=== PATIENT | male | born 1955 | race African-American/Black ===

== ENCOUNTER 2018-06-09 10:49 | Emergency (ER) | payer SELFPAY ==
[2018-06-09] MEDS ORDERED: CLONIDINE HCL 0.1 MG TABLET PO ONE (11:46)
--- NOTE | 2018-06-09 11:49 | ER Document Report ---
ED Medical Screen (RME) - General Chief Complaint: Skin Sore(s) Stated Complaint: LEG SORE Time Seen by Provider: 06/09/18 11:42 Primary Care Provider: NADIRA MORALES [Primary Care Provider] - Follow up as needed TRAVEL OUTSIDE OF THE [place] IN LAST 30 DAYS: No - HPI Notes: 06/09/18 11:47 Patient is a 63-year-old male with a history of hypertension who presents emergency department complaining of a wound to his right lower leg that is been present for 2 weeks. Patient states that it did turn into an abscess and drained purulent material recently. Patient states he does have some soreness associated, but has not noticed any further drainage. Denies history of diabetes. Patient states that he has not been taking his blood pressure medicine as he has been out and does not remember the name of it. Denies ROPER, fever, neck pain, URI, CP, SOB, Abd pain. I have treated and performed a rapid initial assessment of this patient. A comprehensive ED assessment and evaluation of the patient, analysis of test results and completion of medical decision making process will be conducted by additional ED providers. PHYSICAL EXAMINATION: GENERAL: Well-appearing, well-nourished and in no acute distress. A&Ox4. Answers questions appropriately. LUNGS: Breath sounds clear to auscultation bilaterally and equal. No wheezes rales or rhonchi. HEART: Regular rate and rhythm without murmurs, rubs, gallops. Extremities: No cyanosis, clubbing, or edema b/l. Skin: there is a fairly large scabbed wound noted to the right anterior lower leg w/o evidence of fluctuance, streaks, or active purulence noted. + mild tenderness. - Related Data Allergies/Adverse Reactions: No Known Allergies Allergy (Verified 06/09/18 10:51) Physical Exam - Vital signs Vitals: Temp Pulse Resp BP Pulse Ox 98.1 F 68 16 199/109 H 97 06/09/18 11:08 06/09/18 11:08 06/09/18 11:08 06/09/18 11:08 06/09/18 11:08 Course - Vital Signs Vital signs: Temp Pulse Resp BP Pulse Ox 98.1 F 68 16 199/109 H 97 06/09/18 11:08 06/09/18 11:08 06/09/18 11:08 06/09/18 11:08 06/09/18 11:08 Doctor's Discharge - Discharge Referrals: LOCAL,NO [Primary Care Provider] - Follow up as needed
[2018-06-09] MEDS ORDERED: CEPHALEXIN 500 MG CAPSULE PO ONE (12:25)
[2018-06-09 12:49] VITALS: BP 172/102
--- NOTE | 2018-06-09 17:13 | ER Document Report ---
Entered by CANDIDA VORA SCRIBE 06/09/18 1229 Acting as scribe for:GIAN WEAVER MD ED General - General Chief Complaint: Skin Sore(s) Stated Complaint: LEG SORE Time Seen by Provider: 06/09/18 11:42 Primary Care Provider: CARMEN,NO [Primary Care Provider] - Follow up in 3-5 days Mode of Arrival: Ambulatory Information source: Patient Notes: Patient is a 63 year old male presenting to the emergency department complaining of a wound on his right lower leg onset 2 weeks ago. Patient states the area is painful and reports purulent discharge from the area recently. He reports possibly bumping into something that could have caused the wound. TRAVEL OUTSIDE OF THE [place] IN LAST 30 DAYS: No - Related Data Allergies/Adverse Reactions: No Known Allergies Allergy (Verified 06/09/18 10:51) Past Medical History - General Information source: Patient - Social History Smoking Status: Current Every Day Smoker Cigarette use (# per day): Yes - less than 1PPD Chew tobacco use (# tins/day): No Smoking Education Provided: No Frequency of alcohol use: Heavy - beer daily Drug Abuse: None Lives with: Spouse/Significant other Family History: Reviewed & Not Pertinent Patient has suicidal ideation: No Patient has homicidal ideation: No - Past Medical History Cardiac Medical History: Reports: Hx Hypertension Past Surgical History: Reports: Hx Orthopedic Surgery - Right ACL repair, Hx Tonsillectomy, Other - Explartory abdominal surgery in 2017 Review of Systems - Review of Systems Constitutional: No symptoms reported EENT: No symptoms reported Cardiovascular: No symptoms reported Respiratory: No symptoms reported Gastrointestinal: No symptoms reported Genitourinary: No symptoms reported Male Genitourinary: No symptoms reported Musculoskeletal: See HPI Skin: See HPI Hematologic/Lymphatic: No symptoms reported Neurological/Psychological: No symptoms reported -: Yes All other systems reviewed and negative Physical Exam - Vital signs Vitals: Temp Pulse Resp BP Pulse Ox 98.1 F 68 16 199/109 H 97 06/09/18 11:08 06/09/18 11:08 06/09/18 11:08 06/09/18 11:08 06/09/18 11:08 - Notes Notes: GENERAL: Alert, interacts well. No acute distress. HEAD: Normocephalic, atraumatic. EYES: Pupils equal, round, and reactive to light. Extraocular movements intact. ENT: Oral mucosa moist, tongue midline NECK: Full range of motion. Supple. Trachea midline. LUNGS: Clear to auscultation bilaterally, no wheezes, rales, or rhonchi. No respiratory distress. HEART: Regular rate and rhythm. No murmurs, gallops, or rubs. ABDOMEN: Soft, non-tender. Non-distended. Bowel sounds present in all 4 quadrants. No guarding, rigidity, or rebound. EXTREMITIES: Moves all 4 extremities spontaneously. NEUROLOGICAL: Alert and oriented x3. Normal speech. PSYCH: Normal affect, normal mood. SKIN: Warm, dry. Right lower medial tibia contains a 0.5x5cm wound. Skin is dry and thickened with no drainage at this time. In the center of the wound, there is a 2mm gap exposing subcutaneous tissue. Patient's socks and shoes are wet. Course - Vital Signs Vital signs: Temp Pulse Resp BP Pulse Ox 98.1 F 71 16 172/102 H 98 06/09/18 11:08 06/09/18 12:48 06/09/18 12:48 06/09/18 12:48 06/09/18 12:48 Discharge - Discharge Clinical Impression: Wound of right lower extremity Qualifiers: Encounter type: initial encounter Qualified Code(s): S81.801A - Unspecified open wound, right lower leg, initial encounter Condition: Stable Disposition: HOME, SELF-CARE Additional Instructions: Take the antibiotics as prescribed. Keep the wound clean and dressed using Neosporin or bacitracin ointment on it. This should help keep the dried out hardened tissue soft and moist. Elevate your leg as much as possible. Be sure you take your blood pressure medicine, because your blood pressure was quite high today. Follow-up with a local medical doctor this week to recheck your wound and treat your blood pressure. RETURN TO THE EMERGENCY ROOM IF ANY NEW OR WORSENING SYMPTOMS. Prescriptions: Cephalexin Monohydrate [Keflex 500 mg Capsule] 500 mg PO QID #28 capsule Referrals: CARMENNO [Primary Care Provider] - Follow up in 3-5 days Scribe Attestation: 06/09/18 12:24 I personally performed the services described in the documentation, reviewed and edited the documentation which was dictated to the scribe in my presence, and it accurately records my words and actions. I personally performed the services described in the documentation, reviewed and edited the documentation which was dictated to the scribe in my presence, and it accurately records my words and actions.
== END 2018-06-09 12:54 | disposition home or self-care (01) ==
LOC: ER 10:49
DX: S81.801A Unspecified open wound, right lower leg, initial encounter (principal); X58.XXXA Exposure to other specified factors, initial encounter; I10 Essential (primary) hypertension; F17.210 Nicotine dependence, cigarettes, uncomplicated
CPT/HCPCS: 82962; 99283

== ENCOUNTER 2019-02-12 23:13 | Emergency (ER) | payer SELFPAY ==
[2019-02-13] MEDS ORDERED: THIAMINE HCL 100 MG TABLET PO ONE (03:03)
--- NOTE | 2019-02-13 03:12 | ER Document Report ---
ED General - General Chief Complaint: Low Blood Sugar Stated Complaint: DIZZY Time Seen by Provider: 02/13/19 02:55 TRAVEL OUTSIDE OF THE [place] IN LAST 30 DAYS: No - HPI Notes: Patient is a 64-year-old male who presents emergency department for evaluation of dizziness. He was at home, states that he called EMS because he felt dizzy and slightly weak. He was treated with dextrose via EMS, and he states all of the symptoms resolved. He states that all he had to eat today it was a bologna sandwich, which she described as a "double [place]." That was at about 1130 this morning. He also admits to drinking 40 ounces of beer. He states he otherwise did not eat anything, states he simply "forgot." He has no history of diabetes. He states he feels entirely back to normal, denies any other acute complaints or concerns. - Related Data Allergies/Adverse Reactions: No Known Allergies Allergy (Verified 06/09/18 10:51) Home Medications: None Past Medical History - General Information source: Patient - Social History Smoking Status: Current Every Day Smoker Frequency of alcohol use: Heavy - Will not elaborate on quantity of alcohol Drug Abuse: None Family History: Reviewed & Not Pertinent Patient has suicidal ideation: No Patient has homicidal ideation: No - Past Medical History Cardiac Medical History: Reports: Hx Hypertension - untreated Renal/ Medical History: Denies: Hx Peritoneal Dialysis Past Surgical History: Reports: Hx Orthopedic Surgery - Right ACL repair, Hx Tonsillectomy, Other - Explartory abdominal surgery in 2017 Review of Systems - Review of Systems Constitutional: See HPI EENT: No symptoms reported Cardiovascular: No symptoms reported Respiratory: No symptoms reported Gastrointestinal: No symptoms reported Genitourinary: No symptoms reported Musculoskeletal: No symptoms reported Skin: No symptoms reported Neurological/Psychological: No symptoms reported Physical Exam - Vital signs Vitals: Temp Resp BP Pulse Ox 97.9 F 22 H 131/79 H 94 02/12/19 23:29 02/12/19 23:29 02/12/19 23:29 02/12/19 23:29 - Notes Notes: This is a 64-year-old male who appears older than his stated age, no acute distress. He is resting comfortably in the room. Vital signs reviewed, please refer to chart. Head is normocephalic, atraumatic. Pupils equal round, reactive to light. Oral mucosa is moist. Dentition is in poor condition, but I do not appreciate any significant abscesses or active infection. Neck is supple without meningismus. Heart is regular rate and rhythm. Lungs are clear to auscultation bilaterally. Abdomen is soft, nontender, normoactive bowel sounds throughout. Extremities without cyanosis, clubbing. Posterior calves are nontender. Peripheral pulses are equal. Skin is warm and dry. Patient is awake, alert, oriented x3. Cranial nerves II - XII are grossly intact without focal neurological deficits. Strength is plus 5 out of 5 bilateral upper and lower extremities. Sensation is intact. Reflexes symmetrical. Intact [id number], rapid alternating movements, [id number]. Course - Re-evaluation Re-evalutation: 02/13/19 03:07 Patient presents emergency department for evaluation. He is a 64-year-old gentleman who complained of dizziness, was found to be hypoglycemic. My suspicion is that this patient may in fact have an alcohol abuse problem, which contributed to his hypoglycemia. At the time of my evaluation, the patient had already eaten most of the food on a cafeteria tray. He was resting comfortably. He had no acute complaints or concerns. Because of my concerns of alcoholism, I did go ahead and administer thiamine orally. The patient states he has no acute complaints and concerns, he is back to baseline. He is anxious for discharge. Pending 1 more normal blood glucose, we will discharge the patient with close follow-up. He is to return to the ED with worsening. 02/13/19 04:03 Patient's repeat blood glucose is within normal limits. He is stable. He is neurologically intact. His heart rate is normal at this time. We will discharge him to home. He is encouraged to quit drinking, we discussed appropriate nutrition. He voiced understanding was discharged. - Vital Signs Vital signs: Temp Pulse Resp BP Pulse Ox 97.9 F 21 H 140/76 H 98 02/12/19 23:30 02/13/19 00:01 02/13/19 00:01 02/13/19 00:01 - Laboratory Laboratory results interpreted by me: 02/12/19 23:22 POC Glucose 331 H Discharge - Discharge Clinical Impression: Hypoglycemia Condition: Stable Disposition: HOME, SELF-CARE Instructions: Dizziness ([facility]), Hypoglycemia ([facility]) Additional Instructions: It is important that you eat regularly. Follow-up with primary care this week. Return to the ED with worsening or new concerning symptoms of any sort. Forms: Elevated Blood Pressure
[2019-02-13 04:53] VITALS: BP 150/109
== END 2019-02-13 05:00 | disposition home or self-care (01) ==
LOC: ER 23:13
DX: E16.2 Hypoglycemia, unspecified (principal); R42 Dizziness and giddiness; R53.1 Weakness; F17.200 Nicotine dependence, unspecified, uncomplicated; I10 Essential (primary) hypertension
CPT/HCPCS: 82962; 99285

== ENCOUNTER 2019-02-19 17:58 | Inpatient (IN) | payer MEDICAID ==
[2019-02-19] MEDS ORDERED: ASPIRIN 81 MG TABLET, CHEWABLE PO ONE (20:14)
[2019-02-19] MEDS ORDERED: METOPROLOL TARTRATE 25 MG TABLET PO ONE (20:15)
[2019-02-19 20:51] LABS: ABSOLUTE EOSINOPHILS # (AUTO) 0.1 10^3/uL (0.0-0.6); ABSOLUTE LYMPHOCYTES (AUTO) 1.2 10^3/uL (0.5-4.7); ABSOLUTE MONOCYTES (AUTO) 0.6 10^3/uL (0.1-1.4); ABSOLUTE NEUT (AUTO) 2.5 10^3/uL (1.7-8.2); ALBUMIN 3.6 g/dL (3.5-5.0); ALCOHOL 78 mg/dL (NONE DETECTED); ALKALINE PHOSPHATASE 94 U/L (38-126); ANION GAP 14 (5-19); ASPARTATE AMINO TRANSFERASE 23 U/L (17-59); BASOPHILS % (AUTO) 0.8 % (0-2); BILIRUBIN,DIRECT 0.2 mg/dL (0.0-0.4); BILIRUBIN,TOTAL 0.3 mg/dL (0.2-1.3); BLOOD UREA NITROGEN 11 mg/dL (7-20); CALCIUM 9.3 mg/dL (8.4-10.2); CARBON DIOXIDE 24 mmol/L (22-30); CHLORIDE 101 mmol/L (98-107); EOSINOPHILS % (AUTO) 3.2 % (0-6); GLUCOSE 104 mg/dL (75-110); HEMATOCRIT 38.5 % (37.9-51.0); HEMOGLOBIN 12.9 g/dL (13.5-17.0); MEAN CORPUSCULAR HEMOGLOBIN 28.8 pg (27.0-33.4); MEAN CORPUSCULAR HGB CONC 33.5 g/dL (32.0-36.0); MEAN CORPUSCULAR VOLUME 86 fl (80-97); MONOCYTES % (AUTO) 13.4 % (3-13); PLATELET COUNT 318 10^3/uL (150-450); POTASSIUM 3.9 mmol/L (3.6-5.0); RED BLOOD COUNT 4.48 10^6/uL (4.35-5.55); RED CELL DISTRIBUTION WIDTH 13.9 % (11.5-14.0); SEGMENTED NEUTROPHILS % (AUTO) 55.6 % (42-78); TOTAL CELLS COUNTED % (AUTO) 100 %; TOTAL PROTEIN 6.9 g/dL (6.3-8.2); WHITE BLOOD COUNT 4.5 10^3/uL (4.0-10.5)
--- NOTE | 2019-02-19 21:09 | ER Document Report ---
ED General - General Chief Complaint: Chest Pain Stated Complaint: CHEST PAIN Time Seen by Provider: 02/19/19 19:55 Notes: 64 year old male with h/o htn takes medicine for this "when I can get it" complains of chest pain that started yesterday and has been constant. No fever or chills. Only htn as past history. No heart disease or dm. Tob user. Living with brother he tells me and pain is gone when I see him. Drinks daily. 2 shots of etoh today. Currently he is hungry and would like something to eat. TRAVEL OUTSIDE OF THE [place] IN LAST 30 DAYS: No - HPI Onset: Yesterday Onset/Duration: Sudden, Constant Quality of pain: No pain Severity: Severe Associated symptoms: None - Related Data Allergies/Adverse Reactions: No Known Allergies Allergy (Verified 06/09/18 10:51) Past Medical History - General Information source: Patient - Social History Smoking Status: Current Every Day Smoker Family History: Reviewed & Not Pertinent Patient has suicidal ideation: No Patient has homicidal ideation: No - Past Medical History Cardiac Medical History: Reports: Hx Hypertension - untreated Renal/ Medical History: Denies: Hx Peritoneal Dialysis Past Surgical History: Reports: Hx Orthopedic Surgery - Right ACL repair, Hx Tonsillectomy, Other - Explartory abdominal surgery in 2017 Review of Systems - Review of Systems Constitutional: No symptoms reported EENT: No symptoms reported Cardiovascular: No symptoms reported Respiratory: No symptoms reported Gastrointestinal: No symptoms reported Genitourinary: No symptoms reported Male Genitourinary: No symptoms reported Musculoskeletal: No symptoms reported Skin: No symptoms reported Hematologic/Lymphatic: No symptoms reported Neurological/Psychological: No symptoms reported Physical Exam - Vital signs Vitals: Temp Pulse Resp BP Pulse Ox 99.2 F 120 H 22 H 145/92 H 98 02/19/19 19:08 02/19/19 19:08 02/19/19 19:08 02/19/19 19:08 02/19/19 19:08 Interpretation: Normal - General General appearance: Appears well, Alert - HEENT Head: Normocephalic, Atraumatic Eyes: Normal Pupils: PERRL - Respiratory Respiratory status: No respiratory distress Chest status: Nontender Breath sounds: Normal Chest palpation: Normal - Cardiovascular Rhythm: Regular Heart sounds: Normal auscultation Murmur: No - Abdominal Inspection: Normal Distension: No distension Bowel sounds: Normal Tenderness: Nontender Organomegaly: No organomegaly - Back Back: Normal, Nontender - Extremities General upper extremity: Normal inspection, Nontender, Normal color, Normal ROM, Normal temperature General lower extremity: Normal inspection, Nontender, Normal color, Normal ROM, Normal temperature, Normal weight bearing. No: Greg's sign - Neurological Neuro grossly intact: Yes Cognition: Normal Orientation: AAOx4 Maisha Coma Scale Eye Opening: Spontaneous Maisha Coma Scale Verbal: Oriented [place] Coma Scale Motor: Obeys Commands [place] Coma Scale Total: 15 Speech: Normal Motor strength normal: LUE, RUE, LLE, RLE Sensory: Normal - Psychological Associated symptoms: Normal affect, Normal mood - Skin Skin Temperature: Warm Skin Moisture: Dry Skin Color: Normal Course - Re-evaluation Re-evalutation: 02/20/19 01:35 MDM 64 year old with htn perhaps etohic is here with chest pain for a day. A fib originally and cxr and ct are supportive of airspace disease. Will cover with antibiotics that would cover aspiration. I have discussed with him admission and he is willing to stay here. The hospitalist has been called and we are awaiting a call back. - Vital Signs Vital signs: Temp Pulse Resp BP Pulse Ox 98.3 F 120 H 33 H 146/94 H 94 02/20/19 02:01 02/19/19 19:08 02/20/19 02:01 02/20/19 02:00 02/20/19 02:01 - Laboratory Result Diagrams: 02/19/19 19:45 02/19/19 19:45 Laboratory results interpreted by me: 02/19/19 02/19/19 19:45 23:40 Hgb 12.9 L [place] % (Auto) 13.4 H Urine Blood SMALL H Ur Leukocyte Esterase SMALL H - Diagnostic Test Radiology reviewed: Image reviewed, Reports reviewed - EKG Interpretation by Me Rate: Tachycardia - Original EKG is A fib with RVR [address] elevation or depression recheck is NSR [address] elevation or depression my interpretation. Discharge - Discharge Clinical Impression: Atrial fibrillation by electrocardiogram Pneumonia Qualifiers: Pneumonia type: due to unspecified organism Laterality: bilateral Lung locati on: upper lobe of lung Qualified Code(s): J18.9 - Pneumonia, unspecified organism Condition: Fair Disposition: ADMITTED INPATIENT Admitting Provider: Edward (Hospitalist) Unit Admitted: Telemetry
--- NOTE | 2019-02-19 21:51 | RADIOLOGY REPORT (SQ) ---
EXAM DESCRIPTION: X-RAY CHEST- TWO VIEWS CLINICAL HISTORY: Chest pain COMPARISON: None available TECHNIQUE: 2 views of the chest FINDINGS: There are overlying EKG leads. There are multifocal patchy opacities, with the most prominent opacity overlying the right apex. No discrete pneumothorax or pleural effusion is identified. The pulmonary vascularity is mildly prominent in appearance. The cardiomediastinal silhouette is borderline enlarged. No suspicious lytic or blastic osseous lesions are identified. IMPRESSION: 1. Suggestion of multifocal patchy opacities most prominently affecting the right upper lobe. Differential diagnosis includes multifocal infectious or inflammatory process. Clinical correlation is advised with consideration for CT chest if clinically indicated. 2. Borderline enlargement of the cardiac silhouette with prominence of the pulmonary vasculature.
--- NOTE | 2019-02-19 22:29 | EKG REPORT ---
SEVERITY:- ABNORMAL ECG - SINUS RHYTHM NONSPECIFIC T ABNORMALITIES, ANT-LAT LEADS BORDERLINE PROLONGED QT INTERVAL : Confirmed by: Ara Perrin 19-Feb-2019 22:29:24
--- NOTE | 2019-02-19 22:30 | EKG REPORT ---
SEVERITY:- ABNORMAL ECG - ATRIAL FIBRILLATION, V-RATE 78-170 MULTIFORM VENTRICULAR PREMATURE COMPLEXES BORDERLINE LEFT AXIS DEVIATION CONSIDER POSTERIOR INFARCT BORDERLINE PROLONGED QT INTERVAL : Confirmed by: Ara Perrin 19-Feb-2019 22:29:59
[2019-02-20 00:09] LABS: APPEARANCE,URINE SLIGHTLY-CLOUDY; BILIRUBIN,URINE NEGATIVE (NEGATIVE); COLOR,URINE YELLOW; GLUCOSE, URINE NEGATIVE (NEGATIVE); KETONES,URINE NEGATIVE (NEGATIVE); LEUKOCYTE ESTERASE,URINE SMALL (NEGATIVE); NITRITE,URINE NEGATIVE (NEGATIVE); PROTEIN,URINE NEGATIVE (NEGATIVE); URINE SPECIFIC GRAVITY 1.013; UROBILINOGEN,URINE NEGATIVE mg/dL (<2.0)
--- NOTE | 2019-02-20 01:05 | RADIOLOGY REPORT (SQ) ---
EXAM DESCRIPTION: CT chest with contrast CLINICAL HISTORY: 64 years Male, pulmonary infiltrates on chest x-ray. COMPARISON: None. TECHNIQUE Axial images of the chest were performed utilizing intravenous contrast, with sagittal and coronal reformatted images. This exam was performed according to our departmental dose-optimization program which includes use of Automated Exposure Control, adjustment of the mA and/or kV according to patient size and/or use of iterative reconstruction technique. FINDINGS: There is patchy bilateral pulmonary infiltrate, most apparent in the right upper lobe, compatible with pneumonia. There is emphysema. There are small bilateral pleural effusions. There is mediastinal and bilateral hilar adenopathy. There is coronary artery calcification. No evidence of pulmonary embolus. No evidence of aortic dissection. IMPRESSION: Bilateral pneumonia. Emphysema. Small bilateral pleural effusions. Mediastinal and bilateral hilar adenopathy. Coronary artery calcification.
[2019-02-20] MEDS ORDERED: PIPERACILLIN/TAZOBACTAM 3.375 GM VIAL IV ONE (01:28)
[2019-02-20] MEDS ORDERED: THIAMINE HCL 100 MG TABLET PO ONE (01:54)
[2019-02-20] MEDS ORDERED: LORAZEPAM INJ 2 MG/1 ML VIAL IV PRN (01:54)
[2019-02-20] MEDS ORDERED: ACETAMINOPHEN 325 MG TABLET PO PRN (01:56)
[2019-02-20] MEDS ORDERED: IPRATROPIUM/ALBUTEROL 0.5-2.5 MG/3 ML AMPUL NEB PRN (01:56)
[2019-02-20] MEDS ORDERED: DILTIAZEM HCL 60 MG TABLET PO ONE (02:10)
[2019-02-20] MEDS: IPRATROPIUM BROMIDE 0.02% NEB 0.5 MG/2.5 ML AMPUL NEB SCH ×4 (02:12→21:12)
[2019-02-20] MEDS: NICOTINE 14 MG/24 HR PATCH.TD24 TD SCH ×2 (02:12→09:01)
[2019-02-20] MEDS: DIAZEPAM 5 MG TABLET PO SCH ×3 (02:12→21:58)
[2019-02-20] MEDS: LEVALBUTEROL HCL NEB 1.25 MG/3 ML AMPUL NEB SCH ×4 (02:13→21:10)
[2019-02-20] MEDS: LEVOFLOXACIN 750 MG/D5W RTU 750 MG/150 ML RTUPB IV SCH (05:08)
[2019-02-20] MEDS: HEPARIN SOD (PORCINE) 5,000 UNIT/ML 1 ML VIAL SUBCUT SCH ×3 (05:08→22:01)
[2019-02-20] MEDS: DILTIAZEM HCL 60 MG TABLET PO SCH ×3 (05:09→21:58)
[2019-02-20] MEDS ORDERED: INFLUENZA QUAD (6MOS+) 2019-20 VAC 0.5 ML SYR IM ONE (05:30)
--- NOTE | 2019-02-20 05:51 | PDOC H&P ---
History of Present Illness Admission Date/PCP: 02/20/19 02:12 Patient complains of: Shortness of breath and chest pain History of Present Illness: SHAHNAZ CASANOVA is a 64 year old male with a past medical history of COPD,, hypertension, tobacco and alcohol dependence who is long-term homeless. He presents with chest pains. In the emergency room he is found to have paroxysmal atrial fibrillation and a right lung infiltrate. He started on empiric antibiotics and referred to the hospitalist for admission. Patient admits to some sharp intermittent self resolving pain without radiation associated with shortness of breath. Denies fever or current chest pain. Patient is a poor historian he denies current medication use admits to heavy alcohol. Past Medical History Cardiac Medical History: Reports: Hypertension - untreated Pulmonary Medical History: Reports: Bronchitis, Chronic Obstructive Pulmonary Disease (COPD) Psychiatric Medical History: Reports: Alcohol Dependency, Tobacco Dependency Denies: Depression Past Surgical History Past Surgical History: Reports: Orthopedic Surgery - Right ACL repair, Tonsillectomy, Other - Explartory abdominal surgery in 2017 Social History Information Source: Patient Smoking Status: Current Every Day Smoker Electronic Cigarette use?: No Number of Years Smokin Last Time Smoked: 02/19/2019 Frequency of Alcohol Use: Heavy Hx Recreational Drug Use: No Drugs: None Hx Prescription Drug Abuse: No - Advance Directive Resuscitation Status: Full Code Family History Family History: COPD, Hypertension Parental Family History Reviewed: Yes Children Family History Reviewed: Yes Sibling(s) Family History Reviewed.: Yes Medication/Allergy Home Medications: RX: No Home Medications 02/20/19 Allergies/Adverse Reactions: No Known Allergies Allergy (Verified 06/09/18 10:51) Review of Systems Constitutional: ABSENT: chills, fever(s), headache(s), weight gain, weight loss Eyes: ABSENT: visual disturbances Ears: ABSENT: hearing changes Cardiovascular: ABSENT: chest pain, dyspnea on exertion, edema, orthropnea, palpitations Respiratory: ABSENT: cough, hemoptysis Gastrointestinal: ABSENT: abdominal pain, constipation, diarrhea, hematemesis, hematochezia, nausea, vomiting Genitourinary: ABSENT: dysuria, hematuria Musculoskeletal: ABSENT: joint swelling Integumentary: ABSENT: rash, wounds Neurological: ABSENT: abnormal gait, abnormal speech, confusion, dizziness, focal weakness, syncope Psychiatric: ABSENT: anxiety, depression, homidical ideation, suicidal ideation Endocrine: ABSENT: cold intolerance, heat intolerance, polydipsia, polyuria Hematologic/Lymphatic: ABSENT: easy bleeding, easy bruising Physical Exam Vital Signs: Temp Pulse Resp BP Pulse Ox 98.3 F 120 H 24 H 113/80 97 02/20/19 02:01 02/19/19 19:08 02/20/19 05:01 02/20/19 05:00 02/20/19 05:01 Intake & Output 02/18/19 02/19/19 02/20/19 11:59 11:59 11:59 Weight 70 kg General appearance: PRESENT: cooperative, disheveled, mild distress, thin Head exam: PRESENT: atraumatic, normocephalic Eye exam: PRESENT: conjunctiva pink, EOMI, PERRLA. ABSENT: scleral icterus Ear exam: PRESENT: normal external ear exam Mouth exam: PRESENT: moist, tongue midline Neck exam: ABSENT: carotid bruit, JVD, lymphadenopathy, thyromegaly Respiratory exam: PRESENT: decreased breath sounds, prolonged expiratory phas, retraction, symmetrical, tachypnea. ABSENT: chest wall tenderness Cardiovascular exam: PRESENT: +S1, +S2, tachycardia Pulses: PRESENT: normal dorsalis pedis pul Vascular exam: PRESENT: normal capillary refill GI/Abdominal exam: PRESENT: normal bowel sounds, soft. ABSENT: distended, guarding, mass, organolmegaly, rebound, tenderness Rectal exam: PRESENT: deferred Extremities exam: PRESENT: full ROM. ABSENT: calf tenderness, clubbing, pedal edema Neurological exam: PRESENT: alert, awake, oriented to person, oriented to place, oriented to time, oriented to situation, CN II-XII grossly intact. ABSENT: motor sensory deficit Psychiatric exam: PRESENT: appropriate affect, normal mood. ABSENT: homicidal ideation, suicidal ideation Skin exam: PRESENT: dry, intact, warm. ABSENT: cyanosis, rash Results Laboratory Results: 02/19/19 19:45 02/19/19 19:45 02/19/19 02/19/19 02/19/19 19:45 19:45 22:43 WBC 4.5 RBC 4.48 Hgb 12.9 L Hct 38.5 MCV 86 MCH 28.8 MCHC 33.5 RDW 13.9 Plt Count 318 Seg Neutrophils % 55.6 Sodium 138.6 Potassium 3.9 Chloride 101 Carbon Dioxide 24 Anion Gap 14 BUN 11 Creatinine 0.76 Est GFR ( Amer) > 60 Glucose 104 Lactic Acid Calcium 9.3 Phosphorus 4.0 Magnesium 2.1 2.1 Total Bilirubin 0.3 AST 23 Alkaline Phosphatase 94 Total Protein 6.9 Albumin 3.6 Lipase 33.4 Urine Color Urine Appearance Urine pH Ur Specific [place] Urine Protein Urine Glucose (UA) Urine Ketones Urine Blood Urine Nitrite Ur Leukocyte Esterase 02/19/19 02/19/19 02/19/19 22:43 23:40 23:40 WBC RBC Hgb Hct MCV MCH MCHC RDW Plt Count Seg Neutrophils % Sodium Potassium Chloride Carbon Dioxide Anion Gap BUN Creatinine Est GFR ( Amer) Glucose Lactic Acid 1.3 Calcium Phosphorus Cancelled Magnesium Total Bilirubin AST Alkaline Phosphatase Total Protein Albumin Lipase Urine Color YELLOW Urine Appearance SLIGHTLY-CLOUDY Urine pH 6.0 Ur Specific [place] 1.013 Urine Protein NEGATIVE Urine Glucose (UA) NEGATIVE Urine Ketones NEGATIVE Urine Blood SMALL H Urine Nitrite NEGATIVE Ur Leukocyte Esterase SMALL H 02/19/19 02/19/19 19:45 22:43 Troponin I 0.050 0.040 Impressions: Chest X-Ray 02/19/19 20:15 IMPRESSION: 1. Suggestion of multifocal patchy opacities most prominently affecting the right upper lobe. Differential diagnosis includes multifocal infectious or inflammatory process. Clinical correlation is advised with consideration for CT chest if clinically indicated. 2. Borderline enlargement of the cardiac silhouette with prominence of the pulmonary vasculature. Chest CT 02/19/19 22:43 IMPRESSION: Bilateral pneumonia. Emphysema. Small bilateral pleural effusions. Mediastinal and bilateral hilar adenopathy. Coronary artery calcification. Assessment and Plan - Diagnosis (1) Atrial fibrillation by electrocardiogram Is this a current diagnosis for this admission?: Yes Plan: Spontaneous resolution to sinus rhythm with improved respiratory status. Not a candidate for anticoagulation given alcoholism and homeless state. Follow-up telemetry (2) Pneumonia Qualifiers: Pneumonia type: due to unspecified organism Laterality: bilateral Lung location: upper lobe of lung Qualified Code(s): J18.9 - Pneumonia, unspecified organism Is this a current diagnosis for this admission?: Yes Plan: Possible aspiration pneumonitis, pneumonia care set, aggressive pulmonary toilet, empiric antibiotics, follow-up CBC and blood culture (3) Alcohol dependence Is this a current diagnosis for this admission?: Yes Plan: Thiamine, folate, Valium with Ativan PRN (4) Homeless Is this a current diagnosis for this admission?: Yes Plan: Discharge planning consulted (5) Tobacco abuse Is this a current diagnosis for this admission?: Yes Plan: Cessation counseling, patient agrees to nicotine replacement - Time Time Spent with patient: 25-34 minutes - Inpatient Certification Medical Necessity: Need Close Monitoring Due to Risk of Patient Decompensation
[2019-02-20] MEDS: FLUTICASONE NASAL SPRAY 50 MCG/SPRY 120 SPRAY/16 GM NASL SCH ×2 (09:32→21:58)
[2019-02-21] MEDS: LEVALBUTEROL HCL NEB 1.25 MG/3 ML AMPUL NEB SCH ×4 (02:47→20:48)
[2019-02-21] MEDS: IPRATROPIUM BROMIDE 0.02% NEB 0.5 MG/2.5 ML AMPUL NEB SCH ×4 (02:47→20:48)
[2019-02-21 05:02] LABS: ABSOLUTE EOSINOPHILS # (AUTO) 0.2 10^3/uL (0.0-0.6); ABSOLUTE LYMPHOCYTES (AUTO) 1.1 10^3/uL (0.5-4.7); ABSOLUTE MONOCYTES (AUTO) 0.6 10^3/uL (0.1-1.4); ABSOLUTE NEUT (AUTO) 1.9 10^3/uL (1.7-8.2); BASOPHILS % (AUTO) 0.9 % (0-2); EOSINOPHILS % (AUTO) 5.8 % (0-6); HEMATOCRIT 39.2 % (37.9-51.0); HEMOGLOBIN 13.3 g/dL (13.5-17.0); LYMPHOCYTES % (AUTO) 29.2 % (13-45); MEAN CORPUSCULAR HGB CONC 33.8 g/dL (32.0-36.0); MEAN CORPUSCULAR VOLUME 86 fl (80-97); MONOCYTES % (AUTO) 15.2 % (3-13); PLATELET COUNT 333 10^3/uL (150-450); RED BLOOD COUNT 4.58 10^6/uL (4.35-5.55); RED CELL DISTRIBUTION WIDTH 13.9 % (11.5-14.0); SEGMENTED NEUTROPHILS % (AUTO) 48.9 % (42-78); TOTAL CELLS COUNTED % (AUTO) 100 %; WHITE BLOOD COUNT 3.9 10^3/uL (4.0-10.5)
[2019-02-21 05:21] LABS: ANION GAP 7 (5-19); BLOOD UREA NITROGEN 10 mg/dL (7-20); CALCIUM 9.1 mg/dL (8.4-10.2); CARBON DIOXIDE 26 mmol/L (22-30); CHLORIDE 104 mmol/L (98-107); GLUCOSE 132 mg/dL (75-110); POTASSIUM 4.5 mmol/L (3.6-5.0)
[2019-02-21] MEDS: HEPARIN SOD (PORCINE) 5,000 UNIT/ML 1 ML VIAL SUBCUT SCH ×3 (06:55→21:42)
[2019-02-21] MEDS: DILTIAZEM HCL 60 MG TABLET PO SCH ×3 (06:55→21:38)
[2019-02-21] MEDS: LEVOFLOXACIN 750 MG/D5W RTU 750 MG/150 ML RTUPB IV SCH (06:56)
[2019-02-21] MEDS: DIAZEPAM 5 MG TABLET PO SCH ×2 (09:40→21:38)
[2019-02-21] MEDS: NICOTINE 14 MG/24 HR PATCH.TD24 TD SCH (09:41)
[2019-02-21] MEDS: FLUTICASONE NASAL SPRAY 50 MCG/SPRY 120 SPRAY/16 GM NASL SCH ×2 (09:50→21:37)
[2019-02-21] MEDS ORDERED: INFLUENZA QUAD (6MOS+) 2019-20 VAC 0.5 ML SYR IM ONE (11:15)
[2019-02-21 12:42] LABS: FREE T3 3.53 pg/mL (2.77-5.27); FREE T4 (FREE THYROXINE) 1.09 ng/dL (0.78-2.19)
[2019-02-21 12:56] LABS: THYROID STIMULATING HORMONE 2.94 uIU/mL (0.47-4.68)
--- NOTE | 2019-02-21 17:07 | PDOC PROGRESS REPORT ---
Subjective Progress Note for:: 02/21/19 Subjective:: This is a 64 year old male with a past medical history of COPD, hypertension, tobacco, homelessness and alcohol dependence who was admitted for bilateral pneumonia. He also had a very short run of A. fib which spontaneously converted to normal sinus rhythm. Started on IV antibiotics and breathing treatments. On encounter this morning, patient says that her shortness of breath continued to improve. He denies chest pain today. He is in sinus rhythm. Called by RN later this afternoon. Patient became very agitated after his personal belongings got lost. He also became very tachycardic in the 140s and was given IV Ativan. Reason For Visit: COPD EXACERBATION,TACHYCARDIA,ETOH DEP PNUEMONIA Physical Exam Vital Signs: Temp Pulse Resp BP Pulse Ox 97.1 F 138 H 19 138/86 H 100 02/21/19 16:00 02/21/19 16:00 02/21/19 16:00 02/21/19 16:00 02/21/19 16:00 Intake & Output 02/20/19 02/21/19 02/22/19 06:59 06:59 06:59 Intake Total 150 2080 746 Output Total 1460 725 Balance 150 620 21 Weight 154 lb 5.177 oz 150 lb 2.157 oz General appearance: PRESENT: no acute distress, well-developed, well-nourished Head exam: PRESENT: atraumatic, normocephalic Eye exam: PRESENT: conjunctiva pink, EOMI, PERRLA. ABSENT: scleral icterus Ear exam: PRESENT: normal external ear exam Mouth exam: PRESENT: moist, tongue midline Neck exam: ABSENT: carotid bruit, JVD, lymphadenopathy, thyromegaly Respiratory exam: PRESENT: rhonchi. ABSENT: rales, wheezes Cardiovascular exam: PRESENT: RRR. ABSENT: diastolic murmur, rubs, systolic murmur Pulses: PRESENT: normal dorsalis pedis pul GI/Abdominal exam: PRESENT: normal bowel sounds, soft. ABSENT: distended, guarding, mass, organolmegaly, rebound, tenderness Rectal exam: PRESENT: deferred Extremities exam: PRESENT: full ROM. ABSENT: calf tenderness, clubbing, pedal edema Neurological exam: PRESENT: alert, awake, oriented to person, oriented to place, oriented to time, oriented to situation, CN II-XII grossly intact. ABSENT: motor sensory deficit Results Laboratory Results: 02/21/19 04:03 02/21/19 04:03 02/21/19 02/21/19 02/21/19 04:03 04:03 04:03 WBC 3.9 L RBC 4.58 Hgb 13.3 L Hct 39.2 MCV 86 MCH 29.0 MCHC 33.8 RDW 13.9 Plt Count 333 Seg Neutrophils % 48.9 Sodium 137.2 Potassium 4.5 Chloride 104 Carbon Dioxide 26 Anion Gap 7 BUN 10 Creatinine 0.92 Est GFR ( Amer) > 60 Glucose 132 H Calcium 9.1 TSH 2.94 Free T4 1.09 Free T3 pg/mL 3.53 02/20/19 00:28 Blood Blood Culture (PCR) - Final Staphylococcus Species 02/19/19 02/19/19 02/20/19 19:45 22:43 07:45 Troponin I 0.050 0.040 0.043 Impressions: Chest X-Ray 02/19/19 20:15 IMPRESSION: 1. Suggestion of multifocal patchy opacities most prominently affecting the right upper lobe. Differential diagnosis includes multifocal infectious or inflammatory process. Clinical correlation is advised with consideration for CT chest if clinically indicated. 2. Borderline enlargement of the cardiac silhouette with prominence of the pulmonary vasculature. Chest CT 02/19/19 22:43 IMPRESSION: Bilateral pneumonia. Emphysema. Small bilateral pleural effusions. Mediastinal and bilateral hilar adenopathy. Coronary artery calcification. Assessment and Plan - Diagnosis (1) Pneumonia Qualifiers: Pneumonia type: due to unspecified organism Laterality: bilateral Lung location: upper lobe of lung Qualified Code(s): J18.9 - Pneumonia, unspecified organism Is this a current diagnosis for this admission?: Yes Plan: CT chest shows bilateral pneumonia more prominent on the right upper lobe. Suspect there is aspiration component given his alcohol abuse. Continue levofloxacin. Blood culture growing Staph 1/2. (2) Alcohol dependence Is this a current diagnosis for this admission?: Yes Plan: Counseled in length about alcohol cessation. (3) Tobacco abuse Is this a current diagnosis for this admission?: Yes Plan: Counseled about smoking cessation. (4) Paroxysmal atrial fibrillation Is this a current diagnosis for this admission?: Yes Plan: Patient had a short run of A. fib which spontaneously converted to normal sinus rhythm in the ER. He has a CHADVASC score of 2. Attempted to discuss long-term anticoagulation given his alcohol abuse and homelessness but patient is upset at the moment and does not want to carry on this conversation. - Time Time Spent with patient: 25-34 minutes
[2019-02-22] MEDS: IPRATROPIUM BROMIDE 0.02% NEB 0.5 MG/2.5 ML AMPUL NEB SCH ×2 (02:17→07:48)
[2019-02-22] MEDS: LEVALBUTEROL HCL NEB 1.25 MG/3 ML AMPUL NEB SCH ×2 (02:17→07:48)
[2019-02-22] MEDS: DILTIAZEM HCL 60 MG TABLET PO SCH (05:47)
[2019-02-22] MEDS: HEPARIN SOD (PORCINE) 5,000 UNIT/ML 1 ML VIAL SUBCUT SCH (05:48)
[2019-02-22] MEDS: LEVOFLOXACIN 750 MG/D5W RTU 750 MG/150 ML RTUPB IV SCH (05:48)
[2019-02-22] MEDS: NICOTINE 14 MG/24 HR PATCH.TD24 TD SCH (09:41)
[2019-02-22] MEDS: FLUTICASONE NASAL SPRAY 50 MCG/SPRY 120 SPRAY/16 GM NASL SCH (09:42)
[2019-02-22] MEDS: DIAZEPAM 5 MG TABLET PO SCH (09:44)
[2019-02-22] MEDS ORDERED: ASPIRIN 81 MG TABLET, CHEWABLE PO SCH (10:00)
[2019-02-22 12:51] VITALS: BP 113/69
--- NOTE | 2019-02-22 17:05 | EKG REPORT ---
SEVERITY:- BORDERLINE ECG - SINUS RHYTHM BORDERLINE PROLONGED QT INTERVAL : Confirmed by: Ara Perrin 22-Feb-2019 17:04:47
--- NOTE | 2019-02-23 13:56 | PDOC DISCHARGE SUMMARY ---
Impression - Admit/DC Date/PCP Admission Date/Primary Care Provider: 02/20/19 02:12 Discharge Date: 02/22/19 - Discharge Diagnosis (1) Pneumonia Is this a current diagnosis for this admission?: Yes (2) Alcohol dependence Is this a current diagnosis for this admission?: Yes (3) Tobacco abuse Is this a current diagnosis for this admission?: Yes (4) Paroxysmal atrial fibrillation Is this a current diagnosis for this admission?: Yes - Additional Information Resuscitation Status: Full Code Discharge Diet: Regular Referrals: [facility] [Provider Group] - 03/13/19 (PLEASE STOP BY OFFICE AND AOC DIRECTOR COMBAT OPERATIONS OFFICER YOUR NEW PATIENT PAPERWORK AND A TIME FOR YOUR APPOINTMENT WILL BE GIVEN TO YOU AT THAT TIME) Prescriptions: Aspirin [Aspirin 81 mg Chewable Tablet] 81 mg PO DAILY #30 tab.chew Diltiazem HCl [Cardizem Cd 120 mg Capsule] 1 cap.sr PO DAILY #30 cap.sr Levofloxacin [Levaquin 500 mg Tablet] 500 mg PO DAILY 5 Days #5 tablet Nicotine [Nicoderm 14 mg/24 Hr Transdermal Patch] 1 each TD DAILY #30 patch.td24 Home Medications: Aspirin [Aspirin 81 mg Chewable Tablet] 81 mg PO DAILY #30 tab.chew 02/22/19 Diltiazem HCl [Cardizem Cd 120 mg Capsule] 1 cap.sr PO DAILY #30 cap.sr 02/22/19 Levofloxacin [Levaquin 500 mg Tablet] 500 mg PO DAILY 5 Days #5 tablet 02/22/19 Nicotine [Nicoderm 14 mg/24 Hr Transdermal Patch] 1 each TD DAILY #30 patch.td24 02/22/19 History of Present Illiness History of Present Illness: SHAHNAZ CASANOVA is a 64 year old male with a past medical history of COPD,, hy pertension, tobacco and alcohol dependence who is long-term homeless. He presents with chest pains. In the emergency room he is found to have paroxysmal atrial fibrillation and a right lung infiltrate. He started on empiric antibiotics and referred to the hospitalist for admission. Patient admits to some sharp intermittent self resolving pain without radiation associated with shortness of breath. Denies fever or current chest pain. Patient is a poor historian he denies current medication use but admits to heavy alcohol drinking. Hospital Course Hospital Course: This is a 64 year old male with a past medical history of COPD, hypertension, tobacco, homelessness and alcohol dependence who was admitted for bilateral pneumonia. He also had a very short run of A. fib which spontaneously converted to normal sinus rhythm. He was started on IV antibiotics and breathing treatments. Patient promptly returned to his baseline. His pneumonia is likely aspiration in nature due to his heavy alcohol drinking. He remains in normal sinus rhythm. We also discussed risk and benefits long-term anticoagulation for his paroxysmal A. fib. He is not amenable to the risk of bleeding and prefers not to be on long-term anticoagulation. Offered him on just aspirin instead and he is amenable to this. He will be discharged on p.o. levofloxacin. Counseled in length about tobacco and alcohol cessation. Physical Exam Vital Signs: Temp Pulse Resp BP Pulse Ox 98.3 F 78 17 113/69 100 02/22/19 12:00 02/22/19 12:00 02/22/19 12:00 02/22/19 12:00 02/22/19 12:00 Intake & Output 02/21/19 02/22/19 02/23/19 06:59 06:59 06:59 Intake Total 2080 2408 390 Output Total 1460 1075 Balance 620 1333 390 Weight 150 lb 2.157 oz 150 lb 5.684 oz General appearance: PRESENT: no acute distress, well-developed, well-nourished Head exam: PRESENT: atraumatic, normocephalic Eye exam: PRESENT: conjunctiva pink, EOMI, PERRLA. ABSENT: scleral icterus Ear exam: PRESENT: normal external ear exam Mouth exam: PRESENT: moist, tongue midline Neck exam: ABSENT: carotid bruit, JVD, lymphadenopathy, thyromegaly Respiratory exam: PRESENT: clear to auscultation jefferson. ABSENT: rales, rhonchi, wheezes Cardiovascular exam: PRESENT: RRR. ABSENT: diastolic murmur, rubs, systolic murmur Pulses: PRESENT: normal dorsalis pedis pul Vascular exam: PRESENT: normal capillary refill GI/Abdominal exam: PRESENT: normal bowel sounds, soft. ABSENT: distended, guarding, mass, organolmegaly, rebound, tenderness Rectal exam: PRESENT: deferred Extremities exam: PRESENT: full ROM. ABSENT: calf tenderness, clubbing, pedal edema Neurological exam: PRESENT: alert, awake, oriented to person, oriented to place, oriented to time, oriented to situation, CN II-XII grossly intact. ABSENT: motor sensory deficit Results Laboratory Results: WBC 3.9 10^3/uL (4.0-10.5) L 02/21/19 04:03 RBC 4.58 10^6/uL (4.35-5.55) 02/21/19 04:03 Hgb 13.3 g/dL (13.5-17.0) L 02/21/19 04:03 Hct 39.2 % (37.9-51.0) 02/21/19 04:03 MCV 86 fl (80-97) 02/21/19 04:03 MCH 29.0 pg (27.0-33.4) 02/21/19 04:03 MCHC 33.8 g/dL (32.0-36.0) 02/21/19 04:03 RDW 13.9 % (11.5-14.0) 02/21/19 04:03 Plt Count 333 10^3/uL (150-450) 02/21/19 04:03 Lymph % (Auto) 29.2 % (13-45) 02/21/19 04:03 [place] % (Auto) 15.2 % (3-13) H 02/21/19 04:03 Eos % (Auto) 5.8 % (0-6) 02/21/19 04:03 Baso % (Auto) 0.9 % (0-2) 02/21/19 04:03 Absolute Neuts (auto) 1.9 10^3/uL (1.7-8.2) 02/21/19 04:03 Absolute Lymphs (auto) 1.1 10^3/uL (0.5-4.7) 02/21/19 04:03 Absolute Monos (auto) 0.6 10^3/uL (0.1-1.4) 02/21/19 04:03 Absolute Eos (auto) 0.2 10^3/uL (0.0-0.6) 02/21/19 04:03 Absolute Basos (auto) 0.0 10^3/uL (0.0-0.2) 02/21/19 04:03 Seg Neutrophils % 48.9 % (42-78) 02/21/19 04:03 Sodium 137.2 mmol/L (137-145) 02/21/19 04:03 Potassium 4.5 mmol/L (3.6-5.0) 02/21/19 04:03 Chloride 104 mmol/L (98-107) 02/21/19 04:03 Carbon Dioxide 26 mmol/L (22-30) 02/21/19 04:03 Anion Gap 7 (5-19) 02/21/19 04:03 BUN 10 mg/dL (7-20) 02/21/19 04:03 Creatinine 0.92 mg/dL (0.52-1.25) 02/21/19 04:03 Est GFR ( Amer) > 60 (>60) 02/21/19 04:03 Est GFR (MDRD) Non-Af > 60 (>60) 02/21/19 04:03 Glucose 132 mg/dL (75-110) H 02/21/19 04:03 Hemoglobin A1c % 5.8 % (4.7-6.0) 02/21/19 04:03 Lactic Acid 1.3 mmol/L (0.7-2.1) 02/19/19 23:40 Calcium 9.1 mg/dL (8.4-10.2) 02/21/19 04:03 Phosphorus 4.0 mg/dL (2.5-4.5) 02/19/19 22:43 Phosphorus Cancelled 02/19/19 22:43 Magnesium 2.1 mg/dL (1.6-2.3) 02/19/19 22:43 Total Bilirubin 0.3 mg/dL (0.2-1.3) 02/19/19 19:45 Direct Bilirubin 0.2 mg/dL (0.0-0.4) 02/19/19 19:45 Neonat Total Bilirubin Not Reportable 02/19/19 19:45 Neonat Direct Bilirubin Not Reportable 02/19/19 19:45 Neonat Indirect Bili Not Reportable 02/19/19 19:45 AST 23 U/L (17-59) 02/19/19 19:45 ALT 12 U/L (<50) 02/19/19 19:45 Alkaline Phosphatase 94 U/L (38-126) 02/19/19 19:45 Troponin I 0.043 ng/mL 02/20/19 07:45 Total Protein 6.9 g/dL (6.3-8.2) 02/19/19 19:45 Albumin 3.6 g/dL (3.5-5.0) 02/19/19 19:45 Lipase 33.4 U/L (23-300) 02/19/19 19:45 TSH 2.94 uIU/mL (0.47-4.68) 02/21/19 04:03 Free T4 1.09 ng/dL (0.78-2.19) 02/21/19 04:03 Free T3 pg/mL 3.53 pg/mL (2.77-5.27) 02/21/19 04:03 Urine Color YELLOW 02/19/19 23:40 Urine Appearance SLIGHTLY-CLOUDY 02/19/19 23:40 Urine pH 6.0 (5.0-9.0) 02/19/19 23:40 Ur Specific [place] 1.013 02/19/19 23:40 Urine Protein NEGATIVE mg/dL (NEGATIVE) 02/19/19 23:40 Urine Glucose (UA) NEGATIVE mg/dL (NEGATIVE) 02/19/19 23:40 Urine Ketones NEGATIVE mg/dL (NEGATIVE) 02/19/19 23:40 Urine Blood SMALL (NEGATIVE) H 02/19/19 23:40 Urine Nitrite NEGATIVE (NEGATIVE) 02/19/19 23:40 Urine Bilirubin NEGATIVE (NEGATIVE) 02/19/19 23:40 Urine Urobilinogen NEGATIVE mg/dL (<2.0) 02/19/19 23:40 Ur Leukocyte Esterase SMALL (NEGATIVE) H 02/19/19 23:40 Urine Ascorbic Acid NEGATIVE (NEGATIVE) 02/19/19 23:40 Serum Alcohol 78 mg/dL (NONE DETECTED) 02/19/19 19:45 02/19/19 02/19/19 02/20/19 19:45 22:43 07:45 Troponin I 0.050 0.040 0.043 Impressions: Chest X-Ray 02/19/19 20:15 IMPRESSION: 1. Suggestion of multifocal patchy opacities most prominently affecting the right upper lobe. Differential diagnosis includes multifocal infectious or inflammatory process. Clinical correlation is advised with consideration for CT chest if clinically indicated. 2. Borderline enlargement of the cardiac silhouette with prominence of the pulmonary vasculature. Chest CT 02/19/19 22:43 IMPRESSION: Bilateral pneumonia. Emphysema. Small bilateral pleural effusions. Mediastinal and bilateral hilar adenopathy. Coronary artery calcification. Stroke Is this a Stroke Patient?: No Acute Heart Failure - Is this a Heart Failure Patient?: No
== END 2019-02-22 13:27 | disposition home or self-care (01) | DRG 179 ==
LOC: ER 17:58 → EH 02-20 02:12 → 5 02-20 18:51
PROVIDERS: ADMIT Internal Medicine; ATTEND Internal Medicine
DX: J69.0 Pneumonitis due to inhalation of food and vomit (principal); I48.0 Paroxysmal atrial fibrillation; I10 Essential (primary) hypertension; J44.9 Chronic obstructive pulmonary disease, unspecified; R07.9 Chest pain, unspecified; F17.210 Nicotine dependence, cigarettes, uncomplicated; F10.20 Alcohol dependence, uncomplicated; Y90.3 Blood alcohol level of 60-79 mg/100 ml; Z59.0 Homelessness
CPT/HCPCS: 36415; 71045; 71260; 80048; 80053; 80307; 81001; 83036; 83605; 83690; 83735; 84100; 84439; 84443; 84481; 84484; 85025; 87040; 87070; 87077; 87150; 87186; 87205; 93005; 93010; 94667; 94799; 99285; J1644; J1956; J2060; J2543; J3490; J7620

== ENCOUNTER 2019-08-18 17:14 | Inpatient (IN) | payer MEDICAID ==
[2019-08-18 19:49] LABS: ABSOLUTE EOSINOPHILS # (AUTO) 0.1 10^3/uL (0.0-0.6); ABSOLUTE LYMPHOCYTES (AUTO) 1.2 10^3/uL (0.5-4.7); ABSOLUTE MONOCYTES (AUTO) 0.6 10^3/uL (0.1-1.4); ABSOLUTE NEUT (AUTO) 3.2 10^3/uL (1.7-8.2); BASOPHILS % (AUTO) 0.9 % (0-2); EOSINOPHILS % (AUTO) 1.4 % (0-6); HEMATOCRIT 42.7 % (37.9-51.0); HEMOGLOBIN 14.6 g/dL (13.5-17.0); LYMPHOCYTES % (AUTO) 23.5 % (13-45); MEAN CORPUSCULAR HEMOGLOBIN 29.4 pg (27.0-33.4); MEAN CORPUSCULAR HGB CONC 34.1 g/dL (32.0-36.0); MEAN CORPUSCULAR VOLUME 86 fl (80-97); MONOCYTES % (AUTO) 11.1 % (3-13); PLATELET COUNT 346 10^3/uL (150-450); RED BLOOD COUNT 4.95 10^6/uL (4.35-5.55); RED CELL DISTRIBUTION WIDTH 15.1 % (11.5-14.0); SEGMENTED NEUTROPHILS % (AUTO) 63.1 % (42-78); TOTAL CELLS COUNTED % (AUTO) 100 %; WHITE BLOOD COUNT 5.1 10^3/uL (4.0-10.5)
[2019-08-18 19:55] LABS: ALBUMIN 3.9 g/dL (3.5-5.0); ALCOHOL 10 mg/dL (NONE DETECTED); ALKALINE PHOSPHATASE 142 U/L (38-126); ANION GAP 12 (5-19); ASPARTATE AMINO TRANSFERASE 62 U/L (17-59); BILIRUBIN,DIRECT 0.3 mg/dL (0.0-0.4); BILIRUBIN,TOTAL 1.3 mg/dL (0.2-1.3); BLOOD UREA NITROGEN 14 mg/dL (7-20); CALCIUM 9.1 mg/dL (8.4-10.2); CARBON DIOXIDE 21 mmol/L (22-30); CHLORIDE 98 mmol/L (98-107); CREATINE KINASE 289 U/L (55-170); GLUCOSE 76 mg/dL (75-110); POTASSIUM 4.6 mmol/L (3.6-5.0); TOTAL PROTEIN 7.4 g/dL (6.3-8.2)
[2019-08-18 20:06] LABS: TROPONIN I 0.025 ng/mL
--- NOTE | 2019-08-18 20:23 | RADIOLOGY REPORT (SQ) ---
XR CHEST 1 VIEW HISTORY: Shortness of breath. COMPARISON: 02/20/2019 FINDINGS: The heart size is enlarged. There is no pulmonary vascular congestion. No consolidation, pleural effusion, or pneumothorax is seen. There is scarring at the left lung apex. The bony structures are preserved. IMPRESSION: No evidence of acute cardiopulmonary disease.
[2019-08-18 21:00] LABS: APPEARANCE,URINE SLIGHTLY-CLOUDY; BILIRUBIN,URINE NEGATIVE (NEGATIVE); COLOR,URINE AMBER; GLUCOSE, URINE NEGATIVE (NEGATIVE); KETONES,URINE NEGATIVE (NEGATIVE); LEUKOCYTE ESTERASE,URINE NEGATIVE (NEGATIVE); NITRITE,URINE NEGATIVE (NEGATIVE); PROTEIN,URINE 100 mg/dL (NEGATIVE); URINE SPECIFIC GRAVITY 1.021
[2019-08-18] MEDS ORDERED: NORMAL SALINE 500 ML IV ONE (22:09)
[2019-08-18] MEDS ORDERED: THIAMINE HCL 100 MG TABLET PO ONE (22:10)
[2019-08-18 22:46] LABS: URINE AMPHETAMINES SCREEN NEGATIVE; URINE BARBITURATES SCREEN NEGATIVE; URINE BENZODIAZEPINES SCREEN NEGATIVE; URINE COCAINE SCREEN NEGATIVE; URINE METHADONE SCREEN NEGATIVE; URINE PHENCYCLIDINE SCREEN NEGATIVE
[2019-08-18 22:48] LABS: URINE MARIJUANA (THC) SCREEN UNCONFIRMED POSITIVE
[2019-08-19] MEDS ORDERED: MULTIVITAMIN TABLET PO ONE (00:26)
[2019-08-19] MEDS ORDERED: DIAZEPAM 5 MG TABLET PO ONE (00:27)
[2019-08-19] MEDS ORDERED: FOLIC ACID 1 MG TABLET PO ONE (00:27)
[2019-08-19] MEDS ORDERED: ASPIRIN 81 MG TABLET, CHEWABLE PO ONE (00:57)
[2019-08-19] MEDS ORDERED: THIAMINE HCL 100 MG TABLET PO ONE (02:00)
--- NOTE | 2019-08-19 03:03 | ER Document Report ---
Entered by RAMSES JO SCRIBE 08/18/19 2153 Acting as scribe for:HUDSON ZEPEDA IV, MD ED General - General Chief Complaint: Shortness Of Breath Stated Complaint: LEG/FEET SWELLING,SHORT OF BREATH Time Seen by Provider: 08/18/19 17:27 Mode of Arrival: Wheelchair Information source: Patient Notes: This 64 year old male patient with a history of COPD and HTN presents to the ED today with complaints of shortness of breath and bilateral feet swelling for the past x1 week. Patient reports that he noted the redness to his bilateral feet around the same time. He notes that he has never had a problem with swelling to his feet in the past. Patient states that he is a current every day smoker. Per nursing note, patient admits to being a chronic alcoholic and that he is trying to quit. TRAVEL OUTSIDE OF THE [place] IN LAST 30 DAYS: No - Related Data Allergies/Adverse Reactions: No Known Allergies Allergy (Verified 08/18/19 17:38) Past Medical History - General Information source: Patient, [facility] Records - Social History Smoking Status: Current Every Day Smoker Cigarette use (# per day): Yes Chew tobacco use (# tins/day): No Smoking Education Provided: No Frequency of alcohol use: Heavy Family History: Reviewed & Not Pertinent, COPD, Hypertension Patient has suicidal ideation: No Patient has homicidal ideation: No - Past Medical History Cardiac Medical History: Reports: Hx Hypertension - untreated Pulmonary Medical History: Reports: Hx Bronchitis, Hx COPD Past Surgical History: Reports: Hx Abdominal Surgery - Exploratory in 2017, Hx Orthopedic Surgery - Right ACL repair, Hx Tonsillectomy, Other Review of Systems - Review of Systems Constitutional: No symptoms reported EENT: No symptoms reported Cardiovascular: No symptoms reported Respiratory: See HPI, Short of breath Gastrointestinal: No symptoms reported Genitourinary: No symptoms reported Male Genitourinary: No symptoms reported Musculoskeletal: See HPI, Other - Feet swelling Skin: See HPI, Other - Erythema to bilateral feet Hematologic/Lymphatic: No symptoms reported Neurological/Psychological: No symptoms reported -: Yes All other systems reviewed and negative Physical Exam - Vital signs Vitals: Temp Pulse Resp BP Pulse Ox 97.5 F 110 H 35 H 149/89 H 100 08/18/19 17:38 08/18/19 17:38 08/18/19 17:38 08/18/19 17:38 08/18/19 17:38 - General General appearance: Alert In distress: None - HEENT Head: Normocephalic, Atraumatic Eyes: Normal Pupils: PERRL - Respiratory Respiratory status: No respiratory distress Chest status: Nontender Breath sounds: Normal Chest palpation: Normal - Cardiovascular Rhythm: Regular, Tachycardia Heart sounds: Normal auscultation Murmur: No Friction rub: No Gallop: None auscultated - Abdominal Inspection: Normal Distension: No distension Bowel sounds: Normal Tenderness: Nontender - Abdomen soft Organomegaly: No organomegaly - Back Back: Normal, Nontender - Extremities General upper extremity: Normal inspection Foot: Edema - +1 pitting edema to feet bilaterally - Neurological Neuro grossly intact: Yes Orientation: AAOx4 - Psychological Associated symptoms: Normal affect, Normal mood - Skin Skin irregularity: Erythema - Erythema noted to dorsal surface of feet bilaterally and anterior lower legs, other - Chronic appearing excoriations noted to anterior lower legs bilaterally, appearance which is consistent with chronic venous insufficiency Course - Re-evaluation Re-evalutation: 08/19/19 03:31 Patient's current heart rate is 97, blood pressure is 138/93, O2 sats 100%, respirations 17. Patient discussed with hospitalist will be admitted for acute EKG changes and elevated BNP. - Vital Signs Vital signs: Temp Pulse Resp BP Pulse Ox 97.5 F 110 H 24 H 151/103 H 96 08/18/19 17:38 08/18/19 17:38 08/19/19 02:01 08/19/19 02:01 08/19/19 02:01 - Laboratory Result Diagrams: 08/18/19 17:46 08/18/19 17:46 Laboratory results interpreted by me: 08/18/19 08/18/19 08/18/19 17:46 17:46 17:46 RDW 15.1 H Sodium 130.6 L Carbon Dioxide 21 L AST 62 H Alkaline Phosphatase 142 H Creatine Kinase 289 H NT-Pro-B Natriuret Pep 8780 H Urine Protein Urine Urobilinogen 08/18/19 17:46 RDW Sodium Carbon Dioxide AST Alkaline Phosphatase Creatine Kinase NT-Pro-B Natriuret Pep Urine Protein 100 H Urine Urobilinogen 4.0 H - Diagnostic Test Radiology reviewed: Reports reviewed - EKG Interpretation by Me Additional EKG results interpreted by me: 08/19/19 02:58 EKG obtained on 08/19/2019 at 00 32 hours was interpreted by this MD. Findings: Sinus tachycardia, rate 102, normal axis, P waves preceding QRS complexes, patient has T wave inversions in leads V2 through V5 which are not seen on the patient's prior EKG done 02/22/2019. Impression: EKG appears abnormal and changed from prior. - Consults dr. phillips Time consulted: 03:32 - dr phillips agreed to admit pt Reason for consultation: 08/19/19 03:32 ekg changes, elevated bnp Discharge - Discharge Clinical Impression: Acute electrocardiogram changes, Elevated brain natriuretic peptide (BNP) level Dyspnea Qualifiers: Dyspnea type: unspecified Qualified Code(s): R06.00 - Dyspnea, unspecified Condition: Good Disposition: ADMITTED INPATIENT Admitting Provider: Edward (Hospitalist) Unit Admitted: Telemetry I personally performed the services described in the documentation, reviewed and edited the documentation which was dictated to the scribe in my presence, and it accurately records my words and actions.
[2019-08-19] MEDS ORDERED: FUROSEMIDE INJ/PF 20 MG/2 ML SDV IV ONE (03:31)
[2019-08-19] MEDS ORDERED: DILTIAZEM HCL 90 MG TABLET PO ONE (03:35)
[2019-08-19] MEDS ORDERED: LORAZEPAM INJ 2 MG/1 ML VIAL IV PRN (03:39)
[2019-08-19] MEDS ORDERED: ACETAMINOPHEN 325 MG TABLET PO PRN (03:39)
[2019-08-19] MEDS ORDERED: MAG HYDROX/AL HYDROX/SIMETH SUSP 30 ML UDCUP PO PRN (03:39)
--- NOTE | 2019-08-19 05:32 | PDOC H&P ---
History of Present Illness Admission Date/PCP: 08/19/19 03:43 Patient complains of: Shortness of breath History of Present Illness: SHAHNAZ CASANOVA is a 64 year old male with a past medical history of COPD, hypertension, tobacco, alcohol and substance abuse who is long-term homeless. He presents with 2 days of shortness of breath, nonproductive cough and lower extremity swelling. He denies fever, chest pain nausea vomiting or palpitations. In the emergency department he is found to have an sinus tachycardia, uncontrolled hypertension, borderline long QT, new T wave inversions and elevated BNP of 9000. He admits to drinking a minimum of 12 beers per day and history of blackouts. He denies any medication use. Past Medical History Cardiac Medical History: Reports: Atrial Fibrillation, Hypertension - untreated Denies: Congestive Heart Failure Pulmonary Medical History: Reports: Bronchitis, Chronic Obstructive Pulmonary Disease (COPD) Psychiatric Medical History: Reports: Alcohol Dependency, Substance Abuse, Tobacco Dependency Denies: Depression Past Surgical History Past Surgical History: Reports: Orthopedic Surgery - Right ACL repair, Tonsillectomy, Other - Homeless Social History Information Source: Patient, [facility] Records Lives with: Homeless Smoking Status: Current Every Day Smoker Electronic Cigarette use?: No Frequency of Alcohol Use: Heavy Hx Recreational Drug Use: No Drugs: None Hx Prescription Drug Abuse: No - Advance Directive Resuscitation Status: Full Code Family History Family History: Arthritis, COPD, Hypertension Parental Family History Reviewed: Yes Children Family History Reviewed: Yes Sibling(s) Family History Reviewed.: Yes Medication/Allergy Home Medications: Aspirin [Aspirin 81 mg Chewable Tablet] 81 mg PO DAILY #30 tab.chew 02/22/19 Diltiazem HCl [Cardizem Cd 120 mg Capsule] 1 cap.sr PO DAILY #30 cap.sr 02/22/19 Levofloxacin [Levaquin 500 mg Tablet] 500 mg PO DAILY 5 Days #5 tablet 02/22/19 Nicotine [Nicoderm 14 mg/24 Hr Transdermal Patch] 1 each TD DAILY #30 patch.td24 02/22/19 Allergies/Adverse Reactions: No Known Allergies Allergy (Verified 08/18/19 17:38) Review of Systems Constitutional: ABSENT: chills, fever(s), headache(s), weight gain, weight loss Eyes: ABSENT: visual disturbances Ears: ABSENT: hearing changes Cardiovascular: ABSENT: chest pain, dyspnea on exertion, edema, orthropnea, palpitations Respiratory: ABSENT: cough, hemoptysis Gastrointestinal: ABSENT: abdominal pain, constipation, diarrhea, hematemesis, hematochezia, nausea, vomiting Genitourinary: ABSENT: dysuria, hematuria Musculoskeletal: ABSENT: joint swelling Integumentary: ABSENT: rash, wounds Neurological: ABSENT: abnormal gait, abnormal speech, confusion, dizziness, foca l weakness, syncope Psychiatric: ABSENT: anxiety, depression, homidical ideation, suicidal ideation Endocrine: ABSENT: cold intolerance, heat intolerance, polydipsia, polyuria Hematologic/Lymphatic: ABSENT: easy bleeding, easy bruising Physical Exam Vital Signs: Temp Pulse Resp BP Pulse Ox 97.8 F 110 H 19 129/89 H 94 08/19/19 03:51 08/18/19 17:38 08/19/19 05:01 08/19/19 05:01 08/19/19 04:31 Intake & Output 08/17/19 08/18/19 08/19/19 11:59 11:59 11:59 Intake Total 500 Balance 500 Weight 68.492 kg General appearance: PRESENT: cooperative, disheveled, mild distress, thin, well-developed. ABSENT: well-nourished Head exam: PRESENT: atraumatic, normocephalic Eye exam: PRESENT: conjunctiva pink, EOMI, PERRLA. ABSENT: scleral icterus Ear exam: PRESENT: normal external ear exam Mouth exam: PRESENT: moist, tongue midline Neck exam: PRESENT: JVD. ABSENT: carotid bruit, lymphadenopathy, thyromegaly Respiratory exam: PRESENT: accessory muscle use, crackles, prolonged expiratory phas, symmetrical, tachypnea. ABSENT: rhonchi, stridor Cardiovascular exam: PRESENT: gallop, RRR, +S1, +S2, systolic murmur, tach ycardia Pulses: PRESENT: normal dorsalis pedis pul Vascular exam: PRESENT: normal capillary refill GI/Abdominal exam: PRESENT: normal bowel sounds, soft. ABSENT: distended, guarding, mass, organolmegaly, rebound, tenderness Rectal exam: PRESENT: deferred Extremities exam: PRESENT: pedal edema, +2 edema. ABSENT: joint swelling Neurological exam: PRESENT: alert, awake, oriented to person, oriented to place, oriented to time, oriented to situation, CN II-XII grossly intact. ABSENT: motor sensory deficit Psychiatric exam: PRESENT: appropriate affect, normal mood. ABSENT: homicidal ideation, suicidal ideation Skin exam: PRESENT: dry, intact, warm. ABSENT: cyanosis, rash Results Laboratory Results: 08/18/19 17:46 08/18/19 17:46 08/18/19 08/18/19 08/18/19 17:46 17:46 17:46 WBC 5.1 RBC 4.95 Hgb 14.6 Hct 42.7 MCV 86 MCH 29.4 MCHC 34.1 RDW 15.1 H Plt Count 346 Seg Neutrophils % 63.1 Sodium 130.6 L Potassium 4.6 Chloride 98 Carbon Dioxide 21 L Anion Gap 12 BUN 14 Creatinine 0.87 Est GFR ( Amer) > 60 Glucose 76 Calcium 9.1 Magnesium Total Bilirubin 1.3 AST 62 H Alkaline Phosphatase 142 H Total Protein 7.4 Albumin 3.9 TSH Urine Color NAEEM Urine Appearance SLIGHTLY-CLOUDY Urine pH 6.0 Ur Specific [place] 1.021 Urine Protein 100 H Urine Glucose (UA) NEGATIVE Urine Ketones NEGATIVE Urine Blood NEGATIVE Urine Nitrite NEGATIVE Ur Leukocyte Esterase NEGATIVE Urine WBC (Auto) 1 Urine RBC (Auto) 0 08/18/19 08/19/19 17:46 01:38 WBC RBC Hgb Hct MCV MCH MCHC RDW Plt Count Seg Neutrophils % Sodium Potassium Chloride Carbon Dioxide Anion Gap BUN Creatinine Est GFR ( Amer) Glucose Calcium Magnesium 1.9 Total Bilirubin AST Alkaline Phosphatase Total Protein Albumin TSH 3.62 Urine Color Urine Appearance Urine pH Ur Specific [place] Urine Protein Urine Glucose (UA) Urine Ketones Urine Blood Urine Nitrite Ur Leukocyte Esterase Urine WBC (Auto) Urine RBC (Auto) 08/18/19 08/18/19 08/19/19 17:46 17:46 01:38 Creatine Kinase 289 H Troponin I 0.025 0.028 NT-Pro-B Natriuret Pep 8780 H 08/19/19 01:38 Creatine Kinase 212 H Troponin I NT-Pro-B Natriuret Pep Impressions: Chest X-Ray 08/18/19 19:14 IMPRESSION: No evidence of acute cardiopulmonary disease. Assessment and Plan - Diagnosis (1) Congestive heart failure Qualifiers: Heart failure type: combined systolic and diastolic Is this a current diagnosis for this admission?: Yes Plan: Likely secondary to uncontrolled paroxysmal atrial fibrillation versus alcoholic cardiomyopathy. Cardizem initiated for rate control, thiamine and folate, follow-up 2D echo. Introduce ARIANNE inhibitor and beta-david as pressure allows. (2) Paroxysmal atrial fibrillation Is this a current diagnosis for this admission?: Yes Plan: Cardizem trial, not an anticoagulation candidate given alcoholism and homelessness. (3) Acute electrocardiography changes Is this a current diagnosis for this admission?: Yes Plan: Follow-up serial cardiac enzymes (4) Alcohol dependence Is this a current diagnosis for this admission?: Yes Plan: Thiamine, folate, Valium ordered with Ativan as needed (5) Homeless Is this a current diagnosis for this admission?: Yes Plan: Discharge planning consult (6) Tobacco abuse Is this a current diagnosis for this admission?: Yes Plan: Tobacco cessation counseling performed and nicotine replacement options discussed - Time Time Spent with patient: 25-34 minutes - Inpatient Certification Medical Necessity: Need Close Monitoring Due to Risk of Patient Decompensation
[2019-08-19] MEDS ORDERED: DILTIAZEM HCL 60 MG TABLET PO SCH (06:00)
[2019-08-19] MEDS: PANTOPRAZOLE SODIUM 20 MG TABLET.DR PO SCH (06:45)
[2019-08-19] MEDS: DIAZEPAM 5 MG TABLET PO SCH ×3 (06:45→21:21)
--- NOTE | 2019-08-19 07:27 | EKG REPORT ---
SEVERITY:- ABNORMAL ECG - SINUS TACHYCARDIA LEFT ANTERIOR FASCICULAR BLOCK NONSPECIFIC T ABNORMALITIES, DIFFUSE LEADS, NEW, SINCE 02/22/19 EKG , CLINICAL CORRELATION NEEDED BORDERLINE PROLONGED QT INTERVAL : Confirmed by: Serge Perez MD 19-Aug-2019 07:26:41
[2019-08-19 08:08] LABS: ANION GAP 8 (5-19); BLOOD UREA NITROGEN 22 mg/dL (7-20); CARBON DIOXIDE 24 mmol/L (22-30); CHLORIDE 101 mmol/L (98-107); GLUCOSE 98 mg/dL (75-110); POTASSIUM 4.1 mmol/L (3.6-5.0)
[2019-08-19] MEDS: LEVALBUTEROL HCL NEB 1.25 MG/3 ML AMPUL NEB SCH ×2 (08:58→16:18)
[2019-08-19] MEDS: HEPARIN SOD (PORCINE) 5,000 UNIT/ML 1 ML VIAL SUBCUT SCH ×3 (09:07→21:21)
[2019-08-19] MEDS: ASPIRIN 81 MG TABLET, ENT COATED PO SCH (09:51)
[2019-08-19] MEDS: THIAMINE HCL 100 MG, FOLIC ACID 1 MG in NORMAL SALINE 250 ML IV SCH (09:51)
[2019-08-19] MEDS: DILTIAZEM HCL 60 MG TABLET PO SCH ×3 (12:31→23:33)
--- NOTE | 2019-08-19 14:15 | XCELERA REPORT ---
[address] [address] Transthoracic Echocardiogram Report Name: SHAHNAZ CASANOVA Age: 64 yrs Gender: Male : 1955 Patient Status: Inpatient Patient Location: [address] [place] [address] Study Date: 08/19/2019 09:05 AM History: [place] Height: 60 in Weight: 151 lb BSA: 1.7 m2 Procedure: A complete two-dimensional transthoracic echocardiogram was performed (2D, M-mode, spectral and color flow Doppler). The study was technically adequate with some images being suboptimal in quality. Reason For Study: sytolic murmur Previous Evaluation: No previous studies were available. History: Murmur. Ordering Physician: CHAPARRITA EASTMAN Performed By: Amarilis Rider Interpretation Summary Left ventricular systolic function is moderate to severely reduced. The Ejection Fraction estimate is 20-25% The right ventricular systolic function is moderately reduced. There is a mild amount of mitral regurgitation There is no aortic valve stenosis There is a mild to moderate amount of tricuspid regurgitation Minimal pericardial effusion. MMode/2D Measurements & Calculations RVDd: 2.5 cm LVIDd: 5.6 cm FS: 14.6 % Ao root diam: IVSd: 1.1 cm LVIDs: 4.8 cm EDV(Teich): 3.0 cm LVPWd: 0.97 cm 154.8 ml Ao root area: ESV(Teich): 7.2 cm2 107.3 ml EF(Teich): 30.7 % EDV(MOD-sp4): SV(MOD-sp4): 116.3 ml 27.5 ml ESV(MOD-sp4): 88.8 ml EF(MOD-sp4): 23.6 % Doppler Measurements & Calculations MV E max adamaris: MV dec slope: Ao V2 max: LV V1 max P.1 cm/sec 76.9 cm/sec 1.0 mmHg MV A max adamaris: 679.1 cm/sec2 Ao max P.4 mmHgLV V1 max: 64.2 cm/sec MV dec time: 0.12 sec 50.5 cm/sec MV E/A: 1.2 PA V2 max: PI end-d adamaris: TR max adamaris: 43.9 cm/sec 125.2 cm/sec 233.0 cm/sec PA max PG: TR max P.77 mmHg 21.8 mmHg Left Ventricle The left ventricle is mildly dilated. There is mild to moderate concentric left ventricular hypertrophy. Left ventricular systolic function is moderate to severely reduced. The Ejection Fraction estimate is 20-25%. Doppler measurements suggest reversible restrictive left ventricular relaxation, which is associated with grade III/IV or moderate diastolic dysfunction. There is moderate to severe global hypokinesis of the left ventricle. Right Ventricle The right ventricle is moderately dilated. The right ventricular systolic function is moderately reduced. Atria The right atrium is normal. The left atrium is borderline dilated. Mitral Valve The mitral valve is grossly normal. There is no mitral valve stenosis. There is a mild amount of mitral regurgitation. Aortic Valve The aortic valve is normal in structure and function. The aortic valve is trileaflet. The aortic valve opens well. There is no aortic valve stenosis. No aortic regurgitation is present. Tricuspid Valve The tricuspid valve is normal in structure and function. There is a mild to moderate amount of tricuspid regurgitation. Best estimated RVSP is approximately 20-25 mm Hg mm/Hg. There is mild pulmonary hypertension by echo. Pulmonic Valve The pulmonic valve is normal in structure and function. There is a mild amount of pulmonic regurgitation. Great Vessels The aortic root is normal size. The inferior vena cava appeared dilated and did not change with respiration (RAP > 20 mmHg). Effusions Minimal pericardial effusion. : CHAPARRITA EASTMAN Anil
--- NOTE | 2019-08-19 15:02 | Progress Note ---
Provider Note Provider Note: Patient comfortable on room air. Vital signs stable. No chest pain. Troponins have been flat. Echocardiogram shows an EF of 20 to 25% with moderately reduced right ventricular systolic function. The main issue is going to be dispositioning him. Medically he looks very stable.
[2019-08-20] MEDS: LEVALBUTEROL HCL NEB 1.25 MG/3 ML AMPUL NEB SCH ×3 (00:22→16:14)
[2019-08-20] MEDS: PANTOPRAZOLE SODIUM 20 MG TABLET.DR PO SCH (05:59)
[2019-08-20] MEDS: DILTIAZEM HCL 60 MG TABLET PO SCH (05:59)
[2019-08-20] MEDS: DIAZEPAM 5 MG TABLET PO SCH ×2 (06:00→14:25)
[2019-08-20] MEDS: HEPARIN SOD (PORCINE) 5,000 UNIT/ML 1 ML VIAL SUBCUT SCH ×3 (06:00→21:19)
[2019-08-20 07:03] LABS: ANION GAP 8 (5-19); BLOOD UREA NITROGEN 17 mg/dL (7-20); CALCIUM 8.7 mg/dL (8.4-10.2); CARBON DIOXIDE 22 mmol/L (22-30); CHLORIDE 102 mmol/L (98-107); GLUCOSE 122 mg/dL (75-110); POTASSIUM 3.9 mmol/L (3.6-5.0)
[2019-08-20] MEDS ORDERED: METOPROLOL SUCCINATE 25 MG TAB.SR.24H PO SCH (10:00)
[2019-08-20] MEDS: LISINOPRIL 5 MG TABLET PO SCH (10:07)
[2019-08-20] MEDS: ASPIRIN 81 MG TABLET, ENT COATED PO SCH (10:07)
[2019-08-20] MEDS: THIAMINE HCL 100 MG, FOLIC ACID 1 MG in NORMAL SALINE 250 ML IV SCH (10:07)
[2019-08-20] MEDS: NICOTINE 14 MG/24 HR PATCH.TD24 TD PRN (12:14)
--- NOTE | 2019-08-20 12:25 | CDI QUERY ---
CDI Query CDI Review: Dear Provider: To better reflect your patients severity of illness, morbidity, and resource utilization Please specify and document in the Progress Notes and Discharge Summary if you are monitoring / treating / evaluating any of the following conditions: Query Clinical indicators Please specify the acuity of the CHF: Acute Acute on chronic Chronic Unable to determine Please clarify if the A-Fib can be further specified: Persistent Chronic (permanent) Longstanding Other Unable to determine Per H&P: presents with 2 days of shortness of breath, nonproductive cough and lower extremity swelling - Diagnosis (1) Congestive heart failure Qualifiers: Heart failure type: combined systolic and diastolic Is this a current diagnosis for this admission?: Yes Plan: Likely secondary to uncontrolled paroxysmal atrial fibrillation versus alcoholic cardiomyopathy. Cardizem initiated for rate control, thiamine and folate, follow-up 2D echo. Introduce ARIANNE inhibitor and beta-david as pressure allows. The terms probable, suspected, likely, possible or still to be ruled out may be used if you are unable to determine the exact nature of a condition. Thank you for your consideration, Clinical Documentation Physician Advisors [email or web address]
[2019-08-20] MEDS ORDERED: FUROSEMIDE 20 MG TABLET PO ONE (18:04)
--- NOTE | 2019-08-20 18:12 | PDOC PROGRESS REPORT ---
Subjective Progress Note for:: 08/20/19 Subjective:: Patient states improvement in leg swelling. Denies shortness of breath at this time. Reason For Visit: ALCOHOLIC CARDIOMYOPATHY,HEART FAILURE Physical Exam Vital Signs: Temp Pulse Resp BP Pulse Ox 97.4 F 85 16 106/65 94 08/20/19 16:02 08/20/19 16:14 08/20/19 16:14 08/20/19 16:02 08/20/19 16:14 Intake & Output 08/19/19 08/20/19 08/21/19 06:59 06:59 06:59 Intake Total 500 1477.2 847.2 Output Total 450 Balance 500 1027.2 847.2 Weight 72.9 kg 73.5 kg General appearance: PRESENT: no acute distress, cooperative Respiratory exam: PRESENT: clear to auscultation jefferson, symmetrical, unlabored. ABSENT: tachypnea, wheezes Cardiovascular exam: PRESENT: RRR, +S1, +S2. ABSENT: tachycardia GI/Abdominal exam: PRESENT: soft. ABSENT: rebound, rigid, tenderness Extremities exam: ABSENT: pedal edema Musculoskeletal exam: PRESENT: ambulatory Neurological exam: PRESENT: alert, awake Psychiatric exam: ABSENT: agitated, anxious Results Laboratory Results: 08/18/19 17:46 08/20/19 06:23 08/20/19 06:23 Sodium 131.7 L Potassium 3.9 Chloride 102 Carbon Dioxide 22 Anion Gap 8 BUN 17 Creatinine 0.82 Est GFR ( Amer) > 60 Glucose 122 H Calcium 8.7 08/18/19 08/18/19 08/19/19 17:46 17:46 01:38 Creatine Kinase 289 H Troponin I 0.025 0.028 NT-Pro-B Natriuret Pep 8780 H 08/19/19 08/19/19 08/19/19 01:38 07:35 13:18 Creatine Kinase 212 H Troponin I 0.028 0.024 NT-Pro-B Natriuret Pep 08/19/19 19:57 Creatine Kinase Troponin I 0.021 NT-Pro-B Natriuret Pep Impressions: Chest X-Ray 08/18/19 19:14 IMPRESSION: No evidence of acute cardiopulmonary disease. 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 He denies any history of prior CHF. I have started patient on low-dose lisinopril, Toprol-XL and Lasix. Electrolytes in the morning. He will need to be set up with cardiology for outpatient follow-up prior to discharge. Does not appear to be overtly fluid overloaded at this moment. CIWA and as needed Ativan as needed. Will discontinue diazepam this evening. Alcohol cessation and tobacco cessation counseling performed. - Time Time Spent with patient: 15-24 minutes
[2019-08-21] MEDS: LEVALBUTEROL HCL NEB 1.25 MG/3 ML AMPUL NEB SCH ×4 (00:45→23:44)
[2019-08-21] MEDS: HEPARIN SOD (PORCINE) 5,000 UNIT/ML 1 ML VIAL SUBCUT SCH ×3 (05:42→21:15)
[2019-08-21] MEDS: PANTOPRAZOLE SODIUM 20 MG TABLET.DR PO SCH (05:42)
[2019-08-21 06:14] LABS: ANION GAP 9 (5-19); BLOOD UREA NITROGEN 14 mg/dL (7-20); CALCIUM 8.8 mg/dL (8.4-10.2); CARBON DIOXIDE 25 mmol/L (22-30); CHLORIDE 100 mmol/L (98-107); GLUCOSE 104 mg/dL (75-110)
[2019-08-21 09:36] LABS: ABSOLUTE BASOPHILS # (AUTO) 0.1 10^3/uL (0.0-0.2); ABSOLUTE EOSINOPHILS # (AUTO) 0.1 10^3/uL (0.0-0.6); ABSOLUTE LYMPHOCYTES (AUTO) 1.3 10^3/uL (0.5-4.7); ABSOLUTE MONOCYTES (AUTO) 0.5 10^3/uL (0.1-1.4); ABSOLUTE NEUT (AUTO) 2.2 10^3/uL (1.7-8.2); BASOPHILS % (AUTO) 1.2 % (0-2); EOSINOPHILS % (AUTO) 2.9 % (0-6); HEMATOCRIT 39.7 % (37.9-51.0); HEMOGLOBIN 13.1 g/dL (13.5-17.0); LYMPHOCYTES % (AUTO) 30.1 % (13-45); MEAN CORPUSCULAR HEMOGLOBIN 28.9 pg (27.0-33.4); MEAN CORPUSCULAR HGB CONC 33.1 g/dL (32.0-36.0); MEAN CORPUSCULAR VOLUME 87 fl (80-97); MONOCYTES % (AUTO) 12.4 % (3-13); PLATELET COUNT 291 10^3/uL (150-450); RED BLOOD COUNT 4.55 10^6/uL (4.35-5.55); RED CELL DISTRIBUTION WIDTH 15.2 % (11.5-14.0); SEGMENTED NEUTROPHILS % (AUTO) 53.4 % (42-78); TOTAL CELLS COUNTED % (AUTO) 100 %; WHITE BLOOD COUNT 4.2 10^3/uL (4.0-10.5)
--- NOTE | 2019-08-21 10:29 | RADIOLOGY REPORT (SQ) ---
EXAM DESCRIPTION: CHEST 2 VIEWS IMAGES COMPLETED DATE/TIME: 08/21/2019 9:54 am REASON FOR STUDY: hypothermia COMPARISON: Chest films 08/18/2019, 02/19/2019 CT chest 02/20/2019 EXAM PARAMETERS: NUMBER OF VIEWS: two views TECHNIQUE: Digital Frontal and Lateral radiographic views of the chest acquired. RADIATION DOSE: NA LIMITATIONS: none FINDINGS: LUNGS AND PLEURA: Small to moderate bilateral pleural effusions are present, new compared to 08/18/2019. Minimal right basilar airspace disease No pneumothorax MEDIASTINUM AND HILAR STRUCTURES: No masses or contour abnormalities. HEART AND VASCULAR STRUCTURES: Stable moderate cardiomegaly BONES: No acute findings. HARDWARE: None in the chest. OTHER: No other significant finding. IMPRESSION: New small moderate bilateral pleural effusions Minimal right basilar airspace disease TECHNICAL DOCUMENTATION: JOB ID: [id number] [employer]- All Rights Reserved Reading location - IP/workstation name: [email or web address]
[2019-08-21] MEDS: LISINOPRIL 5 MG TABLET PO SCH (11:39)
[2019-08-21] MEDS: FUROSEMIDE 20 MG TABLET PO SCH (11:40)
[2019-08-21] MEDS: ASPIRIN 81 MG TABLET, ENT COATED PO SCH (11:40)
[2019-08-21] MEDS: THIAMINE HCL 100 MG, FOLIC ACID 1 MG in NORMAL SALINE 250 ML IV SCH (11:40)
[2019-08-21] MEDS: METOPROLOL SUCCINATE 25 MG TAB.SR.24H PO SCH (11:40)
[2019-08-21] MEDS: NICOTINE 14 MG/24 HR PATCH.TD24 TD PRN (11:47)
--- NOTE | 2019-08-21 13:04 | PDOC PROGRESS REPORT ---
Subjective Progress Note for:: 08/21/19 Subjective:: Patient became hypothermic this morning. Patient denies any fevers, chills, cough, shortness of breath, chest pain, abdominal pain, diarrhea or headaches. Reason For Visit: ALCOHOLIC CARDIOMYOPATHY,HEART FAILURE Physical Exam Vital Signs: Temp Pulse Resp BP Pulse Ox 97.4 F 107 H 23 H 135/104 H 98 08/21/19 12:09 08/21/19 12:09 08/21/19 12:09 08/21/19 12:09 08/21/19 12:09 Intake & Output 08/20/19 08/21/19 08/22/19 06:59 06:59 06:59 Intake Total 1477.2 1467.2 Output Total 450 Balance 1027.2 1467.2 Weight 73.5 kg 75.4 kg General appearance: PRESENT: no acute distress, cooperative Neck exam: PRESENT: JVD Respiratory exam: PRESENT: symmetrical, unlabored. ABSENT: tachypnea, wheezes Cardiovascular exam: PRESENT: RRR, +S1, +S2. ABSENT: tachycardia GI/Abdominal exam: PRESENT: soft. ABSENT: rebound, rigid, tenderness Extremities exam: PRESENT: other - Hands were cool to touch. Feet were warm at time of encounter as patient was already on the wilian hugger. However informed by RN that feet were cold earlier.. ABSENT: pedal edema Neurological exam: PRESENT: alert, awake Psychiatric exam: PRESENT: flat affect. ABSENT: agitated, anxious Focused psych exam: ABSENT: pressured speech Skin exam: ABSENT: jaundice Results Laboratory Results: 08/21/19 09:11 08/21/19 05:40 08/21/19 08/21/19 08/21/19 05:40 09:11 09:11 WBC 4.2 RBC 4.55 Hgb 13.1 L Hct 39.7 MCV 87 MCH 28.9 MCHC 33.1 RDW 15.2 H Plt Count 291 Seg Neutrophils % 53.4 Sodium 134.4 L Potassium 4.0 Chloride 100 Carbon Dioxide 25 Anion Gap 9 BUN 14 Creatinine 0.85 Est GFR ( Amer) > 60 Glucose 104 Lactic Acid 3.1 H Calcium 8.8 Magnesium 1.9 08/18/19 08/18/19 08/19/19 17:46 17:46 01:38 Creatine Kinase 289 H Troponin I 0.025 0.028 NT-Pro-B Natriuret Pep 8780 H 08/19/19 08/19/19 08/19/19 01:38 07:35 13:18 Creatine Kinase 212 H Troponin I 0.028 0.024 NT-Pro-B Natriuret Pep 08/19/19 19:57 Creatine Kinase Troponin I 0.021 NT-Pro-B Natriuret Pep Impressions: Chest X-Ray 08/21/19 00:00 IMPRESSION: New small moderate bilateral pleural effusions Minimal right basilar airspace disease Assessment and Plan - Diagnosis (1) Acute systolic (congestive) heart failure Is this a current diagnosis for this admission?: Yes (2) Hypothermia Is this a current diagnosis for this admission?: Yes (3) Lactic acidosis Is this a current diagnosis for this admission?: Yes (4) Dilated cardiomyopathy secondary to alcohol Is this a current diagnosis for this admission?: Yes (5) Paroxysmal atrial fibrillation Is this a current diagnosis for this admission?: Yes (6) Alcohol dependence Is this a current diagnosis for this admission?: Yes (7) Homeless Is this a current diagnosis for this admission?: Yes (8) Tobacco abuse Is this a current diagnosis for this admission?: Yes - Plan Summary Summary: Discussed with patient about his cardiomyopathy noted on echo with EF of 20 to 25% and biventricular dilation. 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 He denies any history of prior CHF. I have started patient on low-dose lisinopril, Toprol-XL and Lasix. Electrolytes in the morning. He will need to be set up with cardiology for outpatient follow-up prior to discharge. Does not appear to be overtly fluid overloaded at this moment. CIWA and as needed Ativan as needed. Will discontinue diazepam this evening. Alcohol cessation and tobacco cessation counseling performed. 08/21/2019 Patient hypothermic to 94F this morning. Lactic acid also elevated at 3.1. Cool extremities noted. Chest x-ray showing interstitial opacities possibly pulmonary edema without pneumonia. Prominent JVD noted on exam. Urinalysis on 614 was negative. Will repeat. Currently doubt that patient's presentation is due to an infection as he has no complaints concerning for infection no other findings. Patient has been placed on a wilian hugger with improvement to 97F. Concern for possible low output heart failure especially given his dilated cardiomyopathy with biventricular failure. I have consulted Dr. Bailon Will consider placing patient on milrinone drip and repeat lactic acid later. Patient currently not hypotensive. Will check liver enzymes and Bnp. IV Lasix, continue lisinopril and beta-david. - Time Time Spent with patient: 15-24 minutes
[2019-08-21 13:26] LABS: ALBUMIN 3.3 g/dL (3.5-5.0); ALKALINE PHOSPHATASE 113 U/L (38-126); ASPARTATE AMINO TRANSFERASE 39 U/L (17-59); BILIRUBIN,TOTAL 0.7 mg/dL (0.2-1.3); TOTAL PROTEIN 6.4 g/dL (6.3-8.2)
--- NOTE | 2019-08-21 13:40 | PDOC CONSULTATION ---
Consultation Consult Date: 08/21/19 Attending physician:: RHONDA MUIR Provider Consulted: JEFFERY BROWN Consult reason:: Congestive heart failure History of Present Illness Admission Date/PCP: 08/19/19 03:43 Patient complains of: Dyspnea History of Present Illness: SHAHNAZ CASANOVA is a 64 year old male Who is not a great historian. Active problems 1. Homelessness 2. Alcohol dependence 3. LV dysfunction 4. Congestive heart failure 5. Paroxysmal atrial fibrillation He was recently admitted to the hospital for pneumonia and atrial fibrillation with rapid ventricular response. This admission he is admitted with complaint suggestive of congestive heart failure. Echocardiogram revealed severely diminished left ventricular systolic function with ejection fraction estimated at 20 to 25%. He has evidence of RV dysfunction as well. Patient reports heavy alcohol use and is homeless. Other medical history is not very forthcoming. He reports prior orthopedic surgery but no implants. He smokes cigarettes and also drinks a sixpack of beer every day. This is probably an underestimation Past Medical History Cardiac Medical History: Reports: Atrial Fibrillation, Hypertension - untreated Denies: Congestive Heart Failure Pulmonary Medical History: Reports: Bronchitis, Chronic Obstructive Pulmonary Disease (COPD) Psychiatric Medical History: Reports: Alcohol Dependency, Substance Abuse, Tobacco Dependency Denies: Depression Past Surgical History Past Surgical History: Reports: Orthopedic Surgery - Right ACL repair, Tonsillectomy, Other - Homeless Social History Lives with: Homeless Smoking Status: Current Every Day Smoker Cigarettes Packs Per Day: 10 Electronic Cigarette use?: No Number of Years Smokin Last Time Smoked: t-1 Frequency of Alcohol Use: Heavy Hx Recreational Drug Use: Yes Drugs: Marijuana Hx Prescription Drug Abuse: No - Advance Directive Resuscitation Status: Full Code Family History Family History: Arthritis, COPD, Hypertension Parental Family History Reviewed: No - Unable to obtain. Patient is not very coherent about details Children Family History Reviewed: NA Sibling(s) Family History Reviewed.: NA Medication/Allergy Home Medications: Diltiazem HCl [Cardizem Cd 120 mg Capsule] 1 cap.sr PO DAILY #30 cap.sr 02/22/19 Allergies/Adverse Reactions: No Known Allergies Allergy (Verified 08/18/19 17:38) Review of Systems Constitutional: PRESENT: as per HPI Ears: PRESENT: as per HPI Cardiovascular: PRESENT: dyspnea on exertion, edema Respiratory: PRESENT: as per HPI, dyspnea Physical Exam Vital Signs: Temp Pulse Resp BP Pulse Ox 97.4 F 107 H 23 H 135/104 H 98 08/21/19 12:09 08/21/19 12:09 08/21/19 12:09 08/21/19 12:09 08/21/19 12:09 Intake & Output 08/20/19 08/21/19 08/22/19 06:59 06:59 06:59 Intake Total 1477.2 1467.2 358 Output Total 450 Balance 1027.2 1467.2 358 Weight 73.5 kg 75.4 kg General appearance: PRESENT: no acute distress, cooperative, thin, well- developed Head exam: PRESENT: atraumatic, normocephalic Eye exam: PRESENT: conjunctiva pink, EOMI Mouth exam: PRESENT: moist Respiratory exam: PRESENT: crackles, decreased breath sounds, rales, symmetrical, tachypnea Cardiovascular exam: PRESENT: +S1, +S2, systolic murmur Pulses: PRESENT: normal radial pulses GI/Abdominal exam: PRESENT: soft Rectal exam: PRESENT: deferred Extremities exam: PRESENT: pedal edema Neurological exam: PRESENT: alert, awake, oriented to person, oriented to place, oriented to time, oriented to situation Skin exam: PRESENT: dry, intact Results Laboratory Results: 08/21/19 09:11 08/21/19 05:40 08/21/19 08/21/19 08/21/19 05:40 09:11 09:11 WBC 4.2 RBC 4.55 Hgb 13.1 L Hct 39.7 MCV 87 MCH 28.9 MCHC 33.1 RDW 15.2 H Plt Count 291 Seg Neutrophils % 53.4 Sodium 134.4 L Potassium 4.0 Chloride 100 Carbon Dioxide 25 Anion Gap 9 BUN 14 Creatinine 0.85 Est GFR ( Amer) > 60 Glucose 104 Lactic Acid 3.1 H Calcium 8.8 Magnesium 1.9 Total Bilirubin AST Alkaline Phosphatase Total Protein Albumin 08/21/19 09:11 WBC RBC Hgb Hct MCV MCH MCHC RDW Plt Count Seg Neutrophils % Sodium Potassium Chloride Carbon Dioxide Anion Gap BUN Creatinine Est GFR ( Amer) Glucose Lactic Acid Calcium Magnesium Total Bilirubin 0.7 AST 39 Alkaline Phosphatase 113 Total Protein 6.4 Albumin 3.3 L 08/18/19 08/18/19 08/19/19 17:46 17:46 01:38 Creatine Kinase 289 H Troponin I 0.025 0.028 NT-Pro-B Natriuret Pep 8780 H 08/19/19 08/19/19 08/19/19 01:38 07:35 13:18 Creatine Kinase 212 H Troponin I 0.028 0.024 NT-Pro-B Natriuret Pep 08/19/19 19:57 Creatine Kinase Troponin I 0.021 NT-Pro-B Natriuret Pep EKG Comments: Twelve-lead EKG 08/19/2019 Sinus tachycardia 102 bpm, left anterior fascicular block nonspecific T inversion in anterior precordial leads with nonspecific ST-T abnormalities, QTC is 496 ms Transthoracic echocardiogram 08/19/2019 Left ventricular ejection fraction is severely diminished and is estimated at approximately 20 to 25%. Moderately reduced RV function also. Mild mitral regurgitation no aortic stenosis mild to moderate tricuspid regurgitation minimal pericardial effusion Telemetry shows sinus rhythm at 96 bpm Impressions: Chest X-Ray 08/21/19 00:00 IMPRESSION: New small moderate bilateral pleural effusions Minimal right basilar airspace disease Assessment & Plan - Diagnosis (1) Acute systolic (congestive) heart failure Is this a current diagnosis for this admission?: Yes Plan: Likely acute exacerbation of chronic systolic congestive heart failure Echocardiogram with severe LV dysfunction with ejection fraction estimated at 20 to 25% Evidence of RV dysfunction as well Likely metabolic cardiomyopathy probably secondary to heavy alcohol usage over the years. Ischemic etiology has yet to be excluded and is required as part of the work-up. Given acute exacerbation would persist with intravenous diuretic Clinical presentations suggest a wet and dry presentation suggestive of low output state with elevated filling pressures and pulmonary edema. Given this would recommend a trial of low-dose dobutamine to augment contractility to increase output while continuing diuretic therapy Anticipate continued use of beta-david and ARIANNE inhibitor Difficulties in arranging appropriate follow-up care and other therapies due to homelessness and other social issues. (2) Dilated cardiomyopathy secondary to alcohol Is this a current diagnosis for this admission?: Yes Plan: Likely secondary to alcohol although ischemic etiology needs to be excluded. Supportive care with maintenance of electrolytes (3) Alcohol dependence Is this a current diagnosis for this admission?: Yes Plan: Needs counseling (4) Paroxysmal atrial fibrillation Is this a current diagnosis for this admission?: No Plan: Paroxysmal atrial fibrillation likely in the setting of infection. Maintaining sinus rhythm presently Continue beta-david to suppress triggers - Notes Notes: Trial of low-dose dobutamine to augment contractility given low output and pulmonary edema
[2019-08-21] MEDS ORDERED: DOBUTAMINE HCL/D5W 500 MG/250 ML RTUINJ IV PRN (13:58)
[2019-08-21] MEDS: FUROSEMIDE INJ/PF 20 MG/2 ML SDV IV SCH ×2 (15:37→17:51)
[2019-08-22] MEDS: PANTOPRAZOLE SODIUM 20 MG TABLET.DR PO SCH (05:27)
[2019-08-22] MEDS: HEPARIN SOD (PORCINE) 5,000 UNIT/ML 1 ML VIAL SUBCUT SCH ×3 (05:27→22:42)
[2019-08-22 07:00] LABS: ANION GAP 9 (5-19); BLOOD UREA NITROGEN 13 mg/dL (7-20); CARBON DIOXIDE 24 mmol/L (22-30); CHLORIDE 101 mmol/L (98-107); GLUCOSE 89 mg/dL (75-110); POTASSIUM 4.1 mmol/L (3.6-5.0)
[2019-08-22] MEDS: LEVALBUTEROL HCL NEB 1.25 MG/3 ML AMPUL NEB SCH ×3 (08:26→23:42)
[2019-08-22] MEDS: LISINOPRIL 5 MG TABLET PO SCH (09:15)
[2019-08-22] MEDS: ASPIRIN 81 MG TABLET, ENT COATED PO SCH (09:15)
[2019-08-22] MEDS: FUROSEMIDE 20 MG TABLET PO SCH (09:15)
[2019-08-22] MEDS: FOLIC ACID 1 MG TABLET PO SCH (09:15)
[2019-08-22] MEDS: METOPROLOL SUCCINATE 25 MG TAB.SR.24H PO SCH (09:15)
[2019-08-22] MEDS: NICOTINE 14 MG/24 HR PATCH.TD24 TD PRN (09:16)
--- NOTE | 2019-08-22 10:20 | PDOC PROGRESS REPORT ---
Subjective Progress Note for:: 08/22/19 Subjective:: SHAHNAZ CASANOVA is a 64 year old homeless male with history of alcohol dependence, paroxysmal atrial fibrillation, who has been followed by my partner, Dr. Bailon, for what appears to be new onset cardiomyopathy with an ejection fraction between 20 and 25% as well as new onset of heart failure with reduced ejection fraction. He apparently had been stable until yesterday or the day before when he became hypothermic, with significant JVD and shortness of breath. At that point he was placed on low-dose dobutamine. Yesterday evening the nursing staff found the patient sitting at the edge of the bed covered in feces. He had pulled out his IV and dobutamine which is running onto the floor. He was cleaned up and placed back in the bed. This morning he is found sitting at the edge of the bed after finishing breakfast and without any cardiac complaints. He is eager to go home as soon as possible. His telemetry shows normal sinus rhythm with episodes of sinus tachycardia and PVCs. His proBNP was elevated at 2400, he tested positive for marijuana and his most recent chemistry shows hyponatremia. His blood pressure is stable. Unfortunately he is not measuring his urine therefore accurate urinary output is not possible. Physical exam on 08/22/2019: GENERAL: Pleasant and conversational. He is disheveled, with feces on the floor and on his hands, appears chronically ill, he does not appear to comprehend the seriousness of his illness and appears to have some degree of mental disability. Not in acute distress. HEENT: Normocephalic, atraumatic. Pupils equal. Sclerae anicteric. Oropharynx moist. NECK: No JVD. No carotid bruits. LUNGS: Clear to auscultation bilaterally. Normal respiratory effort without the use of accessory muscles or intercostal retractions. CARDIOVASCULAR: Regular rate and rhythm, normal S1 and S2 without murmurs, rubs, or gallops. PMI not displaced. EXTREMITIES: No pretibial edema, very mild edema in the dorsum of both feet, no cyanosis, no clubbing. +2 pulses femoral and pedal pulses bilaterally. SKIN: No lesions or rashes. MUSCULOSKELETAL: No chest tenderness to palpation. NEUROLOGIC: Nonfocal. No gross sensory or motor deficits bilateral upper or lower extremities. Echocardiogram on 08/19/2019: -LV systolic function is moderately to severely reduced. -EF 20 to 25%. -RV systolic function is moderately reduced. -Mild MR, mild to moderate TR. -Minimal pericardial effusion. Reason For Visit: ALCOHOLIC CARDIOMYOPATHY,HEART FAILURE Physical Exam Vital Signs: Temp Pulse Resp BP Pulse Ox 97.8 F 96 18 108/75 94 08/22/19 03:48 08/22/19 06:00 08/22/19 03:48 08/22/19 06:00 08/22/19 03:48 Intake & Output 08/21/19 08/22/19 08/23/19 06:59 06:59 06:59 Intake Total 1467.2 1098 Output Total 1500 Balance 1467.2 -402 Weight 75.4 kg 75.4 kg Results Laboratory Results: 08/21/19 09:11 08/22/19 06:25 08/21/19 08/21/19 08/21/19 09:11 09:11 09:11 WBC 4.2 RBC 4.55 Hgb 13.1 L Hct 39.7 MCV 87 MCH 28.9 MCHC 33.1 RDW 15.2 H Plt Count 291 Seg Neutrophils % 53.4 Sodium Potassium Chloride Carbon Dioxide Anion Gap BUN Creatinine Est GFR ( Amer) Glucose Lactic Acid 3.1 H Calcium Total Bilirubin 0.7 AST 39 Alkaline Phosphatase 113 Total Protein 6.4 Albumin 3.3 L 08/21/19 08/22/19 08/22/19 18:43 06:25 06:25 WBC RBC Hgb Hct MCV MCH MCHC RDW Plt Count Seg Neutrophils % Sodium 133.5 L Potassium 4.1 Chloride 101 Carbon Dioxide 24 Anion Gap 9 BUN 13 Creatinine 0.96 Est GFR ( Amer) > 60 Glucose 89 Lactic Acid 1.5 1.6 Calcium 9.0 Total Bilirubin AST Alkaline Phosphatase Total Protein Albumin 08/18/19 08/18/19 08/19/19 17:46 17:46 01:38 Creatine Kinase 289 H Troponin I 0.025 0.028 NT-Pro-B Natriuret Pep 8780 H 08/19/19 08/19/19 08/19/19 01:38 07:35 13:18 Creatine Kinase 212 H Troponin I 0.028 0.024 NT-Pro-B Natriuret Pep 08/19/19 08/21/19 19:57 09:11 Creatine Kinase Troponin I 0.021 NT-Pro-B Natriuret Pep 2400 H Impressions: Chest X-Ray 08/21/19 00:00 IMPRESSION: New small moderate bilateral pleural effusions Minimal right basilar airspace disease 08/21/19 09:11 08/22/19 06:25 MCV 87 fl (80-97) 08/21/19 09:11 MCH 28.9 pg (27.0-33.4) 08/21/19 09:11 MCHC 33.1 g/dL (32.0-36.0) 08/21/19 09:11 RDW 15.2 % (11.5-14.0) H 08/21/19 09:11 Seg Neutrophils % 53.4 % (42-78) 08/21/19 09:11 Chloride 101 mmol/L (98-107) 08/22/19 06:25 Carbon Dioxide 24 mmol/L (22-30) 08/22/19 06:25 Anion Gap 9 (5-19) 08/22/19 06:25 Est GFR ( Amer) > 60 (>60) 08/22/19 06:25 Glucose 89 mg/dL (75-110) 08/22/19 06:25 Lactic Acid 1.6 mmol/L (0.7-2.1) 08/22/19 06:25 Calcium 9.0 mg/dL (8.4-10.2) 08/22/19 06:25 Magnesium 1.9 mg/dL (1.6-2.3) 08/21/19 05:40 Total Bilirubin 0.7 mg/dL (0.2-1.3) 08/21/19 09:11 AST 39 U/L (17-59) 08/21/19 09:11 Alkaline Phosphatase 113 U/L (38-126) 08/21/19 09:11 Total Protein 6.4 g/dL (6.3-8.2) 08/21/19 09:11 Albumin 3.3 g/dL (3.5-5.0) L 08/21/19 09:11 TSH 3.62 uIU/mL (0.47-4.68) 08/18/19 17:46 Urine Color NAEEM 08/18/19 17:46 Urine Appearance SLIGHTLY-CLOUDY 08/18/19 17:46 Urine pH 6.0 (5.0-9.0) 08/18/19 17:46 Ur Specific Free [place] 1.021 08/18/19 17:46 Urine Protein 100 mg/dL (NEGATIVE) H 08/18/19 17:46 Urine Glucose (UA) NEGATIVE mg/dL (NEGATIVE) 08/18/19 17:46 Urine Ketones NEGATIVE mg/dL (NEGATIVE) 08/18/19 17:46 Urine Blood NEGATIVE (NEGATIVE) 08/18/19 17:46 Urine Nitrite NEGATIVE (NEGATIVE) 08/18/19 17:46 Ur Leukocyte Esterase NEGATIVE (NEGATIVE) 08/18/19 17:46 Urine WBC (Auto) 1 /HPF 08/18/19 17:46 Urine RBC (Auto) 0 /HPF 08/18/19 17:46 08/18/19 08/18/19 08/19/19 17:46 17:46 01:38 Creatine Kinase 289 H Troponin I 0.025 0.028 NT-Pro-B Natriuret Pep 8780 H 08/19/19 08/19/19 08/19/19 01:38 07:35 13:18 Creatine Kinase 212 H Troponin I 0.028 0.024 NT-Pro-B Natriuret Pep 08/19/19 08/21/19 19:57 09:11 Creatine Kinase Troponin I 0.021 NT-Pro-B Natriuret Pep 2400 H Current Medication List Generic Name Dose Route Start Last Admin Trade Name Parrishq PRN Reason Stop Dose Admin Acetaminophen 650 mg 08/19/19 03:39 Tylenol 325 Mg Tablet PO 09/18/19 03:38 Q4HP PRN pain or temp greater than 101F Al Hydrox/Mg Hydrox/Simethicone 30 ml 08/19/19 03:39 Maalox Plus Susp 30 Udcup PO 09/18/19 03:38 Q4HP PRN HEARTBURN Aspirin 81 mg 08/19/19 10:00 08/21/19 11:40 Ecotrin 81 Mg Ec Tablet PO 09/18/19 09:59 81 mg DAILY MUSA Administration Folic Acid 1 mg 08/22/19 10:00 Folvite 1 Mg Tablet PO 09/21/19 09:59 DAILY MUSA Furosemide 20 mg 08/21/19 10:00 08/21/19 11:40 Lasix 20 Mg Tablet PO 09/20/19 09:59 20 mg DAILY MUSA Administration Heparin Sodium (Porcine) 5,000 unit 08/19/19 06:00 08/22/19 05:27 Heparin Inj 5,000 Units/Ml 1 Ml Vial SUBCUT 09/18/19 05:59 Not Given Q8 MUSA Dobutamine HCl/Dextrose 500 mg in 250 mls @ 0 mls/hr 08/21/19 13:58 08/21/19 15:36 Dobutrex Rtu 500 Mg-D5w 250 Ml Premixed Bag IV 09/20/19 13:57 5.65 mls/hr CONTINUOUS PRN 5.65 mls/hr THIS MED IS NOT "PRN" Administration Protocol Titrate Levalbuterol HCl 1.25 mg 08/19/19 08:00 08/21/19 23:44 Xopenex Neb 1.25 Mg/3 Ml Ampul NEB 09/18/19 07:59 Not Given RTQ8 MUSA Lisinopril 5 mg 08/20/19 10:00 08/21/19 11:39 Prinivil 5 Mg Tablet PO 09/19/19 09:59 5 mg DAILY MUSA Administration Lorazepam 2 mg 08/20/19 18:06 Ativan Inj 2 Mg/1 Ml Vial IV 08/26/19 03:38 Q2HP PRN SEE LABEL COMMENTS Metoprolol Succinate 25 mg 08/21/19 10:00 08/21/19 11:40 Toprol Xl 25 Mg Tab.Sr PO 09/20/19 09:59 25 mg DAILY MUSA Administration Nicotine 1 each 08/20/19 10:20 08/21/19 11:47 Nicoderm 14 Mg/24 Hr Transdermal Patch TD 09/19/19 10:19 1 each DAILYP PRN Administration SMOKING CESSATION Pantoprazole Sodium 20 mg 08/19/19 06:00 08/22/19 05:[address] Tablet PO 09/18/19 05:59 Not Given Q6AM MUSA Sodium Chloride 2.5 ml 08/19/19 06:00 08/22/19 05:27 Saline Flush 2.5 Ml Monoject Prefil Syrin IV 09/18/19 05:59 Not Given Q8 MUSA Discontinued Medications Generic Name Dose Route Start Last Admin Trade Name Freq PRN Reason Stop Dose Admin Aspirin 324 mg 08/19/19 00:57 08/19/19 01:20 Aspirin 81 Mg Chewable Tablet PO 08/19/19 00:58 324 mg NOW ONE Administration Diazepam 5 mg 08/19/19 00:27 08/19/19 00:56 Valium 5 Mg Tablet PO 08/19/19 00:28 5 mg NOW ONE Administration Diazepam 2.5 mg 08/19/19 06:00 08/20/19 14:25 Valium 5 Mg Tablet PO 08/26/19 05:59 2.5 mg Q8 MUSA Administration Diltiazem HCl 90 mg 08/19/19 03:35 08/19/19 04:26 Cardizem 90 Mg Tablet PO 08/19/19 03:36 Not Given NOW ONE Diltiazem HCl 60 mg 08/19/19 06:00 Cardizem 60 Mg Tablet PO 09/18/19 05:59 Q6 MUSA Diltiazem HCl 60 mg 08/19/19 12:00 08/20/19 05:59 Cardizem 60 Mg Tablet PO 09/18/19 11:59 60 mg Q6 MUSA Administration Folic Acid 1 mg 08/19/19 00:27 08/19/19 00:56 Folvite 1 Mg Tablet PO 08/19/19 00:28 1 mg NOW ONE Administration Furosemide 20 mg 08/19/19 03:31 08/19/19 03:45 Lasix Inj/Pf 20 Mg/2 Ml Sdv IV 08/19/19 03:32 20 mg NOW ONE Administration Furosemide 20 mg 08/20/19 18:04 08/20/19 18:42 Lasix 20 Mg Tablet PO 08/20/19 18:05 20 mg NOW ONE Administration Furosemide 20 mg 08/21/19 12:00 08/21/19 17:51 Lasix Inj/Pf 20 Mg/2 Ml Sdv IV 08/21/19 18:01 20 mg Q6H MUSA Administration Sodium Chloride 500 mls @ 0 mls/hr 08/18/19 22:09 08/19/19 01:34 Nacl 0.9% 500 Ml Iv Soln IV 08/18/19 22:10 Infused NOW ONE Infusion Wide Open Thiamine HCl 100 mg/ Folic 251.2 mls @ 502.4 mls/hr 08/19/19 10:00 08/21/19 11:40 Acid 1 mg/ Sodium Chloride IV 09/18/19 09:59 502.4 mls/hr DAILY MUSA Administration Lorazepam 2 mg 08/19/19 03:39 Ativan Inj 2 Mg/1 Ml Vial IV 08/26/19 03:38 Q2HP PRN ANXIETY/AGITATION Metoprolol Succinate 25 mg 08/20/19 10:00 08/20/19 12:14 Toprol Xl 25 Mg Tab.Sr PO 09/19/19 09:59 25 mg Q12 MUSA Administration Multivitamins 1 tab 08/19/19 00:26 08/19/19 00:56 Tab-A-Taryn (Multiple Vitamin) Tablet PO 08/19/19 00:27 1 tab NOW ONE Administration Thiamine HCl 100 mg 08/18/19 22:10 08/19/19 01:20 Thiamine 100 Mg Tablet PO 08/18/19 22:11 100 mg NOW ONE Administration Thiamine HCl 100 mg 08/19/19 02:00 08/19/19 01:33 Thiamine 100 Mg Tablet PO 08/19/19 02:01 Not Given NOW ONE Assessment & Plan - Diagnosis (1) Acute systolic (congestive) heart failure Is this a current diagnosis for this admission?: Yes Plan: Likely acute exacerbation of chronic systolic congestive heart failure with an ejection fraction between 20 and 25% and RV dysfunction. His blood pressure is stable and he has been ambulating in his room without any cardiovascular complaints. His blood pressure is stable and without any particular evidence of low cardiac output. Recommendations: -Restrict fluid intake to 1500 cc daily. -Low sodium diet, less than 1500 mg daily. -Strict intake and output. -Daily weights. -Continue with metoprolol and lisinopril at current doses for now. -Discontinue p.o. Lasix and start IV Lasix 20 mg twice daily. -Wean off/discontinue dobutamine infusion. -The patient will require an ischemic assessment prior to discharge and when he is more stable. -Please note that outpatient follow-up on this gentleman will be very difficult to obtain given his homelessness and his other social issues to include marijuana use. (2) Dilated cardiomyopathy secondary to alcohol Is this a current diagnosis for this admission?: Yes Plan: Likely secondary to alcohol although ischemic etiology needs to be excluded. Recommendations: -Please see #1 above for recommendations. (3) Alcohol dependence Is this a current diagnosis for this admission?: Yes Plan: Needs counseling. (4) Paroxysmal atrial fibrillation Is this a current diagnosis for this admission?: Yes Plan: The patient is currently in normal sinus rhythm. His calculated chads 2 vascular score is currently 1, given his social issues, drug use and difficulties obtaining follow-up we will hold off on full anticoagulation for now. Continue cardiac telemetry please.
--- NOTE | 2019-08-22 16:42 | PDOC PROGRESS REPORT ---
Subjective Progress Note for:: 08/22/19 Subjective:: Patient feels better today. States that tingling sensation in his legs resolved. Denies any shortness of breath. Reason For Visit: ALCOHOLIC CARDIOMYOPATHY,HEART FAILURE Physical Exam Vital Signs: Temp Pulse Resp BP Pulse Ox 97.4 F 104 H 22 H 131/80 H 94 08/22/19 11:36 08/22/19 13:00 08/22/19 11:36 08/22/19 13:00 08/22/19 11:36 Intake & Output 08/21/19 08/22/19 08/23/19 06:59 06:59 06:59 Intake Total 1467.2 1098 476 Output Total 1500 Balance 1467.2 -402 476 Weight 75.4 kg 75.4 kg General appearance: PRESENT: no acute distress, cooperative Neck exam: PRESENT: JVD Respiratory exam: PRESENT: symmetrical, unlabored. ABSENT: tachypnea, wheezes Cardiovascular exam: PRESENT: RRR, +S1, +S2. ABSENT: tachycardia GI/Abdominal exam: PRESENT: soft. ABSENT: rebound, rigid, tenderness Neurological exam: PRESENT: alert, awake Psychiatric exam: PRESENT: flat affect. ABSENT: agitated, anxious Focused psych exam: ABSENT: pressured speech Skin exam: ABSENT: jaundice Results Laboratory Results: 08/21/19 09:11 08/22/19 06:25 08/21/19 08/22/19 08/22/19 18:43 06:25 06:25 Sodium 133.5 L Potassium 4.1 Chloride 101 Carbon Dioxide 24 Anion Gap 9 BUN 13 Creatinine 0.96 Est GFR ( Amer) > 60 Glucose 89 Lactic Acid 1.5 1.6 Calcium 9.0 08/18/19 08/18/19 08/19/19 17:46 17:46 01:38 Creatine Kinase 289 H Troponin I 0.025 0.028 NT-Pro-B Natriuret Pep 8780 H 08/19/19 08/19/19 08/19/19 01:38 07:35 13:18 Creatine Kinase 212 H Troponin I 0.028 0.024 NT-Pro-B Natriuret Pep 08/19/19 08/21/19 19:57 09:11 Creatine Kinase Troponin I 0.021 NT-Pro-B Natriuret Pep 2400 H Impressions: Chest X-Ray 08/21/19 00:00 IMPRESSION: New small moderate bilateral pleural effusions Minimal right basilar airspace disease Assessment and Plan - Diagnosis (1) Acute systolic (congestive) heart failure Is this a current diagnosis for this admission?: Yes (2) Hypothermia Is this a current diagnosis for this admission?: Yes (3) Lactic acidosis Is this a current diagnosis for this admission?: Yes (4) Dilated cardiomyopathy secondary to alcohol Is this a current diagnosis for this admission?: Yes (5) Paroxysmal atrial fibrillation Is this a current diagnosis for this admission?: Yes (6) Alcohol dependence Is this a current diagnosis for this admission?: Yes (7) Homeless Is this a current diagnosis for this admission?: Yes (8) Tobacco abuse Is this a current diagnosis for this admission?: Yes - Plan Summary Summary: Discussed with patient about his cardiomyopathy noted on echo with EF of 20 to 25% and biventricular dilation. Picture appears to be typical for alcoholic ca rdiomyopathy. He denies any history of prior CHF. I have started patient on low-dose lisinopril, Toprol-XL and Lasix. Electrolytes in the morning. He will need to be set up with cardiology for outpatient follow-up prior to discharge. Does not appear to be overtly fluid overloaded at this moment. CIWA and as needed Ativan as needed. Will discontinue diazepam this evening. Alcohol cessation and tobacco cessation counseling performed. 08/21/2019 Patient hypothermic to 94F this morning. Lactic acid also elevated at 3.1. Cool extremities noted. Chest x-ray showing interstitial opacities possibly pulmonary edema without pneumonia. Prominent JVD noted on exam. Urinalysis on 614 was negative. Will repeat. Currently doubt that patient's presentation is due to an infection as he has no complaints concerning for infection no other findings. Patient has been placed on a wilian hugger with improvement to 97F. Concern for possible low output heart failure especially given his dilated cardiomyopathy with biventricular failure. I have consulted Dr. Bailon Will consider placing patient on milrinone drip and repeat lactic acid later. Patient currently not hypotensive. Will check liver enzymes and Bnp. IV Lasix, continue lisinopril and beta-david. 08/22/2019 Hypothermia has resolved at this time as well as lactic acidosis. Extremities feel warm today. Started patient on dobutamine low-dose yesterday as milrinone drip can only be done in the ICU. This seems to have led to resolution of hypothermia lactic acidosis. We will maintain on dopamine drip for today. Continue lisinopril and beta-david. Continue to monitor vital signs closely in the IMCU. EKG in the morning Cardiology following. - Time Time Spent with patient: Less than 15 minutes
[2019-08-22] MEDS ORDERED: FUROSEMIDE INJ/PF 40 MG/4 ML SDV IV ONE ×2 (20:02→22:30)
[2019-08-22] MEDS: LORAZEPAM INJ 2 MG/1 ML VIAL IV PRN (23:46)
[2019-08-23] MEDS ORDERED: DIAZEPAM INJ 10 MG/2 ML DISP.SYRIN IV PRN (01:12)
[2019-08-23] MEDS ORDERED: DIAZEPAM 5 MG TABLET PO PRN (01:12)
[2019-08-23] MEDS: DIAZEPAM 5 MG TABLET PO SCH ×5 (01:47→17:57)
[2019-08-23] MEDS: LORAZEPAM INJ 2 MG/1 ML VIAL IV PRN ×3 (01:48→16:11)
[2019-08-23] MEDS: PANTOPRAZOLE SODIUM 20 MG TABLET.DR PO SCH (05:09)
[2019-08-23] MEDS: HEPARIN SOD (PORCINE) 5,000 UNIT/ML 1 ML VIAL SUBCUT SCH ×3 (05:09→21:08)
--- NOTE | 2019-08-23 06:58 | EKG REPORT ---
SEVERITY:- ABNORMAL ECG - SINUS RHYTHM LEFT ATRIAL ABNORMALITY LAD, CONSIDER LEFT ANTERIOR FASCICULAR BLOCK ABNORMAL T, CONSIDER ISCHEMIA, ANTERIOR LEADS BORDERLINE PROLONGED QT INTERVAL : Confirmed by: Serge Perez MD 23-Aug-2019 06:57:26
[2019-08-23 07:14] LABS: ALBUMIN 3.5 g/dL (3.5-5.0); ALKALINE PHOSPHATASE 133 U/L (38-126); ANION GAP 7 (5-19); ASPARTATE AMINO TRANSFERASE 53 U/L (17-59); BILIRUBIN,DIRECT 0.1 mg/dL (0.0-0.4); BILIRUBIN,TOTAL 1.2 mg/dL (0.2-1.3); BLOOD UREA NITROGEN 15 mg/dL (7-20); CARBON DIOXIDE 26 mmol/L (22-30); CHLORIDE 99 mmol/L (98-107); GLUCOSE 111 mg/dL (75-110); POTASSIUM 4.1 mmol/L (3.6-5.0); TOTAL PROTEIN 6.9 g/dL (6.3-8.2)
[2019-08-23] MEDS: LEVALBUTEROL HCL NEB 1.25 MG/3 ML AMPUL NEB SCH ×3 (08:24→23:55)
[2019-08-23] MEDS ORDERED: MAGNESIUM OXIDE 400 MG TABLET PO ONE (08:45)
[2019-08-23] MEDS: NICOTINE 14 MG/24 HR PATCH.TD24 TD PRN (09:18)
[2019-08-23] MEDS: ASPIRIN 81 MG TABLET, ENT COATED PO SCH (09:18)
[2019-08-23] MEDS: FOLIC ACID 1 MG TABLET PO SCH (09:18)
[2019-08-23] MEDS: LISINOPRIL 10 MG TABLET PO SCH (09:18)
[2019-08-23] MEDS ORDERED: METOPROLOL SUCCINATE 50 MG TAB.SR.24H PO SCH (10:00)
[2019-08-23] MEDS ORDERED: METOPROLOL SUCCINATE 25 MG TAB.SR.24H PO SCH (10:00)
[2019-08-23] MEDS ORDERED: FUROSEMIDE 40 MG TABLET PO SCH (10:00)
[2019-08-23] MEDS ORDERED: FUROSEMIDE 20 MG TABLET PO SCH (10:00)
[2019-08-23] MEDS ORDERED: LISINOPRIL 5 MG TABLET PO SCH (10:00)
--- NOTE | 2019-08-23 10:54 | PDOC PROGRESS REPORT ---
Subjective Progress Note for:: 08/23/19 Subjective:: SHAHNAZ CASANOVA is a 64 year old homeless male with history of alcohol dependence, paroxysmal atrial fibrillation, who has been followed by my partner, Dr. Bailon, for what appears to be new onset cardiomyopathy with an ejection fraction between 20 and 25% as well as new onset of heart failure with reduced ejection fraction. He apparently had been stable until yesterday or the day before when he became hypothermic, with significant JVD and shortness of breath. At that point he was placed on low-dose dobutamine. Yesterday evening the nursing staff found the patient sitting at the edge of the bed covered in feces. He had pulled out his IV and dobutamine which is running onto the floor. He was cleaned up and placed back in the bed. This morning he is found sitting at the edge of the bed after finishing breakfast and without any cardiac complaints. He is eager to go home as soon as possible. His telemetry shows normal sinus rhythm with episodes of sinus tachycardia and PVCs. His proBNP was elevated at 2400, he tested positive for marijuana and his most recent chemistry shows hyponatremia. His blood pressure is stable. Unfortunately he is not measuring his urine therefore accurate urinary output is not possible. 08/23/2019: The patient became agitated again last night, pulling out IVs, removing telemetry, demading to be able to smoke a cigarette. He was treated with lorazepam administered at 2346 and 0148. Valium was given at 0545 for increased agitation again, pulling IV out, removing clothes, telemetry, urinating on the floor, screaming at staff. This morning he is found in bed, fully awake, with four-point soft restraints in place and eating breakfast with his bare hands. He does complain of increased shortness of breath but denies chest pain, palpitations, syncope and presyncope. His blood pressure is now elevated as he was kept on dobutamine drip yesterday. His telemetry shows normal sinus rhythm with one episode of 5 beat SVT yesterday. His lisinopril was increased to 10 mg daily, his Lasix was increased to 40 mg p.o. daily and his Toprol was also increased to 50 mg daily. Physical exam on 08/23/2019: GENERAL: Pleasant and conversational. He is disheveled, with feces on the floor and on his hands, appears chronically ill, he does not appear to comprehend the seriousness of his illness and appears to have some degree of mental disability. Not in acute distress. HEENT: Normocephalic, atraumatic. Pupils equal. Sclerae anicteric. Oropharynx moist. NECK: No JVD. No carotid bruits. LUNGS: Clear to auscultation bilaterally. Normal respiratory effort without the use of accessory muscles or intercostal retractions. CARDIOVASCULAR: Regular rate and rhythm, normal S1 and S2 without murmurs, rubs, or gallops. PMI not displaced. EXTREMITIES: No pretibial edema, very mild edema in the dorsum of both feet, no cyanosis, no clubbing. +2 pulses femoral and pedal pulses bilaterally. SKIN: No lesions or rashes. MUSCULOSKELETAL: No chest tenderness to palpation. NEUROLOGIC: Nonfocal. No gross sensory or motor deficits bilateral upper or lower extremities. Echocardiogram on 08/19/2019: -LV systolic function is moderately to severely reduced. -EF 20 to 25%. -RV systolic function is moderately reduced. -Mild MR, mild to moderate TR. -Minimal pericardial effusion. Reason For Visit: ALCOHOLIC CARDIOMYOPATHY,HEART FAILURE Physical Exam Vital Signs: Temp Pulse Resp BP Pulse Ox 98.7 F 92 24 H 127/99 H 97 08/22/19 23:20 08/23/19 07:00 08/22/19 23:42 08/23/19 07:00 08/22/19 23:42 Intake & Output 08/22/19 08/23/19 08/24/19 06:59 06:59 06:59 Intake Total 1098 1056 Output Total 1500 300 Balance -402 756 Weight 75.4 kg 75.4 kg Results Laboratory Results: 08/21/19 09:11 08/22/19 08/22/19 06:25 06:25 Sodium 133.5 L Potassium 4.1 Chloride 101 Carbon Dioxide 24 Anion Gap 9 BUN 13 Creatinine 0.96 Est GFR ( Amer) > 60 Glucose 89 Lactic Acid 1.6 Calcium 9.0 08/18/19 08/18/19 08/19/19 17:46 17:46 01:38 Creatine Kinase 289 H Troponin I 0.025 0.028 NT-Pro-B Natriuret Pep 8780 H 06/15/20 06/15/20 06/15/20 01:38 07:35 13:18 Creatine Kinase 212 H Troponin I 0.028 0.024 NT-Pro-B Natriuret Pep 08/19/19 08/21/19 19:57 09:11 Creatine Kinase Troponin I 0.021 NT-Pro-B Natriuret Pep 2400 H Impressions: Chest X-Ray 08/21/19 00:00 IMPRESSION: New small moderate bilateral pleural effusions Minimal right basilar airspace disease 08/21/19 09:11 MCV 87 fl (80-97) 08/21/19 09:11 MCH 28.9 pg (27.0-33.4) 08/21/19 09:11 MCHC 33.1 g/dL (32.0-36.0) 08/21/19 09:11 RDW 15.2 % (11.5-14.0) H 08/21/19 09:11 Seg Neutrophils % 53.4 % (42-78) 08/21/19 09:11 Chloride 101 mmol/L (98-107) 08/22/19 06:25 Carbon Dioxide 24 mmol/L (22-30) 08/22/19 06:25 Anion Gap 9 (5-19) 08/22/19 06:25 Est GFR ( Amer) > 60 (>60) 08/22/19 06:25 Glucose 89 mg/dL (75-110) 08/22/19 06:25 Lactic Acid 1.6 mmol/L (0.7-2.1) 08/22/19 06:25 Calcium 9.0 mg/dL (8.4-10.2) 08/22/19 06:25 Magnesium 1.9 mg/dL (1.6-2.3) 08/21/19 05:40 Total Bilirubin 0.7 mg/dL (0.2-1.3) 08/21/19 09:11 AST 39 U/L (17-59) 08/21/19 09:11 Alkaline Phosphatase 113 U/L (38-126) 08/21/19 09:11 Total Protein 6.4 g/dL (6.3-8.2) 08/21/19 09:11 Albumin 3.3 g/dL (3.5-5.0) L 08/21/19 09:11 TSH 3.62 uIU/mL (0.47-4.68) 08/18/19 17:46 Urine Color NAEEM 08/18/19 17:46 Urine Appearance SLIGHTLY-CLOUDY 08/18/19 17:46 Urine pH 6.0 (5.0-9.0) 08/18/19 17:46 Ur Specific [place] 1.021 08/18/19 17:46 Urine Protein 100 mg/dL (NEGATIVE) H 08/18/19 17:46 Urine Glucose (UA) NEGATIVE mg/dL (NEGATIVE) 08/18/19 17:46 Urine Ketones NEGATIVE mg/dL (NEGATIVE) 08/18/19 17:46 Urine Blood NEGATIVE (NEGATIVE) 08/18/19 17:46 Urine Nitrite NEGATIVE (NEGATIVE) 08/18/19 17:46 Ur Leukocyte Esterase NEGATIVE (NEGATIVE) 08/18/19 17:46 Urine WBC (Auto) 1 /HPF 08/18/19 17:46 Urine RBC (Auto) 0 /HPF 08/18/19 17:46 08/18/19 08/18/19 08/19/19 17:46 17:46 01:38 Creatine Kinase 289 H Troponin I 0.025 0.028 NT-Pro-B Natriuret Pep 8780 H 08/19/19 08/19/19 08/19/19 01:38 07:35 13:18 Creatine Kinase 212 H Troponin I 0.028 0.024 NT-Pro-B Natriuret Pep 08/19/19 08/21/19 19:57 09:11 Creatine Kinase Troponin I 0.021 NT-Pro-B Natriuret Pep 2400 H Current Medication List Generic Name Dose Route Start Last Admin Trade Name [facility] PRN Reason Stop Dose Admin Acetaminophen 650 mg 08/19/19 03:39 Tylenol 325 Mg Tablet PO 09/18/19 03:38 Q4HP PRN pain or temp greater than 101F Al Hydrox/Mg Hydrox/Simethicone 30 ml 08/19/19 03:39 Maalox Plus Susp 30 Udcup PO 09/18/19 03:38 Q4HP PRN HEARTBURN Aspirin 81 mg 08/19/19 10:00 08/22/19 09:15 Ecotrin 81 Mg Ec Tablet PO 09/18/19 09:59 81 mg DAILY MUSA Administration Diazepam 10 mg 08/23/19 01:12 08/23/19 05:45 Valium Inj 10 Mg/2 Ml Disp.Syrin IV 08/30/19 01:11 10 mg Q1HP PRN Administration AGITATION/ANXIETY Diazepam 10 mg 08/23/19 02:00 08/23/19 05:09 Valium 5 Mg Tablet PO 08/30/19 01:11 10 mg Q4 MUSA Administration Folic Acid 1 mg 08/22/19 10:00 08/22/19 09:15 Folvite 1 Mg Tablet PO 09/21/19 09:59 1 mg DAILY MUSA Administration Furosemide 20 mg 08/21/19 10:00 08/22/19 09:15 Lasix 20 Mg Tablet PO 09/20/19 09:59 20 mg DAILY MUSA Administration Heparin Sodium (Porcine) 5,000 unit 08/19/19 06:00 08/23/19 05:09 Heparin Inj 5,000 Units/Ml 1 Ml Vial SUBCUT 09/18/19 05:59 5,000 unit Q8 MUSA Administration Dobutamine HCl/Dextrose 500 mg in 250 mls @ 0 mls/hr 08/21/19 13:58 08/21/19 15:36 Dobutrex Rtu 500 Mg-D5w 250 Ml Premixed Bag IV 09/20/19 13:57 5.65 mls/hr CONTINUOUS PRN 5.65 mls/hr THIS MED IS NOT "PRN" Administration Protocol Titrate Levalbuterol HCl 1.25 mg 08/19/19 08:00 08/22/19 23:42 Xopenex Neb 1.25 Mg/3 Ml Ampul NEB 09/18/19 07:59 1.25 mg RTQ8 MUSA Administration Lisinopril 5 mg 08/20/19 10:00 08/22/19 09:15 Prinivil 5 Mg Tablet PO 09/19/19 09:59 5 mg DAILY MUSA Administration Lorazepam 2 mg 08/20/19 18:06 08/23/19 01:48 Ativan Inj 2 Mg/1 Ml Vial IV 08/26/19 03:38 2 mg Q2HP PRN Administration SEE LABEL COMMENTS Metoprolol Succinate 25 mg 08/21/19 10:00 08/22/19 09:15 Toprol Xl 25 Mg Tab.Sr PO 09/20/19 09:59 25 mg DAILY MUSA Administration Nicotine 1 each 08/20/19 10:20 08/22/19 09:16 Nicoderm 14 Mg/24 Hr Transdermal Patch TD 09/19/19 10:19 1 each DAILYP PRN Administration SMOKING CESSATION Pantoprazole Sodium 20 mg 08/19/19 06:00 08/23/19 05:[address] Tablet PO 09/18/19 05:59 20 mg Q6AM MUSA Administration Sodium Chloride 2.5 ml 08/19/19 06:00 08/23/19 05:10 Saline Flush 2.5 Ml Monoject Prefil Syrin IV 09/18/19 05:59 2.5 ml Q8 MUSA Administration Discontinued Medications Generic Name Dose Route Start Last Admin Trade Name Freq PRN Reason Stop Dose Admin Aspirin 324 mg 08/19/19 00:57 08/19/19 01:20 Aspirin 81 Mg Chewable Tablet PO 08/19/19 00:58 324 mg NOW ONE Administration Diazepam 5 mg 08/19/19 00:27 08/19/19 00:56 Valium 5 Mg Tablet PO 08/19/19 00:28 5 mg NOW ONE Administration Diazepam 2.5 mg 08/19/19 06:00 08/20/19 14:25 Valium 5 Mg Tablet PO 08/26/19 05:59 2.5 mg Q8 MUSA Administration Diazepam 10 mg 08/23/19 01:12 Valium 5 Mg Tablet PO 08/30/19 01:11 Q4HP PRN AGITATION Diltiazem HCl 90 mg 08/19/19 03:35 08/19/19 04:26 Cardizem 90 Mg Tablet PO 08/19/19 03:36 Not Given NOW ONE Diltiazem HCl 60 mg 08/19/19 06:00 Cardizem 60 Mg Tablet PO 09/18/19 05:59 Q6 MUSA Diltiazem HCl 60 mg 08/19/19 12:00 08/20/19 05:59 Cardizem 60 Mg Tablet PO 09/18/19 11:59 60 mg Q6 MUSA Administration Folic Acid 1 mg 08/19/19 00:27 08/19/19 00:56 Folvite 1 Mg Tablet PO 08/19/19 00:28 1 mg NOW ONE Administration Furosemide 20 mg 08/19/19 03:31 08/19/19 03:45 Lasix Inj/Pf 20 Mg/2 Ml Sdv IV 08/19/19 03:32 20 mg NOW ONE Administration Furosemide 20 mg 08/20/19 18:04 08/20/19 18:42 Lasix 20 Mg Tablet PO 08/20/19 18:05 20 mg NOW ONE Administration Furosemide 20 mg 08/21/19 12:00 08/21/19 17:51 Lasix Inj/Pf 20 Mg/2 Ml Sdv IV 08/21/19 18:01 20 mg Q6H MUSA Administration Furosemide 40 mg 08/22/19 20:02 08/22/19 22:42 Lasix Inj/Pf 40 Mg/4 Ml Sdv IV 08/22/19 20:03 40 mg NOW ONE Administration Furosemide 40 mg 08/22/19 22:30 08/22/19 22:44 Lasix Inj/Pf 40 Mg/4 Ml Sdv IV 08/22/19 22:31 Not Given NOW ONE Sodium Chloride 500 mls @ 0 mls/hr 08/18/19 22:09 08/19/19 01:34 Nacl 0.9% 500 Ml Iv Soln IV 08/18/19 22:10 Infused NOW ONE Infusion Wide Open Thiamine HCl 100 mg/ Folic 251.2 mls @ 502.4 mls/hr 08/19/19 10:00 08/21/19 11:40 Acid 1 mg/ Sodium Chloride IV 09/18/19 09:59 502.4 mls/hr DAILY MUSA Administration Lorazepam 2 mg 08/19/19 03:39 Ativan Inj 2 Mg/1 Ml Vial IV 08/26/19 03:38 Q2HP PRN ANXIETY/AGITATION Metoprolol Succinate 25 mg 08/20/19 10:00 08/20/19 12:14 Toprol Xl 25 Mg Tab.Sr PO 09/19/19 09:59 25 mg Q12 MUSA Administration Multivitamins 1 tab 08/19/19 00:26 08/19/19 00:56 Tab-A-Taryn (Multiple Vitamin) Tablet PO 08/19/19 00:27 1 tab NOW ONE Administration Thiamine HCl 100 mg 08/18/19 22:10 08/19/19 01:20 Thiamine 100 Mg Tablet PO 08/18/19 22:11 100 mg NOW ONE Administration Thiamine HCl 100 mg 08/19/19 02:00 08/19/19 01:33 Thiamine 100 Mg Tablet PO 08/19/19 02:01 Not Given NOW ONE Assessment & Plan - Diagnosis (1) Acute systolic (congestive) heart failure Is this a current diagnosis for this admission?: Yes Plan: Likely acute exacerbation of chronic systolic congestive heart failure with an ejection fraction between 20 and 25% and RV dysfunction. His blood pressure is actually elevated. He does complain of mild shortness of breath this morning. Unfortunately his urine output is unreliable as the patient does not measure it consistently. It does not appear that p.o. Lasix is been effective in diuresing the patient given his increased shortness of breath. Recommendations: -Restrict fluid intake to 1500 cc daily. -Low sodium diet, less than 1500 mg daily. -Strict intake and output. -Daily weights. -Continue with metoprolol and lisinopril at current doses for now. -Discontinue p.o. Lasix and start IV Lasix 40 mg daily. -Discontinue dobutamine infusion. -The patient will require an ischemic assessment prior to discharge and when he is more stable. -Replace electrolytes as needed. -Please note that outpatient follow-up on this gentleman will be very difficult to obtain given his homelessness and his other social issues to include marijuana use. (2) Dilated cardiomyopathy secondary to alcohol Is this a current diagnosis for this admission?: Yes Plan: Likely secondary to alcohol although ischemic etiology needs to be excluded. Recommendations: -Please see #1 above for recommendations. (3) Alcohol dependence Is this a current diagnosis for this admission?: Yes Plan: Needs counseling. (4) Paroxysmal atrial fibrillation Is this a current diagnosis for this admission?: Yes Plan: The patient is remains in normal sinus rhythm. His calculated chads 2 vascular score is currently 1, given his social issues, drug use and difficulties obtaining follow-up we will hold off on full anticoagulation for now. Continue cardiac telemetry please.
--- NOTE | 2019-08-23 17:36 | PDOC PROGRESS REPORT ---
Subjective Progress Note for:: 08/23/19 Subjective:: Informed that patient got agitated earlier requiring ativan. Started on some diazepam overnight as well. Also reported that patient often defecates himself and urinates all over the floor. Reason For Visit: ALCOHOLIC CARDIOMYOPATHY,HEART FAILURE Physical Exam Vital Signs: Temp Pulse Resp BP Pulse Ox 97.4 F 98 16 128/87 H 95 08/23/19 12:05 08/23/19 14:00 08/23/19 12:05 08/23/19 12:05 08/23/19 12:05 Intake & Output 08/22/19 08/23/19 08/24/19 06:59 06:59 06:59 Intake Total 1098 1056 120 Output Total 1500 300 Balance -402 756 120 Weight 75.4 kg 69.3 kg General appearance: PRESENT: no acute distress, disheveled, thin. ABSENT: cooperative Neck exam: PRESENT: JVD Respiratory exam: PRESENT: clear to auscultation jefferson, unlabored. ABSENT: crackles, tachypnea, wheezes Cardiovascular exam: PRESENT: RRR, +S1, +S2. ABSENT: tachycardia GI/Abdominal exam: PRESENT: soft. ABSENT: rebound, rigid, tenderness Neurological exam: PRESENT: alert, awake, oriented to person, other - Confused Results Laboratory Results: 08/21/19 09:11 08/23/19 06:32 08/23/19 06:32 Sodium 132.2 L Potassium 4.1 Chloride 99 Carbon Dioxide 26 Anion Gap 7 BUN 15 Creatinine 0.90 Est GFR ( Amer) > 60 Glucose 111 H Calcium 9.0 Magnesium 1.9 Total Bilirubin 1.2 AST 53 Alkaline Phosphatase 133 H Total Protein 6.9 Albumin 3.5 08/18/19 08/18/19 08/19/19 17:46 17:46 01:38 Creatine Kinase 289 H Troponin I 0.025 0.028 NT-Pro-B Natriuret Pep 8780 H 08/19/19 08/19/19 08/19/19 01:38 07:35 13:18 Creatine Kinase 212 H Troponin I 0.028 0.024 NT-Pro-B Natriuret Pep 08/19/19 08/21/19 19:57 09:11 Creatine Kinase Troponin I 0.021 NT-Pro-B Natriuret Pep 2400 H Impressions: Chest X-Ray 08/21/19 00:00 IMPRESSION: New small moderate bilateral pleural effusions Minimal right basilar airspace disease Assessment and Plan - Diagnosis (1) Acute systolic (congestive) heart failure Is this a current diagnosis for this admission?: Yes (2) Encephalopathy, metabolic Is this a current diagnosis for this admission?: Yes (3) Hypothermia Is this a current diagnosis for this admission?: Yes (4) Lactic acidosis Is this a current diagnosis for this admission?: Yes (5) Dilated cardiomyopathy secondary to alcohol Is this a current diagnosis for this admission?: Yes (6) Paroxysmal atrial fibrillation Is this a current diagnosis for this admission?: Yes (7) Alcohol dependence Is this a current diagnosis for this admission?: Yes (8) Homeless Is this a current diagnosis for this admission?: Yes (9) Tobacco abuse Is this a current diagnosis for this admission?: Yes - Plan Summary Summary: Discussed with patient about his cardiomyopathy noted on echo with EF of 20 to 25% and biventricular dilation. 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 He denies any history of prior CHF. I have started patient on low-dose lisinopril, Toprol-XL and Lasix. Electrolytes in the morning. He will need to be set up with cardiology for outpatient follow-up prior to discharge. Does not appear to be overtly fluid overloaded at this moment. CIWA and as needed Ativan as needed. Will discontinue diazepam this evening. Alcohol cessation and tobacco cessation counseling performed. 08/21/2019 Patient hypothermic to 94F this morning. Lactic acid also elevated at 3.1. Cool extremities noted. Chest x-ray showing interstitial opacities possibly pulmonary edema without pneumonia. Prominent JVD noted on exam. Urinalysis on 614 was negative. Will repeat. Currently doubt that patient's presentation is due to an infection as he has no complaints concerning for infection no other findings. Patient has been placed on a wilian hugger with improvement to 97F. Concern for possible low output heart failure especially given his dilated cardiomyopathy with biventricular failure. I have consulted Dr. Bailon Will consider placing patient on milrinone drip and repeat lactic acid later. Patient currently not hypotensive. Will check liver enzymes and Bnp. IV Lasix, continue lisinopril and beta-david. 08/22/2019 Hypothermia has resolved at this time as well as lactic acidosis. Extremities feel warm today. Started patient on dobutamine low-dose yesterday as milrinone drip can only be done in the ICU. This seems to have led to resolution of hypothermia lactic acidosis. We will maintain on dopamine drip for today. Continue lisinopril and beta-david. Continue to monitor vital signs closely in the IMCU. EKG in the morning Cardiology following. 08/23/2019 Dobutamine drip discontinued. Continue Toprol and lisinopril. Diuretics changed to IV Lasix per Cardiology recommendation. I believe patient likely has encephalopathy that is likely chronic from his chronic alcohol abuse. There is a very good chance that he has Wernicke's encephalopathy. I do not think he is mental status is as a result of alcohol withdrawal. I will discontinue Ativan. I will give some standing diazepam. I will order for Haldol IM as needed. Redirection if possible. Currently in restraints. I have called patient's brother to try to get a better sense of patient's baseline mental status but no response. Left voice message to call back tomorrow or before end of shift today. - Time Time Spent with patient: Less than 15 minutes
[2019-08-23] MEDS: HALOPERIDOL LACTATE INJ 5 MG/1 ML VIAL IM PRN (20:48)
[2019-08-24] MEDS: DIAZEPAM 5 MG TABLET PO SCH ×2 (00:03→05:31)
[2019-08-24] MEDS: HEPARIN SOD (PORCINE) 5,000 UNIT/ML 1 ML VIAL SUBCUT SCH ×3 (05:31→21:56)
[2019-08-24] MEDS: PANTOPRAZOLE SODIUM 20 MG TABLET.DR PO SCH (05:31)
[2019-08-24 07:08] LABS: ANION GAP 9 (5-19); BLOOD UREA NITROGEN 13 mg/dL (7-20); CALCIUM 9.1 mg/dL (8.4-10.2); CARBON DIOXIDE 26 mmol/L (22-30); CHLORIDE 100 mmol/L (98-107); GLUCOSE 97 mg/dL (75-110); POTASSIUM 4.2 mmol/L (3.6-5.0)
--- NOTE | 2019-08-24 07:24 | PDOC PROGRESS REPORT ---
Subjective Progress Note for:: 08/24/19 Subjective:: SHAHNAZ CASANOVA is a 64 year old homeless male with history of alcohol dependence, paroxysmal atrial fibrillation, who has been followed by my partner, Dr. Bailon, for what appears to be new onset cardiomyopathy with an ejection fraction between 20 and 25% as well as new onset of heart failure with reduced ejection fraction. He apparently had been stable until yesterday or the day before when he became hypothermic, with significant JVD and shortness of breath. At that point he was placed on low-dose dobutamine. Yesterday evening the nursing staff found the patient sitting at the edge of the bed covered in feces. He had pulled out his IV and dobutamine which is running onto the floor. He was cleaned up and placed back in the bed. This morning he is found sitting at the edge of the bed after finishing breakfast and without any cardiac complaints. He is eager to go home as soon as possible. His telemetry shows normal sinus rhythm with episodes of sinus tachycardia and PVCs. His proBNP was elevated at 2400, he tested positive for marijuana and his most recent chemistry shows hyponatremia. His blood pressure is stable. Unfortunately he is not measuring his urine therefore accurate urinary output is not possible. 08/24/2019: The patient became agitated again last night and was provided Haldol. This morning he is sleeping, on soft four-point restraints. He is arousable however falls back asleep very quickly. His blood pressure has been stable even after dobutamine infusion was discontinued. His telemetry shows normal sinus rhythm with episodes of sinus tachycardia and 1 episode of nonsustained VT lasting 5 beats. Physical exam on 08/24/2019: GENERAL: Sleeping. Arousable but falls back asleep quickly. HEENT: Normocephalic, atraumatic. Pupils equal. Sclerae anicteric. Oropharynx moist. NECK: No JVD. No carotid bruits. LUNGS: Clear to auscultation bilaterally. Normal respiratory effort without the use of accessory muscles or intercostal retractions. CARDIOVASCULAR: Regular rate and rhythm, normal S1 and S2 without murmurs, rubs, or gallops. PMI not displaced. EXTREMITIES: No pretibial edema, very mild edema in the dorsum of both feet, no cyanosis, no clubbing. +2 pulses femoral and pedal pulses bilaterally. SKIN: No lesions or rashes. MUSCULOSKELETAL: No chest tenderness to palpation. NEUROLOGIC: Nonfocal. No gross sensory or motor deficits bilateral upper or lower extremities. Echocardiogram on 08/19/2019: -LV systolic function is moderately to severely reduced. -EF 20 to 25%. -RV systolic function is moderately reduced. -Mild MR, mild to moderate TR. -Minimal pericardial effusion. Reason For Visit: ALCOHOLIC CARDIOMYOPATHY,HEART FAILURE Physical Exam Vital Signs: Temp Pulse Resp BP Pulse Ox 97.4 F 99 16 140/88 H 94 08/24/19 04:08 08/24/19 04:08 08/24/19 04:08 08/24/19 04:08 08/24/19 04:08 Intake & Output 08/23/19 08/24/19 08/25/19 06:59 06:59 06:59 Intake Total 1056 120 Output Total 300 Balance 756 120 Weight 69.3 kg 62.9 kg Results Laboratory Results: 08/21/19 09:11 08/24/19 06:35 08/24/19 06:35 Sodium 134.9 L Potassium 4.2 Chloride 100 Carbon Dioxide 26 Anion Gap 9 BUN 13 Creatinine 0.83 Est GFR ( Amer) > 60 Glucose 97 Calcium 9.1 08/18/19 08/18/19 08/19/19 17:46 17:46 01:38 Creatine Kinase 289 H Troponin I 0.025 0.028 NT-Pro-B Natriuret Pep 8780 H 08/19/19 08/19/19 08/19/19 01:38 07:35 13:18 Creatine Kinase 212 H Troponin I 0.028 0.024 NT-Pro-B Natriuret Pep 08/19/19 08/21/19 19:57 09:11 Creatine Kinase Troponin I 0.021 NT-Pro-B Natriuret Pep 2400 H Impressions: Chest X-Ray 08/21/19 00:00 IMPRESSION: New small moderate bilateral pleural effusions Minimal right basilar airspace disease 08/21/19 09:11 08/24/19 06:35 MCV 87 fl (80-97) 08/21/19 09:11 MCH 28.9 pg (27.0-33.4) 08/21/19 09:11 MCHC 33.1 g/dL (32.0-36.0) 08/21/19 09:11 RDW 15.2 % (11.5-14.0) H 08/21/19 09:11 Seg Neutrophils % 53.4 % (42-78) 08/21/19 09:11 Chloride 100 mmol/L (98-107) 08/24/19 06:35 Carbon Dioxide 26 mmol/L (22-30) 08/24/19 06:35 Anion Gap 9 (5-19) 08/24/19 06:35 Est GFR ( Amer) > 60 (>60) 08/24/19 06:35 Glucose 97 mg/dL (75-110) 08/24/19 06:35 Lactic Acid 1.6 mmol/L (0.7-2.1) 08/22/19 06:25 Calcium 9.1 mg/dL (8.4-10.2) 08/24/19 06:35 Magnesium 1.9 mg/dL (1.6-2.3) 08/23/19 06:32 Total Bilirubin 1.2 mg/dL (0.2-1.3) 08/23/19 06:32 AST 53 U/L (17-59) 08/23/19 06:32 Alkaline Phosphatase 133 U/L (38-126) H 08/23/19 06:32 Total Protein 6.9 g/dL (6.3-8.2) 08/23/19 06:32 Albumin 3.5 g/dL (3.5-5.0) 08/23/19 06:32 TSH 3.62 uIU/mL (0.47-4.68) 08/18/19 17:46 Urine Color NAEEM 08/18/19 17:46 Urine Appearance SLIGHTLY-CLOUDY 08/18/19 17:46 Urine pH 6.0 (5.0-9.0) 08/18/19 17:46 Ur Specific [place] 1.021 08/18/19 17:46 Urine Protein 100 mg/dL (NEGATIVE) H 08/18/19 17:46 Urine Glucose (UA) NEGATIVE mg/dL (NEGATIVE) 08/18/19 17:46 Urine Ketones NEGATIVE mg/dL (NEGATIVE) 08/18/19 17:46 Urine Blood NEGATIVE (NEGATIVE) 08/18/19 17:46 Urine Nitrite NEGATIVE (NEGATIVE) 08/18/19 17:46 Ur Leukocyte Esterase NEGATIVE (NEGATIVE) 08/18/19 17:46 Urine WBC (Auto) 1 /HPF 08/18/19 17:46 Urine RBC (Auto) 0 /HPF 08/18/19 17:46 08/18/19 08/18/19 08/19/19 17:46 17:46 01:38 Creatine Kinase 289 H Troponin I 0.025 0.028 NT-Pro-B Natriuret Pep 8780 H 08/19/19 08/19/19 08/19/19 01:38 07:35 13:18 Creatine Kinase 212 H Troponin I 0.028 0.024 NT-Pro-B Natriuret Pep 08/19/19 08/21/19 19:57 09:11 Creatine Kinase Troponin I 0.021 NT-Pro-B Natriuret Pep 2400 H Current Medication List Generic Name Dose Route Start Last Admin Trade Name Freq PRN Reason Stop Dose Admin Acetaminophen 650 mg 08/19/19 03:39 Tylenol 325 Mg Tablet PO 09/18/19 03:38 Q4HP PRN pain or temp greater than 101F Al Hydrox/Mg Hydrox/Simethicone 30 ml 08/19/19 03:39 Maalox Plus Susp 30 Udcup PO 09/18/19 03:38 Q4HP PRN HEARTBURN Aspirin 81 mg 08/19/19 10:00 08/23/19 09:18 Ecotrin 81 Mg Ec Tablet PO 09/18/19 09:59 81 mg DAILY MUSA Administration Diazepam 10 mg 08/23/19 18:00 08/24/19 05:31 Valium 5 Mg Tablet PO 08/30/19 17:59 10 mg Q6 MUSA Administration Folic Acid 1 mg 08/22/19 10:00 08/23/19 09:18 Folvite 1 Mg Tablet PO 09/21/19 09:59 1 mg DAILY MUSA Administration Furosemide 40 mg 08/24/19 10:00 Lasix Inj/Pf 40 Mg/4 Ml Sdv IV 09/23/19 09:59 DAILY MUSA Haloperidol Lactate 5 mg 08/23/19 17:29 08/23/19 20:48 Haldol 5 Mg/Ml Inj 1 Ml Vial IM 09/22/19 17:28 5 mg Q6HP PRN Administration RESTLESSNESS/AGITATION Heparin Sodium (Porcine) 5,000 unit 08/19/19 06:00 08/24/19 05:31 Heparin Inj 5,000 Units/Ml 1 Ml Vial SUBCUT 09/18/19 05:59 5,000 unit Q8 MUSA Administration Levalbuterol HCl 1.25 mg 08/19/19 08:00 08/23/19 23:55 Xopenex Neb 1.25 Mg/3 Ml Ampul NEB 09/18/19 07:59 1.25 mg RTQ8 MUSA Administration Lisinopril 10 mg 08/23/19 10:00 08/23/19 09:18 Prinivil 10 Mg Tablet PO 09/22/19 09:59 10 mg DAILY MUSA Administration Metoprolol Succinate 50 mg 08/23/19 10:00 08/23/19 09:18 Toprol Xl 50 Mg Tab.Sr PO 09/22/19 09:59 50 mg DAILY MUSA Administration Nicotine 1 each 08/20/19 10:20 08/23/19 09:18 Nicoderm 14 Mg/24 Hr Transdermal Patch TD 09/19/19 10:19 1 each DAILYP PRN Administration SMOKING CESSATION Pantoprazole Sodium 20 mg 08/19/19 06:00 08/24/19 05:[address] Tablet PO 09/18/19 05:59 20 mg Q6AM MUSA Administration Sodium Chloride 2.5 ml 08/19/19 06:00 08/24/19 05:31 Saline Flush 2.5 Ml Monoject Prefil Syrin IV 09/18/19 05:59 2.5 ml Q8 MUSA Administration Discontinued Medications Generic Name Dose Route Start Last Admin Trade Name Freq PRN Reason Stop Dose Admin Aspirin 324 mg 08/19/19 00:57 08/19/19 01:20 Aspirin 81 Mg Chewable Tablet PO 08/19/19 00:58 324 mg NOW ONE Administration Diazepam 5 mg 08/19/19 00:27 08/19/19 00:56 Valium 5 Mg Tablet PO 08/19/19 00:28 5 mg NOW ONE Administration Diazepam 2.5 mg 08/19/19 06:00 08/20/19 14:25 Valium 5 Mg Tablet PO 08/26/19 05:59 2.5 mg Q8 MUSA Administration Diazepam 10 mg 08/23/19 01:12 08/23/19 05:45 Valium Inj 10 Mg/2 Ml Disp.Syrin IV 08/30/19 01:11 10 mg Q1HP PRN Administration AGITATION/ANXIETY Diazepam 10 mg 08/23/19 01:12 Valium 5 Mg Tablet PO 08/30/19 01:11 Q4HP PRN AGITATION Diazepam 10 mg 08/23/19 02:00 08/23/19 13:42 Valium 5 Mg Tablet PO 08/30/19 01:11 10 mg Q4 MUSA Administration Diltiazem HCl 90 mg 08/19/19 03:35 08/19/19 04:26 Cardizem 90 Mg Tablet PO 08/19/19 03:36 Not Given NOW ONE Diltiazem HCl 60 mg 08/19/19 06:00 Cardizem 60 Mg Tablet PO 09/18/19 05:59 Q6 MUSA Diltiazem HCl 60 mg 08/19/19 12:00 08/20/19 05:59 Cardizem 60 Mg Tablet PO 09/18/19 11:59 60 mg Q6 MUSA Administration Folic Acid 1 mg 08/19/19 00:27 08/19/19 00:56 Folvite 1 Mg Tablet PO 08/19/19 00:28 1 mg NOW ONE Administration Furosemide 20 mg 08/19/19 03:31 08/19/19 03:45 Lasix Inj/Pf 20 Mg/2 Ml Sdv IV 08/19/19 03:32 20 mg NOW ONE Administration Furosemide 20 mg 08/20/19 18:04 08/20/19 18:42 Lasix 20 Mg Tablet PO 08/20/19 18:05 20 mg NOW ONE Administration Furosemide 20 mg 08/21/19 10:00 08/22/19 09:15 Lasix 20 Mg Tablet PO 09/20/19 09:59 20 mg DAILY MUSA Administration Furosemide 20 mg 08/21/19 12:00 08/21/19 17:51 Lasix Inj/Pf 20 Mg/2 Ml Sdv IV 08/21/19 18:01 20 mg Q6H MUSA Administration Furosemide 40 mg 08/22/19 20:02 08/22/19 22:42 Lasix Inj/Pf 40 Mg/4 Ml Sdv IV 08/22/19 20:03 40 mg NOW ONE Administration Furosemide 40 mg 08/22/19 22:30 08/22/19 22:44 Lasix Inj/Pf 40 Mg/4 Ml Sdv IV 08/22/19 22:31 Not Given NOW ONE Furosemide 40 mg 08/23/19 10:00 08/23/19 09:18 Lasix 40 Mg Tablet PO 09/22/19 09:59 40 mg DAILY MUSA Administration Sodium Chloride 500 mls @ 0 mls/hr 08/18/19 22:09 08/19/19 01:34 Nacl 0.9% 500 Ml Iv Soln IV 08/18/19 22:10 Infused NOW ONE Infusion Wide Open Thiamine HCl 100 mg/ Folic 251.2 mls @ 502.4 mls/hr 08/19/19 10:00 08/21/19 11:40 Acid 1 mg/ Sodium Chloride IV 09/18/19 09:59 502.4 mls/hr DAILY MUSA Administration Dobutamine HCl/Dextrose 500 mg in 250 mls @ 0 mls/hr 08/21/19 13:58 08/21/19 15:36 Dobutrex Rtu 500 Mg-D5w 250 Ml Premixed Bag IV 09/20/19 13:57 5.65 mls/hr CONTINUOUS PRN 5.65 mls/hr THIS MED IS NOT "PRN" Administration Protocol Titrate Lisinopril 5 mg 08/20/19 10:00 08/22/19 09:15 Prinivil 5 Mg Tablet PO 09/19/19 09:59 5 mg DAILY MUSA Administration Lorazepam 2 mg 08/19/19 03:39 Ativan Inj 2 Mg/1 Ml Vial IV 08/26/19 03:38 Q2HP PRN ANXIETY/AGITATION Lorazepam 2 mg 08/20/19 18:06 08/23/19 16:11 Ativan Inj 2 Mg/1 Ml Vial IV 08/26/19 03:38 2 mg Q2HP PRN Administration SEE LABEL COMMENTS Magnesium Oxide 400 mg 08/23/19 08:45 08/23/19 09:18 Mag-Ox 400 Mg Tablet PO 08/23/19 08:46 400 mg NOW ONE Administration Metoprolol Succinate 25 mg 08/20/19 10:00 08/20/19 12:14 Toprol Xl 25 Mg Tab.Sr PO 09/19/19 09:59 25 mg Q12 MUSA Administration Metoprolol Succinate 25 mg 08/21/19 10:00 08/22/19 09:15 Toprol Xl 25 Mg Tab.Sr PO 09/20/19 09:59 25 mg DAILY MUSA Administration Multivitamins 1 tab 08/19/19 00:26 08/19/19 00:56 Tab-A-Taryn (Multiple Vitamin) Tablet PO 08/19/19 00:27 1 tab NOW ONE Administration Thiamine HCl 100 mg 08/18/19 22:10 08/19/19 01:20 Thiamine 100 Mg Tablet PO 08/18/19 22:11 100 mg NOW ONE Administration Thiamine HCl 100 mg 08/19/19 02:00 08/19/19 01:33 Thiamine 100 Mg Tablet PO 08/19/19 02:01 Not Given NOW ONE Assessment & Plan - Diagnosis (1) Acute systolic (congestive) heart failure Is this a current diagnosis for this admission?: Yes Plan: Likely acute exacerbation of chronic systolic congestive heart failure with an ejection fraction between 20 and 25% and RV dysfunction. His blood pressure is now at goal and he appears very comfortable laying flat in bed. He denies shortness of breath this morning. Unfortunately his urine output is unreliable as the patient does not measure it consistently. Of concern is his short episode of nonsustained VT therefore we will increase his metoprolol.. Recommendations: -Chest x-ray today. -Restrict fluid intake to 1500 cc daily. -Low sodium diet, less than 1500 mg daily. -Strict intake and output. -Daily weights. -Continue with lisinopril at current doses for now. -Increase Toprol-XL to 100 mg daily. -Continue with IV Lasix 40 mg daily. -The patient will require an ischemic assessment prior to discharge and when he is more stable. -Replace electrolytes as needed. -Please note that outpatient follow-up on this gentleman will be very difficult to obtain given his homelessness and his other social issues to include marijuana use. (2) Dilated cardiomyopathy secondary to alcohol Is this a current diagnosis for this admission?: Yes Plan: Likely secondary to alcohol although ischemic etiology needs to be excluded. Recommendations: -Please see #1 above for recommendations. (3) Alcohol dependence Is this a current diagnosis for this admission?: Yes (4) Paroxysmal atrial fibrillation Is this a current diagnosis for this admission?: Yes Plan: The patient is remains in normal sinus rhythm. His calculated chads 2 vascular score is currently 1, given his social issues, drug use and difficulties obtaining follow-up we will hold off on full anticoagulation for now. Continue cardiac telemetry please.
[2019-08-24] MEDS: LEVALBUTEROL HCL NEB 1.25 MG/3 ML AMPUL NEB SCH ×2 (08:34→16:11)
--- NOTE | 2019-08-24 09:22 | RADIOLOGY REPORT (SQ) ---
EXAM DESCRIPTION: CHEST SINGLE VIEW IMAGES COMPLETED DATE/TIME: 08/24/2019 8:55 am REASON FOR STUDY: possible aspiration COMPARISON: 08/18/2019 EXAM PARAMETERS: NUMBER OF VIEWS: One view. TECHNIQUE: Single frontal radiographic view of the chest acquired. RADIATION DOSE: NA LIMITATIONS: None. FINDINGS: LUNGS AND PLEURA: Very minimal opacity in the right mid zone and left base. No effusions or pneumothorax. MEDIASTINUM AND HILAR STRUCTURES: No masses. Contour normal. HEART AND VASCULAR STRUCTURES: Heart normal in size. Normal vasculature. BONES: No acute findings. HARDWARE: None in the chest. OTHER: No other significant finding. IMPRESSION: Minimal right lung and left basilar opacities. Unlikely to represent aspiration. TECHNICAL DOCUMENTATION: JOB ID: [id number] [email or web address] Rights Reserved Reading location - IP/workstation name: [email or web address]
[2019-08-24] MEDS: ASPIRIN 81 MG TABLET, ENT COATED PO SCH ×2 (10:40→12:13)
[2019-08-24] MEDS: METOPROLOL SUCCINATE 50 MG TAB.SR.24H PO SCH ×2 (10:41→12:13)
[2019-08-24] MEDS: FOLIC ACID 1 MG TABLET PO SCH ×2 (10:41→12:13)
[2019-08-24] MEDS: LISINOPRIL 10 MG TABLET PO SCH ×2 (10:41→12:13)
[2019-08-24] MEDS: FUROSEMIDE INJ/PF 40 MG/4 ML SDV IV SCH (11:01)
--- NOTE | 2019-08-24 17:12 | PDOC PROGRESS REPORT ---
Subjective Progress Note for:: 08/24/19 Subjective:: Patient denies any shortness of breath at this time. Denies any chest pain. His affect is very poor. Seems very nonchalant. Reported by nursing staff that patient from urinates and defecates over himself and he is unsteady on his feet. Also noted to have moments of confusion. Reason For Visit: ALCOHOLIC CARDIOMYOPATHY,HEART FAILURE Physical Exam Vital Signs: Temp Pulse Resp BP Pulse Ox 98.3 F 91 20 157/111 H 99 08/24/19 11:37 08/24/19 14:00 08/24/19 11:37 08/24/19 11:37 08/24/19 11:37 Intake & Output 08/23/19 08/24/19 08/25/19 06:59 06:59 06:59 Intake Total 1056 120 Output Total 300 Balance 756 120 Weight 69.3 kg 62.9 kg General appearance: PRESENT: no acute distress, cooperative Neck exam: ABSENT: JVD Respiratory exam: PRESENT: clear to auscultation jefferson, unlabored. ABSENT: tachypnea, wheezes Cardiovascular exam: PRESENT: RRR, +S1, +S2. ABSENT: tachycardia GI/Abdominal exam: PRESENT: soft. ABSENT: rebound, rigid, tenderness Neurological exam: PRESENT: alert, awake, oriented to person, oriented to place. ABSENT: oriented to time Psychiatric exam: ABSENT: agitated, anxious Focused psych exam: PRESENT: other - Psychomotor retardation Results Laboratory Results: 08/21/19 09:11 08/24/19 06:35 08/24/19 06:35 Sodium 134.9 L Potassium 4.2 Chloride 100 Carbon Dioxide 26 Anion Gap 9 BUN 13 Creatinine 0.83 Est GFR ( Amer) > 60 Glucose 97 Calcium 9.1 08/18/19 08/18/19 08/19/19 17:46 17:46 01:38 Creatine Kinase 289 H Troponin I 0.025 0.028 NT-Pro-B Natriuret Pep 8780 H 08/19/19 08/19/19 08/19/19 01:38 07:35 13:18 Creatine Kinase 212 H Troponin I 0.028 0.024 NT-Pro-B Natriuret Pep 08/19/19 08/21/19 19:57 09:11 Creatine Kinase Troponin I 0.021 NT-Pro-B Natriuret Pep 2400 H Impressions: Chest X-Ray 08/24/19 00:00 IMPRESSION: Minimal right lung and left basilar opacities. Unlikely to represent aspiration. Assessment and Plan - Diagnosis (1) Acute systolic (congestive) heart failure Is this a current diagnosis for this admission?: Yes (2) Encephalopathy, metabolic Is this a current diagnosis for this admission?: Yes (3) Dilated cardiomyopathy secondary to alcohol Is this a current diagnosis for this admission?: Yes (4) Paroxysmal atrial fibrillation Is this a current diagnosis for this admission?: Yes (5) Alcohol dependence Is this a current diagnosis for this admission?: Yes (6) Homeless Is this a current diagnosis for this admission?: Yes (7) Tobacco abuse Is this a current diagnosis for this admission?: Yes (8) Debility Is this a current diagnosis for this admission?: Yes - Plan Summary Summary: Discussed with patient about his cardiomyopathy noted on echo with EF of 20 to 25% and biventricular dilation. 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 He denies any history of prior CHF. I have started patient on low-dose lisinopril, Toprol-XL and Lasix. Electrolytes in the morning. He will need to be set up with cardiology for outpatient follow-up prior to discharge. Does not appear to be overtly fluid overloaded at this moment. CIWA and as needed Ativan as needed. Will discontinue diazepam this evening. Alcohol cessation and tobacco cessation counseling performed. 08/21/2019 Patient hypothermic to 94F this morning. Lactic acid also elevated at 3.1. Cool extremities noted. Chest x-ray showing interstitial opacities possibly pulmonary edema without pneumonia. Prominent JVD noted on exam. Urinalysis on 614 was negative. Will repeat. Currently doubt that patient's presentation is due to an infection as he has no complaints concerning for infection no other findings. Patient has been placed on a wilian hugger with improvement to 97F. Concern for possible low output heart failure especially given his dilated cardiomyopathy with biventricular failure. I have consulted Dr. Bailon Will consider placing patient on milrinone drip and repeat lactic acid later. Patient currently not hypotensive. Will check liver enzymes and Bnp. IV Lasix, continue lisinopril and beta-david. 08/22/2019 Hypothermia has resolved at this time as well as lactic acidosis. Extremities feel warm today. Started patient on dobutamine low-dose yesterday as milrinone drip can only be done in the ICU. This seems to have led to resolution of hypothermia lactic acidosis. We will maintain on dopamine drip for today. Continue lisinopril and beta-david. Continue to monitor vital signs closely in the IMCU. EKG in the morning Cardiology following. 08/23/2019 Dobutamine drip discontinued. Continue Toprol and lisinopril. Diuretics zaragoza ed to IV Lasix per Cardiology recommendation. I believe patient likely has encephalopathy that is likely chronic from his chronic alcohol abuse. There is a very good chance that he has Wernicke's enc ephalopathy. I do not think he is mental status is as a result of alcohol withdrawal. I will discontinue Ativan. I will give some standing diazepam. I will order for Haldol IM as needed. Redirection if possible. Currently in restraints. I have called patient's brother to try to get a better sense of patient's baseline mental status but no response. Left voice message to call back tomorrow or before end of shift today. 08/24/2019 Toprol-XL on lisinopril 10 mg daily which I will increase if patient remains hypertensive. IV Lasix. Cardiology following and recommending ischemic evaluation prior to discharge. Patient certainly has cognitive impairment unlikely chronic encephalopathy from his chronic alcohol abuse. It is very possible that he may have a component of Wernicke's especially given his unsteady gait. Despite patient's hypotension and tachycardia, patient is not showing any tremulousness, damp skin, diaphoresis, agitation or other physical signs suggestive of alcohol withdrawal and I do not believe him to be withdrawing at this moment. I will check B12 and folic acid levels. Continue IV thiamine supplements. I have asked psychiatry to evaluate patient for capacity. Also discussed with patient's brother. Physical therapy will need to evaluate patient and help to walk strength. - Time Time Spent with patient: 15-24 minutes
[2019-08-24] MEDS: HALOPERIDOL LACTATE INJ 5 MG/1 ML VIAL IM PRN (20:00)
[2019-08-24] MEDS ORDERED: IBUPROFEN 400 MG TABLET PO ONE (20:45)
[2019-08-24] MEDS ORDERED: IBUPROFEN 800 MG TABLET ONE (20:52)
[2019-08-25] MEDS: LEVALBUTEROL HCL NEB 1.25 MG/3 ML AMPUL NEB SCH ×3 (00:34→16:19)
[2019-08-25] MEDS: HEPARIN SOD (PORCINE) 5,000 UNIT/ML 1 ML VIAL SUBCUT SCH ×3 (05:06→22:17)
[2019-08-25] MEDS: PANTOPRAZOLE SODIUM 20 MG TABLET.DR PO SCH (05:07)
[2019-08-25 06:29] LABS: ANION GAP 7 (5-19); BLOOD UREA NITROGEN 13 mg/dL (7-20); CALCIUM 8.5 mg/dL (8.4-10.2); CARBON DIOXIDE 23 mmol/L (22-30); CHLORIDE 104 mmol/L (98-107); GLUCOSE 109 mg/dL (75-110); POTASSIUM 4.4 mmol/L (3.6-5.0)
--- NOTE | 2019-08-25 08:44 | PDOC PROGRESS REPORT ---
Subjective Progress Note for:: 08/25/19 Subjective:: SHAHNAZ CASANOVA is a 64 year old homeless male with history of alcohol dependence, paroxysmal atrial fibrillation, who has been followed by my partner, Dr. Bailon, for what appears to be new onset cardiomyopathy with an ejection fraction between 20 and 25% as well as new onset of heart failure with reduced ejection fraction. He apparently had been stable until yesterday or the day before when he became hypothermic, with significant JVD and shortness of breath. At that point he was placed on low-dose dobutamine. Yesterday evening the nursing staff found the patient sitting at the edge of the bed covered in feces. He had pulled out his IV and dobutamine which is running onto the floor. He was cleaned up and placed back in the bed. This morning he is found sitting at the edge of the bed after finishing breakfast and without any cardiac complaints. He is eager to go home as soon as possible. His telemetry shows normal sinus rhythm with episodes of sinus tachycardia and PVCs. His proBNP was elevated at 2400, he tested positive for marijuana and his most recent chemistry shows hyponatremia. His blood pressure is stable. Unfortunately he is not measuring his urine therefore accurate urinary output is not possible. 08/25/2019: The patient spiked a fever last night associated with a decrease in his pulse ox down to 85% needing oxygen by nasal cannula. He was provided with Tylenol and Motrin with resolution of his fever. This morning he is more awake than yesterday and asking for his breakfast. He denies chest pain and shortness of breath. His most recent BNP is actually worst than on admission at 6800 although his exam is benign. His telemetry shows normal sinus rhythm with episodes of supraventricular tachycardia some of which appear to be atrial tachycardia. Physical exam on 08/25/2019: GENERAL: Awake and cooperative. Oriented x3. HEENT: Normocephalic, atraumatic. Pupils equal. Sclerae anicteric. Oropharynx moist. NECK: No JVD. No carotid bruits. LUNGS: Clear to auscultation bilaterally. Normal respiratory effort without the use of accessory muscles or intercostal retractions. CARDIOVASCULAR: Regular rate and rhythm, normal S1 and S2 without murmurs, rubs, or gallops. PMI not displaced. EXTREMITIES: No pretibial edema, very mild edema in the dorsum of both feet, no cyanosis, no clubbing. +2 pulses femoral and pedal pulses bilaterally. SKIN: No lesions or rashes. MUSCULOSKELETAL: No chest tenderness to palpation. NEUROLOGIC: Nonfocal. No gross sensory or motor deficits bilateral upper or l ower extremities. Echocardiogram on 08/19/2019: -LV systolic function is moderately to severely reduced. -EF 20 to 25%. -RV systolic function is moderately reduced. -Mild MR, mild to moderate TR. -Minimal pericardial effusion. Reason For Visit: ALCOHOLIC CARDIOMYOPATHY,HEART FAILURE Physical Exam Vital Signs: Temp Pulse Resp BP Pulse Ox 97.1 F 104 H 20 113/85 100 08/25/19 03:34 08/25/19 03:34 08/25/19 03:34 08/25/19 03:34 08/25/19 03:34 Intake & Output 08/23/19 08/24/19 08/25/19 06:59 06:59 06:59 Intake Total 1056 120 100 Output Total 300 20 Balance 756 120 80 Weight 69.3 kg 62.9 kg 65.9 kg Results Laboratory Results: 08/21/19 09:11 08/25/19 05:54 08/24/19 08/25/19 06:35 05:54 Sodium 134.9 L 133.5 L Potassium 4.2 4.4 Chloride 100 104 Carbon Dioxide 26 23 Anion Gap 9 7 BUN 13 13 Creatinine 0.83 0.78 Est GFR ( Amer) > 60 > 60 Glucose 97 109 Calcium 9.1 8.5 08/18/19 08/18/19 08/19/19 17:46 17:46 01:38 Creatine Kinase 289 H Troponin I 0.025 0.028 NT-Pro-B Natriuret Pep 8780 H 08/19/19 08/19/19 08/19/19 01:38 07:35 13:18 Creatine Kinase 212 H Troponin I 0.028 0.024 NT-Pro-B Natriuret Pep 08/19/19 08/21/19 19:57 09:11 Creatine Kinase Troponin I 0.021 NT-Pro-B Natriuret Pep 2400 H Impressions: Chest X-Ray 08/24/19 00:00 IMPRESSION: Minimal right lung and left basilar opacities. Unlikely to represent aspiration. 08/21/19 09:11 08/25/19 05:54 MCV 87 fl (80-97) 08/21/19 09:11 MCH 28.9 pg (27.0-33.4) 08/21/19 09:11 MCHC 33.1 g/dL (32.0-36.0) 08/21/19 09:11 RDW 15.2 % (11.5-14.0) H 08/21/19 09:11 Seg Neutrophils % 53.4 % (42-78) 08/21/19 09:11 Chloride 104 mmol/L (98-107) 08/25/19 05:54 Carbon Dioxide 23 mmol/L (22-30) 08/25/19 05:54 Anion Gap 7 (5-19) 08/25/19 05:54 Est GFR ( Amer) > 60 (>60) 08/25/19 05:54 Glucose 109 mg/dL (75-110) 08/25/19 05:54 Lactic Acid 1.6 mmol/L (0.7-2.1) 08/22/19 06:25 Calcium 8.5 mg/dL (8.4-10.2) 08/25/19 05:54 Magnesium 1.9 mg/dL (1.6-2.3) 08/23/19 06:32 Total Bilirubin 1.2 mg/dL (0.2-1.3) 08/23/19 06:32 AST 53 U/L (17-59) 08/23/19 06:32 Alkaline Phosphatase 133 U/L (38-126) H 08/23/19 06:32 Total Protein 6.9 g/dL (6.3-8.2) 08/23/19 06:32 Albumin 3.5 g/dL (3.5-5.0) 08/23/19 06:32 TSH 3.62 uIU/mL (0.47-4.68) 08/18/19 17:46 Urine Color NAEEM 08/18/19 17:46 Urine Appearance SLIGHTLY-CLOUDY 08/18/19 17:46 Urine pH 6.0 (5.0-9.0) 08/18/19 17:46 Ur Specific [place] 1.021 08/18/19 17:46 Urine Protein 100 mg/dL (NEGATIVE) H 08/18/19 17:46 Urine Glucose (UA) NEGATIVE mg/dL (NEGATIVE) 08/18/19 17:46 Urine Ketones NEGATIVE mg/dL (NEGATIVE) 08/18/19 17:46 Urine Blood NEGATIVE (NEGATIVE) 08/18/19 17:46 Urine Nitrite NEGATIVE (NEGATIVE) 08/18/19 17:46 Ur Leukocyte Esterase NEGATIVE (NEGATIVE) 08/18/19 17:46 Urine WBC (Auto) 1 /HPF 08/18/19 17:46 Urine RBC (Auto) 0 /HPF 08/18/19 17:46 08/18/19 08/18/19 08/19/19 17:46 17:46 01:38 Creatine Kinase 289 H Troponin I 0.025 0.028 NT-Pro-B Natriuret Pep 8780 H 08/19/19 08/19/19 08/19/19 01:38 07:35 13:18 Creatine Kinase 212 H Troponin I 0.028 0.024 NT-Pro-B Natriuret Pep 08/19/19 08/21/19 19:57 09:11 Creatine Kinase Troponin I 0.021 NT-Pro-B Natriuret Pep 2400 H Current Medication List Generic Name Dose Route Start Last Admin Trade Name Freq PRN Reason Stop Dose Admin Acetaminophen 650 mg 08/19/19 03:39 08/24/19 20:01 Tylenol 325 Mg Tablet PO 09/18/19 03:38 650 mg Q4HP PRN Administration pain or temp greater than 101F Al Hydrox/Mg Hydrox/Simethicone 30 ml 08/19/19 03:39 Maalox Plus Susp 30 Udcup PO 09/18/19 03:38 Q4HP PRN HEARTBURN Aspirin 81 mg 08/19/19 10:00 08/24/19 12:13 Ecotrin 81 Mg Ec Tablet PO 09/18/19 09:59 81 mg DAILY MSUA Administration Folic Acid 1 mg 08/22/19 10:00 08/24/19 12:13 Folvite 1 Mg Tablet PO 09/21/19 09:59 1 mg DAILY MUSA Administration Furosemide 40 mg 08/24/19 10:00 08/24/19 11:01 Lasix Inj/Pf 40 Mg/4 Ml Sdv IV 09/23/19 09:59 40 mg DAILY MUSA Administration Haloperidol Lactate 5 mg 08/23/19 17:29 08/24/19 20:00 Haldol 5 Mg/Ml Inj 1 Ml Vial IM 09/22/19 17:28 5 mg Q6HP PRN Administration RESTLESSNESS/AGITATION Heparin Sodium (Porcine) 5,000 unit 08/19/19 06:00 08/25/19 05:06 Heparin Inj 5,000 Units/Ml 1 Ml Vial SUBCUT 09/18/19 05:59 5,000 unit Q8 MUSA Administration Levalbuterol HCl 1.25 mg 08/19/19 08:00 08/25/19 00:34 Xopenex Neb 1.25 Mg/3 Ml Ampul NEB 09/18/19 07:59 1.25 mg RTQ8 MUSA Administration Lisinopril 10 mg 08/23/19 10:00 08/24/19 12:13 Prinivil 10 Mg Tablet PO 09/22/19 09:59 10 mg DAILY MUSA Administration Metoprolol Succinate 100 mg 08/24/19 10:00 08/24/19 12:13 Toprol Xl 50 Mg Tab.Sr PO 09/23/19 09:59 100 mg DAILY MUSA Administration Nicotine 1 each 08/20/19 10:20 08/23/19 09:18 Nicoderm 14 Mg/24 Hr Transdermal Patch TD 09/19/19 10:19 1 each DAILYP PRN Administration SMOKING CESSATION Pantoprazole Sodium 20 mg 08/19/19 06:00 08/25/19 05:[address] Tablet PO 09/18/19 05:59 20 mg Q6AM MUSA Administration Sodium Chloride 2.5 ml 08/19/19 06:00 08/25/19 05:08 Saline Flush 2.5 Ml Monoject Prefil Syrin IV 09/18/19 05:59 2.5 ml Q8 MUSA Administration Discontinued Medications Generic Name Dose Route Start Last Admin Trade Name Freq PRN Reason Stop Dose Admin Aspirin 324 mg 08/19/19 00:57 08/19/19 01:20 Aspirin 81 Mg Chewable Tablet PO 08/19/19 00:58 324 mg NOW ONE Administration Diazepam 5 mg 08/19/19 00:27 08/19/19 00:56 Valium 5 Mg Tablet PO 08/19/19 00:28 5 mg NOW ONE Administration Diazepam 2.5 mg 08/19/19 06:00 08/20/19 14:25 Valium 5 Mg Tablet PO 08/26/19 05:59 2.5 mg Q8 MUSA Administration Diazepam 10 mg 08/23/19 01:12 08/23/19 05:45 Valium Inj 10 Mg/2 Ml Disp.Syrin IV 08/30/19 01:11 10 mg Q1HP PRN Administration AGITATION/ANXIETY Diazepam 10 mg 08/23/19 01:12 Valium 5 Mg Tablet PO 08/30/19 01:11 Q4HP PRN AGITATION Diazepam 10 mg 08/23/19 02:00 08/23/19 13:42 Valium 5 Mg Tablet PO 08/30/19 01:11 10 mg Q4 MUSA Administration Diazepam 10 mg 08/23/19 18:00 08/24/19 05:31 Valium 5 Mg Tablet PO 08/30/19 17:59 10 mg Q6 MUSA Administration Diltiazem HCl 90 mg 08/19/19 03:35 08/19/19 04:26 Cardizem 90 Mg Tablet PO 08/19/19 03:36 Not Given NOW ONE Diltiazem HCl 60 mg 08/19/19 06:00 Cardizem 60 Mg Tablet PO 09/18/19 05:59 Q6 MUSA Diltiazem HCl 60 mg 08/19/19 12:00 08/20/19 05:59 Cardizem 60 Mg Tablet PO 09/18/19 11:59 60 mg Q6 MUSA Administration Folic Acid 1 mg 08/19/19 00:27 08/19/19 00:56 Folvite 1 Mg Tablet PO 08/19/19 00:28 1 mg NOW ONE Administration Furosemide 20 mg 08/19/19 03:31 08/19/19 03:45 Lasix Inj/Pf 20 Mg/2 Ml Sdv IV 08/19/19 03:32 20 mg NOW ONE Administration Furosemide 20 mg 08/20/19 18:04 08/20/19 18:42 Lasix 20 Mg Tablet PO 08/20/19 18:05 20 mg NOW ONE Administration Furosemide 20 mg 08/21/19 10:00 08/22/19 09:15 Lasix 20 Mg Tablet PO 09/20/19 09:59 20 mg DAILY MUSA Administration Furosemide 20 mg 08/21/19 12:00 08/21/19 17:51 Lasix Inj/Pf 20 Mg/2 Ml Sdv IV 08/21/19 18:01 20 mg Q6H MUSA Administration Furosemide 40 mg 08/22/19 20:02 08/22/19 22:42 Lasix Inj/Pf 40 Mg/4 Ml Sdv IV 08/22/19 20:03 40 mg NOW ONE Administration Furosemide 40 mg 08/22/19 22:30 08/22/19 22:44 Lasix Inj/Pf 40 Mg/4 Ml Sdv IV 08/22/19 22:31 Not Given NOW ONE Furosemide 40 mg 08/23/19 10:00 08/23/19 09:18 Lasix 40 Mg Tablet PO 09/22/19 09:59 40 mg DAILY MUSA Administration Sodium Chloride 500 mls @ 0 mls/hr 08/18/19 22:09 08/19/19 01:34 Nacl 0.9% 500 Ml Iv Soln IV 08/18/19 22:10 Infused NOW ONE Infusion Wide Open Thiamine HCl 100 mg/ Folic 251.2 mls @ 502.4 mls/hr 08/19/19 10:00 08/21/19 11:40 Acid 1 mg/ Sodium Chloride IV 09/18/19 09:59 502.4 mls/hr DAILY MUSA Administration Dobutamine HCl/Dextrose 500 mg in 250 mls @ 0 mls/hr 08/21/19 13:58 08/21/19 15:36 Dobutrex Rtu 500 Mg-D5w 250 Ml Premixed Bag IV 09/20/19 13:57 5.65 mls/hr CONTINUOUS PRN 5.65 mls/hr THIS MED IS NOT "PRN" Administration Protocol Titrate Ibuprofen 800 mg 08/24/19 20:45 08/24/19 20:53 Motrin 400 Mg Tablet PO 08/24/19 20:46 800 mg NOW ONE Administration Ibuprofen Confirm 08/24/19 20:52 08/24/19 21:54 Motrin 800 Mg Tablet Administered 08/24/19 20:53 Not Given Dose 800 mg .ROUTE .STK-MED ONE Lisinopril 5 mg 08/20/19 10:00 08/22/19 09:15 Prinivil 5 Mg Tablet PO 09/19/19 09:59 5 mg DAILY MUSA Administration Lorazepam 2 mg 08/19/19 03:39 Ativan Inj 2 Mg/1 Ml Vial IV 08/26/19 03:38 Q2HP PRN ANXIETY/AGITATION Lorazepam 2 mg 08/20/19 18:06 08/23/19 16:11 Ativan Inj 2 Mg/1 Ml Vial IV 08/26/19 03:38 2 mg Q2HP PRN Administration SEE LABEL COMMENTS Magnesium Oxide 400 mg 08/23/19 08:45 08/23/19 09:18 Mag-Ox 400 Mg Tablet PO 08/23/19 08:46 400 mg NOW ONE Administration Metoprolol Succinate 25 mg 08/20/19 10:00 08/20/19 12:14 Toprol Xl 25 Mg Tab.Sr PO 09/19/19 09:59 25 mg Q12 MUSA Administration Metoprolol Succinate 25 mg 08/21/19 10:00 08/22/19 09:15 Toprol Xl 25 Mg Tab.Sr PO 09/20/19 09:59 25 mg DAILY MUSA Administration Metoprolol Succinate 50 mg 08/23/19 10:00 08/23/19 09:18 Toprol Xl 50 Mg Tab.Sr PO 09/22/19 09:59 50 mg DAILY MUSA Administration Multivitamins 1 tab 08/19/19 00:26 08/19/19 00:56 Tab-A-Taryn (Multiple Vitamin) Tablet PO 08/19/19 00:27 1 tab NOW ONE Administration Thiamine HCl 100 mg 08/18/19 22:10 08/19/19 01:20 Thiamine 100 Mg Tablet PO 08/18/19 22:11 100 mg NOW ONE Administration Thiamine HCl 100 mg 08/19/19 02:00 08/19/19 01:33 Thiamine 100 Mg Tablet PO 08/19/19 02:01 Not Given NOW ONE Assessment & Plan - Diagnosis (1) Acute systolic (congestive) heart failure Is this a current diagnosis for this admission?: Yes Plan: Likely acute exacerbation of chronic systolic congestive heart failure with an ejection fraction between 20 and 25% and RV dysfunction. His blood pressure is now at goal and he appears very comfortable laying flat in bed. He did spike a fever last night of unclear etiology although his chest x-ray demonstrated bilateral basilar opacities. Although his proBNP is worse than on admission, his clinical exam is not consistent with fluid overload any longer, there is no lower extremity edema, his lungs are clear and he is able to lay flat without any shortness of breath. It has been very difficult to gauge his response to treatment because of the fact that he is not measuring his urine output given his mental status. Recommendations: -Restrict fluid intake to 1500 cc daily. -Low sodium diet, less than 1500 mg daily. -Strict intake and output. -Daily weights. -Continue with lisinopril at current doses for now. -Increase Toprol-XL to 100 mg daily. -Continue with IV Lasix 40 mg daily. -Ideally the patient should get an ischemic assessment with nuclear stress test prior to discharge however I do not believe he fully understands his condition and certainly he will not be able to be compliant with cardiology follow-up given his homelessness. I do not believe that the patient at this point is a candidate for invasive cardiovascular procedures. -Replace electrolytes as needed. -Please note that outpatient follow-up on this gentleman will be very difficult to obtain given his homelessness and his other social issues to include marijuana use. (2) Dilated cardiomyopathy secondary to alcohol Is this a current diagnosis for this admission?: Yes Plan: Likely secondary to alcohol although ischemic etiology needs to be excluded. Recommendations: -Please see #1 above for recommendations. (3) Alcohol dependence Is this a current diagnosis for this admission?: Yes Plan: Needs counseling. (4) Paroxysmal atrial fibrillation Is this a current diagnosis for this admission?: Yes Plan: The patient is remains in normal sinus rhythm. His calculated chads 2 vascular score is currently 1, given his social issues, drug use and difficulties obtaining follow-up we will hold off on full anticoagulation for now. Continue cardiac telemetry please.
[2019-08-25] MEDS ORDERED: AMPICILLIN SOD/SULBACTAM 3 GM VIAL IV SCH (09:15)
[2019-08-25] MEDS: ASPIRIN 81 MG TABLET, ENT COATED PO SCH (10:52)
[2019-08-25] MEDS: LISINOPRIL 10 MG TABLET PO SCH (10:52)
[2019-08-25] MEDS: FUROSEMIDE INJ/PF 40 MG/4 ML SDV IV SCH (10:52)
[2019-08-25] MEDS: METOPROLOL SUCCINATE 50 MG TAB.SR.24H PO SCH (10:52)
[2019-08-25] MEDS: FOLIC ACID 1 MG TABLET PO SCH (10:53)
[2019-08-25] MEDS: AMPICILLIN SODIUM/SULBACTAM NA 3 GM in NORMAL SALINE 100 ML IV SCH ×2 (11:15→17:56)
--- NOTE | 2019-08-25 13:08 | PDOC PROGRESS REPORT ---
Subjective Progress Note for:: 08/25/19 Subjective:: Patient denies any shortness of breath or chest pain today. Appears comfortable in bed. Asking if he can get a ladder to climb down from his bed. Reason For Visit: ALCOHOLIC CARDIOMYOPATHY,HEART FAILURE Physical Exam Vital Signs: Temp Pulse Resp BP Pulse Ox 97.4 F 77 20 91/59 L 96 08/25/19 11:27 08/25/19 11:27 08/25/19 11:27 08/25/19 11:27 08/25/19 11:27 Intake & Output 08/24/19 08/25/19 08/26/19 06:59 06:59 06:59 Intake Total 120 100 340 Output Total 20 Balance 120 80 340 Weight 62.9 kg 65.9 kg General appearance: PRESENT: no acute distress, cooperative Neck exam: ABSENT: JVD Respiratory exam: PRESENT: clear to auscultation jefferson, unlabored. ABSENT: tachypnea, wheezes Cardiovascular exam: PRESENT: RRR, +S1, +S2. ABSENT: tachycardia GI/Abdominal exam: PRESENT: soft. ABSENT: rebound, rigid, tenderness Extremities exam: ABSENT: joint swelling, pedal edema, +1 edema, +2 edema Neurological exam: PRESENT: alert, awake, oriented to person, oriented to place, oriented to time Results Laboratory Results: 08/21/19 09:11 08/25/19 05:54 08/25/19 05:54 Sodium 133.5 L Potassium 4.4 Chloride 104 Carbon Dioxide 23 Anion Gap 7 BUN 13 Creatinine 0.78 Est GFR ( Amer) > 60 Glucose 109 Calcium 8.5 Vitamin B12 784.0 Folate 15.60 08/18/19 08/18/19 08/19/19 17:46 17:46 01:38 Creatine Kinase 289 H Troponin I 0.025 0.028 NT-Pro-B Natriuret Pep 8780 H 08/19/19 08/19/19 08/19/19 01:38 07:35 13:18 Creatine Kinase 212 H Troponin I 0.028 0.024 NT-Pro-B Natriuret Pep 08/19/19 08/21/19 08/25/19 19:57 09:11 05:54 Creatine Kinase Troponin I 0.021 NT-Pro-B Natriuret Pep 2400 H 6810 H Impressions: Chest X-Ray 08/24/19 00:00 IMPRESSION: Minimal right lung and left basilar opacities. Unlikely to represent aspiration. Assessment and Plan - Diagnosis (1) Acute systolic (congestive) heart failure Is this a current diagnosis for this admission?: Yes (2) Encephalopathy, metabolic Is this a current diagnosis for this admission?: Yes (3) Dilated cardiomyopathy secondary to alcohol Is this a current diagnosis for this admission?: Yes (4) Fever Is this a current diagnosis for this admission?: Yes (5) Paroxysmal atrial fibrillation Is this a current diagnosis for this admission?: Yes (6) Alcohol dependence Is this a current diagnosis for this admission?: Yes (7) Homeless Is this a current diagnosis for this admission?: Yes (8) Tobacco abuse Is this a current diagnosis for this admission?: Yes (9) Debility Is this a current diagnosis for this admission?: Yes - Plan Summary Summary: Discussed with patient about his cardiomyopathy noted on echo with EF of 20 to 25% and biventricular dilation. 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 He denies any history of prior CHF. I have started patient on low-dose lisinopril, Toprol-XL and Lasix. Electrolytes in the morning. He will need to be set up with cardiology for outpatient follow-up prior to discharge. Does not appear to be overtly fluid overloaded at this moment. CIWA and as needed Ativan as needed. Will discontinue diazepam this evening. Alcohol cessation and tobacco cessation counseling performed. 08/21/2019 Patient hypothermic to 94F this morning. Lactic acid also elevated at 3.1. Cool extremities noted. Chest x-ray showing interstitial opacities possibly pulmonary edema without pneumonia. Prominent JVD noted on exam. Urinalysis on 614 was negative. Will repeat. Currently doubt that patient's presentation is due to an infection as he has no complaints concerning for infection no other findings. Patient has been placed on a iwlian hugger with improvement to 97F. Concern for possible low output heart failure especially given his dilated cardiomyopathy with biventricular failure. I have consulted Dr. Bailon Will consider placing patient on milrinone drip and repeat lactic acid later. Patient currently not hypotensive. Will check liver enzymes and Bnp. IV Lasix, continue lisinopril and beta-david. 08/22/2019 Hypothermia has resolved at this time as well as lactic acidosis. Extremities feel warm today. Started patient on dobutamine low-dose yesterday as milrinone drip can only be done in the ICU. This seems to have led to resolution of hypothermia lactic acidosis. We will maintain on dopamine drip for today. Continue lisinopril and beta-david. Continue to monitor vital signs closely in the IMCU. EKG in the morning Cardiology following. 08/23/2019 Dobutamine drip discontinued. Continue Toprol and lisinopril. Diuretics changed to IV Lasix per Cardiology recommendation. I believe patient likely has encephalopathy that is likely chronic from his chronic alcohol abuse. There is a very good chance that he has Wernicke's encephalopathy. I do not think he is mental status is as a result of alcohol withdrawal. I will discontinue Ativan. I will give some standing diazepam. I will order for Haldol IM as needed. Redirection if possible. Currently in restraints. I have called patient's brother to try to get a better sense of patient's baseline mental status but no response. Left voice message to call back tomorrow or before end of shift today. 08/24/2019 Toprol-XL on lisinopril 10 mg daily which I will increase if patient remains hypertensive. IV Lasix. Cardiology following and recommending ischemic evaluation prior to discharge. Patient certainly has cognitive impairment unlikely chronic encephalopathy from his chronic alcohol abuse. It is very possible that he may have a component of Wernicke's especially given his unsteady gait. Despite patient's hypotension and tachycardia, patient is not showing any tremulousness, damp skin, diaphoresis, agitation or other physical signs suggestive of alcohol withdrawal and I do not believe him to be withdrawing at this moment. I will check B12 and folic acid levels. Continue IV thiamine supplements. I have asked psychiatry to evaluate patient for capacity. Also discussed with patient's brother. Physical therapy will need to evaluate patient and help to walk strength. 08/25/2019 Patient appears better today. He is more calm and off all restraints. He also seems more awake. I requested a physical therapy work with him today. Currently awaiting evaluation by psychiatry for capacity assessment. I do believe patient is not withdrawing from alcohol and this is just his baseline m ental status from chronic alcohol use. Continue thiamine supplements. His vitamin B12 and folic acid levels are normal. TSH and cortisol levels are normal as well. BMP seems to still be elevated over 6000 but this does not correlate with patient's improvement in terms of respiratory status and resolution of lower extremity swelling. We will continue on Toprol XL, lisinopril and IV Lasix will be continued for today and switch to p.o. Lasix tomorrow. I have discussed with rpg programmer about patient's plan and we have made the shared decision to forego stress test at this time as patient is certainly not going to be compliant with therapy and as such will not be a candidate for any form of PCI even if stress test was positive. Patient notably spiked a fever earlier. Chest x-ray does show some opacities in the right lobe and patient has been noted to be aspirating during this admission. I have started patient on Unasyn for coverage for aspiration pneumonia. Blood cultures and sputum cultures will be obtained. - Time Time Spent with patient: 15-24 minutes
--- NOTE | 2019-08-25 16:56 | RADIOLOGY REPORT (SQ) ---
EXAM DESCRIPTION: CT HEAD WITHOUT IMAGES COMPLETED DATE/TIME: 08/25/2019 4:46 pm REASON FOR STUDY: encephalopathy, alcoholic COMPARISON: None. TECHNIQUE: Axial images acquired through the brain without intravenous contrast. Images reviewed wi th bone, brain and subdural windows. Additional sagittal and coronal reconstructions were generated. Images stored on PACS. All CT scanners at this facility use dose modulation, iterative reconstruction, and/or weight based d osing when appropriate to reduce radiation dose to as low as reasonably achievable (ALARA). [facility]: Dose Right [facility]: CareDose [facility]: Dose Right [facility]: Teradose 4D [facility]: Smart [employer]Cloud RADIATION DOSE: CT Rad equipment meets quality standard of care and radiation dose reduction techniq ues were employed. CTDIvol: 53.2 mGy. DLP: 937 mGy-cm.mGy. LIMITATIONS: None. FINDINGS: VENTRICLES: Prominent. CEREBRUM: No masses. No hemorrhage. No midline shift. Focal encephalomalacia is seen involving the right frontal lobe, consistent with sequela of remote ischemic injury. Scattered areas of low densi ty in the white matter most likely due to chronic micro-vascular ischemic change. No evidence for ac nargis infarction. CEREBELLUM: No masses. No hemorrhage. No alteration of density. No evidence for acute infarction. EXTRAAXIAL SPACES: Age-related involutional change. No fluid collections. No masses. ORBITS AND GLOBE: No intra- or extraconal masses. Normal contour of globe without masses. CALVARIUM: No fracture. PARANASAL SINUSES: No fluid or mucosal thickening. SOFT TISSUES: No mass or hematoma. OTHER: No other significant finding. IMPRESSION: Right frontal lobe encephalomalacia consistent with sequela of previous ischemic injury. Background of chronic microvascular ischemic changes and age related involutional changes. No acut e findings. EVIDENCE OF ACUTE STROKE: NO. TECHNICAL DOCUMENTATION: JOB ID: [id number] Quality ID # [id number]: Final reports with documentation of one or more dose reduction techniques (e.g., Au tomated exposure control, adjustment of the mA and/or kV according to patient size, use of iterative reconstruction technique) 2010 [employer]- All Rights Reserved Reading location - IP/workstation name: [email or web address]
[2019-08-26] MEDS: NICOTINE 14 MG/24 HR PATCH.TD24 TD PRN (01:23)
[2019-08-26] MEDS: AMPICILLIN SODIUM/SULBACTAM NA 3 GM in NORMAL SALINE 100 ML IV SCH ×2 (01:23→10:32)
[2019-08-26] MEDS: LEVALBUTEROL HCL NEB 1.25 MG/3 ML AMPUL NEB SCH ×3 (04:17→16:55)
[2019-08-26] MEDS: HEPARIN SOD (PORCINE) 5,000 UNIT/ML 1 ML VIAL SUBCUT SCH ×3 (05:19→22:16)
[2019-08-26] MEDS: PANTOPRAZOLE SODIUM 20 MG TABLET.DR PO SCH (05:19)
--- NOTE | 2019-08-26 09:38 | PDOC PROGRESS REPORT ---
Subjective Progress Note for:: 08/26/19 Subjective:: SHAHNAZ CASANOVA is a 64 year old homeless male with history of alcohol dependence, paroxysmal atrial fibrillation, who has been followed by my partner, Dr. Bailon, for what appears to be new onset cardiomyopathy with an ejection fraction between 20 and 25% as well as new onset of heart failure with reduced ejection fraction. He apparently had been stable until yesterday or the day before when he became hypothermic, with significant JVD and shortness of breath. At that point he was placed on low-dose dobutamine. Yesterday evening the nursing staff found the patient sitting at the edge of the bed covered in feces. He had pulled out his IV and dobutamine which is running onto the floor. He was cleaned up and placed back in the bed. This morning he is found sitting at the edge of the bed after finishing breakfast and without any cardiac complaints. He is eager to go home as soon as possible. His telemetry shows normal sinus rhythm with episodes of sinus tachycardia and PVCs. His proBNP was elevated at 2400, he tested positive for marijuana and his most recent chemistry shows hyponatremia. His blood pressure is stable. Unfortunately he is not measuring his urine therefore accurate urinary output is not possible. 08/26/2019: The patient spiked another fever last night and his blood pressure has been on the low side. He was provided with Tylenol and Motrin with resolution of his fever. This morning he is awake and eating breakfast. He denies chest pain and shortness of breath. His telemetry shows normal sinus rhythm with episodes of supraventricular tachycardia some of which appear to be atrial tachycardia. Physical exam on 08/26/2019: GENERAL: Awake and cooperative. Oriented x3. HEENT: Normocephalic, atraumatic. Pupils equal. Sclerae anicteric. Oropharynx moist. NECK: No JVD. No carotid bruits. LUNGS: Clear to auscultation bilaterally. Normal respiratory effort without the use of accessory muscles or intercostal retractions. CARDIOVASCULAR: Regular rate and rhythm, normal S1 and S2 without murmurs, rubs, or gallops. PMI not displaced. EXTREMITIES: No pretibial edema, very mild edema in the dorsum of both feet, no cyanosis, no clubbing. +2 pulses femoral and pedal pulses bilaterally. SKIN: No lesions or rashes. MUSCULOSKELETAL: No chest tenderness to palpation. NEUROLOGIC: Nonfocal. No gross sensory or motor deficits bilateral upper or lower extremities. Echocardiogram on 08/19/2019: -LV systolic function is moderately to severely reduced. -EF 20 to 25%. -RV systolic function is moderately reduced. -Mild MR, mild to moderate TR. -Minimal pericardial effusion. Reason For Visit: ALCOHOLIC CARDIOMYOPATHY,HEART FAILURE Physical Exam Vital Signs: Temp Pulse Resp BP Pulse Ox 97.3 F 89 18 116/96 H 95 08/26/19 08:00 08/26/19 08:00 08/26/19 08:00 08/26/19 08:00 08/26/19 08:00 Intake & Output 08/25/19 08/26/19 08/27/19 06:59 06:59 06:59 Intake Total 100 1156 Output Total 20 Balance 80 1156 Weight 65.9 kg 65.9 kg Results Laboratory Results: 08/21/19 09:11 08/18/19 08/18/19 08/19/19 17:46 17:46 01:38 Creatine Kinase 289 H Troponin I 0.025 0.028 NT-Pro-B Natriuret Pep 8780 H 08/19/19 08/19/19 08/19/19 01:38 07:35 13:18 Creatine Kinase 212 H Troponin I 0.028 0.024 NT-Pro-B Natriuret Pep 08/19/19 08/21/19 08/25/19 19:57 09:11 05:54 Creatine Kinase Troponin I 0.021 NT-Pro-B Natriuret Pep 2400 H 6810 H Impressions: Chest X-Ray 08/24/19 00:00 IMPRESSION: Minimal right lung and left basilar opacities. Unlikely to represent aspiration. Head CT 08/25/19 00:00 IMPRESSION: Right frontal lobe encephalomalacia consistent with sequela of previous ischemic injury. Background of chronic microvascular ischemic changes and age related involutional changes. No acute findings. EVIDENCE OF ACUTE STROKE: NO. 08/21/19 09:11 MCV 87 fl (80-97) 08/21/19 09:11 MCH 28.9 pg (27.0-33.4) 08/21/19 09:11 MCHC 33.1 g/dL (32.0-36.0) 08/21/19 09:11 RDW 15.2 % (11.5-14.0) H 08/21/19 09:11 Seg Neutrophils % 53.4 % (42-78) 08/21/19 09:11 Chloride 104 mmol/L (98-107) 08/25/19 05:54 Carbon Dioxide 23 mmol/L (22-30) 08/25/19 05:54 Anion Gap 7 (5-19) 08/25/19 05:54 Est GFR ( Amer) > 60 (>60) 08/25/19 05:54 Glucose 109 mg/dL (75-110) 08/25/19 05:54 Lactic Acid 1.6 mmol/L (0.7-2.1) 08/22/19 06:25 Calcium 8.5 mg/dL (8.4-10.2) 08/25/19 05:54 Magnesium 1.9 mg/dL (1.6-2.3) 08/23/19 06:32 Total Bilirubin 1.2 mg/dL (0.2-1.3) 08/23/19 06:32 AST 53 U/L (17-59) 08/23/19 06:32 Alkaline Phosphatase 133 U/L (38-126) H 08/23/19 06:32 Total Protein 6.9 g/dL (6.3-8.2) 08/23/19 06:32 Albumin 3.5 g/dL (3.5-5.0) 08/23/19 06:32 Vitamin B12 784.0 pg/mL (239-931) 08/25/19 05:54 Folate 15.60 ng/mL (>2.76) 08/25/19 05:54 TSH 3.62 uIU/mL (0.47-4.68) 08/18/19 17:46 Urine Color NAEEM 08/18/19 17:46 Urine Appearance SLIGHTLY-CLOUDY 08/18/19 17:46 Urine pH 6.0 (5.0-9.0) 08/18/19 17:46 Ur Specific [place] 1.021 08/18/19 17:46 Urine Protein 100 mg/dL (NEGATIVE) H 08/18/19 17:46 Urine Glucose (UA) NEGATIVE mg/dL (NEGATIVE) 08/18/19 17:46 Urine Ketones NEGATIVE mg/dL (NEGATIVE) 08/18/19 17:46 Urine Blood NEGATIVE (NEGATIVE) 08/18/19 17:46 Urine Nitrite NEGATIVE (NEGATIVE) 08/18/19 17:46 Ur Leukocyte Esterase NEGATIVE (NEGATIVE) 08/18/19 17:46 Urine WBC (Auto) 1 /HPF 08/18/19 17:46 Urine RBC (Auto) 0 /HPF 08/18/19 17:46 08/18/19 08/18/19 08/19/19 17:46 17:46 01:38 Creatine Kinase 289 H Troponin I 0.025 0.028 NT-Pro-B Natriuret Pep 8780 H 08/19/19 08/19/19 08/19/19 01:38 07:35 13:18 Creatine Kinase 212 H Troponin I 0.028 0.024 NT-Pro-B Natriuret Pep 08/19/19 08/21/19 08/25/19 19:57 09:11 05:54 Creatine Kinase Troponin I 0.021 NT-Pro-B Natriuret Pep 2400 H 6810 H Current Medication List Generic Name Dose Route Start Last Admin Trade Name Parrish PRN Reason Stop Dose Admin Acetaminophen 650 mg 08/19/19 03:39 08/24/19 20:01 Tylenol 325 Mg Tablet PO 09/18/19 03:38 650 mg Q4HP PRN Administration pain or temp greater than 101F Al Hydrox/Mg Hydrox/Simethicone 30 ml 08/19/19 03:39 Maalox Plus Susp 30 Udcup PO 09/18/19 03:38 Q4HP PRN HEARTBURN Aspirin 81 mg 08/19/19 10:00 08/25/19 10:52 Ecotrin 81 Mg Ec Tablet PO 09/18/19 09:59 81 mg DAILY MUSA Administration Furosemide 40 mg 08/24/19 10:00 08/25/19 10:52 Lasix Inj/Pf 40 Mg/4 Ml Sdv IV 09/23/19 09:59 40 mg DAILY MUAS Administration Haloperidol Lactate 5 mg 08/23/19 17:29 08/24/19 20:00 Haldol 5 Mg/Ml Inj 1 Ml Vial IM 09/22/19 17:28 5 mg Q6HP PRN Administration RESTLESSNESS/AGITATION Heparin Sodium (Porcine) 5,000 unit 08/19/19 06:00 08/26/19 05:19 Heparin Inj 5,000 Units/Ml 1 Ml Vial SUBCUT 09/18/19 05:59 5,000 unit Q8 MUSA Administration Ampicillin Sodium/Sulbactam 100 mls @ 100 mls/hr 08/25/19 11:00 08/26/19 02:23 Sodium 3 gm/ Sodium Chloride IV 09/01/19 10:59 Infused Q8A MUSA Infusion Levalbuterol HCl 1.25 mg 08/19/19 08:00 08/26/19 07:41 Xopenex Neb 1.25 Mg/3 Ml Ampul NEB 09/18/19 07:59 1.25 mg RTQ8 MUSA Administration Lisinopril 10 mg 08/23/19 10:00 08/25/19 10:52 Prinivil 10 Mg Tablet PO 09/22/19 09:59 10 mg DAILY MUSA Administration Metoprolol Succinate 100 mg 08/24/19 10:00 08/25/19 10:52 Toprol Xl 50 Mg Tab.Sr PO 09/23/19 09:59 100 mg DAILY MUSA Administration Nicotine 1 each 08/20/19 10:20 08/26/19 01:23 Nicoderm 14 Mg/24 Hr Transdermal Patch TD 09/19/19 10:19 1 each DAILYP PRN Administration SMOKING CESSATION Pantoprazole Sodium 20 mg 08/19/19 06:00 08/26/19 05:[address] Tablet PO 09/18/19 05:59 20 mg Q6AM MUSA Administration Sodium Chloride 2.5 ml 08/19/19 06:00 08/26/19 05:19 Saline Flush 2.5 Ml Monoject Prefil Syrin IV 09/18/19 05:59 2.5 ml Q8 MUSA Administration Thiamine HCl 100 mg 08/26/19 10:00 Thiamine 100 Mg Tablet PO 09/25/19 09:59 DAILY MUSA Discontinued Medications Generic Name Dose Route Start Last Admin Trade Name Freq PRN Reason Stop Dose Admin Aspirin 324 mg 08/19/19 00:57 08/19/19 01:20 Aspirin 81 Mg Chewable Tablet PO 08/19/19 00:58 324 mg NOW ONE Administration Diazepam 5 mg 08/19/19 00:27 08/19/19 00:56 Valium 5 Mg Tablet PO 08/19/19 00:28 5 mg NOW ONE Administration Diazepam 2.5 mg 08/19/19 06:00 08/20/19 14:25 Valium 5 Mg Tablet PO 08/26/19 05:59 2.5 mg Q8 MUSA Administration Diazepam 10 mg 08/23/19 01:12 08/23/19 05:45 Valium Inj 10 Mg/2 Ml Disp.Syrin IV 08/30/19 01:11 10 mg Q1HP PRN Administration AGITATION/ANXIETY Diazepam 10 mg 08/23/19 01:12 Valium 5 Mg Tablet PO 08/30/19 01:11 Q4HP PRN AGITATION Diazepam 10 mg 08/23/19 02:00 08/23/19 13:42 Valium 5 Mg Tablet PO 08/30/19 01:11 10 mg Q4 MUSA Administration Diazepam 10 mg 08/23/19 18:00 08/24/19 05:31 Valium 5 Mg Tablet PO 08/30/19 17:59 10 mg Q6 MUSA Administration Diltiazem HCl 90 mg 08/19/19 03:35 08/19/19 04:26 Cardizem 90 Mg Tablet PO 08/19/19 03:36 Not Given NOW ONE Diltiazem HCl 60 mg 08/19/19 06:00 Cardizem 60 Mg Tablet PO 09/18/19 05:59 Q6 MUSA Diltiazem HCl 60 mg 08/19/19 12:00 08/20/19 05:59 Cardizem 60 Mg Tablet PO 09/18/19 11:59 60 mg Q6 MUSA Administration Folic Acid 1 mg 08/19/19 00:27 08/19/19 00:56 Folvite 1 Mg Tablet PO 08/19/19 00:28 1 mg NOW ONE Administration Folic Acid 1 mg 08/22/19 10:00 08/25/19 10:53 Folvite 1 Mg Tablet PO 09/21/19 09:59 1 mg DAILY MUSA Administration Furosemide 20 mg 08/19/19 03:31 08/19/19 03:45 Lasix Inj/Pf 20 Mg/2 Ml Sdv IV 08/19/19 03:32 20 mg NOW ONE Administration Furosemide 20 mg 08/20/19 18:04 08/20/19 18:42 Lasix 20 Mg Tablet PO 08/20/19 18:05 20 mg NOW ONE Administration Furosemide 20 mg 08/21/19 10:00 08/22/19 09:15 Lasix 20 Mg Tablet PO 09/20/19 09:59 20 mg DAILY MUSA Administration Furosemide 20 mg 08/21/19 12:00 08/21/19 17:51 Lasix Inj/Pf 20 Mg/2 Ml Sdv IV 08/21/19 18:01 20 mg Q6H MSUA Administration Furosemide 40 mg 08/22/19 20:02 08/22/19 22:42 Lasix Inj/Pf 40 Mg/4 Ml Sdv IV 08/22/19 20:03 40 mg NOW ONE Administration Furosemide 40 mg 08/22/19 22:30 08/22/19 22:44 Lasix Inj/Pf 40 Mg/4 Ml Sdv IV 08/22/19 22:31 Not Given NOW ONE Furosemide 40 mg 08/23/19 10:00 08/23/19 09:18 Lasix 40 Mg Tablet PO 09/22/19 09:59 40 mg DAILY MUSA Administration Sodium Chloride 500 mls @ 0 mls/hr 08/18/19 22:09 08/19/19 01:34 Nacl 0.9% 500 Ml Iv Soln IV 08/18/19 22:10 Infused NOW ONE Infusion Wide Open Thiamine HCl 100 mg/ Folic 251.2 mls @ 502.4 mls/hr 08/19/19 10:00 08/21/19 11:40 Acid 1 mg/ Sodium Chloride IV 09/18/19 09:59 502.4 mls/hr DAILY MUSA Administration Dobutamine HCl/Dextrose 500 mg in 250 mls @ 0 mls/hr 08/21/19 13:58 08/21/19 15:36 Dobutrex Rtu 500 Mg-D5w 250 Ml Premixed Bag IV 09/20/19 13:57 5.65 mls/hr CONTINUOUS PRN 5.65 mls/hr THIS MED IS NOT "PRN" Administration Protocol Titrate Ibuprofen 800 mg 08/24/19 20:45 08/24/19 20:53 Motrin 400 Mg Tablet PO 08/24/19 20:46 800 mg NOW ONE Administration Ibuprofen Confirm 08/24/19 20:52 08/24/19 21:54 Motrin 800 Mg Tablet Administered 08/24/19 20:53 Not Given Dose 800 mg .ROUTE .STK-MED ONE Lisinopril 5 mg 08/20/19 10:00 08/22/19 09:15 Prinivil 5 Mg Tablet PO 09/19/19 09:59 5 mg DAILY MUSA Administration Lorazepam 2 mg 08/19/19 03:39 Ativan Inj 2 Mg/1 Ml Vial IV 08/26/19 03:38 Q2HP PRN ANXIETY/AGITATION Lorazepam 2 mg 08/20/19 18:06 08/23/19 16:11 Ativan Inj 2 Mg/1 Ml Vial IV 08/26/19 03:38 2 mg Q2HP PRN Administration SEE LABEL COMMENTS Magnesium Oxide 400 mg 08/23/19 08:45 08/23/19 09:18 Mag-Ox 400 Mg Tablet PO 08/23/19 08:46 400 mg NOW ONE Administration Metoprolol Succinate 25 mg 08/20/19 10:00 08/20/19 12:14 Toprol Xl 25 Mg Tab.Sr PO 09/19/19 09:59 25 mg Q12 MUSA Administration Metoprolol Succinate 25 mg 08/21/19 10:00 08/22/19 09:15 Toprol Xl 25 Mg Tab.Sr PO 09/20/19 09:59 25 mg DAILY MUSA Administration Metoprolol Succinate 50 mg 08/23/19 10:00 08/23/19 09:18 Toprol Xl 50 Mg Tab.Sr PO 09/22/19 09:59 50 mg DAILY MUSA Administration Multivitamins 1 tab 08/19/19 00:26 08/19/19 00:56 Tab-A-Taryn (Multiple Vitamin) Tablet PO 08/19/19 00:27 1 tab NOW ONE Administration Thiamine HCl 100 mg 08/18/19 22:10 08/19/19 01:20 Thiamine 100 Mg Tablet PO 08/18/19 22:11 100 mg NOW ONE Administration Thiamine HCl 100 mg 08/19/19 02:00 08/19/19 01:33 Thiamine 100 Mg Tablet PO 08/19/19 02:01 Not Given NOW ONE Assessment & Plan - Diagnosis (1) Acute systolic (congestive) heart failure Is this a current diagnosis for this admission?: Yes Plan: Likely acute exacerbation of chronic systolic congestive heart failure with an ejection fraction between 20 and 25% and RV dysfunction. His blood pressure is now on the low side and the patient continues to spike fevers therefore he is now on antibiotics. He continues to be free of heart failure and ischemic symptoms. He appears to be euvolemic on exam. Unfortunately he is homeless and his cognition is not normal which makes him ineligible for invasive cardiovascular treatments. Recommendations: -Restrict fluid intake to 1500 cc daily. -Low sodium diet, less than 1500 mg daily. -Strict intake and output. -Daily weights. -Continue with current medical management. -Transition patient from IV Lasix to p.o. Lasix. -Replace electrolytes as needed. -Please note that outpatient follow-up on this gentleman will be very difficult to obtain given his homelessness and his other social issues to include marijuana use. -Cardiology does not have further recommendations therefore we will signed off for now. Please reconsult if necessary. (2) Dilated cardiomyopathy secondary to alcohol Is this a current diagnosis for this admission?: Yes Plan: Likely secondary to alcohol. Recommendations: -Please see #1 above for recommendations. (3) Alcohol dependence Is this a current diagnosis for this admission?: Yes (4) Paroxysmal atrial fibrillation Is this a current diagnosis for this admission?: Yes Plan: The patient is remains in normal sinus rhythm. His calculated chads 2 vascular score is currently 1, given his social issues, drug use and difficulties obtaining follow-up we will hold off on full anticoagulation for now. Continue cardiac telemetry please.
[2019-08-26] MEDS: FUROSEMIDE INJ/PF 40 MG/4 ML SDV IV SCH (10:29)
[2019-08-26] MEDS: METOPROLOL SUCCINATE 50 MG TAB.SR.24H PO SCH (10:36)
[2019-08-26] MEDS: ASPIRIN 81 MG TABLET, ENT COATED PO SCH (10:36)
[2019-08-26] MEDS: LISINOPRIL 10 MG TABLET PO SCH (10:36)
[2019-08-26] MEDS: THIAMINE HCL 100 MG TABLET PO SCH (10:36)
[2019-08-26 10:37] LABS: ANION GAP 11 (5-19); BLOOD UREA NITROGEN 16 mg/dL (7-20); CALCIUM 9.3 mg/dL (8.4-10.2); CARBON DIOXIDE 23 mmol/L (22-30); CHLORIDE 103 mmol/L (98-107); GLUCOSE 112 mg/dL (75-110); POTASSIUM 4.2 mmol/L (3.6-5.0)
--- NOTE | 2019-08-26 13:53 | PDOC PROGRESS REPORT ---
Subjective Progress Note for:: 08/26/19 Subjective:: Patient denies any shortness of breath or chest pain today. Appears comfortable in bed. Reason For Visit: ALCOHOLIC CARDIOMYOPATHY,HEART FAILURE Physical Exam Vital Signs: Temp Pulse Resp BP Pulse Ox 97.3 F 95 17 124/95 H 92 08/26/19 12:00 08/26/19 12:00 08/26/19 12:00 08/26/19 12:00 08/26/19 12:00 Intake & Output 08/25/19 08/26/19 08/27/19 06:59 06:59 06:59 Intake Total 100 1156 100 Output Total 20 Balance 80 1156 100 Weight 65.9 kg 65.9 kg General appearance: PRESENT: no acute distress, cooperative Neck exam: ABSENT: JVD Respiratory exam: PRESENT: clear to auscultation jefferson, symmetrical, unlabored. ABSENT: tachypnea, wheezes Cardiovascular exam: PRESENT: RRR, +S1, +S2. ABSENT: tachycardia GI/Abdominal exam: PRESENT: normal bowel sounds, soft. ABSENT: rebound, rigid, tenderness Neurological exam: PRESENT: alert, awake, oriented to person, oriented to place, other - Forgetful. ABSENT: oriented to time Results Laboratory Results: 08/21/19 09:11 08/26/19 08:17 08/26/19 08:17 Sodium 137.4 Potassium 4.2 Chloride 103 Carbon Dioxide 23 Anion Gap 11 BUN 16 Creatinine 0.85 Est GFR ( Amer) > 60 Glucose 112 H Calcium 9.3 Magnesium 2.1 08/18/19 08/18/19 08/19/19 17:46 17:46 01:38 Creatine Kinase 289 H Troponin I 0.025 0.028 NT-Pro-B Natriuret Pep 8780 H 08/19/19 08/19/19 08/19/19 01:38 07:35 13:18 Creatine Kinase 212 H Troponin I 0.028 0.024 NT-Pro-B Natriuret Pep 08/19/19 08/21/19 08/25/19 19:57 09:11 05:54 Creatine Kinase Troponin I 0.021 NT-Pro-B Natriuret Pep 2400 H 6810 H Impressions: Chest X-Ray 08/24/19 00:00 IMPRESSION: Minimal right lung and left basilar opacities. Unlikely to represent aspiration. Head CT 08/25/19 00:00 IMPRESSION: Right frontal lobe encephalomalacia consistent with sequela of pre vious ischemic injury. Background of chronic microvascular ischemic changes and age related involutional changes. No acute findings. EVIDENCE OF ACUTE STROKE: NO. Assessment and Plan - Diagnosis (1) Acute systolic (congestive) heart failure Is this a current diagnosis for this admission?: Yes (2) Encephalopathy, metabolic Is this a current diagnosis for this admission?: Yes (3) Dilated cardiomyopathy secondary to alcohol Is this a current diagnosis for this admission?: Yes (4) Fever Is this a current diagnosis for this admission?: Yes (5) Paroxysmal atrial fibrillation Is this a current diagnosis for this admission?: Yes (6) Alcohol dependence Is this a current diagnosis for this admission?: Yes (7) Homeless Is this a current diagnosis for this admission?: Yes (8) Tobacco abuse Is this a current diagnosis for this admission?: Yes (9) Debility Is this a current diagnosis for this admission?: Yes - Plan Summary Summary: Discussed with patient about his cardiomyopathy noted on echo with EF of 20 to 25% and biventricular dilation. 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 He denies any history of prior CHF. I have started patient on low-dose lisinopril, Toprol-XL and Lasix. Electrolytes in the morning. He will need to be set up with cardiology for outpatient follow-up prior to discharge. Does not appear to be overtly fluid overloaded at this moment. CIWA and as needed Ativan as needed. Will discontinue diazepam this evening. Alcohol cessation and tobacco cessation counseling performed. 08/21/2019 Patient hypothermic to 94F this morning. Lactic acid also elevated at 3.1. Cool extremities noted. Chest x-ray showing interstitial opacities possibly pulmonary edema without pneumonia. Prominent JVD noted on exam. Urinalysis on 614 was negative. Will repeat. Currently doubt that patient's presentation is due to an infection as he has no complaints concerning for infection no other findings. Patient has been placed on a wilian hugger with improvement to 97F. Concern for possible low output heart failure especially given his dilated cardiomyopathy with biventricular failure. I have consulted Dr. Bailon Will consider placing patient on milrinone drip and repeat lactic acid later. Patient currently not hypotensive. Will check liver enzymes and Bnp. IV Lasix, continue lisinopril and beta-david. 08/22/2019 Hypothermia has resolved at this time as well as lactic acidosis. Extremities feel warm today. Started patient on dobutamine low-dose yesterday as milrinone drip can only be done in the ICU. This seems to have led to resolution of hypothermia lactic acidosis. We will maintain on dopamine drip for today. Continue lisinopril and beta-david. Continue to monitor vital signs closely in the IMCU. EKG in the morning Cardiology following. 08/23/2019 Dobutamine drip discontinued. Continue Toprol and lisinopril. Diuretics changed to IV Lasix per Cardiology recommendation. I believe patient likely has encephalopathy that is likely chronic from his chronic alcohol abuse. There is a very good chance that he has Wernicke's encephalopathy. I do not think he is mental status is as a result of alcohol withdrawal. I will discontinue Ativan. I will give some standing diazepam. I will order for Haldol IM as needed. Redirection if possible. Currently in restraints. I have called patient's brother to try to get a better sense of patient's baseline mental status but no response. Left voice message to call back tomorrow or before end of shift today. 08/24/2019 Toprol-XL on lisinopril 10 mg daily which I will increase if patient remains hypertensive. IV Lasix. Cardiology following and recommending ischemic evaluation prior to discharge. Patient certainly has cognitive impairment unlikely chronic encephalopathy from his chronic alcohol abuse. It is very possible that he may have a component of Wernicke's especially given his unsteady gait. Despite patient's hypotension and tachycardia, patient is not showing any tremulousness, damp skin, diaphoresis, agitation or other physical signs suggestive of alcohol withdrawal and I do not believe him to be withdrawing at this moment. I will check B12 and folic acid levels. Continue IV thiamine supplements. I have asked psychiatry to evaluate patient for capacity. Also discussed with patient's brother. Physical therapy will need to evaluate patient and help to walk strength. 08/25/2019 Patient appears better today. He is more calm and off all restraints. He also seems more awake. I requested a physical therapy work with him today. Currently awaiting evaluation by psychiatry for capacity assessment. I do believe patient is not withdrawing from alcohol and this is just his baseline mental status from chronic alcohol use. Continue thiamine supplements. His vitamin B12 and folic acid levels are normal. TSH and cortisol levels are normal as well. BMP seems to still be elevated over 6000 but this does not correlate with patient's improvement in terms of respiratory status and resolution of lower extremity swelling. We will continue on Toprol XL, lisinopril and IV Lasix will be continued for today and switch to p.o. Lasix tomorrow. I have discussed with motorcycle sales associate about patient's plan and we have made the shared decision to forego stress test at this time as patient is certainly not g oing to be compliant with therapy and as such will not be a candidate for any form of PCI even if stress test was positive. Patient notably spiked a fever earlier. Chest x-ray does show some opacities in the right lobe and patient has been noted to be aspirating during this admission. I have started patient on Unasyn for coverage for aspiration pneumonia. Blood cultures and sputum cultures will be obtained. 08/26/2019 Patient has been adequately treated for heart failure secondary to dilated cardiomyopathy EF 20 to 25% likely from alcohol abuse. He seems to be euvolemic at this time and Lasix has been de-escalated to p.o. 20 mg daily. Continue Toprol-XL and lisinopril. On ASA. I agree with cardiology that ischemic evaluation should be deferred at this time as patient is a high risk for noncompliance with therapy and will not be a PCI candidate, if warranted, due to this. DC Unasyn. Augmentin. D2/5 ABX. Fever resolved. I discussed case with Dr. Bill Barrett yesterday and awaiting capacity evaluation as this will significantly affect disposition given his homelessness and may need long-term placement at SNF. As part of capacity evaluation, I ordered head CT which shows focal right frontal lobe encephalomalacia likely from a prior ischemic injury as well as age-related involutional changes. - Time Time Spent with patient: Less than 15 minutes
[2019-08-26] MEDS: AMOXICILLIN TR/POT CLAVULANATE 875-125 MG TAB PO SCH (22:16)
[2019-08-27] MEDS: LEVALBUTEROL HCL NEB 1.25 MG/3 ML AMPUL NEB SCH ×3 (00:52→16:03)
[2019-08-27] MEDS: HEPARIN SOD (PORCINE) 5,000 UNIT/ML 1 ML VIAL SUBCUT SCH ×3 (05:07→21:17)
[2019-08-27] MEDS: PANTOPRAZOLE SODIUM 20 MG TABLET.DR PO SCH (05:07)
[2019-08-27] MEDS: FUROSEMIDE 20 MG TABLET PO SCH (09:39)
[2019-08-27] MEDS: METOPROLOL SUCCINATE 50 MG TAB.SR.24H PO SCH (09:39)
[2019-08-27] MEDS: THIAMINE HCL 100 MG TABLET PO SCH (09:39)
[2019-08-27] MEDS: ASPIRIN 81 MG TABLET, ENT COATED PO SCH (09:39)
[2019-08-27] MEDS: AMOXICILLIN TR/POT CLAVULANATE 875-125 MG TAB PO SCH ×2 (09:39→21:17)
[2019-08-27] MEDS: LISINOPRIL 10 MG TABLET PO SCH (09:40)
--- NOTE | 2019-08-27 12:21 | PDOC CONSULTATION ---
Consultation-Kathy Consultation: DOS: 08.25.2019 Time: 19:21 Met with Patient at attending Physician request. Met with Patient who was noted to be laying in bed watching television. I introduced myself and explained the nature of the consultation. Patient was noted to be cooperative during the evaluation but difficult to understand at times as he speaks in a low tone and has poor dentation. Patient was oriented to person, place, time, and circumstance. Mood was cooperative while affect was blunted. Patient reported he was ready to "go home" but when asked where "home" was, it was difficult to understand his answer even after asking him to repeat his response. When asked if his response was his brother's, he responded affirmatively both verbally and by shaking his head. Patient answered "no" when asked if returning to live on the streets was an option for him.Upon seeking clarification or a reason for his "no" response, Patient simply stated "my medicines." He did not provide further elaboration. Patient reported he is capable of walking and caring for self though he observably appears cachectic. Patient acknowledged he liked to drink alcohol, specifically beer, but would not elaborate on how much, how often, or the size of the beers he consumed. Patient stated "heart problem" when asked if he knew what medical history he had, and stated,"yes" to wanting to live. He denied suicidal/homicidal ideation, intent or plan. He denied auditory/visual hallucinations and no delusions were noted. Thought processes were difficult to evaluate given the brevity of his answers, though his responses were on task. Conversational speech was notable for apoverty of speech and language was simple vocabulary, consistent with his self-reported 11th grade education. Eye contact was poor as Patient tended to keep them closed most of the evaluation but opened them when asked. His remote, recent, and immediate memories were intact. Attention and concentration were within normal limits. Insight, judgment, and impulse control were fair as evidenced by answers to questions regarding management of his medical illness such as follow up with outpatient cardiac appointments, filling prescriptions medications and taking them daily, etc. Patient's responses to how he would accomplish these tasks were mostly "I don't know" and no further problem solving thought process. Patient knew to call 911 if he saw smoke coming from his neighbor's house, but was unsure what he should do if he came home to find his bathroom overflowing with water. Patient's medical history reveals significant cardiac issues that require monitoring by a physician, testing, and medication intervention. Optimally, Patient would be asked to complete these tests outpatient as diligently and quickly as he can to ensure to ensure longevity and healthiness of his heart, organs and brain. However, Patient was homeless upon admission to [facility] and has a history of chronic alcoholism and his ability to follow up outpatient unknown. Moreover, Patient's head CT completed on 08.25.2019 revealed no acute processes but there is strong evidence of prominent ventricles which suggests cerebral atrophy, old right frontal ischemic injury or ischemic stroke, chronic white matter ischemia, and age related involutional changes in the cerebrum. Taken together, these findings suggest a neurodegenerative process in the brain often consistent with a dementia like process. In summary, the evaluation revealed the Patient responded mostly appropriately to questions concerning capacity, though questions of safety and of insight were not completely satisfied. This type of presentation, where many questions are answered appropriately and others fall within the borderline range and others are unsatisfactory, does not allow for a recommendation to the court for capacity. The Patient at this time is felt to be capable of participating in his own medical care even though it may be felt by the professionals he is making a wrong decision. The best that can happen is to make sure he is clearly informed both verbally and in writing of his choices, and allow him some time to think about his choices, and then reapproach him for his decision. If indeed he does have Dementia, he will likely require a guardian in the future to take over the decision making responsibilities, but at this time, that recommendation cannot be made. His physical stature is diminished and he will likely require assistance to regain strength and stamina. As the attending physician you feel it is appropriate, physical and occupational therapy referrals might be beneficial. An Adult Protective Services referral would also be helpful as they can assist the Patient with transportation to medical appointments, assist with ensuring he is getting his medications, and link him to the appropriate medical and manager social media that he needs following their evaluation of him. Diagnoses: 1. 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 Alcoholic Cardiomyopathy 3. Alcohol Dependence 4. Ischemic Injury by history 5. Homelessness Medication Recommendations from consulting psychiatric provider include: 1. Add Depakote 250 mg twice per day 2. Add Buspar 5 mg twice per day Impression: Patient is currently capable of participating and making decisions about his medical care, though futuristically this may not be the case as his neurocognitive and physical capacities are likely to decline given his cognitive and medical diagnoses. Patient's cardiac disease process is progressive and shou ld he continue to choose to drink, it is very likely that his heart function will fail as will his cognitive acuity. Patient would currently benefit from a power of workers compensation attorney who could assist the Patient in the event he rapidly declines and can no longer assist in his treatment. Recommendations: 1. Power of Adolescent Coordinator in the event of Rapid physical and cognitive decline impacting his ability to participate in his medical care. 2. Follow up with Neurology for assessment of ischemia and medication management 3. IF attending physician feels it is appropriate, referral to physical and occupational therapies for rehabilitation. 4. Recommend abstinence from alcohol. 5. Recommend attendance at a 12-step meeting or fattend a virtual 12-meeting. Meetings and resources can be found online at [email or web address] Thank you for this kind referall. Please contact the behavioral health office at [phone] with questions regarding this assessment.
--- NOTE | 2019-08-27 13:30 | PDOC PROGRESS REPORT ---
Subjective Progress Note for:: 08/27/19 Subjective:: Patient feels well today. Denies any shortness of breath or chest pain. States he is agreeable to going to SNF for rehabilitation. Reason For Visit: ALCOHOLIC CARDIOMYOPATHY,HEART FAILURE Physical Exam Vital Signs: Temp Pulse Resp BP Pulse Ox 97.3 F 90 17 141/96 H 99 08/27/19 08:18 08/27/19 08:53 08/27/19 08:53 08/27/19 08:18 08/27/19 08:18 Intake & Output 08/26/19 08/27/19 08/28/19 06:59 06:59 06:59 Intake Total 1156 580 Output Total 525 Balance 1156 55 Weight 65.9 kg 65.9 kg 65.9 kg General appearance: PRESENT: no acute distress, cooperative, thin Neck exam: ABSENT: JVD Respiratory exam: PRESENT: clear to auscultation jefferson, symmetrical, unlabored. ABSENT: tachypnea, wheezes Cardiovascular exam: PRESENT: RRR, +S1, +S2. ABSENT: tachycardia Neurological exam: PRESENT: alert, awake Psychiatric exam: ABSENT: agitated, anxious Results Laboratory Results: 08/21/19 09:11 08/26/19 08:17 08/18/19 08/18/19 08/19/19 17:46 17:46 01:38 Creatine Kinase 289 H Troponin I 0.025 0.028 NT-Pro-B Natriuret Pep 8780 H 08/19/19 08/19/19 08/19/19 01:38 07:35 13:18 Creatine Kinase 212 H Troponin I 0.028 0.024 NT-Pro-B Natriuret Pep 08/19/19 08/21/19 08/25/19 19:57 09:11 05:54 Creatine Kinase Troponin I 0.021 NT-Pro-B Natriuret Pep 2400 H 6810 H Impressions: Chest X-Ray 08/24/19 00:00 IMPRESSION: Minimal right lung and left basilar opacities. Unlikely to represent aspiration. Head CT 08/25/19 00:00 IMPRESSION: Right frontal lobe encephalomalacia consistent with sequela of previous ischemic injury. Background of chronic microvascular ischemic changes and age related involutional changes. No acute findings. EVIDENCE OF ACUTE STROKE: NO. Assessment and Plan - Diagnosis (1) Acute systolic (congestive) heart failure Is this a current diagnosis for this admission?: Yes (2) Encephalopathy, metabolic Is this a current diagnosis for this admission?: Yes (3) Dilated cardiomyopathy secondary to alcohol Is this a current diagnosis for this admission?: Yes (4) Fever Is this a current diagnosis for this admission?: Yes (5) Paroxysmal atrial fibrillation Is this a current diagnosis for this admission?: Yes (6) Alcohol dependence Is this a current diagnosis for this admission?: Yes (7) Homeless Is this a current diagnosis for this admission?: Yes (8) Tobacco abuse Is this a current diagnosis for this admission?: Yes (9) Debility Is this a current diagnosis for this admission?: Yes - Plan Summary Summary: Discussed with patient about his cardiomyopathy noted on echo with EF of 20 to 25% and biventricular dilation. 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 He denies any history of prior CHF. I have started patient on low-dose lisinopril, Toprol-XL and Lasix. Electrolytes in the morning. He will need to be set up with cardiology for outpatient follow-up prior to discharge. Does not appear to be overtly fluid overloaded at this moment. CIWA and as needed Ativan as needed. Will discontinue diazepam this evening. Alcohol cessation and tobacco cessation counseling performed. 08/21/2019 Patient hypothermic to 94F this morning. Lactic acid also elevated at 3.1. Cool extremities noted. Chest x-ray showing interstitial opacities possibly pulmonary edema without pneumonia. Prominent JVD noted on exam. Urinalysis on 614 was negative. Will repeat. Currently doubt that patient's presentation is due to an infection as he has no complaints concerning for infection no other findings. Patient has been placed on a wilian hugger with improvement to 97F. Concern for possible low output heart failure especially given his dilated cardiomyopathy with biventricular failure. I have consulted Dr. Bailon Will consider placing patient on milrinone drip and repeat lactic acid later. Patient currently not hypotensive. Will check liver enzymes and Bnp. IV Lasix, continue lisinopril and beta-david. 08/22/2019 Hypothermia has resolved at this time as well as lactic acidosis. Extremities feel warm today. Started patient on dobutamine low-dose yesterday as milrinone drip can only be done in the ICU. This seems to have led to resolution of hypothermia lactic acidosis. We will maintain on dopamine drip for today. Continue lisinopril and beta-david. Continue to monitor vital signs closely in the IMCU. EKG in the morning Cardiology following. 08/23/2019 Dobutamine drip discontinued. Continue Toprol and lisinopril. Diuretics changed to IV Lasix per Cardiology recommendation. I believe patient likely has encephalopathy that is likely chronic from his chronic alcohol abuse. There is a very good chance that he has Wernicke's encephalopathy. I do not think he is mental status is as a result of alcohol withdrawal. I will discontinue Ativan. I will give some standing diazepam. I will order for Haldol IM as needed. Redirection if possible. Currently in restraints. I have called patient's brother to try to get a better sense of patient's baseline mental status but no response. Left voice message to call back tomorrow or before end of shift today. 08/24/2019 Toprol-XL on lisinopril 10 mg daily which I will increase if patient remains hypertensive. IV Lasix. Cardiology following and recommending ischemic evaluation prior to discharge. Patient certainly has cognitive impairment unlikely chronic encephalopathy from his chronic alcohol abuse. It is very possible that he may have a component of Wernicke's especially given his unsteady gait. Despite patient's hypotension and tachycardia, patient is not showing any tremulousness, damp skin, diaphoresis, agitation or other physical signs suggestive of alcohol withdrawal and I do not believe him to be withdrawing at this moment. I will check B12 and folic acid levels. Continue IV thiamine supplements. I have asked psychiatry to evaluate patient for capacity. Also discussed with patient's brother. Physical therapy will need to evaluate patient and help to walk strength. 08/25/2019 Patient appears better today. He is more calm and off all restraints. He also seems more awake. I requested a physical therapy work with him today. Currently awaiting evaluation by psychiatry for capacity assessment. I do believe patient is not withdrawing from alcohol and this is just his baseline mental status from chronic alcohol use. Continue thiamine supplements. His vitamin B12 and folic acid levels are normal. TSH and cortisol levels are normal as well. BMP seems to still be elevated over 6000 but this does not correlate with saroj graves's improvement in terms of respiratory status and resolution of lower extremity swelling. We will continue on Toprol XL, lisinopril and IV Lasix will be continued for today and switch to p.o. Lasix tomorrow. I have discussed with music director about patient's plan and we have made the shared decision to forego stress test at this time as patient is certainly not going to be compliant with therapy and as such will not be a candidate for any form of PCI even if stress test was positive. Patient notably spiked a fever earlier. Chest x-ray does show some opacities in the right lobe and patient has been noted to be aspirating during this admission. I have started patient on Unasyn for coverage for aspiration pneumonia. Blood cultures and sputum cultures will be obtained. 08/26/2019 Patient has been adequately treated for heart failure secondary to dilated cardiomyopathy EF 20 to 25% likely from alcohol abuse. He seems to be euvolemic at this time and Lasix has been de-escalated to p.o. 20 mg daily. Continue Toprol-XL and lisinopril. On ASA. I agree with cardiology that ischemic evaluation should be deferred at this time as patient is a high risk for noncompliance with therapy and will not be a PCI candidate, if warranted, due to this. DC Unasyn. Augmentin. D2/5 ABX. Fever resolved. I discussed case with Dr. Bill Barrett yesterday and awaiting capacity evaluation as this will significantly affect disposition given his homelessness and may need long-term placement at SNF. As part of capacity evaluation, I ordered head CT which shows focal right frontal lobe encephalomalacia likely from a prior ischemic injury as well as age-related involutional changes. 08/27/2019 Patient stable from heart failure perspective. Plan to continue Toprol-XL, lisinopril, aspirin and Lasix. I agree with cardiology that ischemic evaluation should be deferred at this time as patient is a high risk for noncompliance with therapy and will not be a PCI candidate, if warranted, due to this. Augmentin. D3/5 ABX. Fever resolved. Patient has been evaluated by psychiatry and deemed to have capacity to make his own decisions. I have discussed with patient about rehab at SNF and he is a greeable to it at this time. Discharge planning aware. At this time, patient is medically stable for discharge pending SNF placement. - Time Time Spent with patient: Less than 15 minutes
[2019-08-28] MEDS: LEVALBUTEROL HCL NEB 1.25 MG/3 ML AMPUL NEB SCH ×3 (00:57→16:30)
[2019-08-28] MEDS: PANTOPRAZOLE SODIUM 20 MG TABLET.DR PO SCH (05:29)
[2019-08-28] MEDS: HEPARIN SOD (PORCINE) 5,000 UNIT/ML 1 ML VIAL SUBCUT SCH ×3 (05:31→21:04)
[2019-08-28] MEDS: ASPIRIN 81 MG TABLET, ENT COATED PO SCH (09:25)
[2019-08-28] MEDS: METOPROLOL SUCCINATE 50 MG TAB.SR.24H PO SCH (09:25)
[2019-08-28] MEDS: LISINOPRIL 10 MG TABLET PO SCH (09:26)
[2019-08-28] MEDS: FUROSEMIDE 20 MG TABLET PO SCH (09:26)
[2019-08-28] MEDS: THIAMINE HCL 100 MG TABLET PO SCH (09:26)
[2019-08-28] MEDS: AMOXICILLIN TR/POT CLAVULANATE 875-125 MG TAB PO SCH ×2 (09:28→21:04)
[2019-08-28] MEDS: NICOTINE 14 MG/24 HR PATCH.TD24 TD PRN (16:12)
--- NOTE | 2019-08-28 18:21 | PDOC PROGRESS REPORT ---
Subjective Progress Note for:: 08/28/19 Subjective:: No adverse events overnight. No new complaints. Vital signs been stable. Eating and drinking without difficulty. He fell this evening while coming back from the bathroom. 1 of the staff was with him and apparently it was not a very hard fall and he was able to ease himself into the floor and did not hit his head. He was not complaining of any pain or discomfort afterwards. Reason For Visit: ALCOHOLIC CARDIOMYOPATHY,HEART FAILURE Physical Exam Vital Signs: Temp Pulse Resp BP Pulse Ox 98.1 F 91 18 128/64 H 95 08/28/19 12:00 08/28/19 16:32 08/28/19 16:32 08/28/19 12:00 08/28/19 12:00 Intake & Output 08/27/19 08/28/19 08/29/19 06:59 06:59 06:59 Intake Total 580 1200 Output Total 525 Balance 55 1200 Weight 65.9 kg 65.9 kg General appearance: PRESENT: no acute distress, cooperative, disheveled, thin Respiratory exam: PRESENT: clear to auscultation jefferson, symmetrical, unlabored. ABSENT: accessory muscle use, chest wall tenderness, crackles, prolonged expiratory phas, rhonchi, tachypnea, wheezes Cardiovascular exam: PRESENT: RRR, +S1, +S2 Pulses: PRESENT: normal carotid pulses Vascular exam: PRESENT: normal capillary refill GI/Abdominal exam: PRESENT: normal bowel sounds, soft. ABSENT: distended, guarding, rebound, tenderness Extremities exam: ABSENT: clubbing, pedal edema Musculoskeletal exam: PRESENT: normal inspection. ABSENT: deformity Neurological exam: PRESENT: awake, oriented to person, oriented to place Psychiatric exam: PRESENT: flat affect Skin exam: PRESENT: dry, warm Results Laboratory Results: 08/21/19 09:11 08/26/19 08:17 08/18/19 08/18/19 08/19/19 17:46 17:46 01:38 Creatine Kinase 289 H Troponin I 0.025 0.028 NT-Pro-B Natriuret Pep 8780 H 08/19/19 08/19/19 08/19/19 01:38 07:35 13:18 Creatine Kinase 212 H Troponin I 0.028 0.024 NT-Pro-B Natriuret Pep 08/19/19 08/21/19 08/25/19 19:57 09:11 05:54 Creatine Kinase Troponin I 0.021 NT-Pro-B Natriuret Pep 2400 H 6810 H Impressions: Chest X-Ray 08/24/19 00:00 IMPRESSION: Minimal right lung and left basilar opacities. Unlikely to represent aspiration. Head CT 08/25/19 00:00 IMPRESSION: Right frontal lobe encephalomalacia consistent with sequela of previous ischemic injury. Background of chronic microvascular ischemic changes and age related involutional changes. No acute findings. EVIDENCE OF ACUTE STROKE: NO. Assessment and Plan - Diagnosis (1) Acute systolic (congestive) heart failure Is this a current diagnosis for this admission?: Yes Plan: Resolved. He has been medically optimized. Cardiology has been following. Further ischemic work-up seems to be deferred for now due to concerns over high potential for loss to follow-up. (2) Debility Is this a current diagnosis for this admission?: Yes Plan: We are currently working on placement. Case management is involved. He is on fall precautions but is a high fall risk. (3) Dilated cardiomyopathy secondary to alcohol Is this a current diagnosis for this admission?: Yes Plan: Medical optimization. Cardiology following. (4) Encephalopathy, metabolic Is this a current diagnosis for this admission?: Yes Plan: Resolved. Mental status back to baseline. (5) Alcohol dependence Qualifiers: Substance use status: uncomplicated Qualified Code(s): F10.20 - Alcohol dependence, uncomplicated Is this a current diagnosis for this admission?: Yes Plan: No signs of withdrawal at this time (6) Homeless Is this a current diagnosis for this admission?: Yes Plan: Case management involved for dispositioning, currently working on placement (7) Tobacco abuse Is this a current diagnosis for this admission?: Yes Plan: Tobacco cessation counseling performed and nicotine replacement options discussed - Plan Summary Summary: Discussed with patient about his cardiomyopathy noted on echo with EF of 20 to 25% and biventricular dilation. 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 He denies any history of prior CHF. I have started patient on low-dose lisinopril, Toprol-XL and Lasix. Elect rolytes in the morning. He will need to be set up with cardiology for outpatient follow-up prior to discharge. Does not appear to be overtly fluid overloaded at this moment. CIWA and as needed Ativan as needed. Will discontinue diazepam this evening. Alcohol cessation and tobacco cessation counseling performed. 08/21/2019 Patient hypothermic to 94F this morning. Lactic acid also elevated at 3.1. Cool extremities noted. Chest x-ray showing interstitial opacities possibly pulmonary edema without pneumonia. Prominent JVD noted on exam. Urinalysis on 614 was negative. Will repeat. Currently doubt that patient's presentation is due to an infection as he has no complaints concerning for infection no other findings. Patient has been placed on a wilian hugger with improvement to 97F. Concern for possible low output heart failure especially given his dilated cardiomyopathy with biventricular failure. I have consulted Dr. Bailon Will consider placing patient on milrinone drip and repeat lactic acid later. Patient currently not hypotensive. Will check liver enzymes and Bnp. IV Lasix, continue lisinopril and beta-david. 08/22/2019 Hypothermia has resolved at this time as well as lactic acidosis. Extremities feel warm today. Started patient on dobutamine low-dose yesterday as milrinone drip can only be done in the ICU. This seems to have led to resolution of hypothermia lactic aci dosis. We will maintain on dopamine drip for today. Continue lisinopril and beta-david. Continue to monitor vital signs closely in the IMCU. EKG in the morning Cardiology following. 08/23/2019 Dobutamine drip discontinued. Continue Toprol and lisinopril. Diuretics changed to IV Lasix per Cardiology recommendation. I believe patient likely has encephalopathy that is likely chronic from his c hronic alcohol abuse. There is a very good chance that he has Wernicke's encephalopathy. I do not think he is mental status is as a result of alcohol withdrawal. I will discontinue Ativan. I will give some standing diazepam. I will order for Haldol IM as needed. Redirection if possible. Currently in restraints. I have called patient's brother to try to get a better sense of patient's baseline mental status but no response. Left voice message to call back tomorrow or before end of shift today. 08/24/2019 Toprol-XL on lisinopril 10 mg daily which I will increase if patient remains hypertensive. IV Lasix. Cardiology following and recommending ischemic evaluation prior to discharge. Patient certainly has cognitive impairment unlikely chronic encephalopathy from his chronic alcohol abuse. It is very possible that he may have a component of Wernicke's especially given his unsteady gait. Despite patient's hypotension and tachycardia, patient is not showing any tremulousness, damp skin, diaphoresis, agitation or other physical signs suggestive of alcohol withdrawal and I do not believe him to be withdrawing at this moment. I will check B12 and folic acid levels. Continue IV thiamine supplements. I have asked psychiatry to evaluate patient for capacity. Also discussed with patient's brother. Physical therapy will need to evaluate patient and help to walk strength. 08/25/2019 Patient appears better today. He is more calm and off all restraints. He also seems more awake. I requested a physical therapy work with him today. Currently awaiting evaluation by psychiatry for capacity assessment. I do believe patient is not withdrawing from alcohol and this is just his baseline mental status from chronic alcohol use. Continue thiamine supplements. His vitamin B12 and folic acid levels are normal. TSH and cortisol levels are normal as well. BMP seems to still be elevated over 6000 but this does not correlate with patient's improvement in terms of respiratory status and resolution of lower extremity swelling. We will continue on Toprol XL, lisinopril and IV Lasix will be continued for today and switch to p.o. Lasix tomorrow. I have discussed with surveillance operator about patient's plan and we have made the shared decision to forego stress test at this time as patient is certainly not going to be compliant with therapy and as such will not be a candidate for any form of PCI even if stress test was positive. Patient notably spiked a fever earlier. Chest x-ray does show some opacities in the right lobe and patient has been noted to be aspirating during this admi ssion. I have started patient on Unasyn for coverage for aspiration pneumonia. Blood cultures and sputum cultures will be obtained. 08/26/2019 Patient has been adequately treated for heart failure secondary to dilated cardiomyopathy EF 20 to 25% likely from alcohol abuse. He seems to be euvolemic at this time and Lasix has been de-escalated to p.o. 20 mg daily. Continue Toprol-XL and lisinopril. On ASA. I agree with cardiology that ischemic evaluation should be deferred at this time as patient is a high risk for noncompliance with therapy and will not be a PCI candidate, if warranted, due to this. DC Unasyn. Augmentin. D2/5 ABX. Fever resolved. I discussed case with Dr. Bill Barrett yesterday and awaiting capacity evaluation as this will significantly affect disposition given his homelessness and may need long-term placement at SNF. As part of capacity evaluation, I ordered head CT which shows focal right frontal lobe encephalomalacia likely from a prior ischemic injury as well as age-related involutional changes. 08/27/2019 Patient stable from heart failure perspective. Plan to continue Toprol-XL, lisinopril, aspirin and Lasix. I agree with cardiology that ischemic evaluation should be deferred at this time as patient is a high risk for noncompliance with therapy and will not be a PCI candidate, if warranted, due to this. Augmentin. D3/5 ABX. Fever resolved. Patient has been evaluated by psychiatry and deemed to have capacity to make his own decisions. I have discussed with patient about rehab at SNF and he is agreeable to it at this time. Discharge planning aware. At this time, patient is medically stable for discharge pending SNF placement. - Time Time Spent with patient: 25-34 minutes
[2019-08-29] MEDS: LEVALBUTEROL HCL NEB 1.25 MG/3 ML AMPUL NEB SCH ×3 (00:08→16:24)
[2019-08-29] MEDS: HEPARIN SOD (PORCINE) 5,000 UNIT/ML 1 ML VIAL SUBCUT SCH ×3 (05:01→21:06)
[2019-08-29] MEDS: PANTOPRAZOLE SODIUM 20 MG TABLET.DR PO SCH (05:01)
[2019-08-29] MEDS: METOPROLOL SUCCINATE 50 MG TAB.SR.24H PO SCH (10:17)
[2019-08-29] MEDS: AMOXICILLIN TR/POT CLAVULANATE 875-125 MG TAB PO SCH ×2 (10:17→21:06)
[2019-08-29] MEDS: ASPIRIN 81 MG TABLET, ENT COATED PO SCH (10:18)
[2019-08-29] MEDS: LISINOPRIL 10 MG TABLET PO SCH (10:18)
[2019-08-29] MEDS: THIAMINE HCL 100 MG TABLET PO SCH (10:18)
[2019-08-29] MEDS: FUROSEMIDE 20 MG TABLET PO SCH (10:18)
--- NOTE | 2019-08-29 16:32 | PDOC PROGRESS REPORT ---
Subjective Progress Note for:: 08/29/19 Subjective:: No adverse events overnight. No new complaints. Vital signs been stable. He has been calm and pleasant today. Appetite is been fair. Reason For Visit: ALCOHOLIC CARDIOMYOPATHY,HEART FAILURE Physical Exam Vital Signs: Temp Pulse Resp BP Pulse Ox 97.6 F 83 20 127/88 H 99 08/29/19 15:33 08/29/19 15:33 08/29/19 15:33 08/29/19 15:33 08/29/19 15:33 Intake & Output 08/28/19 08/29/19 08/30/19 06:59 06:59 06:59 Intake Total 1200 1030 480 Balance 1200 1030 480 Weight 65.9 kg 70.1 kg General appearance: PRESENT: no acute distress, cooperative, disheveled, thin Respiratory exam: PRESENT: clear to auscultation jefferson, symmetrical, unlabored. ABSENT: accessory muscle use, chest wall tenderness, crackles, prolonged expiratory phas, rhonchi, tachypnea, wheezes Cardiovascular exam: PRESENT: RRR, +S1, +S2 Pulses: PRESENT: normal carotid pulses Vascular exam: PRESENT: normal capillary refill GI/Abdominal exam: PRESENT: normal bowel sounds, soft. ABSENT: distended, guarding, rebound, tenderness Extremities exam: ABSENT: clubbing, pedal edema Musculoskeletal exam: PRESENT: normal inspection. ABSENT: deformity Neurological exam: PRESENT: awake, oriented to person, oriented to place Psychiatric exam: PRESENT: flat affect Skin exam: PRESENT: dry, warm Results Laboratory Results: 08/21/19 09:11 08/26/19 08:17 08/18/19 08/18/19 08/19/19 17:46 17:46 01:38 Creatine Kinase 289 H Troponin I 0.025 0.028 NT-Pro-B Natriuret Pep 8780 H 08/19/19 08/19/19 08/19/19 01:38 07:35 13:18 Creatine Kinase 212 H Troponin I 0.028 0.024 NT-Pro-B Natriuret Pep 08/19/19 08/21/19 08/25/19 19:57 09:11 05:54 Creatine Kinase Troponin I 0.021 NT-Pro-B Natriuret Pep 2400 H 6810 H Impressions: Chest X-Ray 08/24/19 00:00 IMPRESSION: Minimal right lung and left basilar opacities. Unlikely to represent aspiration. Head CT 08/25/19 00:00 IMPRESSION: Right frontal lobe encephalomalacia consistent with sequela of previous ischemic injury. Background of chronic microvascular ischemic changes and age related involutional changes. No acute findings. EVIDENCE OF ACUTE STROKE: NO. Assessment and Plan - Diagnosis (1) Acute systolic (congestive) heart failure Is this a current diagnosis for this admission?: Yes Plan: Resolved. He has been medically optimized. Cardiology has been following. Further ischemic work-up seems to be deferred for now due to concerns over high potential for loss to follow-up. (2) Debility Is this a current diagnosis for this admission?: Yes Plan: We are currently working on placement. Case management is involved. He is on fall precautions but is a high fall risk. (3) Dilated cardiomyopathy secondary to alcohol Is this a current diagnosis for this admission?: Yes Plan: Medical optimization. Cardiology following. (4) Encephalopathy, metabolic Is this a current diagnosis for this admission?: Yes Plan: Resolved. Mental status back to baseline. (5) Alcohol dependence Qualifiers: Substance use status: uncomplicated Qualified Code(s): F10.20 - Alcohol dependence, uncomplicated Is this a current diagnosis for this admission?: Yes Plan: No signs of withdrawal at this time (6) Homeless Is this a current diagnosis for this admission?: Yes Plan: Case management involved for dispositioning, currently working on placement (7) Tobacco abuse Is this a current diagnosis for this admission?: Yes Plan: Tobacco cessation counseling performed and nicotine replacement options discussed - Plan Summary Summary: Discussed with patient about his cardiomyopathy noted on echo with EF of 20 to 25% and biventricular dilation. 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 He denies any history of prior CHF. I have started patient on low-dose lisinopril, Toprol-XL and Lasix. Electrolytes in the morning. He will need to be set up with cardiology for outpatient follow-up prior to discharge. Does not appear to be overtly fluid overloaded at this moment. CIWA and as needed Ativan as needed. Will discontinue diazepam this evening. Alcohol cessation and tobacco cessation counseling performed. 08/21/2019 Patient hypothermic to 94F this morning. Lactic acid also elevated at 3.1. Cool extremities noted. Chest x-ray showing interstitial opacities possibly pulmonary edema without pneumonia. Prominent JVD noted on exam. Urinalysis on 614 was negative. Will repeat. Currently doubt that patient's presentation is due to an infection as he has no complaints concerning for infection no other findings. Patient has been placed on a wilian hugger with improvement to 97F. Concern for possible low output heart failure especially given his dilated cardiomyopathy with biventricular failure. I have consulted Dr. Bailon Will consider placing patient on milrinone drip and repeat lactic acid later. Patient currently not hypotensive. Will check liver enzymes and Bnp. IV Lasix, continue lisinopril and beta-david. 08/22/2019 Hypothermia has resolved at this time as well as lactic acidosis. Extremities feel warm today. Started patient on dobutamine low-dose yesterday as milrinone drip can only be done in the ICU. This seems to have led to resolution of hypothermia lactic acidosis. We will maintain on dopamine drip for today. Continue lisinopril and beta-david. Continue to monitor vital signs closely in the IMCU. EKG in the morning Cardiology following. 08/23/2019 Dobutamine drip discontinued. Continue Toprol and lisinopril. Diuretics changed to IV Lasix per Cardiology recommendation. I believe patient likely has encephalopathy that is likely chronic from his chronic alcohol abuse. There is a very good chance that he has Wernicke's encephalopathy. I do not think he is mental status is as a result of alcohol withdrawal. I will discontinue Ativan. I will give some standing diazepam. I will order for Haldol IM as needed. Redirection if possible. Currently in restraints. I have called patient's brother to try to get a better sense of patient's baseline mental status but no response. Left voice message to call back tomorrow or before end of shift today. 08/24/2019 Toprol-XL on lisinopril 10 mg daily which I will increase if patient remains hypertensive. IV Lasix. Cardiology following and recommending ischemic evaluation prior to discharge. Patient certainly has cognitive impairment unlikely chronic encephalopathy from his chronic alcohol abuse. It is very possible that he may have a component of Wernicke's especially given his unsteady gait. Despite patient's hypotension and tachycardia, patient is not showing any tremulousness, damp skin, diaphoresis, agitation or other physical signs sugges tive of alcohol withdrawal and I do not believe him to be withdrawing at this moment. I will check B12 and folic acid levels. Continue IV thiamine supplements. I have asked psychiatry to evaluate patient for capacity. Also discussed with patient's brother. Physical therapy will need to evaluate patient and help to walk strength. 08/25/2019 Patient appears better today. He is more calm and off all restraints. He also seems more awake. I requested a physical therapy work with him today. Catrachito hong awaiting evaluation by psychiatry for capacity assessment. I do believe patient is not withdrawing from alcohol and this is just his baseline mental status from chronic alcohol use. Continue thiamine supplements. His vitamin B12 and folic acid levels are normal. TSH and cortisol levels are n ormal as well. BMP seems to still be elevated over 6000 but this does not correlate with patient's improvement in terms of respiratory status and resolution of lower extremity swelling. We will continue on Toprol XL, lisinopril and IV Lasix will be continued for today and switch to p.o. Lasix tomorrow. I have discussed with beef trimmer about patient's plan and we have made the shared decision to forego stress test at this time as patient is certainly not going to be compliant with therapy and as such will not be a candidate for any form of PCI even if stress test was positive. Patient notably spiked a fever earlier. Chest x-ray does show some opacities in the right lobe and patient has been noted to be aspirating during this admission. I have started patient on Unasyn for coverage for aspiration pneumonia. Blood cultures and sputum cultures will be obtained. 08/26/2019 Patient has been adequately treated for heart failure secondary to dilated cardiomyopathy EF 20 to 25% likely from alcohol abuse. He seems to be euvolemic at this time and Lasix has been de-escalated to p.o. 20 mg daily. Continue Toprol-XL and lisinopril. On ASA. I agree with cardiology that ischemic evaluation should be deferred at this time as patient is a high risk for noncompliance with therapy and will not be a PCI candidate, if warranted, due to this. DC Unasyn. Augmentin. D2/5 ABX. Fever resolved. I discussed case with Dr. Bill Barrett yesterday and awaiting capacity evaluation as this will significantly affect disposition given his homelessness and may need long-term placement at SNF. As part of capacity evaluation, I ordered head CT which shows focal right frontal lobe encephalomalacia likely from a prior ischemic injury as well as age-related involutional changes. 08/27/2019 Patient stable from heart failure perspective. Plan to continue Toprol-XL, lisinopril, aspirin and Lasix. I agree with cardiology that ischemic evaluation should be deferred at this time as patient is a high risk for noncompliance with therapy and will not be a PCI candidate, if warranted, due to this. Augmentin. D3/5 ABX. Fever resolved. Patient has been evaluated by psychiatry and deemed to have capacity to make his own decisions. I have discussed with patient about rehab at SNF and he is agreeable to it at this time. Discharge planning aware. At this time, patient is medically stable for discharge pending SNF placement. - Time Time Spent with patient: 15-24 minutes
[2019-08-30] MEDS: LEVALBUTEROL HCL NEB 1.25 MG/3 ML AMPUL NEB SCH ×3 (00:21→16:04)
[2019-08-30] MEDS: HEPARIN SOD (PORCINE) 5,000 UNIT/ML 1 ML VIAL SUBCUT SCH ×2 (05:05→14:53)
[2019-08-30] MEDS: PANTOPRAZOLE SODIUM 20 MG TABLET.DR PO SCH (05:05)
[2019-08-30] MEDS: FUROSEMIDE 20 MG TABLET PO SCH (09:20)
[2019-08-30] MEDS: THIAMINE HCL 100 MG TABLET PO SCH (09:20)
[2019-08-30] MEDS: METOPROLOL SUCCINATE 50 MG TAB.SR.24H PO SCH (09:20)
[2019-08-30] MEDS: AMOXICILLIN TR/POT CLAVULANATE 875-125 MG TAB PO SCH (09:20)
[2019-08-30] MEDS: LISINOPRIL 10 MG TABLET PO SCH (09:20)
[2019-08-30] MEDS: ASPIRIN 81 MG TABLET, ENT COATED PO SCH (09:20)
[2019-08-30 12:08] VITALS: BP 132/104
--- NOTE | 2019-08-30 14:29 | PDOC TRANSFER SUMMARY ---
Impression - Admit/DC Date/PCP Admission Date/Primary Care Provider: 08/19/19 03:43 Discharge Date: 08/30/19 - Discharge Diagnosis (1) Acute systolic (congestive) heart failure Is this a current diagnosis for this admission?: Yes (2) Debility Is this a current diagnosis for this admission?: Yes (3) Dilated cardiomyopathy secondary to alcohol Is this a current diagnosis for this admission?: Yes (4) Encephalopathy, metabolic Is this a current diagnosis for this admission?: Yes (5) Alcohol dependence Is this a current diagnosis for this admission?: Yes (6) Homeless Is this a current diagnosis for this admission?: Yes (7) Tobacco abuse Is this a current diagnosis for this admission?: Yes - Assessment Summary: Discussed with patient about his cardiomyopathy noted on echo with EF of 20 to 25% and biventricular dilation. 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 He denies any history of prior CHF. I have started patient on low-dose lisinopril, Toprol-XL and Lasix. Electrolytes in the morning. He will need to be set up with cardiology for outpatient follow-up prior to discharge. Does not appear to be overtly fluid overloaded at this moment. CIWA and as needed Ativan as needed. Will discontinue diazepam this evening. Alcohol cessation and tobacco cessation counseling performed. 08/21/2019 Patient hypothermic to 94F this morning. Lactic acid also elevated at 3.1. Cool extremities noted. Chest x-ray showing interstitial opacities possibly pulmonary edema without pneumonia. Prominent JVD noted on exam. Urinalysis on 614 was negative. Will repeat. Currently doubt that patient's presentation is due to an infection as he has no complaints concerning for infection no other findings. Patient has been placed on a wilian hugger with improvement to 97F. Concern for possible low output heart failure especially given his dilated cardiomyopathy with biventricular failure. I have consulted Dr. Bailon Will consider placing patient on milrinone drip and repeat lactic acid later. Patient currently not hypotensive. Will check liver enzymes and Bnp. IV Lasix, continue lisinopril and beta-david. 08/22/2019 Hypothermia has resolved at this time as well as lactic acidosis. Extremities feel warm today. Started patient on dobutamine low-dose yesterday as milrinone drip can only be done in the ICU. This seems to have led to resolution of hypothermia lactic acidosis. We will maintain on dopamine drip for today. Continue lisinopril and beta-david. Continue to monitor vital signs closely in the IMCU. EKG in the morning Cardiology following. 08/23/2019 Dobutamine drip discontinued. Continue Toprol and lisinopril. Diuretics changed to IV Lasix per Cardiology recommendation. I believe patient likely has encephalopathy that is likely chronic from his chronic alcohol abuse. There is a very good chance that he has Wernicke's encephalopathy. I do not think he is mental status is as a result of alcohol withdrawal. I will discontinue Ativan. I will give some standing diazepam. I will order for Haldol IM as needed. Redirection if possible. Currently in restraints. I have called patient's brother to try to get a better sense of patient's baseline mental status but no response. Left voice message to call back tomorrow or before end of shift today. 08/24/2019 Toprol-XL on lisinopril 10 mg daily which I will increase if patient remains hypertensive. IV Lasix. Cardiology following and recommending ischemic evaluation prior to discharge. Patient certainly has cognitive impairment unlikely chronic encephalopathy from his chronic alcohol abuse. It is very possible that he may have a component of Wernicke's especially given his unsteady gait. Despite patient's hypotension and tachycardia, patient is not showing any tremulousness, damp skin, diaphoresis, agitation or other physical signs suggestive of alcohol withdrawal and I do not believe him to be withdrawing at this moment. I will check B12 and folic acid levels. Continue IV thiamine supplements. I have asked psychiatry to evaluate patient for capacity. Also discussed with patient's brother. Physical therapy will need to evaluate patient and help to walk strength. 08/25/2019 Patient appears better today. He is more calm and off all restraints. He also seems more awake. I requested a physical therapy work with him today. Currently awaiting evaluation by psychiatry for capacity assessment. I do believe patient is not withdrawing from alcohol and this is just his baseline mental status from chronic alcohol use. Continue thiamine supplements. His vitamin B12 and folic acid levels are normal. TSH and cortisol levels are normal as well. BMP seems to still be elevated over 6000 but this does not correlate with patient's improvement in terms of respiratory status and resolution of lower extremity swelling. We will continue on Toprol XL, lisinopril and IV Lasix will be continued for today and switch to p.o. Lasix tomorrow. I have discussed with emergency medical technician about patient's plan and we have made the shared decision to forego stress test at this time as patient is certainly not going to be compliant with therapy and as such will not be a candidate for any form of PCI even if stress test was positive. Patient notably spiked a fever earlier. Chest x-ray does show some opacities in the right lobe and patient has been noted to be aspirating during this admission. I have started patient on Unasyn for coverage for aspiration pneumonia. Blood cultures and sputum cultures will be obtained. 08/26/2019 Patient has been adequately treated for heart failure secondary to dilated cardiomyopathy EF 20 to 25% likely from alcohol abuse. He seems to be euvolemic at this time and Lasix has been de-escalated to p.o. 20 mg daily. Continue Toprol-XL and lisinopril. On ASA. I agree with cardiology that ischemic evaluation should be deferred at this time as patient is a high risk for noncompliance with therapy and will not be a PCI candidate, if warranted, due to this. DC Unasyn. Augmentin. D2/5 ABX. Fever resolved. I discussed case with Dr. Bill Barrett yesterday and awaiting capacity evaluation as this will significantly affect disposition given his homelessness and may need long-term placement at SNF. As part of capacity evaluation, I ordered head CT which shows focal right frontal lobe encephalomalacia likely from a prior ischemic injury as well as age-related involutional changes. 08/27/2019 Patient stable from heart failure perspective. Plan to continue Toprol-XL, lisinopril, aspirin and Lasix. I agree with cardiology that ischemic evaluation should be deferred at this time as patient is a high risk for noncompliance with therapy and will not be a PCI candidate, if warranted, due to this. Augmentin. D3/5 ABX. Fever resolved. Patient has been evaluated by psychiatry and deemed to have capacity to make his own decisions. I have discussed with patient about rehab at SNF and he is agreeable to it at this time. Discharge planning aware. At this time, patient is medically stable for discharge pending SNF placement. - Additional Information Resuscitation Status: Full Code Discharge Diet: Cardiac Discharge Activity: Activity As Tolerated, Balance Activity w/Rest, Weigh Daily Referrals: [facility] [Outside] - 09/02/19 3:30 pm ELVER EMANUEL MD [ACTIVE STAFF] - Prescriptions: Amoxicillin/Potassium Clav [Augmentin 875-125 Tablet] 1 tab PO Q12 #10 tablet Home Medications: Amoxicillin/Potassium Clav [Augmentin 875-125 Tablet] 1 tab PO Q12 #10 tablet 08/30/19 Aspirin [Ecotrin 81 mg EC Tablet] 81 mg PO DAILY tabec 08/30/19 Furosemide [Lasix 20 mg Tablet] 20 mg PO DAILY tablet 08/30/19 Lisinopril [Prinivil 10 mg Tablet] 10 mg PO DAILY tablet 08/30/19 Metoprolol Succinate [Toprol Xl 50 mg Tab.sr] 100 mg PO DAILY tab.sr.24h 08/30/19 Nicotine [Nicoderm 14 mg/24 Hr Transdermal Patch] 1 each TD DAILYP PRN patch.td24 08/30/19 Pantoprazole Sodium [Protonix [address] Tablet] 20 mg PO Q6AM tablet.dr 08/30/19 Thiamine HCl [Thiamine 100 mg Tablet] 100 mg PO DAILY tablet 08/30/19 History of Present Illiness History of Present Illness: SHAHNAZ CASANOVA is a 64 year old male with a past medical history of COPD, hypertension, tobacco, alcohol and substance abuse who is long-term homeless. He presents with 2 days of shortness of breath, nonproductive cough and lower extremity swelling. He denies fever, chest pain nausea vomiting or palpitations. In the emergency department he is found to have an sinus tach ycardia, uncontrolled hypertension, borderline long QT, new T wave inversions and elevated BNP of 9000. He admits to drinking a minimum of 12 beers per day and history of blackouts. He denies any medication use. Hospital Course Hospital Course: He was medically optimized and he turned around fairly quickly. The main reason he was here so long was because he did not have an adequate safe situation to return home to. He had not been taking his medications and from a mental status standpoint he was not capable of keeping up with his medications or keeping up with his doctors appointments. He has a brother that takes care of their elderly father and the patient cannot be taking care of there because it would be too much for the brother to handle. Case management got involved and we were able to get his Medicaid switched over to long-term. After an extended hospital stay, placement was finally obtained. He would benefit from continued physical therapy. His labs and examination were reassuring and he was discharged in stable condition. Physical Exam Vital Signs: Temp Pulse Resp BP Pulse Ox 97.3 F 81 16 132/104 H 96 08/30/19 07:26 08/30/19 11:27 08/30/19 11:27 08/30/19 11:27 08/30/19 08:12 Intake & Output 08/29/19 08/30/19 08/31/19 06:59 06:59 06:59 Intake Total 1030 890 240 Output Total 300 Balance 1030 590 240 Weight 70.1 kg 69.5 kg General appearance: PRESENT: no acute distress, cooperative, disheveled, thin Respiratory exam: PRESENT: clear to auscultation jefferson, symmetrical, unlabored. ABSENT: accessory muscle use, chest wall tenderness, crackles, prolonged expiratory phas, rhonchi, tachypnea, wheezes Cardiovascular exam: PRESENT: RRR, +S1, +S2 Pulses: PRESENT: normal carotid pulses Vascular exam: PRESENT: normal capillary refill GI/Abdominal exam: PRESENT: normal bowel sounds, soft. ABSENT: distended, guarding, rebound, tenderness Extremities exam: ABSENT: clubbing, pedal edema Musculoskeletal exam: PRESENT: normal inspection. ABSENT: deformity Neurological exam: PRESENT: awake, oriented to person, oriented to place Psychiatric exam: PRESENT: flat affect Skin exam: PRESENT: dry, warm Results Laboratory Results: WBC 4.2 10^3/uL (4.0-10.5) 08/21/19 09:11 RBC 4.55 10^6/uL (4.35-5.55) 08/21/19 09:11 Hgb 13.1 g/dL (13.5-17.0) L 08/21/19 09:11 Hct 39.7 % (37.9-51.0) 08/21/19 09:11 MCV 87 fl (80-97) 08/21/19 09:11 MCH 28.9 pg (27.0-33.4) 08/21/19 09:11 MCHC 33.1 g/dL (32.0-36.0) 08/21/19 09:11 RDW 15.2 % (11.5-14.0) H 08/21/19 09:11 Plt Count 291 10^3/uL (150-450) 08/21/19 09:11 Lymph % (Auto) 30.1 % (13-45) 08/21/19 09:11 [place] % (Auto) 12.4 % (3-13) 08/21/19 09:11 Eos % (Auto) 2.9 % (0-6) 08/21/19 09:11 Baso % (Auto) 1.2 % (0-2) 08/21/19 09:11 Absolute Neuts (auto) 2.2 10^3/uL (1.7-8.2) 08/21/19 09:11 Absolute Lymphs (auto) 1.3 10^3/uL (0.5-4.7) 08/21/19 09:11 Absolute Monos (auto) 0.5 10^3/uL (0.1-1.4) 08/21/19 09:11 Absolute Eos (auto) 0.1 10^3/uL (0.0-0.6) 08/21/19 09:11 Absolute Basos (auto) 0.1 10^3/uL (0.0-0.2) 08/21/19 09:11 Seg Neutrophils % 53.4 % (42-78) 08/21/19 09:11 Sodium 137.4 mmol/L (137-145) 08/26/19 08:17 Potassium 4.2 mmol/L (3.6-5.0) 08/26/19 08:17 Chloride 103 mmol/L (98-107) 08/26/19 08:17 Carbon Dioxide 23 mmol/L (22-30) 08/26/19 08:17 Anion Gap 11 (5-19) 08/26/19 08:17 BUN 16 mg/dL (7-20) 08/26/19 08:17 Creatinine 0.85 mg/dL (0.52-1.25) 08/26/19 08:17 Est GFR ( Amer) > 60 (>60) 08/26/19 08:17 Est GFR (MDRD) Non-Af > 60 (>60) 08/26/19 08:17 Glucose 112 mg/dL (75-110) H 08/26/19 08:17 POC Glucose 159 mg/dL (70-110) H 08/25/19 21:07 Lactic Acid 1.6 mmol/L (0.7-2.1) 08/22/19 06:25 Calcium 9.3 mg/dL (8.4-10.2) 08/26/19 08:17 Magnesium 2.1 mg/dL (1.6-2.3) 08/26/19 08:17 Total Bilirubin 1.2 mg/dL (0.2-1.3) 08/23/19 06:32 Direct Bilirubin 0.1 mg/dL (0.0-0.4) 08/23/19 06:32 Neonat Total Bilirubin Not Reportable 08/23/19 06:32 Neonat Direct Bilirubin Not Reportable 08/23/19 06:32 Neonat Indirect Bili Not Reportable 08/23/19 06:32 AST 53 U/L (17-59) 08/23/19 06:32 ALT 35 U/L (<50) 08/23/19 06:32 Alkaline Phosphatase 133 U/L (38-126) H 08/23/19 06:32 Creatine Kinase 212 U/L (55-170) H 08/19/19 01:38 Troponin I 0.021 ng/mL 08/19/19 19:57 NT-Pro-B Natriuret Pep 6810 pg/mL (<125) H 08/25/19 05:54 Total Protein 6.9 g/dL (6.3-8.2) 08/23/19 06:32 Albumin 3.5 g/dL (3.5-5.0) 08/23/19 06:32 Vitamin B12 784.0 pg/mL (239-931) 08/25/19 05:54 Folate 15.60 ng/mL (>2.76) 08/25/19 05:54 TSH 3.62 uIU/mL (0.47-4.68) 08/18/19 17:46 Cortisol AM Sample 17.80 ug/dL (4.46-22.7) 08/21/19 09:11 Urine Color NAEEM 08/18/19 17:46 Urine Appearance SLIGHTLY-CLOUDY 08/18/19 17:46 Urine pH 6.0 (5.0-9.0) 08/18/19 17:46 Ur Specific [place] 1.021 08/18/19 17:46 Urine Protein 100 mg/dL (NEGATIVE) H 08/18/19 17:46 Urine Glucose (UA) NEGATIVE mg/dL (NEGATIVE) 08/18/19 17:46 Urine Ketones NEGATIVE mg/dL (NEGATIVE) 08/18/19 17:46 Urine Blood NEGATIVE (NEGATIVE) 08/18/19 17:46 Urine Nitrite NEGATIVE (NEGATIVE) 08/18/19 17:46 Urine Bilirubin NEGATIVE (NEGATIVE) 08/18/19 17:46 Urine Urobilinogen 4.0 mg/dL (<2.0) H 08/18/19 17:46 Ur Leukocyte Esterase NEGATIVE (NEGATIVE) 08/18/19 17:46 Urine WBC (Auto) 1 /HPF 08/18/19 17:46 Urine RBC (Auto) 0 /HPF 08/18/19 17:46 U Hyaline Cast (Auto) 1 /LPF 08/18/19 17:46 Urine Mucus (Auto) FEW /LPF 08/18/19 17:46 Urine Ascorbic Acid NEGATIVE (NEGATIVE) 08/18/19 17:46 Urine Opiates Screen NEGATIVE 08/18/19 17:46 Urine Methadone Screen NEGATIVE 08/18/19 17:46 Ur Barbiturates Screen NEGATIVE 08/18/19 17:46 Ur Phencyclidine Scrn NEGATIVE 08/18/19 17:46 Ur Amphetamines Screen NEGATIVE 08/18/19 17:46 U Benzodiazepines Scrn NEGATIVE 08/18/19 17:46 Urine Cocaine Screen NEGATIVE 08/18/19 17:46 U Marijuana (THC) Screen UNCONFIRMED POSITIVE 08/18/19 17:46 Serum Alcohol 10 mg/dL (NONE DETECTED) 08/18/19 17:46 08/18/19 08/19/19 08/19/19 17:46 01:38 07:35 Troponin I 0.025 0.028 0.028 NT-Pro-B Natriuret Pep 8780 H 08/19/19 08/19/19 08/21/19 13:18 19:57 09:11 Troponin I 0.024 0.021 NT-Pro-B Natriuret Pep 2400 H 08/25/19 05:54 Troponin I NT-Pro-B Natriuret Pep 6810 H Impressions: Chest X-Ray 08/18/19 19:14 IMPRESSION: No evidence of acute cardiopulmonary disease. Chest X-Ray 08/21/19 00:00 IMPRESSION: New small moderate bilateral pleural effusions Minimal right basilar airspace disease Chest X-Ray 08/24/19 00:00 IMPRESSION: Minimal right lung and left basilar opacities. Unlikely to represent aspiration. Head CT 08/25/19 00:00 IMPRESSION: Right frontal lobe encephalomalacia consistent with sequela of previous ischemic injury. Background of chronic microvascular ischemic changes and age related involutional changes. No acute findings. EVIDENCE OF ACUTE STROKE: NO. Plan Time Spent: Greater than 30 Minutes Stroke Is this a Stroke Patient?: No Acute Heart Failure - Is this a Heart Failure Patient?: Yes Documentation of LVEF assessment?: Yes LVEF: LVEF Less Than or Equal to 35% Anticoagulant Therapy: N/A Discharged on Evidence-Based Beta Blockers: Yes Discharged on ARNI?: Yes Discharged on ARB?: N/A-Discharged on ARNI Discharged on ACEI?: N/A Discharged on ARNI For LVEF <35%, discharged on Aldosterone Antagonist?: No-document contraincations - Was not recommended by cardiology Reason(s) not discharged on Aldosterone Antagonist: Other - Was not recommended by cardiology Aldosterone Antagonist Reason - Other: Was not recommended by cardiology Follow-up Appointment scheduled within 7 days?: Yes
== END 2019-08-30 18:42 | DRG 291 ==
LOC: ER 17:14 → EH 08-19 03:43 → 3S 08-19 05:56 → 4W 08-25 22:44
PROVIDERS: ADMIT Internal Medicine; ATTEND Family Medicine
DX: I11.0 Hypertensive heart disease with heart failure (principal); I50.21 Acute systolic (congestive) heart failure; G93.41 Metabolic encephalopathy; F10.288 Alcohol dependence with other alcohol-induced disorder; E87.1 Hypo-osmolality and hyponatremia; F17.210 Nicotine dependence, cigarettes, uncomplicated; I42.6 Alcoholic cardiomyopathy; I48.0 Paroxysmal atrial fibrillation; R94.01 Abnormal electroencephalogram [EEG]; R68.0 Hypothermia, not associated with low environmental temperature; F12.10 Cannabis abuse, uncomplicated; Z59.0 Homelessness; Z20.818 Contact with and (suspected) exposure to other bacterial communicable diseases; J44.9 Chronic obstructive pulmonary disease, unspecified; Z82.49 Family history of ischemic heart disease and other diseases of the circulatory system; Z82.61 Family history of arthritis; Z78.1 Physical restraint status
CPT/HCPCS: 36415; 70450; 71045; 71046; 80048; 80053; 80076; 80307; 81001; 82533; 82550; 82607; 82746; 82962; 83605; 83735; 83880; 84443; 84484; 85025; 87040; 87070; 87077; 87186; 87205; 87635; 93005; 93010; 93306; 94640; 96360; 99285; C9803; J0295; J1250; J1630; J1644; J1940; J2060; J3360; J3411; J3490; J7040; J7050

== ENCOUNTER 2019-09-02 19:17 | Emergency (ER) | payer MEDICAID ==
[2019-09-02 19:24] VITALS: BP 116/67
--- NOTE | 2019-09-02 19:44 | ER Document Report ---
ED Medical Screen (RME) - General Chief Complaint: Cough Stated Complaint: NO CIRCULATION IN ANKLE Time Seen by Provider: 09/02/19 19:20 Mode of Arrival: Wheelchair Notes: Patient presents complaining of poor circulation to bilateral feet and ankles for the past 2 weeks. Patient complains of foot pain bilaterally. Feet are erythematous and swollen bilaterally. Patient denies any fever or injury to the feet. Patient reports cold symptoms for the past month with shortness of breath. Patient does have a history of hypertension as well as congestive heart failure. I have greeted and performed a rapid initial assessment of this patient. A comprehensive ED assessment and evaluation of the patient, analysis of test results and completion of the medical decision making process will be conducted by additional ED providers. TRAVEL OUTSIDE OF THE [place] IN LAST 30 DAYS: No - Related Data Allergies/Adverse Reactions: No Known Allergies Allergy (Verified 08/18/19 17:38) Past Medical History - Past Medical History Cardiac Medical History: Reports: Hx Atrial Fibrillation, Hx Hypertension - untreated Denies: Hx Congestive Heart Failure Pulmonary Medical History: Reports: Hx Bronchitis, Hx COPD Renal/ Medical History: Denies: Hx Peritoneal Dialysis Psychiatric Medical History: Denies: Hx Depression Past Surgical History: Reports: Hx Abdominal Surgery - Exploratory in 2017, Hx Orthopedic Surgery - Right ACL repair, Hx Tonsillectomy, Other - Homeless Physical Exam - Vital signs Vitals: Temp Pulse Resp BP Pulse Ox 98.6 F 91 16 116/67 100 09/02/19 19:22 09/02/19 19:22 09/02/19 19:22 09/02/19 19:22 09/02/19 19:22 - General General appearance: Alert Notes: Rhonchi bilaterally, 2+ bilateral lower extremity edema, 3+ bilateral pedal edema, feet erythematous and warm to touch Course - Vital Signs Vital signs: Temp Pulse Resp BP Pulse Ox 98.6 F 91 16 116/67 100 09/02/19 19:22 09/02/19 19:22 09/02/19 19:22 09/02/19 19:22 09/02/19 19:22
--- NOTE | 2019-09-02 20:42 | RADIOLOGY REPORT (SQ) ---
CLINICAL INDICATION: cough, sob. TECHNIQUE: A single portable AP view was obtained of the chest at 2019 hours. COMPARISON: August 24, 2019. FINDINGS: The cardiomediastinal silhouette is enlarged but stable. The lungs definite progressive right pleural effusion and adjacent airspace disease. Tiny left effusion. Pneumothorax. Chronic parenchymal lung change. IMPRESSION: Progressive right pleural effusion and adjacent airspace disease.
--- NOTE | 2019-09-02 22:49 | RADIOLOGY REPORT (SQ) ---
EXAM DESCRIPTION: Bilateral lower extremity arterial duplex exam CLINICAL HISTORY: 64 years Male, bilat foot pain TECHNIQUE: Ultrasound of the arteries of the leg performed with grayscale, pulsed Doppler, and color Doppler. COMPARISON: None FINDINGS: Right leg (velocities in cm/s): REGULAR SENIOR CARE PROVIDER: Triphasic, 115 cm/s DFA: To and fro flow. This appears to be related to the Doppler angle. Velocities 69 cm/s SFA-proximal: Triphasic, 98.7cm/s SFA-mid: Triphasic, 98.7cm/s SFA-distal: Triphasic, 89.3cm/s Popliteal: Triphasic, 78.9cm/s Proximal SUPERINTENDENT LOCAL: Triphasic, 114cm/s Distal SUPERINTENDENT LOCAL: Triphasic, 105cm/s Proximal NANCY: Biphasic, 30.2cm/s Distal NANCY: occluded. The dorsalis pedis artery reconstitutes via collaterals. Dorsalis pedis: Triphasic, 41.8cm/s Mid Peroneal: Triphasic, 51.5cm/s Comment: Doppler waveforms are somewhat multiphasic suggesting pacemaker or valvular disease. No major branch vessel stenosis or occlusions. Left leg (velocities in cm/s): REGULAR SENIOR CARE PROVIDER: Triphasic, 76.4cm/s DFA: Triphasic, 64.4cm/s SFA-proximal: Triphasic, 64.4cm/s SFA-mid: Triphasic, 70.7cm/s SFA-distal: Pulsatile, 15.9cm/s Popliteal: Monophasic, 31.9cm/s Proximal SUPERINTENDENT LOCAL: Monophasic, 64.4cm/s Distal SUPERINTENDENT LOCAL: Monophasic, 63.8cm/s Proximal NANCY: Monophasic, 30.2 cm/s Distal NANCY: Minimal flow possibly occluded Dorsalis pedis: Monophasic, 45.3cm/s Peroneal: Monophasic, 36.1cm/s Comment: Extensive plaque in the distal superficial femoral artery with probable high-grade stenosis. Distal to this the waveforms are monophasic IMPRESSION: 1. Triphasic waveforms. There is occlusion of the distal anterior tibial artery in the right lower extremity. 2. High-grade stenosis in the distal superficial femoral artery. Distal to this the waveforms are monophasic suggesting that the stenosis is hemodynamically significant.
== END 2019-09-03 00:15 | disposition left against medical advice (07) ==
LOC: ER 19:17
DX: I70.202 Unspecified atherosclerosis of native arteries of extremities, left leg (principal); I70.201 Unspecified atherosclerosis of native arteries of extremities, right leg; J90 Pleural effusion, not elsewhere classified; M79.671 Pain in right foot; M79.672 Pain in left foot; I10 Essential (primary) hypertension; J44.9 Chronic obstructive pulmonary disease, unspecified; Z53.20 Procedure and treatment not carried out because of patient's decision for unspecified reasons
CPT/HCPCS: 71045; 93925; 99281

== ENCOUNTER 2019-09-03 10:25 | Inpatient (IN) | payer MEDICAID ==
[2019-09-03] MEDS ORDERED: NORMAL SALINE 1000 ML 1,000 ML IV ONE ×3 (13:44→17:38)
--- NOTE | 2019-09-03 14:26 | RADIOLOGY REPORT (SQ) ---
EXAM DESCRIPTION: CHEST SINGLE VIEW IMAGES COMPLETED DATE/TIME: 09/03/2019 2:16 pm REASON FOR STUDY: cough COMPARISON: 09/02/2019 EXAM PARAMETERS: NUMBER OF VIEWS: One view. TECHNIQUE: Single frontal radiographic view of the chest acquired. RADIATION DOSE: NA LIMITATIONS: None. FINDINGS: LUNGS AND PLEURA: No opacities, masses or pneumothorax. No pleural effusion. MEDIASTINUM AND HILAR STRUCTURES: No masses. Contour normal. HEART AND VASCULAR STRUCTURES: Heart normal in size. Normal vasculature. BONES: No acute findings. HARDWARE: None in the chest. OTHER: No other significant finding. IMPRESSION: NO ACUTE RADIOGRAPHIC FINDING IN THE CHEST. TECHNICAL DOCUMENTATION: JOB ID: [id number] [employer]- All Rights Reserved Reading location - IP/workstation name: [email or web address]
[2019-09-03 14:34] LABS: ABSOLUTE BASOPHILS # (AUTO) 0.1 10^3/uL (0.0-0.2); ABSOLUTE EOSINOPHILS # (AUTO) 0.2 10^3/uL (0.0-0.6); ABSOLUTE LYMPHOCYTES (AUTO) 1.7 10^3/uL (0.5-4.7); ABSOLUTE MONOCYTES (AUTO) 0.9 10^3/uL (0.1-1.4); ABSOLUTE NEUT (AUTO) 4.4 10^3/uL (1.7-8.2); BASOPHILS % (AUTO) 0.8 % (0-2); HEMATOCRIT 41.2 % (37.9-51.0); HEMOGLOBIN 13.3 g/dL (13.5-17.0); LYMPHOCYTES % (AUTO) 23.1 % (13-45); MEAN CORPUSCULAR HEMOGLOBIN 28.2 pg (27.0-33.4); MEAN CORPUSCULAR HGB CONC 32.3 g/dL (32.0-36.0); MEAN CORPUSCULAR VOLUME 87 fl (80-97); MONOCYTES % (AUTO) 12.5 % (3-13); PLATELET COUNT 347 10^3/uL (150-450); RED BLOOD COUNT 4.73 10^6/uL (4.35-5.55); RED CELL DISTRIBUTION WIDTH 14.9 % (11.5-14.0); SEGMENTED NEUTROPHILS % (AUTO) 60.6 % (42-78); TOTAL CELLS COUNTED % (AUTO) 100 %; WHITE BLOOD COUNT 7.2 10^3/uL (4.0-10.5)
[2019-09-03 14:52] LABS: ALBUMIN 3.7 g/dL (3.5-5.0); ALCOHOL < 10 mg/dL (NONE DETECTED); ALKALINE PHOSPHATASE 174 U/L (38-126); ASPARTATE AMINO TRANSFERASE 52 U/L (17-59); BILIRUBIN,DIRECT 0.2 mg/dL (0.0-0.4); BLOOD UREA NITROGEN 15 mg/dL (7-20); CALCIUM 9.3 mg/dL (8.4-10.2); CHLORIDE 106 mmol/L (98-107); GLUCOSE 89 mg/dL (75-110); POTASSIUM 4.2 mmol/L (3.6-5.0); TOTAL PROTEIN 7.4 g/dL (6.3-8.2)
[2019-09-03 14:56] LABS: ANION GAP 6 (5-19); CARBON DIOXIDE 29 mmol/L (22-30)
[2019-09-03] MEDS ORDERED: MORPHINE SULFATE 10 MG/ML INJ IV ONE (14:59)
[2019-09-03] MEDS ORDERED: HEPARIN SODIUM,PORCINE/D5W 25,000 UNIT/250 ML RTUINJ IV PRN (15:44)
--- NOTE | 2019-09-03 16:36 | ER Document Report ---
ED Extremity Problem, Lower - General Chief Complaint: Leg Pain Stated Complaint: LEG PAIN Time Seen by Provider: 09/03/19 13:05 Mode of Arrival: Ambulatory Information source: Patient TRAVEL OUTSIDE OF THE [place] IN LAST 30 DAYS: No - HPI Notes: Patient presents with bilateral leg pain. Patient states that this pain is constant and severe. It is aching and throbbing in nature. It does radiate up both legs. He states he has a known history of "poor circulation". Patient also has a history of alcoholism and homelessness. He was here yesterday with this problem but but eloped. We did call the family and patient was brought back. - Related Data Allergies/Adverse Reactions: No Known Allergies Allergy (Verified 08/18/19 17:38) Past Medical History - General Information source: Patient - Social History Smoking Status: Current Every Day Smoker Chew tobacco use (# tins/day): No Frequency of alcohol use: Heavy Drug Abuse: None Family History: Arthritis, COPD, Hypertension Patient has homicidal ideation: No - Past Medical History Cardiac Medical History: Reports: Hx Atrial Fibrillation, Hx Hypertension - untreated Denies: Hx Congestive Heart Failure Pulmonary Medical History: Reports: Hx Bronchitis, Hx COPD Renal/ Medical History: Denies: Hx Peritoneal Dialysis Psychiatric Medical History: Denies: Hx Depression Past Surgical History: Reports: Hx Abdominal Surgery - Exploratory in 2017, Hx Orthopedic Surgery - Right ACL repair, Hx Tonsillectomy, Other - Homeless Review of Systems - Review of Systems Constitutional: denies: Chills, Fever Cardiovascular: denies: Chest pain, Palpitations Respiratory: denies: Cough, Short of breath -: Yes All other systems reviewed and negative Physical Exam - Vital signs Vitals: Temp 97.8 F 09/03/19 10:25 Interpretation: Normal - General General appearance: Appears well, Alert - HEENT Head: Normocephalic, Atraumatic Eyes: Normal Pupils: PERRL - Respiratory Respiratory status: No respiratory distress Chest status: Nontender Breath sounds: Normal Chest palpation: Normal - Cardiovascular Rhythm: Regular Heart sounds: Normal auscultation Murmur: No - Abdominal Inspection: Normal Distension: No distension Bowel sounds: Normal Tenderness: Nontender Organomegaly: No organomegaly - Back Back: Normal, Nontender - Extremities General upper extremity: Normal inspection, Nontender, Normal color, Normal ROM, Normal temperature General lower extremity: Nontender, Normal ROM, Normal temperature, Normal weight bearing, Other - Feet bilaterally have some swelling. They are hyperemic. They are not significantly tender to palpation. A pulse can be dopplered on the right but it cannot be dopplered on the left. Patient can flex and extend all toes without problem. There are no ulcers or sores or gangrene present.. No: Greg's sign - Neurological Neuro grossly intact: Yes Cognition: Normal Orientation: AAOx4 Crawford Coma Scale Eye Opening: Spontaneous Crawford Coma Scale Verbal: Oriented Crawford Coma Scale Motor: Obeys Commands Crawford Coma Scale Total: 15 Speech: Normal Motor strength normal: LUE, RUE, LLE, RLE Sensory: Normal - Psychological Associated symptoms: Normal affect, Normal mood - Skin Skin Temperature: Warm Skin Moisture: Dry Skin Color: Normal Course - Re-evaluation Re-evalutation: 09/03/19 16:33 I called and discussed the case with the vascular surgeon, Dr. Daniels, at [facility]. He says that given the patient's exam he does not need an emergent transfer and that he can see the patient in the office tomorrow. I am currently working on arranging with the brother to have the patient taken to see them at [facility] tomorrow. I will give the patient some pain medicine for home. - Vital Signs Vital signs: Temp Pulse Resp BP Pulse Ox 98.9 F 97 18 128/75 H 96 09/03/19 10:30 09/03/19 10:30 09/03/19 10:30 09/03/19 10:30 09/03/19 10:30 - Laboratory Result Diagrams: 09/03/19 14:17 09/03/19 14:17 Laboratory results interpreted by me: 09/03/19 09/03/19 14:17 14:17 Hgb 13.3 L RDW 14.9 H Alkaline Phosphatase 174 H - Diagnostic Test Radiology reviewed: Image reviewed, Reports reviewed Discharge - Discharge Clinical Impression: Vascular insufficiency of extremity Condition: Stable Disposition: HOME, SELF-CARE Instructions: Peripheral Vascular Disease ([facility]) Additional Instructions: Please call [facility] at in am tomorrow to schedule an appointment for tomorrow. they will see you tomorrow. Prescriptions: Hydrocodone/Acetaminophen [[place] 5-325 mg Tablet] 1 tab PO Q6 PRN 3 Days #12 tablet PRN Reason: Referrals: [facility] [Provider Group] - Follow up tomorrow
[2019-09-03] MEDS ORDERED: LORAZEPAM INJ 2 MG/1 ML VIAL IV ONE (16:50)
[2019-09-03] MEDS ORDERED: FLUMAZENIL INJ 0.5 MG/5 ML VIAL IV ONE (17:26)
[2019-09-03] MEDS ORDERED: OXYCODONE-ACETAMINOPHEN 5-325 MG TABLET PO PRN (18:22)
[2019-09-03] MEDS ORDERED: ONDANSETRON HCL INJ/PF 4 MG/2 ML SDV IV PRN (18:22)
[2019-09-03] MEDS ORDERED: PROMETHAZINE HCL INJ 25 MG/1 ML VIAL IV PRN (18:22)
[2019-09-03] MEDS ORDERED: MAG HYDROX/AL HYDROX/SIMETH SUSP 30 ML UDCUP PO PRN (18:22)
[2019-09-03] MEDS ORDERED: ACETAMINOPHEN 325 MG TABLET PO PRN (18:22)
[2019-09-03] MEDS ORDERED: NORMAL SALINE 1000 ML 1,000 ML IV PRN (18:22)
[2019-09-03] MEDS ORDERED: DILTIAZEM HCL/D5W 125 MG/125 ML RTUINJ IV PRN (18:28)
[2019-09-03] MEDS ORDERED: GUAIFENESIN SYRP 200 MG/10 ML UDC PO PRN (18:30)
[2019-09-03] MEDS ORDERED: NICOTINE 14 MG/24 HR PATCH.TD24 TD PRN (18:43)
--- NOTE | 2019-09-03 18:52 | PDOC H&P ---
History of Present Illness Admission Date/PCP: 09/03/19 17:44 Patient complains of: bilateral leg pain History of Present Illness: SHAHNAZ CASANOVA is a 64 year old male with a past medical history significant for dilated cardiomyopathy, CHF, PAF, PAD, tobacco dependence, alcohol dependence with continuous use presented to the emergency department with complaint of bilateral lower extremity pain. Initial vital signs in the emergency department were stable. Laboratory evaluation was essentially unremarkable. Lower extremity ultrasound revealed distal anterior tibial artery and distal superficial femoral artery stenosis. Emergency department provider spoke with vascular surgery at [facility]; recommended outpatient follow-up. Upon preparing for discharge, patient was noted to be tachycardic with a heart rate in 130s. Chest imaging was benign. EKG showed atrial flutter RVR. Patient was provided 1 L normal saline bolus and referred to the hospital serv ice for admission and management of stating complaints findings. Past Medical History Cardiac Medical History: Reports: Atrial Fibrillation, Congestive Heart Failure - Alcohol cardiomyopathy, Hypertension Pulmonary Medical History: Reports: Bronchitis, Chronic Obstructive Pulmonary Disease (COPD) Neurological Medical History: Reports: None Endocrine Medical History: Reports: None Renal/ Medical History: Reports: None Malignancy Medical History: Reports: None GI Medical History: Reports: None Musculoskeltal Medical History: Reports: None Psychiatric Medical History: Reports: Alcohol Dependency, Tobacco Dependency Denies: Depression Traumatic Medical History: Reports: None Hematology: Reports: None Infectious Medical History: Reports: None Past Surgical History Past Surgical History: Reports: Orthopedic Surgery - Right ACL repair, T onsillectomy Social History Information Source: Patient Lives with: Homeless Smoking Status: Current Every Day Smoker Electronic Cigarette use?: No Frequency of Alcohol Use: Heavy Hx Recreational Drug Use: Yes Drugs: Marijuana Hx Prescription Drug Abuse: No - Advance Directive Resuscitation Status: Full Code Family History Family History: Arthritis, COPD, Hypertension Parental Family History Reviewed: Yes Children Family History Reviewed: Yes Sibling(s) Family History Reviewed.: Yes Medication/Allergy Home Medications: Amoxicillin/Potassium Clav [Augmentin 875-125 Tablet] 1 tab PO Q12 #10 tablet 08/30/19 Aspirin [Ecotrin 81 mg EC Tablet] 81 mg PO DAILY tabec 08/30/19 Furosemide [Lasix 20 mg Tablet] 20 mg PO DAILY tablet 08/30/19 Lisinopril [Prinivil 10 mg Tablet] 10 mg PO DAILY tablet 08/30/19 Metoprolol Succinate [Toprol Xl 50 mg Tab.sr] 100 mg PO DAILY tab.sr.24h Nicotine [Nicoderm 14 mg/24 Hr Transdermal Patch] 1 each TD DAILYP PRN patch.td24 08/30/19 Pantoprazole Sodium [Protonix [address] Tablet] 20 mg PO Q6AM tablet.dr 08/30/19 Thiamine HCl [Thiamine 100 mg Tablet] 100 mg PO DAILY tablet 08/30/19 Hydrocodone/Acetaminophen [[place] 5-325 mg Tablet] 1 tab PO Q6 PRN 3 Days #12 tablet 09/03/19 Allergies/Adverse Reactions: No Known Allergies Allergy (Verified 08/18/19 17:38) Review of Systems Constitutional: ABSENT: chills, fever(s), headache(s), weight gain, weight loss Eyes: ABSENT: visual disturbances Ears: ABSENT: hearing changes Cardiovascular: ABSENT: chest pain, dyspnea on exertion, edema, orthropnea, palpitations Respiratory: PRESENT: cough, dyspnea. ABSENT: hemoptysis Gastrointestinal: ABSENT: abdominal pain, constipation, diarrhea, hematemesis, hematochezia, nausea, vomiting Genitourinary: ABSENT: dysuria, hematuria Musculoskeletal: PRESENT: as per HPI. ABSENT: joint swelling Integumentary: ABSENT: rash, wounds Neurological: ABSENT: abnormal gait, abnormal speech, confusion, dizziness, focal weakness, syncope Psychiatric: ABSENT: anxiety, depression, homidical ideation, suicidal ideation Endocrine: ABSENT: cold intolerance, heat intolerance, polydipsia, polyuria Hematologic/Lymphatic: ABSENT: easy bleeding, easy bruising Physical Exam Vital Signs: Temp Pulse Resp BP Pulse Ox 97.7 F 129 H 24 H 151/107 H 100 09/03/19 16:45 09/03/19 16:45 09/03/19 16:45 09/03/19 16:45 09/03/19 16:45 Intake & Output 09/02/19 09/03/19 09/04/19 06:59 06:59 06:59 Intake Total 1000 Balance 1000 Weight 68.6 kg General appearance: PRESENT: no acute distress, disheveled, thin, well-developed Head exam: PRESENT: atraumatic, normocephalic Eye exam: PRESENT: conjunctiva pink, EOMI, PERRLA. ABSENT: scleral icterus Mouth exam: PRESENT: moist, tongue midline Teeth exam: PRESENT: poor dentation Respiratory exam: PRESENT: rhonchi, symmetrical, unlabored, other - Room air. ABSENT: rales, wheezes Cardiovascular exam: PRESENT: RRR. ABSENT: diastolic murmur, rubs, systolic mur mur Pulses: PRESENT: other - Pedal pulses by Doppler Vascular exam: PRESENT: normal capillary refill Rectal exam: PRESENT: deferred Extremities exam: PRESENT: full ROM. ABSENT: calf tenderness, clubbing, pedal edema Musculoskeletal exam: PRESENT: ambulatory Neurological exam: PRESENT: alert, awake, oriented to person, oriented to place, oriented to time, oriented to situation, CN II-XII grossly intact. ABSENT: motor sensory deficit Psychiatric exam: PRESENT: flat affect, normal mood. ABSENT: homicidal ideation, suicidal ideation Skin exam: PRESENT: dry, intact, warm. ABSENT: cyanosis, rash Results Laboratory Results: 09/03/19 14:17 09/03/19 14:17 09/03/19 09/03/19 14:17 14:17 WBC 7.2 RBC 4.73 Hgb 13.3 L Hct 41.2 MCV 87 MCH 28.2 MCHC 32.3 RDW 14.9 H Plt Count 347 Seg Neutrophils % 60.6 Sodium 141.1 Potassium 4.2 Chloride 106 Carbon Dioxide 29 Anion Gap 6 BUN 15 Creatinine 0.85 Est GFR ( Amer) > 60 Glucose 89 Calcium 9.3 Total Bilirubin 1.0 AST 52 Alkaline Phosphatase 174 H Total Protein 7.4 Albumin 3.7 09/03/19 14:17 Troponin I 0.022 Impressions: Chest X-Ray 09/03/19 13:44 IMPRESSION: NO ACUTE RADIOGRAPHIC FINDING IN THE CHEST. Assessment and Plan - Diagnosis (1) Atrial flutter with rapid ventricular response Is this a current diagnosis for this admission?: Yes Plan: Patient is admitted to [facility] on continuous cardiac monitoring. He is placed on full dose Lovenox. He started on diltiazem drip. Placed on daily statin and aspirin therapy. We will check TSH with a.m. lab work. 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 (2) PAD (peripheral artery disease) Is this a current diagnosis for this admission?: Yes Plan: Lower extremity ultrasound revealed distal anterior tibial artery and distal superficial femoral artery stenosis. Emergency department provider spoke with [facility] surgery at [facility]; recommended outpatient follow-up. Currently on full dose Lovenox for atrial flutter RVR. We will contact vascular surgery tomorrow to confirm follow-up appointment. (3) Alcohol dependence Qualifiers: Substance use status: alcohol-induced persisting dementia Qualified Code(s): F10.27 - Alcohol dependence with alcohol-induced persisting dementia Is this a current diagnosis for this admission?: Yes Plan: Serum EtOH <10 Patient does have a history of withdrawal. Valium 2 mg p.o. every 4 hours as needed anxiety/agitation/alcohol withdrawal. Folic acid, thiamine supplementation. Fall, seizure, aspiration precautions. Discharge planning consulted. (4) Tobacco abuse Is this a current diagnosis for this admission?: Yes Plan: Smoking cessation encouraged. Nicotine replacement therapies provided. (5) Congestive heart failure Qualifiers: Heart failure type: combined systolic and diastolic Is this a current diagnosis for this admission?: Yes Plan: Echocardiogram (08/2019) shows LVEF 20 to 25%. Mildly dilatated LV with moderate concentric hypertrophy and grade 3 for diastolic dysfunction. We will consult cardiology. Daily aspirin and statin therapy. Cardiac diet. Daily weights, strict I&O's. (6) Person under investigation for COVID-19 Is this a current diagnosis for this admission?: Yes Plan: Patient presented to the emergency department 09/02/2019 with complaint of shortness of breath and cough. He is known to have COPD and is a daily tobacco user. Chest imaging that visit showed a small right-sided pleural effusion with associated airspace disease. CXR today was clear according to read by leadership coach, however, do feel that I can see a subtle opacity. Is maintaining oxygen saturations on room air. Slight rhonchi on exam. COVID testing was sent out 09/02/2019. He is high risk for exposure related to homeless status. He is placed on full dose Lovenox related to atrial flutter RVR. We will start vitamin C, vitamin D, melatonin, and zinc supplementation. - Time Time Spent with patient: 35 or more minutes Medications reviewed and adjusted accordingly: Yes Anticipated discharge: Home
[2019-09-03] MEDS: DILTIAZEM HCL/D5W 125 MG/125 ML RTUINJ IV PRN (19:03)
[2019-09-03] MEDS: GUAIFENESIN 600 MG TABLET.SA PO SCH (22:16)
[2019-09-03] MEDS: ENOXAPARIN SODIUM INJ 80 MG/0.8 ML DISP.SYRIN SUBCUT SCH (22:16)
[2019-09-03] MEDS: MELATONIN 3 MG TABLET PO SCH (22:16)
[2019-09-03] MEDS: ASPIRIN 81 MG TABLET, CHEWABLE PO SCH (22:16)
[2019-09-03] MEDS: ATORVASTATIN CALCIUM 10 MG TABLET PO SCH (22:16)
[2019-09-03] MEDS ORDERED: FUROSEMIDE INJ/PF 20 MG/2 ML SDV IV ONE (23:45)
--- NOTE | 2019-09-04 02:26 | EKG REPORT ---
SEVERITY:- ABNORMAL ECG - ATRIAL FLUTTER, A-RATE 312 LEFT ANTERIOR FASCICULAR BLOCK NONSPECIFIC T ABNORMALITIES, DIFFUSE LEADS BORDERLINE PROLONGED QT INTERVAL : Confirmed by: Samantha Campbell MD 04-Sep-2019 02:25:52
[2019-09-04 06:35] LABS: HEMATOCRIT 39.7 % (37.9-51.0); HEMOGLOBIN 13.1 g/dL (13.5-17.0); MEAN CORPUSCULAR HEMOGLOBIN 28.3 pg (27.0-33.4); MEAN CORPUSCULAR VOLUME 86 fl (80-97); PLATELET COUNT 312 10^3/uL (150-450); RED BLOOD COUNT 4.62 10^6/uL (4.35-5.55); RED CELL DISTRIBUTION WIDTH 14.9 % (11.5-14.0); WHITE BLOOD COUNT 8.2 10^3/uL (4.0-10.5)
[2019-09-04] MEDS: PANTOPRAZOLE SODIUM 20 MG TABLET.DR PO SCH (06:38)
[2019-09-04 06:57] LABS: ANION GAP 7 (5-19); BLOOD UREA NITROGEN 10 mg/dL (7-20); CALCIUM 8.7 mg/dL (8.4-10.2); CARBON DIOXIDE 25 mmol/L (22-30); CHLORIDE 107 mmol/L (98-107); CHOLESTEROL 136.37 mg/dL (0-200); GLUCOSE 131 mg/dL (75-110); TRIGLYCERIDES 67 mg/dL (<150)
[2019-09-04] MEDS: DILTIAZEM HCL/D5W 125 MG/125 ML RTUINJ IV PRN (07:02)
[2019-09-04 07:08] LABS: DIRECT LDL 87 mg/dL (<100)
[2019-09-04] MEDS: ZINC SULFATE 220 MG CAPSULE PO SCH (09:51)
[2019-09-04] MEDS: GUAIFENESIN 600 MG TABLET.SA PO SCH ×2 (09:51→21:50)
[2019-09-04] MEDS: DOCUSATE SODIUM 100 MG CAPSULE PO SCH (09:52)
[2019-09-04] MEDS: THIAMINE HCL 100 MG TABLET PO SCH (09:52)
[2019-09-04] MEDS: ENOXAPARIN SODIUM INJ 80 MG/0.8 ML DISP.SYRIN SUBCUT SCH ×2 (09:53→21:50)
[2019-09-04] MEDS: ASCORBIC ACID 500 MG TABLET PO SCH ×2 (09:53→17:54)
[2019-09-04] MEDS: FOLIC ACID 1 MG TABLET PO SCH (09:53)
[2019-09-04] MEDS: DIAZEPAM 2 MG TABLET PO PRN (09:53)
[2019-09-04] MEDS: CHOLECALCIFEROL (D3) 400 UNIT TABLET PO SCH (09:55)
--- NOTE | 2019-09-04 09:59 | PDOC CONSULTATION ---
Consultation Consult Date: 09/04/19 Attending physician:: RONAL ADAMS Provider Consulted: JEFFERY BROWN Consult reason:: Atrial flutter History of Present Illness Admission Date/PCP: 09/03/19 17:44 Patient complains of: Bilateral lower extremity pain History of Present Illness: SHAHNAZ CASANOVA is a 64 year old male With the following active problems 1. Dilated cardiomyopathy-likely alcohol induced 2. Congestive heart failure-systolic 3. Alcohol dependence 4. Homelessness Patient known to me from recent admission to the hospital for congestive heart failure symptoms. Further evaluation revealed that he had profound LV dysfunction with ejection fraction estimated at approximately 25%. He was managed medically with intravenous diuretics and heart failure medications. His situation is complicated on account of the fact that he is homeless and is dependent on alcohol. He presented back to the emergency room with complaints of lower extremity pain. Vascular studies were performed which showed arterial stenosis for which outpatient follow-up was recommended. At that time heart rate was found to be elevated. EKG done showed atrial flutter and patient was admitted to the hospital. At this time patient is comfortable. Denies any discomfort. Telemetry shows rate controlled atrial flutter at 91 bpm Past Medical History Cardiac Medical History: Reports: Atrial Fibrillation, Congestive Heart Failure - Alcohol cardiomyopathy, Hypertension Pulmonary Medical History: Reports: Bronchitis, Chronic Obstructive Pulmonary Disease (COPD) Neurological Medical History: Reports: None Endocrine Medical History: Reports: None Renal/ Medical History: Reports: None Malignancy Medical History: Reports: None GI Medical History: Reports: None Musculoskeltal Medical History: Reports: None Psychiatric Medical History: Reports: Alcohol Dependency, Tobacco Dependency Denies: Depression Traumatic Medical History: Reports: None Hematology: Reports: None Infectious Medical History: Reports: None Past Surgical History Past Surgical History: Reports: Orthopedic Surgery - Right ACL repair, Tonsillectomy, Other - Homeless Social History Lives with: Homeless Smoking Status: Current Every Day Smoker Electronic Cigarette use?: No Frequency of Alcohol Use: Heavy Hx Recreational Drug Use: Yes Drugs: Marijuana Hx Prescription Drug Abuse: No - Advance Directive Resuscitation Status: Full Code Family History Family History: Arthritis, COPD, Hypertension Parental Family History Reviewed: No - Unable to obtain Children Family History Reviewed: NA Sibling(s) Family History Reviewed.: NA Medication/Allergy Home Medications: Amoxicillin/Potassium Clav [Augmentin 875-125 Tablet] 1 tab PO Q12 #10 tablet 08/30/19 Aspirin [Ecotrin 81 mg EC Tablet] 81 mg PO DAILY tabec 08/30/19 Furosemide [Lasix 20 mg Tablet] 20 mg PO DAILY tablet 08/30/19 Lisinopril [Prinivil 10 mg Tablet] 10 mg PO DAILY tablet 08/30/19 Metoprolol Succinate [Toprol Xl 50 mg Tab.sr] 100 mg PO DAILY tab.sr.24h 08/30/19 Pantoprazole Sodium [Protonix [address] Tablet] 20 mg PO Q6AM tablet.dr 08/30/19 Thiamine HCl [Thiamine 100 mg Tablet] 100 mg PO DAILY tablet 08/30/19 Hydrocodone/Acetaminophen [[place] 5-325 mg Tablet] 1 tab PO Q6 PRN 3 Days #12 tablet 09/03/19 Nicotine [Nicoderm 14 mg/24 Hr Transdermal Patch] 1 patch TD DAILYP PRN 09/04/19 Allergies/Adverse Reactions: No Known Allergies Allergy (Verified 08/18/19 17:38) Review of Systems ROS unobtainable: Other - Patient not very cooperative with review of systems. Is withdrawn. Physical Exam Vital Signs: Temp Pulse Resp BP Pulse Ox 98.6 F 72 26 H 144/104 H 91 L 09/04/19 03:30 09/04/19 07:00 09/04/19 03:30 09/04/19 03:30 09/04/19 03:30 Intake & Output 09/03/19 09/04/19 09/05/19 06:59 06:59 06:59 Intake Total 3612 21 Output Total 800 Balance 2812 21 Weight 68.6 kg General appearance: PRESENT: no acute distress, well-developed, well-nourished Head exam: PRESENT: atraumatic, normocephalic Eye exam: PRESENT: EOMI Respiratory exam: PRESENT: symmetrical, unlabored Cardiovascular exam: PRESENT: +S1, +S2 - Rate controlled atrial flutter at 91 bpm on telemetry. Rectal exam: PRESENT: deferred Skin exam: PRESENT: dry, intact Results Laboratory Results: 09/04/19 05:56 09/04/19 05:56 09/03/19 09/03/19 09/04/19 14:17 14:17 05:56 WBC 7.2 8.2 RBC 4.73 4.62 Hgb 13.3 L 13.1 L Hct 41.2 39.7 MCV 87 86 MCH 28.2 28.3 MCHC 32.3 33.0 RDW 14.9 H 14.9 H Plt Count 347 312 Seg Neutrophils % 60.6 Sodium 141.1 Potassium 4.2 Chloride 106 Carbon Dioxide 29 Anion Gap 6 BUN 15 Creatinine 0.85 Est GFR ( Amer) > 60 Glucose 89 Calcium 9.3 Total Bilirubin 1.0 AST 52 Alkaline Phosphatase 174 H Total Protein 7.4 Albumin 3.7 Triglycerides Cholesterol LDL Cholesterol Direct VLDL Cholesterol HDL Cholesterol TSH 09/04/19 09/04/19 05:56 05:56 WBC RBC Hgb Hct MCV MCH MCHC RDW Plt Count Seg Neutrophils % Sodium 138.5 Potassium 4.0 Chloride 107 Carbon Dioxide 25 Anion Gap 7 BUN 10 Creatinine 0.62 Est GFR ( Amer) > 60 Glucose 131 H Calcium 8.7 Total Bilirubin AST Alkaline Phosphatase Total Protein Albumin Triglycerides 67 Cholesterol 136.37 LDL Cholesterol Direct 87 VLDL Cholesterol 13.0 HDL Cholesterol 36 L TSH 2.67 09/03/19 14:17 Troponin I 0.022 EKG Comments: Twelve-lead EKG. 09/03/2019. Independently viewed by me. Typical atrial flutter 128 bpm predominately 2-1 conduction Chest x-ray 09/03/2019 no acute radiographic finding Creatinine 0.85 Troponin 0 0.022 Transthoracic echocardiogram 08/19/2019. Left ventricular ejection fraction is moderately severely reduced with EF estimated at 20 to 25%. RV dysfunction with moderate reduction of function. Mild mitral regurgitation mild to moderate tricuspid regurgitation no pericardial effusion Impressions: Chest X-Ray 09/03/19 13:44 IMPRESSION: NO ACUTE RADIOGRAPHIC FINDING IN THE CHEST. Assessment & Plan - Diagnosis (1) Alcohol dependence Qualifiers: Substance use status: alcohol-induced persisting dementia Qualified Code(s): F10.27 - Alcohol dependence with alcohol-induced persisting dementia Is this a current diagnosis for this admission?: Yes Plan: Watch for delirium tremens Check magnesium level Measurement potassium and magnesium are closely regulated especially given alcohol dependence which predisposes to electrolyte abnormalities and worsening of cardiac arrhythmias. (2) Atrial flutter with rapid ventricular response Is this a current diagnosis for this admission?: Yes Plan: Rate control presently Would discontinue diltiazem infusion promptly given LV dysfunction Would prefer the use of beta-blockers and digoxin for rate control given dilated cardiomyopathy Would recommend metoprolol for rate control Given congestive heart failure and atrial arrhythmia systemic anticoagulation and recommended but would be difficult to pursue in this case as an outpatient given complexity of social situation with alcohol dependence and homelessness. His alcohol dependency also makes him a tremendous bleeding risk if he is anticoagulated. It is difficult to reconcile the situation. Also for the same reasons it is difficult to endorse a rhythm religious strategy which would perhaps have been ideal for this patient (3) Dilated cardiomyopathy secondary to alcohol Is this a current diagnosis for this admission?: Yes Plan: Presently fairly well compensated Would recommend guideline directed medical therapy for congestive heart failure and LV dysfunction Although alcohol is suspected ischemic evaluation is warranted to exclude underlying coronary artery disease as cause of cardiomyopathy - Notes Notes: Rate control measures only at this time. Not sure if we can pursue systemic anticoagulation as an outpatient Medications for dilated cardiomyopathy. Prefer beta-blockers Try to avoid calcium blockers
--- NOTE | 2019-09-04 11:13 | EKG REPORT ---
SEVERITY:- ABNORMAL ECG - SINUS OR ECTOPIC ATRIAL RHYTHM LEFT ANTERIOR FASCICULAR BLOCK ABNORMAL T, CONSIDER ISCHEMIA, DIFFUSE LEADS PROLONGED QT INTERVAL : Confirmed by: Samantha Campbell MD 04-Sep-2019 11:13:03
--- NOTE | 2019-09-04 13:41 | PDOC PROGRESS REPORT ---
Subjective Progress Note for:: 09/04/19 Subjective:: SHAHNAZ CASANOVA is a 64 year old male with a past medical history significant for dilated cardiomyopathy, CHF, PAF, PAD, tobacco dependence, alcohol dependence with continuous use who is admitted 09/03/2019 with atrial flutter RVR. Patient seen on morning rounds. He was seen at the bed, eating his lunch. He reports that he is feeling well today. He denies fever, chest pain, palpitations, dyspnea, cough, nausea vomiting or diarrhea. He does asked to speak with a licensed social worker regarding homeless shelters in the area. Otherwise he has no questions or concerns at this time. No concerns per nursing. Reason For Visit: A FLUTTER RVR Physical Exam Vital Signs: Temp Pulse Resp BP Pulse Ox 98.6 F 72 26 H 144/104 H 91 L 09/04/19 03:30 09/04/19 07:00 09/04/19 03:30 09/04/19 03:30 09/04/19 03:30 Intake & Output 09/03/19 09/04/19 09/05/19 06:59 06:59 06:59 Intake Total 3612 21 Output Total 800 Balance 2812 21 Weight 68.6 kg General appearance: PRESENT: no acute distress, disheveled, thin, well-developed Head exam: PRESENT: atraumatic, normocephalic Eye exam: PRESENT: conjunctiva pink, EOMI, PERRLA. ABSENT: scleral icterus Mouth exam: PRESENT: moist, tongue midline Teeth exam: PRESENT: poor dentation Respiratory exam: PRESENT: rhonchi, symmetrical, unlabored, other. ABSENT: rales, wheezes Cardiovascular exam: PRESENT: irregular rhythm, +S1, +S2. ABSENT: diastolic murmur, rubs, systolic murmur, tachycardia Vascular exam: PRESENT: normal capillary refill Extremities exam: PRESENT: full ROM, tenderness - BLE, +1 edema - BLE. ABSENT: calf tenderness, clubbing, pedal edema Musculoskeletal exam: PRESENT: ambulatory Neurological exam: PRESENT: alert, awake, oriented to person, oriented to place, oriented to time, oriented to situation, CN II-XII grossly intact. ABSENT: motor sensory deficit Psychiatric exam: PRESENT: appropriate affect, normal mood. ABSENT: homicidal ideation, suicidal ideation Skin exam: PRESENT: dry, intact, warm. ABSENT: cyanosis, rash Results Laboratory Results: 09/04/19 05:56 09/04/19 05:56 09/03/19 09/03/19 09/04/19 14:17 14:17 05:56 WBC 7.2 8.2 RBC 4.73 4.62 Hgb 13.3 L 13.1 L Hct 41.2 39.7 MCV 87 86 MCH 28.2 28.3 MCHC 32.3 33.0 RDW 14.9 H 14.9 H Plt Count 347 312 Seg Neutrophils % 60.6 Sodium 141.1 Potassium 4.2 Chloride 106 Carbon Dioxide 29 Anion Gap 6 BUN 15 Creatinine 0.85 Est GFR ( Amer) > 60 Glucose 89 Calcium 9.3 Total Bilirubin 1.0 AST 52 Alkaline Phosphatase 174 H Total Protein 7.4 Albumin 3.7 Triglycerides Cholesterol LDL Cholesterol Direct VLDL Cholesterol HDL Cholesterol TSH 09/04/19 09/04/19 05:56 05:56 WBC RBC Hgb Hct MCV MCH MCHC RDW Plt Count Seg Neutrophils % Sodium 138.5 Potassium 4.0 Chloride 107 Carbon Dioxide 25 Anion Gap 7 BUN 10 Creatinine 0.62 Est GFR ( Amer) > 60 Glucose 131 H Calcium 8.7 Total Bilirubin AST Alkaline Phosphatase Total Protein Albumin Triglycerides 67 Cholesterol 136.37 LDL Cholesterol Direct 87 VLDL Cholesterol 13.0 HDL Cholesterol 36 L TSH 2.67 09/03/19 14:17 Troponin I 0.022 Impressions: Chest X-Ray 09/03/19 13:44 IMPRESSION: NO ACUTE RADIOGRAPHIC FINDING IN THE CHEST. Assessment and Plan - Diagnosis (1) Atrial flutter with rapid ventricular response Is this a current diagnosis for this admission?: Yes Plan: Patient is admitted to [facility] on continuous cardiac monitoring. He is placed on full dose Lovenox. He started on diltiazem drip; now rate controlled. Diltiazem drip was discontinued. Start metoprolol 50 mg twice daily. Continue on daily statin and aspirin therapy. Cardiology is consulted; discussed with Dr. Bailon. Appreciate recommendations. (2) PAD (peripheral artery disease) Is this a current diagnosis for this admission?: Yes Plan: Lower extremity ultrasound revealed distal anterior tibial artery and distal superficial femoral artery stenosis. Emergency department provider spoke with vascular surgery at [facility]; recommended outpatient follow-up. Currently on full dose Lovenox for atrial flutter RVR. We will contact vascular surgery to confirm follow-up appointment prior to d/c. (3) Alcohol dependence Qualifiers: Substance use status: alcohol-induced persisting dementia Qualified Code(s): F10.27 - Alcohol dependence with alcohol-induced persisting dementia Is this a current diagnosis for this admission?: Yes Plan: Serum EtOH <10 Patient does have a history of withdrawal. Magnesium level pending. Valium 2 mg p.o. every 4 hours as needed anxiety/agitation/alcohol withdrawal. Folic acid, thiamine supplementation. Fall, seizure, aspiration precautions. Discharge planning consulted. (4) Tobacco abuse Is this a current diagnosis for this admission?: Yes Plan: Smoking cessation encouraged. Nicotine replacement therapies provided. (5) Congestive heart failure Qualifiers: Heart failure type: combined systolic and diastolic Is this a current diagnosis for this admission?: Yes Plan: Echocardiogram (08/2019) shows LVEF 20 to 25%. Mildly dilatated LV with moderate concentric hypertrophy and grade 3 for diastolic dysfunction. Consulted cardiology; appreciate Dr. Bailon's recommendations. Daily aspirin and statin therapy. Start metoprolol. Cardiac diet. Daily weights, strict I&O's. (6) Person under investigation for COVID-19 Is this a current diagnosis for this admission?: Yes Plan: COVID (08/28/19) negative. COVID (09/02/19) pending. Patient presented to the emergency department 09/02/2019 with complaint of shortness of breath and cough. He is known to have COPD and is a daily tobacco user. Chest imaging that visit showed a small right-sided pleural effusion with associated airspace disease. CXR today was clear according to read by stone carver, however, do feel that I can see a subtle opacity. Is maintaining oxygen saturations on room air. Slight rhonchi on exam. He is high risk for exposure related to homeless status. He is placed on full dose Lovenox related to atrial flutter RVR. We will start vitamin C, vitamin D, melatonin, and zinc supplementation. - Time Time Spent with patient: 25-34 minutes Medications reviewed and adjusted accordingly: Yes Anticipated discharge: Home Within: within 24 hours
[2019-09-04] MEDS: MELATONIN 3 MG TABLET PO SCH (21:50)
[2019-09-04] MEDS: ASPIRIN 81 MG TABLET, CHEWABLE PO SCH (21:50)
[2019-09-04] MEDS: ATORVASTATIN CALCIUM 10 MG TABLET PO SCH (21:50)
[2019-09-04] MEDS ORDERED: METOPROLOL TARTRATE 50 MG TABLET PO SCH (22:00)
[2019-09-05] MEDS: PANTOPRAZOLE SODIUM 20 MG TABLET.DR PO SCH (06:39)
[2019-09-05] MEDS ORDERED: NICOTINE 14 MG/24 HR PATCH.TD24 TD PRN (07:55)
[2019-09-05] MEDS: ZINC SULFATE 220 MG CAPSULE PO SCH (09:32)
[2019-09-05] MEDS: LISINOPRIL 10 MG TABLET PO SCH (09:32)
[2019-09-05] MEDS: FUROSEMIDE 20 MG TABLET PO SCH (09:33)
[2019-09-05] MEDS: FOLIC ACID 1 MG TABLET PO SCH (09:33)
[2019-09-05] MEDS: ASCORBIC ACID 500 MG TABLET PO SCH ×2 (09:33→17:13)
[2019-09-05] MEDS: GUAIFENESIN 600 MG TABLET.SA PO SCH ×2 (09:33→22:04)
[2019-09-05] MEDS: THIAMINE HCL 100 MG TABLET PO SCH (09:33)
[2019-09-05] MEDS: METOPROLOL SUCCINATE 50 MG TAB.SR.24H PO SCH (09:33)
[2019-09-05] MEDS: ENOXAPARIN SODIUM INJ 80 MG/0.8 ML DISP.SYRIN SUBCUT SCH ×2 (09:39→22:04)
[2019-09-05] MEDS: CHOLECALCIFEROL (D3) 400 UNIT TABLET PO SCH (09:40)
[2019-09-05] MEDS: DOCUSATE SODIUM 100 MG CAPSULE PO SCH (09:40)
[2019-09-05] MEDS ORDERED: THIAMINE HCL 100 MG TABLET PO SCH (10:00)
[2019-09-05] MEDS ORDERED: ASPIRIN 81 MG TABLET, ENT COATED PO SCH (10:00)
--- NOTE | 2019-09-05 13:10 | PDOC PROGRESS REPORT ---
Subjective Progress Note for:: 09/05/19 Subjective:: SHAHNAZ CASANOVA is a 64 year old male with a past medical history significant for dilated cardiomyopathy, CHF, PAF, PAD, tobacco dependence, alcohol dependence with continuous use who is admitted 09/03/2019 with atrial flutter RVR. Patient seen on morning rounds. He was found sitting up to the recliner, comfortably on room air. He reports some anxiety related to his upcoming discharge; not certain what to do since the shelters are closed. He does asked to speak with manager social services again. He denies fever, chest pain, palpitations, dyspnea, cough, nausea vomiting or diarrhea. Otherwise he has no questions or concerns at this time. Nursing reports that the patient is frequently removing his telemetry leads. They also report and the night time nanny nurse found the telemetry pack inside the patient's backpack. Reason For Visit: A FLUTTER RVR Physical Exam Vital Signs: Temp Pulse Resp BP Pulse Ox 97.3 F 113 H 20 140/96 H 92 09/05/19 00:34 09/05/19 07:00 09/05/19 00:34 09/05/19 00:34 09/05/19 00:34 Intake & Output 09/04/19 09/05/19 09/06/19 06:59 06:59 06:59 Intake Total 3612 495 Output Total 800 300 Balance 2812 195 Weight 68.6 kg 68 kg General appearance: PRESENT: no acute distress, disheveled, thin, well-developed Head exam: PRESENT: atraumatic, normocephalic Eye exam: PRESENT: conjunctiva pink, EOMI, PERRLA. ABSENT: scleral icterus Mouth exam: PRESENT: moist, tongue midline Teeth exam: PRESENT: poor dentation Respiratory exam: PRESENT: clear to auscultation jefferson, symmetrical, unlabored. ABSENT: rales, rhonchi, wheezes Cardiovascular exam: PRESENT: irregular rhythm, +S1, +S2. ABSENT: diastolic murmur, rubs, systolic murmur Vascular exam: PRESENT: normal capillary refill Extremities exam: PRESENT: full ROM. ABSENT: calf tenderness, clubbing, pedal edema Musculoskeletal exam: PRESENT: ambulatory Neurological exam: PRESENT: alert, awake, oriented to person, oriented to place, oriented to time, oriented to situation, CN II-XII grossly intact. ABSENT: motor sensory deficit Psychiatric exam: PRESENT: anxious, appropriate affect. ABSENT: homicidal ideation, suicidal ideation Skin exam: PRESENT: dry, intact, warm. ABSENT: cyanosis, rash Results Laboratory Results: 09/04/19 05:56 09/04/19 05:56 09/04/19 05:56 Magnesium 1.8 09/03/19 14:17 Troponin I 0.022 Impressions: Chest X-Ray 09/03/19 13:44 IMPRESSION: NO ACUTE RADIOGRAPHIC FINDING IN THE CHEST. Assessment and Plan - Diagnosis (1) Atrial flutter with rapid ventricular response Is this a current diagnosis for this admission?: Yes Plan: Patient is medically stable for discharge; remains in house related to pending COVID testing. He is placed on full dose Lovenox. Not a candidate for chronic anticoagulation related to alcohol dependence with continuous use. Rate controlled on home dose metoprolol. Continue on daily statin and aspirin therapy. Cardiology is consulted; discussed with Dr. Bailon. Appreciate recommendations. (2) PAD (peripheral artery disease) Is this a current diagnosis for this admission?: Yes Plan: Lower extremity ultrasound revealed distal anterior tibial artery and distal superficial femoral artery stenosis. Emergency department provider spoke with vascular surgery at [facility] recommended outpatient follow-up. Currently on full dose Lovenox for atrial flutter RVR. [facility] vascular surgery clinic information provided; patient to schedule follow- up appointment upon discharge. (3) Alcohol dependence Qualifiers: Substance use status: alcohol-induced persisting dementia Qualified Code(s): F10.27 - Alcohol dependence with alcohol-induced persisting dementia Is this a current diagnosis for this admission?: Yes Plan: Serum EtOH <10 Patient does have a history of withdrawal. Magnesium level pending. Valium 2 mg p.o. every 4 hours as needed anxiety/agitation/alcohol withdrawal. Folic acid, thiamine supplementation. Fall, seizure, aspiration precautions. Discharge planning consulted. (4) Tobacco abuse Is this a current diagnosis for this admission?: Yes Plan: Smoking cessation encouraged. Nicotine replacement therapies provided. (5) Congestive heart failure Qualifiers: Heart failure type: combined systolic and diastolic Is this a current diagnosis for this admission?: Yes Plan: Echocardiogram (08/2019) shows LVEF 20 to 25%. Mildly dilatated LV with moderate concentric hypertrophy and grade 3 for diastolic dysfunction. Consulted cardiology; appreciate Dr. Bailon's recommendations. Daily aspirin and statin therapy. Home dose metoprolol and lisinopril Cardiac diet. Daily weights, strict I&O's. (6) Person under investigation for COVID-19 Is this a current diagnosis for this admission?: Yes Plan: COVID (08/28/19) negative. COVID (09/02/19) pending. Patient presented to the emergency department 09/02/2019 with complaint of shortness of breath and cough. He is known to have COPD and is a daily tobacco user. Chest imaging that visit showed a small right-sided pleural effusion with associated airspace disease. CXR today was clear according to read by winding inspector, however, do feel that I can see a subtle opacity. Is maintaining oxygen saturations on room air. Slight rhonchi on exam. He is high risk for exposure related to homeless status. He is placed on full dose Lovenox related to atrial flutter RVR. We will start vitamin C, vitamin D, melatonin, and zinc supplementation. - Time Time Spent with patient: 15-24 minutes Medications reviewed and adjusted accordingly: Yes Anticipated discharge: Home Within: within 24 hours
[2019-09-05] MEDS ORDERED: HYDRALAZINE HCL INJ/PF 20 MG/1 ML SDV IV PRN (13:46)
[2019-09-05] MEDS ORDERED: PROMETHAZINE HCL INJ 25 MG/1 ML VIAL IV PRN (14:30)
[2019-09-05] MEDS ORDERED: ONDANSETRON HCL INJ/PF 4 MG/2 ML SDV IV PRN (14:30)
--- NOTE | 2019-09-05 15:05 | PDOC PROGRESS REPORT ---
Subjective Progress Note for:: 09/05/19 Subjective:: Nurses report the patient has been behaving erratically. He had put the telemetry box in his backpack for example. He is presently off telemetry. Reason For Visit: A FLUTTER RVR Physical Exam Vital Signs: Temp Pulse Resp BP Pulse Ox 97.3 F 99 16 146/115 H 98 09/05/19 00:34 09/05/19 13:12 09/05/19 13:12 09/05/19 13:12 09/05/19 13:12 Intake & Output 09/04/19 09/05/19 09/06/19 06:59 06:59 06:59 Intake Total 3612 495 Output Total 800 300 Balance 2812 195 Weight 68.6 kg 68 kg General appearance: PRESENT: no acute distress, well-developed, well-nourished Head exam: PRESENT: atraumatic Eye exam: PRESENT: EOMI Mouth exam: PRESENT: moist Respiratory exam: PRESENT: symmetrical, unlabored Rectal exam: PRESENT: deferred Skin exam: PRESENT: dry, intact Results Laboratory Results: 09/04/19 05:56 09/04/19 05:56 09/03/19 14:17 Troponin I 0.022 Impressions: Chest X-Ray 09/03/19 13:44 IMPRESSION: NO ACUTE RADIOGRAPHIC FINDING IN THE CHEST. Assessment & Plan - Diagnosis (1) Alcohol dependence Qualifiers: Substance use status: alcohol-induced persisting dementia Qualified Code(s): F10.27 - Alcohol dependence with alcohol-induced persisting dementia Is this a current diagnosis for this admission?: Yes Plan: Alcohol dependence. This makes his management quite difficult Homeless social situation which is also quite challenging to manage (2) Atrial flutter with rapid ventricular response Is this a current diagnosis for this admission?: Yes Plan: Given the fact that patient is homeless and has got alcohol dependency issues it is difficult to recommend systemic anticoagulation for stroke prophylaxis. Ideally stroke prophylaxis is warranted on account of atrial flutter and congestive heart failure. He is also hypertensive Given the current situation he is a candidate only for rate control strategy with beta-blockers preferably on account of LV dysfunction. (3) Dilated cardiomyopathy secondary to alcohol Is this a current diagnosis for this admission?: Yes Plan: Congestive heart failure with dilated cardiomyopathy likely secondary to alcohol abuse although ischemic etiology needs to be excluded Presently appears to be euvolemic Continue guideline directed medical therapy as feasible for dilated cardiomyopathy and congestive heart failure.
[2019-09-05] MEDS: DIAZEPAM 2 MG TABLET PO PRN (15:17)
[2019-09-05] MEDS: ATORVASTATIN CALCIUM 10 MG TABLET PO SCH (22:03)
[2019-09-05] MEDS: ASPIRIN 81 MG TABLET, CHEWABLE PO SCH (22:04)
[2019-09-05] MEDS: MELATONIN 3 MG TABLET PO SCH (22:04)
[2019-09-06] MEDS: PANTOPRAZOLE SODIUM 20 MG TABLET.DR PO SCH (05:27)
[2019-09-06] MEDS ORDERED: PANTOPRAZOLE SODIUM 20 MG TABLET.DR PO SCH (06:00)
[2019-09-06 10:04] VITALS: BP 144/104
[2019-09-06] MEDS: METOPROLOL SUCCINATE 50 MG TAB.SR.24H PO SCH (10:06)
[2019-09-06] MEDS: ZINC SULFATE 220 MG CAPSULE PO SCH (10:06)
[2019-09-06] MEDS: GUAIFENESIN 600 MG TABLET.SA PO SCH (10:06)
[2019-09-06] MEDS: FOLIC ACID 1 MG TABLET PO SCH (10:06)
[2019-09-06] MEDS: ASCORBIC ACID 500 MG TABLET PO SCH (10:06)
[2019-09-06] MEDS: THIAMINE HCL 100 MG TABLET PO SCH (10:07)
[2019-09-06] MEDS: FUROSEMIDE 20 MG TABLET PO SCH (10:07)
[2019-09-06] MEDS: LISINOPRIL 10 MG TABLET PO SCH (10:07)
[2019-09-06] MEDS: DOCUSATE SODIUM 100 MG CAPSULE PO SCH (10:08)
[2019-09-06] MEDS: CHOLECALCIFEROL (D3) 400 UNIT TABLET PO SCH (10:08)
[2019-09-06] MEDS: ENOXAPARIN SODIUM INJ 80 MG/0.8 ML DISP.SYRIN SUBCUT SCH (10:08)
--- NOTE | 2019-09-06 14:36 | PDOC DISCHARGE SUMMARY ---
Impression - Admit/DC Date/PCP Admission Date/Primary Care Provider: 09/03/19 17:44 Discharge Date: 09/06/19 - Discharge Diagnosis (1) Atrial flutter with rapid ventricular response Is this a current diagnosis for this admission?: Yes (2) PAD (peripheral artery disease) Is this a current diagnosis for this admission?: Yes (3) Alcohol dependence Is this a current diagnosis for this admission?: Yes (4) Tobacco abuse Is this a current diagnosis for this admission?: Yes (5) Congestive heart failure Is this a current diagnosis for this admission?: Yes (6) Person under investigation for COVID-19 Is this a current diagnosis for this admission?: Yes - Additional Information Resuscitation Status: Full Code Discharge Diet: Cardiac Discharge Activity: Activity As Tolerated, Balance Activity w/Rest Referrals: [facility] [Provider Group] Prescriptions: Furosemide [Lasix 20 mg Tablet] 20 mg PO DAILY #30 tablet Atorvastatin Calcium [Lipitor 10 mg Tablet] 10 mg PO QHS #30 tablet Hydrocodone/Acetaminophen [[place] 5-325 mg Tablet] 1 tab PO Q6 PRN 3 Days #12 tablet PRN Reason: Lisinopril [Prinivil 10 mg Tablet] 10 mg PO DAILY #30 tablet Metoprolol Succinate [Toprol Xl 50 mg Tab.sr] 100 mg PO DAILY #60 tab.sr.24h Home Medications: Aspirin [Ecotrin 81 mg EC Tablet] 81 mg PO DAILY tabec 08/30/19 Pantoprazole Sodium [Protonix [address] Tablet] 20 mg PO Q6AM tablet.dr 08/30/19 Thiamine HCl [Thiamine 100 mg Tablet] 100 mg PO DAILY tablet 08/30/19 Hydrocodone/Acetaminophen [[place] 5-325 mg Tablet] 1 tab PO Q6 PRN 3 Days #12 tablet 09/03/19 Nicotine [Nicoderm 14 mg/24 Hr Transdermal Patch] 1 patch TD DAILYP PRN 09/04/19 Acetaminophen [Tylenol 325 mg Tablet] 650 mg PO Q4HP PRN tablet 09/06/19 Atorvastatin Calcium [Lipitor 10 mg Tablet] 10 mg PO QHS #30 tablet 09/06/19 Furosemide [Lasix 20 mg Tablet] 20 mg PO DAILY #30 tablet 09/06/19 Lisinopril [Prinivil 10 mg Tablet] 10 mg PO DAILY #30 tablet 09/06/19 Metoprolol Succinate [Toprol Xl 50 mg Tab.sr] 100 mg PO DAILY #60 tab.sr.24h 09/06/19 Nicotine [Nicoderm 14 mg/24 Hr Transdermal Patch] 1 each TD DAILYP PRN #0 patch.td24 09/06/19 History of Present Illiness History of Present Illness: SHAHNAZ CASANOVA is a 64 year old male with a past medical history significant for dilated cardiomyopathy, CHF, PAF, PAD, tobacco dependence, alcohol dependence with continuous use presented to the emergency department with complaint of bilateral lower extremity pain. Initial vital signs in the emergency department were stable. Laboratory evaluation was essentially unremarkable. Lower extremity ultrasound revealed distal anterior tibial artery and distal superficial femoral artery stenosis. Emergency department provider spoke with vascular surgery at [facility]; recommended outpatient follow-up. Upon preparing for discharge, patient was noted to be tachycardic with a heart rate in 130s. Chest imaging was benign. EKG showed atrial flutter RVR. Patient was provided 1 L normal saline bolus and referred to the hospital serv ice for admission and management of stating complaints findings. Hospital Course Hospital Course: (1) Atrial flutter with rapid ventricular response Patient was admitted to [facility] on continuous telemetry. He was initially placed on a diltiazem gtt; this was quickly converted to p.o. metoprolol upon obtaining rate control. He is placed on full dose Lovenox during admission. Not a candidate for chronic anticoagulation related to alcohol dependence with continuous use. Continues to remain rate controlled on home dose metoprolol. Continues on daily statin and aspirin therapy. Cardiology is consulted; discussed with Dr. Bailon. Appreciate recommendations. Recommend alcohol cessation Close outpatient follow up. (2) PAD (peripheral artery disease) Lower extremity ultrasound revealed distal anterior tibial artery and distal superficial femoral artery stenosis. Emergency department provider spoke with vascular surgery at [facility] recommended outpatient follow-up. Outpatient follow up. (3) Alcohol dependence Serum EtOH <10 Patient does have a history of withdrawal. Provided Valium 2 mg p.o. every 4 hours as needed anxiety/agitation/alcohol withdrawal. Received Folic acid, thiamine supplementation. Fall, seizure, aspiration precautions were put in place. No EtOH withdrawal symptoms this admission. (4) Tobacco abuse Smoking cessation encouraged. Nicotine replacement therapies provided. (5) Congestive heart failure Echocardiogram (08/2019) shows LVEF 20 to 25%. Mildly dilatated LV with moderate concentric hypertrophy and grade 3 for diastolic dysfunction. Consulted cardiology; appreciate Dr. Bailon's recommendations. Daily aspirin and statin therapy. Home dose metoprolol and lisinopril Cardiac diet. (6) Person under investigation for COVID-19 COVID (08/28/19) negative. COVID (09/02/19) negative. Patient presented to the emergency department 09/02/2019 with complaint of shortness of breath and cough. He is known to have COPD and is a daily tobacco user. Chest imaging that visit showed a small right-sided pleural effusion with associated airspace disease. Repeat CXR was clear according to read by vending machine collector, however, do feel that I can see a subtle opacity. Is maintaining oxygen saturations on room air. Slight rhonchi on exam. He is high risk for exposure related to homeless status. While awaiting test results, he was placed on full dose Lovenox, vitamin C, vitamin D, melatonin, and zinc supplementation. Physical Exam Vital Signs: Temp Pulse Resp BP Pulse Ox 96.5 F L 95 24 H 144/104 H 92 09/06/19 10:03 09/06/19 10:03 09/06/19 10:03 09/06/19 10:03 09/06/19 10:03 Intake & Output 09/05/19 09/06/19 09/07/19 06:59 06:59 06:59 Intake Total 495 440 Output Total 300 Balance 195 440 Weight 68 kg 68.3 kg General appearance: PRESENT: no acute distress, disheveled, well-developed, well-nourished Head exam: PRESENT: atraumatic, normocephalic Eye exam: PRESENT: conjunctiva pink, EOMI, PERRLA. ABSENT: scleral icterus Ear exam: PRESENT: normal external ear exam Mouth exam: PRESENT: moist, tongue midline Teeth exam: PRESENT: poor dentation Respiratory exam: PRESENT: clear to auscultation jefferson, symmetrical, unlabored. ABSENT: rales, rhonchi, wheezes Cardiovascular exam: PRESENT: irregular rhythm, +S1, +S2. ABSENT: diastolic murmur, rubs, systolic murmur Vascular exam: PRESENT: normal capillary refill Extremities exam: PRESENT: full ROM. ABSENT: calf tenderness, clubbing, pedal edema Musculoskeletal exam: PRESENT: ambulatory Neurological exam: PRESENT: alert, awake, oriented to person, oriented to place, oriented to time, oriented to situation, CN II-XII grossly intact. ABSENT: motor sensory deficit Psychiatric exam: PRESENT: appropriate affect, normal mood. ABSENT: homicidal ideation, suicidal ideation Skin exam: PRESENT: dry, intact, warm. ABSENT: cyanosis, rash Results Laboratory Results: WBC 8.2 10^3/uL (4.0-10.5) 09/04/19 05:56 RBC 4.62 10^6/uL (4.35-5.55) 09/04/19 05:56 Hgb 13.1 g/dL (13.5-17.0) L 09/04/19 05:56 Hct 39.7 % (37.9-51.0) 09/04/19 05:56 MCV 86 fl (80-97) 09/04/19 05:56 MCH 28.3 pg (27.0-33.4) 09/04/19 05:56 MCHC 33.0 g/dL (32.0-36.0) 09/04/19 05:56 RDW 14.9 % (11.5-14.0) H 09/04/19 05:56 Plt Count 312 10^3/uL (150-450) 09/04/19 05:56 Lymph % (Auto) 23.1 % (13-45) 09/03/19 14:17 [place] % (Auto) 12.5 % (3-13) 09/03/19 14:17 Eos % (Auto) 3.0 % (0-6) 09/03/19 14:17 Baso % (Auto) 0.8 % (0-2) 09/03/19 14:17 Absolute Neuts (auto) 4.4 10^3/uL (1.7-8.2) 09/03/19 14:17 Absolute Lymphs (auto) 1.7 10^3/uL (0.5-4.7) 09/03/19 14:17 Absolute Monos (auto) 0.9 10^3/uL (0.1-1.4) 09/03/19 14:17 Absolute Eos (auto) 0.2 10^3/uL (0.0-0.6) 09/03/19 14:17 Absolute Basos (auto) 0.1 10^3/uL (0.0-0.2) 09/03/19 14:17 Seg Neutrophils % 60.6 % (42-78) 09/03/19 14:17 Sodium 138.5 mmol/L (137-145) 09/04/19 05:56 Potassium 4.0 mmol/L (3.6-5.0) 09/04/19 05:56 Chloride 107 mmol/L (98-107) 09/04/19 05:56 Carbon Dioxide 25 mmol/L (22-30) 09/04/19 05:56 Anion Gap 7 (5-19) 09/04/19 05:56 BUN 10 mg/dL (7-20) 09/04/19 05:56 Creatinine 0.62 mg/dL (0.52-1.25) 09/04/19 05:56 Est GFR ( Amer) > 60 (>60) 09/04/19 05:56 Est GFR (MDRD) Non-Af > 60 (>60) 09/04/19 05:56 Glucose 131 mg/dL (75-110) H 09/04/19 05:56 Hemoglobin A1c % 6.4 % (4.7-6.0) H 09/04/19 05:56 Calcium 8.7 mg/dL (8.4-10.2) 09/04/19 05:56 Magnesium 1.8 mg/dL (1.6-2.3) 09/04/19 05:56 Total Bilirubin 1.0 mg/dL (0.2-1.3) 09/03/19 14:17 Direct Bilirubin 0.2 mg/dL (0.0-0.4) 09/03/19 14:17 Neonat Total Bilirubin Not Reportable 09/03/19 14:17 Neonat Direct Bilirubin Not Reportable 09/03/19 14:17 Neonat Indirect Bili Not Reportable 09/03/19 14:17 AST 52 U/L (17-59) 09/03/19 14:17 ALT 40 U/L (<50) 09/03/19 14:17 Alkaline Phosphatase 174 U/L (38-126) H 09/03/19 14:17 Troponin I 0.022 ng/mL 09/03/19 14:17 Total Protein 7.4 g/dL (6.3-8.2) 09/03/19 14:17 Albumin 3.7 g/dL (3.5-5.0) 09/03/19 14:17 Triglycerides 67 mg/dL (<150) 09/04/19 05:56 Cholesterol 136.37 mg/dL (0-200) 09/04/19 05:56 LDL Cholesterol Direct 87 mg/dL (<100) 09/04/19 05:56 VLDL Cholesterol 13.0 mg/dL (10-31) 09/04/19 05:56 HDL Cholesterol 36 mg/dL (>40) L 09/04/19 05:56 TSH 2.67 uIU/mL (0.47-4.68) 09/04/19 05:56 Serum Alcohol < 10 mg/dL (NONE DETECTED) 09/03/19 14:17 COVID-19 Source NASOPHARYNGEAL 09/03/19 21:37 COVID-19 (BRANDI) NOT DETECTED 09/03/19 21:37 09/03/19 14:17 Troponin I 0.022 Impressions: Chest X-Ray 09/03/19 13:44 IMPRESSION: NO ACUTE RADIOGRAPHIC FINDING IN THE CHEST. Plan Plan of Treatment: Patient is discharged to home, in stable condition. As well as follow-up with his primary care provider within 1 week. Contact the [facility] on Monday to schedule his follow-up appointment. Take his medications as prescribed. Eat a cardiac diet. Do not drink alcohol or smoke tobacco products. Return to the emergency department as needed for concerning symptoms. Time Spent: Greater than 30 Minutes Stroke Is this a Stroke Patient?: No Acute Heart Failure - Is this a Heart Failure Patient?: Yes Documentation of LVEF assessment?: Yes LVEF: LVEF Less Than or Equal to 35% Anticoagulant Therapy: N/A Reason(s) not Discharged on Anticoagulant Therapy: Risk for bleeding, Uncooperative/unreliable patient Discharged on Evidence-Based Beta Blockers: Yes Discharged on ARNI?: No-Document Contraindications Reason(s) not discharged on ARNI: Other ARNI Reason - Other: uninsured Discharged on ARB?: No-document contraindications Reason(s) not Discharged on ARB: Other ARB Reason - Other: on ARIANNE Discharged on ACEI?: Yes For LVEF <35%, discharged on Aldosterone Antagonist?: No-document contraincations Reason(s) not discharged on Aldosterone Antagonist: Other Aldosterone Antagonist Reason - Other: medications per cardiology Follow-up Appointment scheduled within 7 days?: Yes
== END 2019-09-06 10:52 | disposition home or self-care (01) | DRG 292 ==
LOC: ER 10:25 → EH 17:44 → 3N 23:12
PROVIDERS: ADMIT Hospitalist; ATTEND Registered Nurse
DX: I11.0 Hypertensive heart disease with heart failure (principal); I48.3 Typical atrial flutter; F10.27 Alcohol dependence with alcohol-induced persisting dementia; I50.43 Acute on chronic combined systolic (congestive) and diastolic (congestive) heart failure; I42.0 Dilated cardiomyopathy; I73.9 Peripheral vascular disease, unspecified; J44.9 Chronic obstructive pulmonary disease, unspecified; I44.4 Left anterior fascicular block; F17.200 Nicotine dependence, unspecified, uncomplicated; Z20.828 Contact with and (suspected) exposure to other viral communicable diseases; Z79.82 Long term (current) use of aspirin; Z79.899 Other long term (current) drug therapy; Z71.6 Tobacco abuse counseling; Z59.0 Homelessness; Z82.49 Family history of ischemic heart disease and other diseases of the circulatory system; Z83.6 Family history of other diseases of the respiratory system
CPT/HCPCS: 36415; 71045; 80048; 80053; 80061; 80307; 83036; 83735; 84443; 84484; 85025; 85027; 87635; 93005; 93010; 96361; 96374; 96375; 99284; C9803; J0360; J1650; J1940; J2060; J2270; J3490; J7030

== ENCOUNTER 2019-09-19 22:27 | Emergency (ER) | payer SELFPAY ==
[2019-09-20 02:35] LABS: ABSOLUTE BASOPHILS # (AUTO) 0.1 10^3/uL (0.0-0.2); ABSOLUTE EOSINOPHILS # (AUTO) 0.2 10^3/uL (0.0-0.6); ABSOLUTE LYMPHOCYTES (AUTO) 1.5 10^3/uL (0.5-4.7); ABSOLUTE MONOCYTES (AUTO) 0.8 10^3/uL (0.1-1.4); ABSOLUTE NEUT (AUTO) 3.3 10^3/uL (1.7-8.2); HEMATOCRIT 41.3 % (37.9-51.0); HEMOGLOBIN 13.6 g/dL (13.5-17.0); LYMPHOCYTES % (AUTO) 26.4 % (13-45); MEAN CORPUSCULAR HEMOGLOBIN 28.1 pg (27.0-33.4); MEAN CORPUSCULAR VOLUME 85 fl (80-97); MONOCYTES % (AUTO) 13.2 % (3-13); RED BLOOD COUNT 4.85 10^6/uL (4.35-5.55); RED CELL DISTRIBUTION WIDTH 15.2 % (11.5-14.0); SEGMENTED NEUTROPHILS % (AUTO) 56.4 % (42-78); TOTAL CELLS COUNTED % (AUTO) 100 %; WHITE BLOOD COUNT 5.8 10^3/uL (4.0-10.5)
[2019-09-20 02:51] LABS: ALBUMIN 3.9 g/dL (3.5-5.0); ALKALINE PHOSPHATASE 158 U/L (38-126); ANION GAP 9 (5-19); ASPARTATE AMINO TRANSFERASE 55 U/L (17-59); BILIRUBIN,DIRECT 0.2 mg/dL (0.0-0.4); BILIRUBIN,TOTAL 1.2 mg/dL (0.2-1.3); BLOOD UREA NITROGEN 12 mg/dL (7-20); CALCIUM 9.2 mg/dL (8.4-10.2); CARBON DIOXIDE 27 mmol/L (22-30); CHLORIDE 99 mmol/L (98-107); GLUCOSE 83 mg/dL (75-110); TOTAL PROTEIN 7.5 g/dL (6.3-8.2)
[2019-09-20 02:52] LABS: PLATELET COUNT 267 10^3/uL (150-450)
[2019-09-20 07:51] LABS: APPEARANCE,URINE CLEAR; BILIRUBIN,URINE NEGATIVE (NEGATIVE); COLOR,URINE YELLOW; GLUCOSE, URINE NEGATIVE (NEGATIVE); KETONES,URINE NEGATIVE (NEGATIVE); LEUKOCYTE ESTERASE,URINE NEGATIVE (NEGATIVE); NITRITE,URINE NEGATIVE (NEGATIVE); PROTEIN,URINE 30 mg/dL (NEGATIVE); URINE SPECIFIC GRAVITY 1.014
--- NOTE | 2019-09-20 07:57 | RADIOLOGY REPORT (SQ) ---
EXAM DESCRIPTION: XR CHEST 1 VIEW COMPLETED DATE/TME: 09/20/2019 07:22 CLINICAL HISTORY: 64 years Male, Peripheral edema with congestion COMPARISON: 09/03/19 NUMBER OF VIEWS/TECHNIQUE: 1/AP FINDINGS: Moderate opacity-effusion of the lateral right lower hemithorax. Moderate biapical opacities. Small scattered groundglass opacity, predominantly left midlung. Mildly enlarged cardiac silhouette size. No pneumothorax. Stable bony thorax. IMPRESSION: Moderate opacity-effusion of the lateral right lower hemithorax. Interval worsening.
--- NOTE | 2019-09-20 08:15 | ER Document Report ---
Entered by BERE ROMERO SCRIBE 09/20/19 0712 Acting as scribe for:GIAN WEAVER MD ED Extremity Problem, Lower - General Chief Complaint: Skin Problem Stated Complaint: FOOT PAIN Time Seen by Provider: 09/20/19 07:12 Mode of Arrival: Ambulatory Information source: Patient Notes: This alcoholic 64-year-old male patient presents to the emergency department today with complaints of bilateral foot swelling and discomfort. Patient also mentions that he is out of his blood pressure medication. Upon review of pharmacy records, this patient was prescribed a 30-day supply of medications on 09/06/2019 from this hospital. These medications include 20 mg of furosemide, lisinopril 10 mg, and metoprolol XR 100 mg a day. TRAVEL OUTSIDE OF THE [place] IN LAST 30 DAYS: No - Related Data Allergies/Adverse Reactions: No Known Allergies Allergy (Verified 08/18/19 17:38) Home Medications: metoprolol. lisinopril Past Medical History - General Information source: Patient - Social History Smoking Status: Current Every Day Smoker Cigarette use (# per day): Yes Frequency of alcohol use: Heavy Drug Abuse: None Family History: Arthritis, COPD, Hypertension Patient has homicidal ideation: No - Past Medical History Cardiac Medical History: Reports: Hx Atrial Fibrillation, Hx Congestive Heart Failure - Alcohol cardiomyopathy, Hx Hypertension Pulmonary Medical History: Reports: Hx Bronchitis, Hx COPD Past Surgical History: Reports: Hx Abdominal Surgery - Exploratory in 2017, Hx Orthopedic Surgery - Right ACL repair, Hx Tonsillectomy, Other - Homeless Review of Systems - Review of Systems Constitutional: No symptoms reported EENT: No symptoms reported Cardiovascular: No symptoms reported Respiratory: No symptoms reported Gastrointestinal: No symptoms reported Genitourinary: No symptoms reported Male Genitourinary: No symptoms reported Musculoskeletal: See HPI, Ankle swelling Skin: See HPI Hematologic/Lymphatic: No symptoms reported Neurological/Psychological: No symptoms reported -: Yes All other systems reviewed and negative Physical Exam - Vital signs Vitals: Temp Pulse Resp BP Pulse Ox 99.0 F 95 20 147/105 H 100 09/19/19 22:38 09/19/19 22:38 09/19/19 22:38 09/19/19 22:38 09/19/19 22:38 - Notes Notes: Physical Exam: General: Initially sleeping, disheveled appearance. HEENT: Normocephalic. Atraumatic. PERRL. Extraocular movements intact. Oropharynx clear. Neck: Supple. Non-tender. Respiratory: No respiratory distress. Rhonchi with forced cough. Cardiovascular: Regular rate and rhythm. Abdominal: Normal Inspection. Non-tender. No distension. Normal Bowel Sounds. Back: No gross abnormalities. Extremities: Moves all four extremities. Upper extremities: Normal inspection. Normal ROM. Lower extremities: See skin exam. Pedal edema bilaterally. Neurological: Normal cognition. AAOx4. Normal speech. Psychological: Normal affect. Normal Mood. Skin: There is skin breakdown between the toes on both feet. Course - Re-evaluation Re-evalutation: 09/20/19 10:32 Patient does have rhonchi and congested cough. White blood cell count is not elevated. When I asked the patient about when he started with his congested cough, he states he has had it most of his whole life. He does report that he picked up his prescriptions, but has run out of the medicine, and states he needs to go back by [facility] to get a refill. The chest x-ray today shows a right lower lobe effusion, this had cleared on the last chest x-ray on 09/03/2019, but was seen the week prior to that while he was hospitalized. - Vital Signs Vital signs: Temp Pulse Resp BP Pulse Ox 98.5 F 74 16 127/70 H 98 09/20/19 10:23 09/20/19 10:23 09/20/19 10:23 09/20/19 10:23 09/20/19 10:23 - Laboratory Result Diagrams: 09/20/19 02:15 09/20/19 02:15 Laboratory results interpreted by me: 09/20/19 09/20/19 09/20/19 02:15 02:15 07:35 RDW 15.2 H [place] % (Auto) 13.2 H Sodium 135.3 L Alkaline Phosphatase 158 H Urine Protein 30 H Urine Urobilinogen 4.0 H - Diagnostic Test Radiology reviewed: Image reviewed, Reports reviewed - Chest x-ray shows a moderate opacityeffusion in the lateral right lower hemithorax. This is a new finding compared to 09/03/2019, but was present on chest x-rays earlier during the last admission. - EKG Interpretation by Me EKG shows normal: Sinus rhythm, [place], Intervals, QRS Complexes, ST-T Waves Rate: Normal - 91 Rhythm: NSR P Waves: LAE When compared to previous EKG there are: Changes noted - Most recent comparison from 09/04/2019, showed the patient to be in atrial flutter and a 3:1 block at that time. Discharge - Discharge Clinical Impression: Peripheral edema, Pleural effusion Condition: Stable Disposition: HOME, SELF-CARE Additional Instructions: Edema, Peripheral You have swelling in your legs. This is called peripheral edema. It can be caused by "leaky capillaries," inflammation, disease of the leg veins, or excess salt and water in your body. Edema may be a sign of heart, kidney, or liver disease. A medical evaluation can determine if there is a serious underlying cause for your edema. Avoid prolonged standing. If you must sit for a long time, occasionally get up and walk around or elevate your legs. Support stockings can be helpful in limiting swelling. Often diuretic or water pills are used to remove excess salt and water from your body. Call the doctor or return if you develop increased swelling, pain, or redness, shortness of breath, chest pain, or any other significant change. Keep your feet clean. Be sure to clean between your toes when you wash your feet. Wear socks when you are wearing shoes or boots. Elevate your feet all the time to help reduce the swelling. Take the medications you were prescribed when you were discharged from the hospital on September 06, 2019. You were prescribed a 30-day supply of medication 14 days ago. You should have plenty of your medication left. Follow-up with a local primary care provider to manage your medical problems. RETURN TO THE EMERGENCY ROOM IF ANY NEW OR WORSENING SYMPTOMS. I personally performed the services described in the documentation, reviewed and edited the documentation which was dictated to the scribe in my presence, and it accurately records my words and actions.
[2019-09-20 10:24] VITALS: BP 127/70
--- NOTE | 2019-09-20 13:03 | EKG REPORT ---
SEVERITY:- ABNORMAL ECG - SINUS RHYTHM MULTIPLE ATRIAL PREMATURE COMPLEXES PROBABLE LEFT ATRIAL ABNORMALITY INCOMPLETE RIGHT BUNDLE BRANCH BLOCK : Confirmed by: Kiko Bailon MD 20-Sep-2019 13:02:20
== END 2019-09-20 10:24 | disposition home or self-care (01) ==
LOC: ER 22:27
DX: J90 Pleural effusion, not elsewhere classified (principal); R60.9 Edema, unspecified; M79.672 Pain in left foot; M79.671 Pain in right foot; F17.210 Nicotine dependence, cigarettes, uncomplicated; I48.91 Unspecified atrial fibrillation; I50.9 Heart failure, unspecified; I11.0 Hypertensive heart disease with heart failure; J44.9 Chronic obstructive pulmonary disease, unspecified
CPT/HCPCS: 36415; 71045; 80053; 81001; 85025; 93005; 93010; 99284

== ENCOUNTER 2019-11-24 19:08 | Inpatient (IN) | payer MEDICAID ==
[2019-11-24] MEDS ORDERED: NORMAL SALINE 1000 ML 1,000 ML IV ONE (20:35)
--- NOTE | 2019-11-24 20:43 | ER Document Report ---
ED Respiratory Problem - General Chief Complaint: Shortness Of Breath Stated Complaint: SHORTNESS OF BREATH Time Seen by Provider: 11/24/19 20:20 Notes: Patient is a 64-year-old male that comes to the emergency department for chief complaint of difficulty breathing. Patient states that he has had worsening shortness of breath for 1 week and tonight it became much worse so he called the ambulance. EMS reports that patient had initial oxygen saturation of 87% on room air, patient was placed on 4 L nasal cannula with good improvement. Natalie ent does state he feels significantly improved. Patient denies notable cough, denies fever, denies chest pain, denies any other complaints except the shortness of breath. Patient has a history of smoking, COPD, alcohol abuse, and hypertension reportedly. He states he supposed to take "my meds for blood pressure but they got stolen and I have not been taking them". Patient denies alcohol dependence or withdrawals. TRAVEL OUTSIDE OF THE [place] IN LAST 30 DAYS: No - Related Data Allergies/Adverse Reactions: No Known Allergies Allergy (Verified 08/18/19 17:38) Past Medical History - General Information source: Patient - Social History Smoking Status: Smoker,Current Status Unk Chew tobacco use (# tins/day): No Frequency of alcohol use: Social Drug Abuse: None Lives with: Family Family History: Arthritis, COPD, Hypertension Patient has homicidal ideation: No - Past Medical History Cardiac Medical History: Reports: Hx Atrial Fibrillation, Hx Congestive Heart Failure - Alcohol cardiomyopathy, Hx Hypertension Pulmonary Medical History: Reports: Hx Bronchitis, Hx COPD Renal/ Medical History: Denies: Hx Peritoneal Dialysis Psychiatric Medical History: Denies: Hx Depression Past Surgical History: Reports: Hx Abdominal Surgery - Exploratory in 2017, Hx Orthopedic Surgery - Right ACL repair, Hx Tonsillectomy, Other - Homeless Review of Systems - Review of Systems Constitutional: No symptoms reported EENT: No symptoms reported Cardiovascular: See HPI Respiratory: See HPI Gastrointestinal: No symptoms reported Genitourinary: No symptoms reported Male Genitourinary: No symptoms reported Musculoskeletal: No symptoms reported Skin: No symptoms reported Hematologic/Lymphatic: No symptoms reported Neurological/Psychological: No symptoms reported Physical Exam - Vital signs Vitals: Temp 97.8 F 11/24/19 19:08 - Notes Notes: GENERAL: Patient somewhat frail and chronically ill-appearing, he also appears to be in mild distress HEAD: Normocephalic, atraumatic. EYES: Pupils equal, round, and reactive to light. Extraocular movements intact. ENT: Oral mucosa moist, tongue midline. Oropharynx unremarkable. Airway patent. NECK: Full range of motion. Supple. Trachea midline. No lymphadenopathy. LUNGS: Decreased breath sounds bilaterally but no wheezes, rales, rhonchi. Intermittent tachypnea noted. No labored breathing on my exam. HEART: Tachycardic, normal rhythm, no murmur ABDOMEN: Soft unremarkable abdomen: Minimal distention, bowel sounds present throughout. No guarding or rigidity. EXTREMITIES: Moves all 4 extremities spontaneously. No edema, normal radial and dorsalis pedis pulses bilaterally. No cyanosis. BACK: no cervical, thoracic, lumbar midline tenderness. No saddle anesthesia, normal distal neurovascular exam. Moves all extremities in full range of motion. NEUROLOGICAL: Alert and oriented x3. Normal speech. Cranial nerves II through XII grossly intact. Strength 5/5 in all extremities. PSYCH: Normal affect, normal mood. SKIN: Warm, dry, normal turgor. No rashes or lesions noted. Course - Re-evaluation Re-evalutation: Patient is a poor historian. Patient tachycardic at 140 on my evaluation although this appears sinus rhythm on the monitor, lungs actually appear clear. Initially patient was tachypneic in the 40s although when I discussed potentially placing him on BiPAP because of his hypoxia, tachypnea, labored breathing, patient suddenly started having respirations in the 20s and his work of breathing reduced. Patient has clear lungs. Patient remained on 4 L nasal cannula this time, he is started receiving a bolus of fluids, work-up pending. On review of records it was noted that patient has a history of atrial fibrillation, alcoholic cardiomyopathy. Patient's tachycardia could be secondary to alcohol withdrawal, he is also off his regular beta-david, however I am concerned that there is a different etiology because of his initial hypoxia. Chest x-ray was reviewed and unremarkable with no acute findings. CBC nonspecific, chemistry shows some elevated bilirubin and mildly elevated LFTs most likely from alcohol abuse history, bicarbonate is slightly low and is altered on venous blood gas but blood gas otherwise unremarkable. Troponin is 0.141, BNP is more elevated than usual but still has been elevated in the past. Patient has not had any chest pain. At this point I feel a CT is necessary to evaluate patient's tachycardia, hypoxia, shortness of breath. I did discuss with Dr. Garcia, he does recommend CTA, he does recommend 5 mg IV Valium in ca se patient has withdrawal component, I did give this to the patient, patient relaxed with this but did not have any change in tachycardia. CTA shows bilateral pulmonary emboli, filling defects in the main pulmonary artery which is concerning for developing saddle emboli, no current saddle emboli. I did call and speak to radiology about what I believe is a dictation error (initially read clot in the coronary artery, I spoke with Dr. Walton, there will be an addendum). Patient will be placed on heparin drip, patient will require admission to the hospital, I discussed with patient in details, he states understanding and agreement. Updated Dr. Garcia, recommends hospitalist admission. I spoke with Dr. Santo, he will accept patient for admission. He requests that we change heparin drip to Lovenox subcutaneous now at 1 mg/kg. 11/25/19 Dr. Santo called back, he states he is concerned because of patient's level persistent tachycardia with overall clinical picture, he recommends that I speak to Dr. Campbell, cardiology on-call, if he recommends hospitalist admission he will take it, if he recommends ICU admission or transfer he recommends we go with his recommendation. I spoke with Dr. Campbell, discussed details. He recommends ICU admission. 11/25/19 I discussed with Terrance Teague, MACHINE TOOL TECHNICIAN INSTRUCTOR conference and event organiser for the ICU, she states that she will accept the patient to the ICU under Dr. Titus. - Vital Signs Vital signs: Temp Pulse Resp BP Pulse Ox 97.8 F 24 H 136/119 H 89 L 11/25/19 04:35 11/25/19 04:05 11/25/19 04:05 11/25/19 03:11 - Laboratory Result Diagrams: 11/24/19 22:02 11/24/19 22:02 Laboratory results interpreted by me: 11/24/19 11/24/19 11/24/19 22:02 22:02 22:02 RDW 19.1 H [place] % (Auto) 19.6 H PT VBG HCO3 Sodium 136.3 L Carbon Dioxide 19 L BUN 23 H Glucose 74 L Total Bilirubin 3.0 H Direct Bilirubin 1.5 H AST 164 H Alkaline Phosphatase 162 H NT-Pro-B Natriuret Pep 00764 H Urine Protein Urine Blood Urine Urobilinogen 11/24/19 11/25/19 11/25/19 22:02 01:39 02:05 RDW [place] % (Auto) PT 22.4 H VBG HCO3 17.7 L Sodium Carbon Dioxide BUN Glucose Total Bilirubin Direct Bilirubin AST Alkaline Phosphatase NT-Pro-B Natriuret Pep Urine Protein >=500 H Urine Blood SMALL H Urine Urobilinogen 4.0 H - EKG Interpretation by Me Additional EKG results interpreted by me: EKG shows sinus tachycardia at a rate of 139, left axis deviation, T wave inversion in lead II and T wave flattening in lateral leads but no T wave inversions or ST segment changes in consecutive leads. QTC of 475. Critical Care Note - Critical Care Note Total time excluding time spent on procedures (mins): 40 - Hypoxia, tachycardia, pulmonary embolism Comments: Please allow 40 minutes of critical care time for evaluation of this critically ill patient with multiple pulmonary emboli, tachycardia, hypoxia. Interventions including oxygen, anticoagulation, time spent performing multiple re- evaluations, time spent discussing with cardiology specialty, hospitalist, and for ICU admission. Discharge - Discharge Clinical Impression: Bilateral pulmonary embolism, Tachycardia, Hypoxia, Shortness of breath Condition: Fair Disposition: ADMITTED INPATIENT Admitting Provider: Ariela (Clinical Trials Assistant) Unit Admitted: ICU
--- NOTE | 2019-11-24 21:09 | RADIOLOGY REPORT (SQ) ---
EXAM DESCRIPTION: XR CHEST 1 VIEW COMPLETED DATE/TME: 11/24/2019 20:34 CLINICAL HISTORY: 64 years, Male, shortness of breath COMPARISON: September 20, 2019 NUMBER OF VIEWS: 1 TECHNIQUE: Portable AP upright view the chest was obtained at 8:46 PM. LIMITATIONS: None. FINDINGS: The heart size is within normal limits for technique. Lungs appear clear of active disease. There is mild biapical subpleural scarring as before. Previously noted right pleural effusion has resolved. There is no evidence of pneumothorax. IMPRESSION: No acute abnormality as above. copyright 2010 [employer]- All Rights Reserved
[2019-11-24] MEDS ORDERED: NORMAL SALINE 500 ML IV ONE (21:39)
[2019-11-24 22:11] LABS: ABSOLUTE BASOPHILS # (AUTO) 0.1 10^3/uL (0.0-0.2); ABSOLUTE EOSINOPHILS # (AUTO) 0.1 10^3/uL (0.0-0.6); ABSOLUTE LYMPHOCYTES (AUTO) 2.1 10^3/uL (0.5-4.7); ABSOLUTE MONOCYTES (AUTO) 1.2 10^3/uL (0.1-1.4); ABSOLUTE NEUT (AUTO) 2.7 10^3/uL (1.7-8.2); BASOPHILS % (AUTO) 1.2 % (0-2); EOSINOPHILS % (AUTO) 1.5 % (0-6); HEMATOCRIT 45.7 % (37.9-51.0); LYMPHOCYTES % (AUTO) 34.2 % (13-45); MEAN CORPUSCULAR HEMOGLOBIN 28.2 pg (27.0-33.4); MEAN CORPUSCULAR HGB CONC 32.7 g/dL (32.0-36.0); MEAN CORPUSCULAR VOLUME 86 fl (80-97); MONOCYTES % (AUTO) 19.6 % (3-13); PLATELET COUNT 197 10^3/uL (150-450); RED BLOOD COUNT 5.31 10^6/uL (4.35-5.55); RED CELL DISTRIBUTION WIDTH 19.1 % (11.5-14.0); SEGMENTED NEUTROPHILS % (AUTO) 43.5 % (42-78); TOTAL CELLS COUNTED % (AUTO) 100 %; WHITE BLOOD COUNT 6.2 10^3/uL (4.0-10.5)
[2019-11-24 22:18] LABS: VENOUS BLOOD BASE EXCESS -7.9 mmol/L; VENOUS BLOOD HCO3 17.7 mmol/L (20-32); VENOUS BLOOD PCO2 36.3 mmHg (35-63); VENOUS BLOOD PH 7.31 (7.30-7.42)
[2019-11-24 22:39] LABS: ALBUMIN 3.7 g/dL (3.5-5.0); ALKALINE PHOSPHATASE 162 U/L (38-126); ANION GAP 16 (5-19); ASPARTATE AMINO TRANSFERASE 164 U/L (17-59); BILIRUBIN,DIRECT 1.5 mg/dL (0.0-0.4); BLOOD UREA NITROGEN 23 mg/dL (7-20); CALCIUM 9.3 mg/dL (8.4-10.2); CARBON DIOXIDE 19 mmol/L (22-30); CHLORIDE 101 mmol/L (98-107); GLUCOSE 74 mg/dL (75-110); POTASSIUM 4.9 mmol/L (3.6-5.0); TOTAL PROTEIN 7.4 g/dL (6.3-8.2)
[2019-11-24 22:40] LABS: ALCOHOL < 10 mg/dL (NONE DETECTED)
[2019-11-24] MEDS ORDERED: RINGERS SOLUTION,LACTATED 1,000 ML IV PRN (22:49)
[2019-11-24 22:54] LABS: TROPONIN I 0.141 ng/mL
[2019-11-24] MEDS ORDERED: ASPIRIN 81 MG TABLET, CHEWABLE PO ONE (22:54)
[2019-11-24] MEDS ORDERED: DIAZEPAM INJ 10 MG/2 ML DISP.SYRIN IV ONE (22:58)
--- NOTE | 2019-11-25 00:25 | EKG REPORT ---
SEVERITY:- ABNORMAL ECG - SINUS OR ECTOPIC ATRIAL TACHYCARDIA, also consider A FLUTTER WITH 2:1CONDUCTION LEFT ANTERIOR FASCICULAR BLOCK NONSPECIFIC T ABNORMALITIES, LATERAL LEADS : Confirmed by: Ara Perrin 25-Nov-2019 00:25:15
--- NOTE | 2019-11-25 01:11 | RADIOLOGY REPORT (SQ) ---
CT ANGIOGRAM CHEST WITH IV CONTRAST: 11/25/2019 12:04 AM CDT HISTORY: 64-year old patient with dyspnea, tachycardia. TECHNIQUE: Postcontrast CT through the chest was performed per protocol for CT angiography. 3D Multiplanar reformations were performed at the workstation. Reconstructed sagittal and coronal images were also obtained through the chest. This exam was performed according to our departmental dose-optimization program, which includes automated exposure control, adjustment of the mA and/or KV according to the patient's size and/or use of iterative reconstruction technique. COMPARISON: None available FINDINGS: The heart size is enlarged. No large pericardial effusion is seen. No significant mediastinal, supraclavicular, or axillary lymphadenopathy is seen. The thoracic aorta is within normal limits of size. There are strands of hypodensity within the main coronary artery concerning for thrombus. There is some filling defect extending into the right lower lobe and left upper lobe segmental arteries. These are concerning for pulmonary artery emboli. The right ventricle does not appear to be significantly enlarged. The main pulmonary artery is within normal limits in size. The thyroid gland is unremarkable. The central tracheobronchial tree is patent. No focal consolidative airspace opacity is seen. Moderate centrilobular and paraseptal emphysematous changes are present, most pronounced within the apices. There are trace bilateral effusions, right greater than left. There is no evidence of a pneumothorax. There is a groundglass nodule at the right upper lobe near the minor fissure measuring up to 1.2 cm on image 37 of 130. There is subpleural nodularity over the left upper lobe measuring up to 1 cm on image 20 of 130. The bones demonstrate no suspicious lytic or blastic lesion. Multilevel degenerative changes seen within the thoracic spine. There is elevation of the right hemidiaphragm. There is trace free fluid within the upper abdomen. The visualized esophagus is patulous. IMPRESSION: There are filling defects within the main pulmonary artery concerning for developing saddle emboli. There are also filling defects seen within the segmental arteries consistent with pulmonary artery emboli. There is a groundglass nodule at the right upper lobe measuring up to 12 mm which will need interval follow-up within three months. There are trace pleural effusions with some overlying airspace opacities which are favored to represent atelectasis, but may also represent some mild edema or infection.
[2019-11-25] MEDS ORDERED: HEPARIN SODIUM,PORCINE/D5W 25,000 UNIT/250 ML RTUINJ IV PRN (01:26)
[2019-11-25] MEDS ORDERED: HEPARIN SOD (PORCINE) 1,000 UNIT/ML 10 ML VIAL IV ONE (01:26)
[2019-11-25] MEDS ORDERED: HEPARIN SODIUM,PORCINE/D5W 0 UNIT/0 ML RTUINJ IV ONE (01:33)
[2019-11-25 01:53] LABS: INTERNATIONAL RATION (INR) 1.96; PROTHROMBIN TIME 22.4 SEC (11.4-15.4)
[2019-11-25 01:54] LABS: PARTIAL THROMBOPLASTIN TIME 34.6 SEC (23.5-35.8)
[2019-11-25] MEDS ORDERED: ENOXAPARIN SODIUM INJ 80 MG/0.8 ML DISP.SYRIN SUBCUT SCH ×2 (02:15→10:00)
[2019-11-25 02:26] LABS: APPEARANCE,URINE CLOUDY; BILIRUBIN,URINE NEGATIVE (NEGATIVE); COLOR,URINE AMBER; GLUCOSE, URINE NEGATIVE (NEGATIVE); KETONES,URINE NEGATIVE (NEGATIVE); LEUKOCYTE ESTERASE,URINE NEGATIVE (NEGATIVE); NITRITE,URINE NEGATIVE (NEGATIVE); PROTEIN,URINE >=500 mg/dL (NEGATIVE); URINE SPECIFIC GRAVITY 1.038
[2019-11-25 02:40] LABS: URINE AMPHETAMINES SCREEN NEGATIVE; URINE BARBITURATES SCREEN NEGATIVE; URINE BENZODIAZEPINES SCREEN NEGATIVE; URINE COCAINE SCREEN NEGATIVE; URINE METHADONE SCREEN NEGATIVE; URINE PHENCYCLIDINE SCREEN NEGATIVE
[2019-11-25 02:42] LABS: URINE MARIJUANA (THC) SCREEN UNCONFIRMED POSITIVE
[2019-11-25] MEDS ORDERED: MAGNESIUM HYDROXIDE SUSP 30 ML UDCUP PO PRN (02:46)
[2019-11-25] MEDS ORDERED: MAG HYDROX/AL HYDROX/SIMETH SUSP 30 ML UDCUP PO PRN (02:46)
[2019-11-25] MEDS ORDERED: LEVALBUTEROL HCL NEB 0.63 MG/3 ML AMPUL NEB PRN (02:46)
[2019-11-25] MEDS ORDERED: ONDANSETRON HCL INJ/PF 4 MG/2 ML SDV IV PRN (02:46)
[2019-11-25] MEDS ORDERED: ACETAMINOPHEN 325 MG TABLET PO PRN (02:55)
[2019-11-25] MEDS ORDERED: DIAZEPAM INJ 10 MG/2 ML DISP.SYRIN IV PRN (02:55)
[2019-11-25] MEDS ORDERED: NICOTINE 21 MG/24 HR PATCH.TD24 TD PRN (02:55)
[2019-11-25] MEDS ORDERED: METOPROLOL TARTRATE PF/INJ 5 MG/5 ML SDV IV PRN (02:55)
[2019-11-25] MEDS ORDERED: GUAIFENESIN SYRP 200 MG/10 ML UDC PO PRN (02:55)
[2019-11-25] MEDS ORDERED: MORPHINE SULFATE 10 MG/ML INJ IV PRN (02:55)
[2019-11-25] MEDS ORDERED: MELATONIN 5 MG TABLET PO PRN (02:55)
[2019-11-25] MEDS: HEPARIN SODIUM,PORCINE/D5W 25,000 UNIT/250 ML RTUINJ IV PRN ×2 (04:27→22:13)
[2019-11-25] MEDS ORDERED: HEPARIN SOD (PORCINE) 1,000 UNIT/ML 10 ML VIAL IV PRN (04:27)
[2019-11-25 05:44] LABS: ARTERIAL BLOOD BASE EXCESS -3.6 mmol/L; ARTERIAL BLOOD H2CO3 0.95 mmol/L (1.05-1.35); ARTERIAL BLOOD HCO3 19.8 mmol/L (20-24); ARTERIAL BLOOD O2 SATURATION 99.1 % (94-98); ARTERIAL BLOOD PCO2 31.4 mmHg (35-45); ARTERIAL BLOOD PH 7.42 (7.35-7.45); ARTERIAL BLOOD PO2 157.9 mmHg (80-100); ARTERIAL BLOOD TOTAL CO2 20.7 mmol/L (23-27)
[2019-11-25 05:45] LABS: ARTERIAL BLOOD FIO2 4 L
[2019-11-25] MEDS ORDERED: DIAZEPAM 5 MG TABLET PO SCH (06:00)
[2019-11-25] MEDS: PANTOPRAZOLE SODIUM 40 MG TABLET.DR PO SCH (06:28)
--- NOTE | 2019-11-25 06:44 | CRITICAL CARE ADMISSION REPORT ---
HPI Date:: 11/25/19 Time:: 05:30 Reason for ICU Reason:: pulmonary embolism Admission Date/Time & PCP: Admission Date/Time: 11/25/19 02:36 Primary Care Provider: MARCELLA HERBERT MD HPI: Mr. Dalton Lowery is a 64-year-old -[place] male. With a past medical history of atrial flutter, alcohol induced dilated cardiomyopathy, CHF, hypertension, peripheral vascular disease and COPD. He presented to the ED with complaints of shortness of breath for 1 week, last evening his symptoms became more severe and EMS was called. Upon their arrival his O2 saturation was 87% on room air, he was placed on 4 L nasal cannula with improvement in his O2 saturations to 98%. Work-up in the ED consisted of a CTA of the chest which revealed defects within the main pulmonary artery concerning for developing saddle emboli. There is also filling defects within the segmental arteries consistent with pulmonary artery emboli. Of note he had a recent admission in September for a flutter RVR at which time he was not started on anticoagulation given the fact that he is homeless and has alcohol dependency issues. He was ordered beta-blockers for rate control and LV dysfunction. He states he has not been taking these as these were stolen. He also had an admission September 02, 2019 for pulseless right lower extremity a lower extremity ultrasound at that time showed occlusion of the distal anterior tibial artery in the right lower extremity and high-grade stenosis in the distal superficial femoral artery. He is admitted to the ICU for close observation. Heparin drip started. - Diagnosis/Plan (1) Bilateral pulmonary embolism Is this a current diagnosis for this admission?: Yes Plan: Heparin drip per protocol Will need long-term anticoagulation on discharge, although this may be difficult given patient's living situation. TTE today to assess for right heart strain. (2) Acute systolic (congestive) heart failure Is this a current diagnosis for this admission?: Yes Plan: Chest x-ray consistent with pulmonary edema Pro BNP 12,700 will order guideline directed therapy (3) Atrial flutter Qualifiers: Atrial flutter type: unspecified Qualified Code(s): I48.92 - Unspecified atrial flutter Is this a current diagnosis for this admission?: No Plan: Currently in sinus tachycardia Will reorder beta-david Past Medical History Cardiac Medical History: Reports: Atrial Fibrillation, Congestive Heart Failure - Alcohol cardiomyopathy, Hypertension Pulmonary Medical History: Reports: Bronchitis, Chronic Obstructive Pulmonary Disease (COPD) Psychiatric Medical History: Denies: Depression Past Surgical History Past Surgical History: Reports: Orthopedic Surgery - Right ACL repair, Tonsillectomy, Other - Homeless Social/Family History - Social History Lives with: Family Smoking Status: Smoker,Current Status Unk Frequency of Alcohol Use: Heavy Hx Recreational Drug Use: Yes Drugs: Marijuana Hx Prescription Drug Abuse: No - Medication/Allergies Home Medications: Aspirin [Ecotrin 81 mg EC Tablet] 81 mg PO DAILY tabec 08/30/19 Pantoprazole Sodium [Protonix [address] Tablet] 20 mg PO Q6AM tablet.dr 08/30/19 Thiamine HCl [Thiamine 100 mg Tablet] 100 mg PO DAILY tablet 08/30/19 Hydrocodone/Acetaminophen [[place] 5-325 mg Tablet] 1 tab PO Q6 PRN 3 Days #12 tablet 09/03/19 Nicotine [Nicoderm 14 mg/24 Hr Transdermal Patch] 1 patch TD DAILYP PRN 09/04/19 Acetaminophen [Tylenol 325 mg Tablet] 650 mg PO Q4HP PRN tablet 09/06/19 Atorvastatin Calcium [Lipitor 10 mg Tablet] 10 mg PO QHS #30 tablet 09/06/19 Furosemide [Lasix 20 mg Tablet] 20 mg PO DAILY #30 tablet 09/06/19 Lisinopril [Prinivil 10 mg Tablet] 10 mg PO DAILY #30 tablet 09/06/19 Metoprolol Succinate [Toprol Xl 50 mg Tab.sr] 100 mg PO DAILY #60 tab.sr.24h 09/06/19 Nicotine [Nicoderm 14 mg/24 Hr Transdermal Patch] 1 each TD DAILYP PRN #0 patch.td24 09/06/19 Allergies/Adverse Reactions: No Known Allergies Allergy (Verified 08/18/19 17:38) Review of Systems ROS unobtainable: Due to mental status All systems: reviewed and no additional remarkable complaints except as stated Respiratory: PRESENT: dyspnea Physical Exam Vital Signs: Temp Pulse Resp BP Pulse Ox 94.6 F L 136 H 37 H 137/117 H 100 11/25/19 05:30 11/25/19 05:44 11/25/19 06:00 11/25/19 05:47 11/25/19 05:46 Intake & Output 11/23/19 11/24/19 11/25/19 06:59 06:59 06:59 Intake Total 500 Balance 500 Weight 75.1 kg Weight/Height Weight 75.1 kg Height 6 in General appearance: PRESENT: mild distress Head exam: PRESENT: atraumatic, normocephalic Eye exam: PRESENT: PERRLA Mouth exam: PRESENT: moist Teeth exam: PRESENT: poor dentation Neck exam: PRESENT: full ROM Respiratory exam: PRESENT: wheezes Cardiovascular exam: PRESENT: +S1, +S2, tachycardia Pulses: PRESENT: normal radial pulses GI/Abdominal exam: PRESENT: normal bowel sounds Extremities exam: PRESENT: +1 edema Musculoskeletal exam: PRESENT: full ROM Neurological exam: PRESENT: alert, oriented to person, oriented to place, oriented to time, oriented to situation Laboratory/Radiographs Laboratory Results: 11/24/19 22:02 11/24/19 22:02 11/24/19 11/24/19 11/24/19 22:02 22:02 22:02 WBC 6.2 RBC 5.31 Hgb 15.0 Hct 45.7 MCV 86 MCH 28.2 MCHC 32.7 RDW 19.1 H Plt Count 197 Seg Neutrophils % 43.5 Carbonic Acid HCO3/H2CO3 Ratio ABG pH ABG pCO2 ABG pO2 ABG HCO3 ABG O2 Saturation ABG Base Excess VBG pH 7.31 VBG pCO2 36.3 VBG HCO3 17.7 L VBG Base Excess -7.9 FiO2 Sodium 136.3 L Potassium 4.9 Chloride 101 Carbon Dioxide 19 L Anion Gap 16 BUN 23 H Creatinine 1.00 Est GFR ( Amer) > 60 Glucose 74 L Calcium 9.3 Total Bilirubin 3.0 H AST 164 H Alkaline Phosphatase 162 H Total Protein 7.4 Albumin 3.7 Urine Color Urine Appearance Urine pH Ur Specific [place] Urine Protein Urine Glucose (UA) Urine Ketones Urine Blood Urine Nitrite Ur Leukocyte Esterase Urine RBC (Auto) 11/25/19 11/25/19 02:05 05:25 WBC RBC Hgb Hct MCV MCH MCHC RDW Plt Count Seg Neutrophils % Carbonic Acid 0.95 L HCO3/H2CO3 Ratio 20:1 ABG pH 7.42 ABG pCO2 31.4 L ABG pO2 157.9 H ABG HCO3 19.8 L ABG O2 Saturation 99.1 H ABG Base Excess -3.6 VBG pH VBG pCO2 VBG HCO3 VBG Base Excess FiO2 4 L Sodium Potassium Chloride Carbon Dioxide Anion Gap BUN Creatinine Est GFR ( Amer) Glucose Calcium Total Bilirubin AST Alkaline Phosphatase Total Protein Albumin Urine Color NAEEM Urine Appearance CLOUDY Urine pH 5.0 Ur Specific [place] 1.038 Urine Protein >=500 H Urine Glucose (UA) NEGATIVE Urine Ketones NEGATIVE Urine Blood SMALL H Urine Nitrite NEGATIVE Ur Leukocyte Esterase NEGATIVE Urine RBC (Auto) 0 11/24/19 22:02 Troponin I 0.141 NT-Pro-B Natriuret Pep 38760 H Impressions: Chest X-Ray 11/24/19 20:34 IMPRESSION: No acute abnormality as above. copyright 2010 [employer]- All Rights Reserved Chest/Abdomen CTA 11/24/19 22:55 IMPRESSION: There are filling defects within the main pulmonary artery concerning for developing saddle emboli. There are also filling defects seen within the segmental arteries consistent with pulmonary artery emboli. There is a groundglass nodule at the right upper lobe measuring up to 12 mm which will need interval follow-up within three months. There are trace pleural effusions with some overlying airspace opacities which are favored to represent atelectasis, but may also represent some mild edema or infection. All labs, radiographs, diagnostic studies and EKGs were personally reviewed: Yes In addition, reports of radiographic and diagnostic studies were read: Yes Critical Time Critical Time (minutes): 65 -: The care of a critically ill patient is dynamic. This note represents a static moment in the admission process. Orders and treatments may be given simultaneously and urgently, and time is not brand representative of the treatment process. This patient requires Critical Care secondary to life threatening organ or limb dysfunction. Without Critical Care services, the patient is at risk for increased mortality and morbidity.
[2019-11-25] MEDS ORDERED: BUDESONIDE NEB 0.5 MG/2 ML AMPUL NEB SCH (08:00)
[2019-11-25] MEDS ORDERED: LEVALBUTEROL HCL NEB 1.25 MG/3 ML AMPUL NEB SCH (08:00)
[2019-11-25] MEDS ORDERED: IPRATROPIUM BROMIDE 0.02% NEB 0.5 MG/2.5 ML AMPUL NEB SCH (08:00)
[2019-11-25] MEDS: FUROSEMIDE INJ/PF 40 MG/4 ML SDV IV SCH ×2 (08:22→10:09)
[2019-11-25 09:17] LABS: INTERNATIONAL RATION (INR) 2.35; PROTHROMBIN TIME 25.7 SEC (11.4-15.4)
[2019-11-25 09:44] LABS: PARTIAL THROMBOPLASTIN TIME 186.1 SEC (23.5-35.8)
[2019-11-25] MEDS ORDERED: FOLIC ACID 1 MG TABLET PO SCH (10:00)
[2019-11-25] MEDS ORDERED: FAMOTIDINE 20 MG TABLET PO SCH (10:00)
[2019-11-25] MEDS ORDERED: METOPROLOL SUCCINATE 50 MG TAB.SR.24H PO SCH (10:00)
[2019-11-25] MEDS ORDERED: THIAMINE HCL 100 MG TABLET PO SCH (10:00)
[2019-11-25] MEDS ORDERED: DOCUSATE SODIUM 100 MG CAPSULE PO SCH (10:00)
[2019-11-25] MEDS: LISINOPRIL 10 MG TABLET PO SCH (10:48)
[2019-11-25 10:50] LABS: APPEARANCE,URINE CLEAR; BILIRUBIN,URINE NEGATIVE (NEGATIVE); COLOR,URINE YELLOW; GLUCOSE, URINE NEGATIVE (NEGATIVE); KETONES,URINE NEGATIVE (NEGATIVE); LEUKOCYTE ESTERASE,URINE NEGATIVE (NEGATIVE); NITRITE,URINE NEGATIVE (NEGATIVE); PROTEIN,URINE 30 mg/dL (NEGATIVE); URINE SPECIFIC GRAVITY 1.017; UROBILINOGEN,URINE NEGATIVE mg/dL (<2.0)
[2019-11-25 11:01] LABS: ADD MANUAL MICROSCOPIC YES; RBC,URINE NONE SEEN /HPF; WBC,URINE 0-1 /HPF
--- NOTE | 2019-11-25 11:53 | PDOC CRITICAL CARE PROG REPORT ---
General Date:: 11/25/19 ICU Day:: 2 Hospital Day:: 2 Resuscitation Status: Full Code Events in the past 12 to 24 Hours:: The aptient appears to be in no apparent distress. his respiratory rate ios <20 and there is no use of accessory resp. mm. His pulse ox is in the mid to high 90s on 3 l02 nasal. BP is elevated at about 130/100. Reason for ICU Addmission:: pulmonary embolism Physical Exam Vital Signs: Temp Pulse Resp BP Pulse Ox 94.6 F L 64 21 H 140/115 H 96 11/25/19 05:30 11/25/19 10:00 11/25/19 10:17 11/25/19 10:17 11/25/19 10:00 Intake & Output 11/24/19 11/25/19 11/26/19 06:59 06:59 06:59 Intake Total 500 71 Output Total 300 Balance 500 -229 Weight 75.1 kg Weight/Height Weight 75.1 kg Height 6 in General appearance: PRESENT: no acute distress, disheveled - patient is malodorous Head exam: PRESENT: atraumatic, normocephalic Eye exam: PRESENT: conjunctiva pink, PERRLA Ear exam: PRESENT: normal external ear exam Mouth exam: PRESENT: moist, neck supple Neck exam: PRESENT: full ROM Respiratory exam: PRESENT: clear to auscultation jefferson. ABSENT: accessory muscle use Cardiovascular exam: PRESENT: RRR, +S1, +S2, tachycardia Pulses: PRESENT: normal dorsalis pedis pul GI/Abdominal exam: PRESENT: normal bowel sounds, soft. ABSENT: tenderness Rectal exam: PRESENT: deferred Extremities exam: PRESENT: pedal edema. ABSENT: calf tenderness, joint swelling Musculoskeletal exam: PRESENT: normal inspection Neurological exam: PRESENT: alert, oriented to person, oriented to place, oriented to time Psychiatric exam: PRESENT: appropriate affect Skin exam: PRESENT: normal color Laboratory/Radiographs Laboratory Results: 11/24/19 22:02 11/24/19 22:02 11/24/19 11/24/19 11/24/19 22:02 22:02 22:02 WBC 6.2 RBC 5.31 Hgb 15.0 Hct 45.7 MCV 86 MCH 28.2 MCHC 32.7 RDW 19.1 H Plt Count 197 Seg Neutrophils % 43.5 Carbonic Acid HCO3/H2CO3 Ratio ABG pH ABG pCO2 ABG pO2 ABG HCO3 ABG O2 Saturation ABG Base Excess VBG pH 7.31 VBG pCO2 36.3 VBG HCO3 17.7 L VBG Base Excess -7.9 FiO2 Sodium 136.3 L Potassium 4.9 Chloride 101 Carbon Dioxide 19 L Anion Gap 16 BUN 23 H Creatinine 1.00 Est GFR ( Amer) > 60 Glucose 74 L Calcium 9.3 Total Bilirubin 3.0 H AST 164 H Alkaline Phosphatase 162 H Total Protein 7.4 Albumin 3.7 Urine Color Urine Appearance Urine pH Ur Specific [place] Urine Protein Urine Glucose (UA) Urine Ketones Urine Blood Urine Nitrite Ur Leukocyte Esterase Urine RBC (Auto) 11/25/19 11/25/19 11/25/19 02:05 05:25 09:45 WBC RBC Hgb Hct MCV MCH MCHC RDW Plt Count Seg Neutrophils % Carbonic Acid 0.95 L HCO3/H2CO3 Ratio 20:1 ABG pH 7.42 ABG pCO2 31.4 L ABG pO2 157.9 H ABG HCO3 19.8 L ABG O2 Saturation 99.1 H ABG Base Excess -3.6 VBG pH VBG pCO2 VBG HCO3 VBG Base Excess FiO2 4 L Sodium Potassium Chloride Carbon Dioxide Anion Gap BUN Creatinine Est GFR ( Amer) Glucose Calcium Total Bilirubin AST Alkaline Phosphatase Total Protein Albumin Urine Color NAEEM YELLOW Urine Appearance CLOUDY CLEAR Urine pH 5.0 6.0 Ur Specific [place] 1.038 1.017 Urine Protein >=500 H 30 H Urine Glucose (UA) NEGATIVE NEGATIVE Urine Ketones NEGATIVE NEGATIVE Urine Blood SMALL H NEGATIVE Urine Nitrite NEGATIVE NEGATIVE Ur Leukocyte Esterase NEGATIVE NEGATIVE Urine RBC (Auto) 0 11/24/19 22:02 Troponin I 0.141 NT-Pro-B Natriuret Pep [id number] H Impressions: Chest X-Ray 11/24/19 20:34 IMPRESSION: No acute abnormality as above. copyright 2011 [employer]- All Rights Reserved Chest/Abdomen CTA 11/24/19 22:55 IMPRESSION: There are filling defects within the main pulmonary artery concerning for developing saddle emboli. There are also filling defects seen within the segmental arteries consistent with pulmonary artery emboli. There is a groundglass nodule at the right upper lobe measuring up to 12 mm which will need interval follow-up within three months. There are trace pleural effusions with some overlying airspace opacities which are favored to represent atelectasis, but may also represent some mild edema or infection. Assessment and Plan - Diagnosis (1) Atrial flutter Qualifiers: Atrial flutter type: unspecified Qualified Code(s): I48.92 - Unspecified atrial flutter Is this a current diagnosis for this admission?: No Plan: The patient appears to be in Atrial flutter with heart rate of 130-140. Unclear how long he has been in this rhythm. His recore from a previous admission cites PAF. Cardiology to see the patiewnt. He is on full dose anticoagultion at this time (2) Bilateral pulmonary embolism Is this a current diagnosis for this admission?: Yes Plan: The patient does not appear to be hemodynamically compromised. he is maintaining his BP. He requires low flow 02. Not likely that he needs TPA at this time. We will be getting an nECHO to assess PAP and Lv fn. and right ventricle size. (3) Alcohol dependence Qualifiers: Substance use status: alcohol-induced persisting dementia Qualified Code(s): F10.27 - Alcohol dependence with alcohol-induced persisting dementia Is this a current diagnosis for this admission?: Yes Plan: The patient carries a diagnoisis of alcohol related dialted cardiomyopathy. He is showing no signs of acute witrhdrawl at this time. Critical Time Critical Time (minutes): 25 Level of Care: ICU -: 1. The care of a critical patient is a dynamic process. This note is a customer care representative synopsis but static in nature. The timeframe for treatments given in order is not necessarily the actual time these treatments may have been done. 2. This patient requires critical care secondary to ongoing requirements for therapy not offered or safe outside the critical care environment. Transfer to a lower level of care will result in altered life or limb morbidity and mortality. 3. Multidisciplinary rounds completed. 4. ABCDE bundle addressed.
[2019-11-25] MEDS ORDERED: ATROPINE SULFATE INJ 1 MG/10 ML DISP.SYRIN IV ONE (14:01)
[2019-11-25 14:49] LABS: ARTERIAL BLOOD BASE EXCESS -6.2 mmol/L; ARTERIAL BLOOD H2CO3 0.46 mmol/L (1.05-1.35); ARTERIAL BLOOD HCO3 12.8 mmol/L (20-24); ARTERIAL BLOOD O2 SATURATION 99.6 % (94-98); ARTERIAL BLOOD PH 7.54 (7.35-7.45); ARTERIAL BLOOD PO2 207.5 mmHg (80-100); ARTERIAL BLOOD TOTAL CO2 13.3 mmol/L (23-27)
[2019-11-25 14:52] LABS: ARTERIAL BLOOD PCO2 15.4 mmHg (35-45)
--- NOTE | 2019-11-25 16:00 | PDOC CONSULTATION ---
Consultation Consult Date: 11/25/19 Provider Consulted: JEFFERY BROWN Consult reason:: Tachycardia History of Present Illness Admission Date/PCP: 11/25/19 02:36 MARCELLA HERBERT MD Patient complains of: No complaints. Patient is listless History of Present Illness: SHAHNAZ CASANOVA is a 64 year old male With the following active problems 1. Homelessness 2. Alcohol dependence 3. LV dysfunction 4. Dilated cardiomyopathy 5. Atrial flutter Patient known to me from previous visits with admission to the hospital with acute decompensated congestive heart failure and respiratory distress. He was noticed to have atrial flutter at that time. He was rate controlled. Due to his homelessness and significant social issues adequate follow-up and further testing could not be arranged. He is being admitted this time with respiratory distress. History is quite limited. Review of systems cannot be obtained due to altered mental status. He was noted to have tachycardia on the monitor which subsequently corrected. He was continued on metoprolol 50 mg long-acting formulation. Because of diagnosis of saddle pulmonary embolism he was started on systemic anticoagulation Review of systems cannot be obtained due to mental status Patient is known to be homeless and alcoholic. Past Medical History Cardiac Medical History: Reports: Atrial Fibrillation, Congestive Heart Failure - Alcohol cardiomyopathy, Hypertension Pulmonary Medical History: Reports: Bronchitis, Chronic Obstructive Pulmonary Disease (COPD) Psychiatric Medical History: Denies: Depression Past Surgical History Past Surgical History: Reports: Orthopedic Surgery - Right ACL repair, Tonsillectomy, Other - Homeless Social History Lives with: Family Smoking Status: Smoker,Current Status Unk Electronic Cigarette use?: No Frequency of Alcohol Use: Heavy Hx Recreational Drug Use: Yes Drugs: Marijuana Hx Prescription Drug Abuse: No - Advance Directive Resuscitation Status: Full Code Family History Family History: Arthritis, COPD, Hypertension Parental Family History Reviewed: No - Unable to obtain due to mental status Children Family History Reviewed: NA Sibling(s) Family History Reviewed.: NA Medication/Allergy Home Medications: Furosemide [Lasix 20 mg Tablet] 20 mg PO DAILY #30 tablet 09/06/19 Lisinopril [Prinivil 10 mg Tablet] 10 mg PO DAILY #30 tablet 09/06/19 Metoprolol Succinate [Toprol Xl 50 mg Tab.sr] 100 mg PO DAILY #60 tab.sr.24h 09/06/19 Allergies/Adverse Reactions: No Known Allergies Allergy (Verified 08/18/19 17:38) Review of Systems ROS unobtainable: Due to mental status Physical Exam Vital Signs: Temp Pulse Resp BP Pulse Ox 97.5 F 66 13 102/88 H 81 L 11/25/19 12:00 11/25/19 14:00 11/25/19 14:32 11/25/19 14:32 11/25/19 14:32 Intake & Output 11/24/19 11/25/19 11/26/19 06:59 06:59 06:59 Intake Total 500 71 Output Total 300 Balance 500 -229 Weight 75.1 kg General appearance: PRESENT: no acute distress, disheveled, thin, well-developed Head exam: PRESENT: atraumatic, normocephalic Eye exam: PRESENT: EOMI Respiratory exam: PRESENT: decreased breath sounds, prolonged expiratory phas, symmetrical Cardiovascular exam: PRESENT: +S1, +S2, systolic murmur Pulses: PRESENT: normal radial pulses GI/Abdominal exam: PRESENT: distended, soft Rectal exam: PRESENT: deferred Extremities exam: PRESENT: +1 edema Neurological exam: PRESENT: altered Skin exam: PRESENT: dry, intact Results Laboratory Results: 11/24/19 22:02 11/24/19 22:02 11/24/19 11/24/19 11/24/19 22:02 22:02 22:02 WBC 6.2 RBC 5.31 Hgb 15.0 Hct 45.7 MCV 86 MCH 28.2 MCHC 32.7 RDW 19.1 H Plt Count 197 Seg Neutrophils % 43.5 Carbonic Acid HCO3/H2CO3 Ratio ABG pH ABG pCO2 ABG pO2 ABG HCO3 ABG O2 Saturation ABG Base Excess VBG pH 7.31 VBG pCO2 36.3 VBG HCO3 17.7 L VBG Base Excess -7.9 FiO2 Sodium 136.3 L Potassium 4.9 Chloride 101 Carbon Dioxide 19 L Anion Gap 16 BUN 23 H Creatinine 1.00 Est GFR ( Amer) > 60 Glucose 74 L Calcium 9.3 Total Bilirubin 3.0 H AST 164 H Alkaline Phosphatase 162 H Total Protein 7.4 Albumin 3.7 Urine Color Urine Appearance Urine pH Ur Specific [place] Urine Protein Urine Glucose (UA) Urine Ketones Urine Blood Urine Nitrite Ur Leukocyte Esterase Urine RBC (Auto) 11/25/19 11/25/19 11/25/19 02:05 05:25 09:45 WBC RBC Hgb Hct MCV MCH MCHC RDW Plt Count Seg Neutrophils % Carbonic Acid 0.95 L HCO3/H2CO3 Ratio 20:1 ABG pH 7.42 ABG pCO2 31.4 L ABG pO2 157.9 H ABG HCO3 19.8 L ABG O2 Saturation 99.1 H ABG Base Excess -3.6 VBG pH VBG pCO2 VBG HCO3 VBG Base Excess FiO2 4 L Sodium Potassium Chloride Carbon Dioxide Anion Gap BUN Creatinine Est GFR ( Amer) Glucose Calcium Total Bilirubin AST Alkaline Phosphatase Total Protein Albumin Urine Color NAEEM YELLOW Urine Appearance CLOUDY CLEAR Urine pH 5.0 6.0 Ur Specific [place] 1.038 1.017 Urine Protein >=500 H 30 H Urine Glucose (UA) NEGATIVE NEGATIVE Urine Ketones NEGATIVE NEGATIVE Urine Blood SMALL H NEGATIVE Urine Nitrite NEGATIVE NEGATIVE Ur Leukocyte Esterase NEGATIVE NEGATIVE Urine RBC (Auto) 0 11/25/19 14:32 WBC RBC Hgb Hct MCV MCH MCHC RDW Plt Count Seg Neutrophils % Carbonic Acid 0.46 L HCO3/H2CO3 Ratio 27:1 ABG pH 7.54 H ABG pCO2 15.4 L* ABG pO2 207.5 H ABG HCO3 12.8 L ABG O2 Saturation 99.6 H ABG Base Excess -6.2 VBG pH VBG pCO2 VBG HCO3 VBG Base Excess FiO2 15% Sodium Potassium Chloride Carbon Dioxide Anion Gap BUN Creatinine Est GFR ( Amer) Glucose Calcium Total Bilirubin AST Alkaline Phosphatase Total Protein Albumin Urine Color Urine Appearance Urine pH Ur Specific [place] Urine Protein Urine Glucose (UA) Urine Ketones Urine Blood Urine Nitrite Ur Leukocyte Esterase Urine RBC (Auto) 11/24/19 22:02 Troponin I 0.141 NT-Pro-B Natriuret Pep [id number] H EKG Comments: Twelve-lead EKG 11/24/2019. Independently viewed by me probable atrial tachycardia 139 bpm, QTC 475 ms CTA chest 11/24/2019. Saddle pulmonary embolus is suspected. Trace pleural effusions Transthoracic echocardiogram 08/19/2019 Left ventricle ejection fraction 20 to 25% RV systolic function is moderately reduced Mild mitral regurgitation Mild to moderate tricuspid regurgitation Minimal pericardial effusion Troponin 0 0.101 Impressions: Chest X-Ray 11/24/19 20:34 IMPRESSION: No acute abnormality as above. copyright 2010 [employer]- All Rights Reserved Chest/Abdomen CTA 11/24/19 22:55 IMPRESSION: There are filling defects within the main pulmonary artery concerning for developing saddle emboli. There are also filling defects seen within the segmental arteries consistent with pulmonary artery emboli. There is a groundglass nodule at the right upper lobe measuring up to 12 mm which will need interval follow-up within three months. There are trace pleural effusions with some overlying airspace opacities which are favored to represent atelectasis, but may also represent some mild edema or infection. Assessment & Plan - Diagnosis (1) Bilateral pulmonary embolism Is this a current diagnosis for this admission?: Yes Plan: Saddle pulmonary is loosening suspected. Patient is on systemic anticoagulation with intravenous heparin per protocol Patient also has history of atrial arrhythmia-atrial flutter as well as atrial fibrillation. Systemic anticoagulation is warranted given history of congestive heart failure. For the moment intravenous heparin per protocol would suffice. (2) Tachycardia Is this a current diagnosis for this admission?: Yes Plan: Patient was noted to have probable SVT likely atrial tachycardia earlier. His previous symptoms have included atrial flutter. At the time of my evaluation patient is maintaining sinus rhythm at 61 bpm. There are clearly discernible P waves on the monitor tech Would recommend continuing beta-david both for congestive heart failure and LV dysfunction as well as to suppress triggers for atrial arrhythmias including atrial flutter and atrial fibrillation as well as atrial tachycardia Systemic anticoagulation to be continued (3) Alcohol dependence Qualifiers: Substance use status: alcohol-induced persisting dementia Qualified Code(s): F10.27 - Alcohol dependence with alcohol-induced persisting dementia Is this a current diagnosis for this admission?: Yes Plan: This complicates his management. Homelessness also complicates his care. 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 Supportive care with beta-blockers and ARIANNE inhibitors when feasible.
[2019-11-25] MEDS ORDERED: ALTEPLASE INJ 100 MG VIAL IV ONE (16:30)
--- NOTE | 2019-11-25 17:04 | PDOC CRITICAL CARE PROG REPORT ---
General Resuscitation Status: Full Code Events in the past 12 to 24 Hours:: Update The patient developed worsening dyspnea early this afternoon. He became tachypneic and his 02 sat went down into the 70s. It became difficult to discern his 02 sat so an ABG was drawn. it showed a Pa02 of 204 on a 100% NRM. The patient had had a Pa02 of about 150 early this morning on 3 l02 nasal. He has conformed PE by CT scan. In addition, the patient dropped his BP some to about 100 systolic. his systolic was 20-30 pts higher a few hours ago. I decided to give the patient TPA based on this change in status. Shortly before this change in status the patient had reverted for A flutter with a HR in the 130s to asinus bowen and than NSR. The patient was queried about various bleeding risks ( CVA in past, aneurysym, gi bleed) and he answered that he had not. I explained thepotoential risks of bleeding with TPA to thepatient has well. I told him there was about 6-8% chance of bleeding and about 1-2 % chance of a an intracrainial hemorrhage. the patient appeared to iunderstand the risk and agreed to go forward with sytemic TPA. His heparin was put on hold in the interim. Out facility does npt use EKOs and or have mechanical thrombectomy available etc., I t did not appear reasonable or asafe to transfer thepatient to another facility at this time. Reason for ICU Addmission:: pulmonary embolism Physical Exam Vital Signs: Temp Pulse Resp BP Pulse Ox 97.5 F 70 24 H 96/70 L 97 11/25/19 12:00 11/25/19 16:45 11/25/19 16:45 11/25/19 16:45 11/25/19 16:45 Intake & Output 11/24/19 11/25/19 11/26/19 06:59 06:59 06:59 Intake Total 500 71 Output Total 425 Balance 500 -354 Weight 75.1 kg Weight/Height Weight 75.1 kg Height 6 in Laboratory/Radiographs Laboratory Results: 11/24/19 22:02 11/24/19 22:02 11/24/19 11/24/19 11/24/19 22:02 22:02 22:02 WBC 6.2 RBC 5.31 Hgb 15.0 Hct 45.7 MCV 86 MCH 28.2 MCHC 32.7 RDW 19.1 H Plt Count 197 Seg Neutrophils % 43.5 Carbonic Acid HCO3/H2CO3 Ratio ABG pH ABG pCO2 ABG pO2 ABG HCO3 ABG O2 Saturation ABG Base Excess VBG pH 7.31 VBG pCO2 36.3 VBG HCO3 17.7 L VBG Base Excess -7.9 FiO2 Sodium 136.3 L Potassium 4.9 Chloride 101 Carbon Dioxide 19 L Anion Gap 16 BUN 23 H Creatinine 1.00 Est GFR ( Amer) > 60 Glucose 74 L Calcium 9.3 Total Bilirubin 3.0 H AST 164 H Alkaline Phosphatase 162 H Total Protein 7.4 Albumin 3.7 Urine Color Urine Appearance Urine pH Ur Specific [place] Urine Protein Urine Glucose (UA) Urine Ketones Urine Blood Urine Nitrite Ur Leukocyte Esterase Urine RBC (Auto) 11/25/19 11/25/19 11/25/19 02:05 05:25 09:45 WBC RBC Hgb Hct MCV MCH MCHC RDW Plt Count Seg Neutrophils % Carbonic Acid 0.95 L HCO3/H2CO3 Ratio 20:1 ABG pH 7.42 ABG pCO2 31.4 L ABG pO2 157.9 H ABG HCO3 19.8 L ABG O2 Saturation 99.1 H ABG Base Excess -3.6 VBG pH VBG pCO2 VBG HCO3 VBG Base Excess FiO2 4 L Sodium Potassium Chloride Carbon Dioxide Anion Gap BUN Creatinine Est GFR ( Amer) Glucose Calcium Total Bilirubin AST Alkaline Phosphatase Total Protein Albumin Urine Color [place] YELLOW Urine Appearance CLOUDY CLEAR Urine pH 5.0 6.0 Ur Specific [place] 1.038 1.017 Urine Protein >=500 H 30 H Urine Glucose (UA) NEGATIVE NEGATIVE Urine Ketones NEGATIVE NEGATIVE Urine Blood SMALL H NEGATIVE Urine Nitrite NEGATIVE NEGATIVE Ur Leukocyte Esterase NEGATIVE NEGATIVE Urine RBC (Auto) 0 11/25/19 14:32 WBC RBC Hgb Hct MCV MCH MCHC RDW Plt Count Seg Neutrophils % Carbonic Acid 0.46 L HCO3/H2CO3 Ratio 27:1 ABG pH 7.54 H ABG pCO2 15.4 L* ABG pO2 207.5 H ABG HCO3 12.8 L ABG O2 Saturation 99.6 H ABG Base Excess -6.2 VBG pH VBG pCO2 VBG HCO3 VBG Base Excess FiO2 15% Sodium Potassium Chloride Carbon Dioxide Anion Gap BUN Creatinine Est GFR ( Amer) Glucose Calcium Total Bilirubin AST Alkaline Phosphatase Total Protein Albumin Urine Color Urine Appearance Urine pH Ur Specific [place] Urine Protein Urine Glucose (UA) Urine Ketones Urine Blood Urine Nitrite Ur Leukocyte Esterase Urine RBC (Auto) 11/24/19 22:02 Troponin I 0.141 NT-Pro-B Natriuret Pep [id number] H Impressions: Chest X-Ray 11/24/19 20:34 IMPRESSION: No acute abnormality as above. copyright 2010 [employer]- All Rights Reserved Chest/Abdomen CTA 11/24/19 22:55 IMPRESSION: There are filling defects within the main pulmonary artery concerning for developing saddle emboli. There are also filling defects seen within the segmental arteries consistent with pulmonary artery emboli. There is a groundglass nodule at the right upper lobe measuring up to 12 mm which will need interval follow-up within three months. There are trace pleural effusions with some overlying airspace opacities which are favored to represent atelectasis, but may also represent some mild edema or infection. 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 The care of a critical patient is a dynamic process. This note is a technical support representative synopsis but static in nature. The timeframe for treatments given in order is not necessarily the actual time these treatments may have been done. 2. This patient requires critical care secondary to ongoing requirements for therapy not offered or safe outside the critical care environment. Transfer to a lower level of care will result in altered life or limb morbidity and mortality. 3. Multidisciplinary rounds completed. 4. ABCDE bundle addressed.
[2019-11-25 20:24] LABS: ARTERIAL BLOOD BASE EXCESS -10.7 mmol/L; ARTERIAL BLOOD H2CO3 0.49 mmol/L (1.05-1.35); ARTERIAL BLOOD HCO3 10.5 mmol/L (20-24); ARTERIAL BLOOD O2 SATURATION 98.6 % (94-98); ARTERIAL BLOOD PH 7.42 (7.35-7.45); ARTERIAL BLOOD PO2 122.4 mmHg (80-100)
[2019-11-25 20:32] LABS: ARTERIAL BLOOD FIO2 21%
[2019-11-25 20:33] LABS: ARTERIAL BLOOD PCO2 16.4 mmHg (35-45)
[2019-11-25] MEDS: IPRATROPIUM/ALBUTEROL 0.5-2.5 MG/3 ML AMPUL NEB PRN (23:20)
[2019-11-26] MEDS ORDERED: DEXTROSE 5%-WATER 1000 ML 1,000 ML IV PRN
[2019-11-26] MEDS ORDERED: DEXTROSE 50%-WATER 25 GM/50 ML DISP.SYRIN IV ONE
[2019-11-26] MEDS: DEXTROSE 50%-WATER SYRINGE 25 GM/50 ML DOSE IV PRN ×6 (00:03→23:39)
[2019-11-26] MEDS ORDERED: GLUCAGON,HUMAN RECOMB 1 MG INJ IM PRN (00:30)
[2019-11-26] MEDS ORDERED: DEXTROSE 40% GEL 15 GM TUBE X 2 PO PRN (00:30)
[2019-11-26] MEDS ORDERED: DEXTROSE 40% GEL 15 GM TUBE PO PRN (00:30)
[2019-11-26] MEDS ORDERED: NORMAL SALINE 1000 ML 1,000 ML IV PRN (04:20)
[2019-11-26 04:44] LABS: ABSOLUTE LYMPHOCYTES (AUTO) 1.6 10^3/uL (0.5-4.7); ABSOLUTE MONOCYTES (AUTO) 0.8 10^3/uL (0.1-1.4); ABSOLUTE NEUT (AUTO) 4.3 10^3/uL (1.7-8.2); BASOPHILS % (AUTO) 0.4 % (0-2); EOSINOPHILS % (AUTO) 0.6 % (0-6); HEMATOCRIT 46.6 % (37.9-51.0); HEMOGLOBIN 15.3 g/dL (13.5-17.0); LYMPHOCYTES % (AUTO) 24.1 % (13-45); MEAN CORPUSCULAR HEMOGLOBIN 28.1 pg (27.0-33.4); MEAN CORPUSCULAR HGB CONC 32.8 g/dL (32.0-36.0); MEAN CORPUSCULAR VOLUME 86 fl (80-97); MONOCYTES % (AUTO) 11.4 % (3-13); PLATELET COUNT 201 10^3/uL (150-450); RED BLOOD COUNT 5.44 10^6/uL (4.35-5.55); RED CELL DISTRIBUTION WIDTH 19.4 % (11.5-14.0); SEGMENTED NEUTROPHILS % (AUTO) 63.5 % (42-78); TOTAL CELLS COUNTED % (AUTO) 100 %; WHITE BLOOD COUNT 6.8 10^3/uL (4.0-10.5)
[2019-11-26 05:02] LABS: INTERNATIONAL RATION (INR) 2.81; PROTHROMBIN TIME 29.5 SEC (11.4-15.4)
[2019-11-26 05:07] LABS: ARTERIAL BLOOD BASE EXCESS -9.9 mmol/L; ARTERIAL BLOOD H2CO3 0.67 mmol/L (1.05-1.35); ARTERIAL BLOOD HCO3 12.8 mmol/L (20-24); ARTERIAL BLOOD O2 SATURATION 95.7 % (94-98); ARTERIAL BLOOD PCO2 22.1 mmHg (35-45); ARTERIAL BLOOD PH 7.38 (7.35-7.45); ARTERIAL BLOOD PO2 78.8 mmHg (80-100); ARTERIAL BLOOD TOTAL CO2 13.4 mmol/L (23-27)
[2019-11-26 05:08] LABS: ARTERIAL BLOOD FIO2 21%
[2019-11-26 05:18] LABS: ALBUMIN 3.7 g/dL (3.5-5.0); ALKALINE PHOSPHATASE 152 U/L (38-126); ASPARTATE AMINO TRANSFERASE 391 U/L (17-59); BILIRUBIN,DIRECT 1.8 mg/dL (0.0-0.4); BILIRUBIN,TOTAL 3.5 mg/dL (0.2-1.3); BLOOD UREA NITROGEN 26 mg/dL (7-20); CHOLESTEROL 150.29 mg/dL (0-200); GLUCOSE 89 mg/dL (75-110); PHOSPHORUS 5.3 mg/dL (2.5-4.5); POTASSIUM 4.5 mmol/L (3.6-5.0); TOTAL PROTEIN 7.3 g/dL (6.3-8.2); TRIGLYCERIDES 62 mg/dL (<150)
[2019-11-26 05:23] LABS: CARBON DIOXIDE 17 mmol/L (22-30); CHLORIDE 101 mmol/L (98-107)
[2019-11-26 05:28] LABS: ANION GAP 20 (5-19)
[2019-11-26 05:29] LABS: DIRECT LDL 113 mg/dL (<100)
[2019-11-26] MEDS: DEXTROSE 10%-WATER 1,000 ML IV PRN ×4 (05:45→16:00)
[2019-11-26] MEDS: PANTOPRAZOLE SODIUM 40 MG TABLET.DR PO SCH (05:55)
[2019-11-26] MEDS ORDERED: LINEZOLID 600 MG/300 ML RTUPB IV ONE (06:16)
[2019-11-26] MEDS: LINEZOLID 600 MG/300 ML RTUPB IV SCH ×2 (06:19→18:02)
--- NOTE | 2019-11-26 08:34 | EKG REPORT ---
SEVERITY:- ABNORMAL ECG - ECTOPIC ATRIAL VERSUS JUNCTIONAL RHYTHM LEFT ANTERIOR FASCICULAR BLOCK BORDERLINE T ABNORMALITIES, LATERAL LEADS BORDERLINE PROLONGED QT INTERVAL : Confirmed by: Samantha Campbell MD 26-Nov-2019 08:33:28
[2019-11-26] MEDS ORDERED: METOPROLOL SUCCINATE 50 MG TAB.SR.24H PO SCH (10:00)
[2019-11-26] MEDS: FUROSEMIDE INJ/PF 40 MG/4 ML SDV IV SCH (10:24)
[2019-11-26] MEDS: LISINOPRIL 10 MG TABLET PO SCH (10:24)
[2019-11-26] MEDS: RINGERS SOLUTION,LACTATED 1,000 ML IV PRN (10:26)
--- NOTE | 2019-11-26 11:38 | PDOC CRITICAL CARE PROG REPORT ---
General Date:: 11/26/19 ICU Day:: 2 Hospital Day:: 2 Resuscitation Status: Full Code Events in the past 12 to 24 Hours:: Update The patient developed worsening dyspnea early this afternoon. He became tachypneic and his 02 sat went down into the 70s. It became difficult to discern his 02 sat so an ABG was drawn. it showed a Pa02 of 204 on a 100% NRM. The patient had had a Pa02 of about 150 early this morning on 3 l02 nasal. He has conformed PE by CT scan. In addition, the patient dropped his BP some to about 100 systolic. his systolic was 20-30 pts higher a few hours ago. I decided to give the patient TPA based on this change in status. Shortly before this change in status the patient had reverted for A flutter with a HR in the 130s to asinus bowen and than NSR. The patient was queried about various bleeding risks ( CVA in past, aneurysym, gi bleed) and he answered that he had not. I explained thepotoential risks of bleeding with TPA to thepatient has well. I told him there was about 6-8% chance of bleeding and about 1-2 % chance of a an intracrainial hemorrhage. the patient appeared to iunderstand the risk and agreed to go forward with sytemic TPA. His heparin was put on hold in the interim. Out facility does npt use EKOs and or have mechanical thrombectomy available etc., I t did not appear reasonable or asafe to transfer thepatient to another facility at this time. 11/25 The patient had a change in status during the early afternoon. 'He developed sinus bowen after converting spontaneously from a rapid a -flutter with a 2:1 block. His pulse oximetry would dip down at times to the 70s and thepatient became quite tachypneic. his A-a gradient appeared to have increaed very much at the time ( >400). We decided to give thepatient systemic TPA on the bassof those findings. The patient received 10% up front and the remaining 90 mg over 2 hours. The patient tolerated the infusion. His heparin drip was stopped and than reastarted late that night Pulse ox remains in the 90s. Reason for ICU Addmission:: pulmonary embolism Physical Exam Vital Signs: Temp Pulse Resp BP Pulse Ox 97.9 F 69 19 94/62 L 100 11/26/19 10:00 11/26/19 10:12 11/26/19 10:12 11/26/19 10:12 11/26/19 10:12 Intake & Output 11/25/19 11/26/19 11/27/19 06:59 06:59 06:59 Intake Total 451 455 7593 Output Total 745 90 Balance 500 -434 1210 Weight 75.1 kg 75.1 kg Weight/Height Weight 75.1 kg Height 6 in General appearance: PRESENT: no acute distress, disheveled, thin Head exam: PRESENT: normocephalic Eye exam: PRESENT: conjunctiva pink Ear exam: PRESENT: normal external ear exam Mouth exam: PRESENT: moist, neck supple Neck exam: PRESENT: full ROM. ABSENT: JVD, tenderness, thyromegaly Respiratory exam: PRESENT: symmetrical, unlabored. ABSENT: accessory muscle use Cardiovascular exam: PRESENT: irregular rhythm, +S1, +S2 Pulses: PRESENT: normal carotid pulses GI/Abdominal exam: PRESENT: hypoactive bowel sounds, normal bowel sounds, soft Rectal exam: PRESENT: deferred Extremities exam: PRESENT: calf tenderness Neurological exam: PRESENT: alert, awake, oriented to time, CN II-XII grossly intact Psychiatric exam: PRESENT: appropriate affect, flat affect Skin exam: PRESENT: normal color Laboratory/Radiographs Laboratory Results: 11/26/19 03:55 11/26/19 03:55 11/25/19 11/25/19 11/26/19 14:32 20:13 03:55 WBC 6.8 RBC 5.44 Hgb 15.3 Hct 46.6 MCV 86 MCH 28.1 MCHC 32.8 RDW 19.4 H Plt Count 201 Seg Neutrophils % 63.5 Carbonic Acid 0.46 L 0.49 L HCO3/H2CO3 Ratio 27:1 21:1 ABG pH 7.54 H 7.42 ABG pCO2 15.4 L* 16.4 L* ABG pO2 207.5 H 122.4 H ABG HCO3 12.8 L 10.5 L ABG O2 Saturation 99.6 H 98.6 H ABG Base Excess -6.2 -10.7 FiO2 15% 21% Sodium Potassium Chloride Carbon Dioxide Anion Gap BUN Creatinine Est GFR ( Amer) Glucose Calcium Phosphorus Magnesium Total Bilirubin AST Alkaline Phosphatase Total Protein Albumin Triglycerides Cholesterol LDL Cholesterol Direct VLDL Cholesterol HDL Cholesterol 11/26/19 11/26/19 03:55 04:16 WBC RBC Hgb Hct MCV MCH MCHC RDW Plt Count Seg Neutrophils % Carbonic Acid 0.67 L HCO3/H2CO3 Ratio 19:1 ABG pH 7.38 ABG pCO2 22.1 L ABG pO2 78.8 L ABG HCO3 12.8 L ABG O2 Saturation 95.7 ABG Base Excess -9.9 FiO2 21% Sodium 137.5 Potassium 4.5 Chloride 101 Carbon Dioxide 17 L Anion Gap 20 H BUN 26 H Creatinine 1.55 H Est GFR ( Amer) 55 L Glucose 89 Calcium 9.0 Phosphorus 5.3 H Magnesium 1.8 Total Bilirubin 3.5 H AST 391 H Alkaline Phosphatase 152 H Total Protein 7.3 Albumin 3.7 Triglycerides 62 Cholesterol 150.29 LDL Cholesterol Direct 113 H VLDL Cholesterol 12.0 HDL Cholesterol 18 L 11/24/19 22:02 Blood Blood Culture (PCR) - Final Staphylococcus Species 11/24/19 22:02 Troponin I 0.141 NT-Pro-B Natriuret Pep [id number] H Impressions: Chest X-Ray 11/24/19 20:34 IMPRESSION: No acute abnormality as above. copyright 2010 [employer]- All Rights Reserved Chest/Abdomen CTA 11/24/19 22:55 IMPRESSION: There are filling defects within the main pulmonary artery concerning for developing saddle emboli. There are also filling defects seen within the segmental arteries consistent with pulmonary artery emboli. There is a groundglass nodule at the right upper lobe measuring up to 12 mm which will need interval follow-up within three months. There are trace pleural effusions with some overlying airspace opacities which are favored to represent atelectasis, but may also represent some mild edema or infection. Assessment and Plan - Diagnosis (1) Atrial flutter Qualifiers: Atrial flutter type: unspecified Qualified Code(s): I48.92 - Unspecified atrial flutter Is this a current diagnosis for this admission?: No Plan: The patient appears to be in Atrial flutter with heart rate of 130-140. Unclear how long he has been in this rhythm. His recore from a previous admission cites PAF. Cardiology to see the patiewnt. He is on full dose anticoagultion at this time (2) Bilateral pulmonary embolism Is this a current diagnosis for this admission?: Yes Plan: The patient does not appear to be hemodynamically compromised. he is maintaining his BP. He requires low flow 02. Not likely that he needs TPA at this time. We will be getting an nECHO to assess PAP and Lv fn. and right ventricle size. 11/25 Patient was treated witj systemic TPA yesterday. He is back on Heparin at this time His work of breathing and 02 saturations aappear better. No obvious bleeding complications. (3) Alcohol dependence Qualifiers: Substance use status: alcohol-induced persisting dementia Qualified Code(s ): F10.27 - Alcohol dependence with alcohol-induced persisting dementia Is this a current diagnosis for this admission?: Yes Plan: The patient carries a diagnosis of alcohol related dilated cardiomyopathy. He is showing no signs of acute withdrawl at this time. 11/25 AST is elevated from the time of admission. Alk phos and bili are slightly elevated as well. Will continue to monitor them for now. 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 He had a partial occlusionin theright anterior tibial artery and more critical blockage in the distal right femoral artery. (6) Sick sinus syndrome Is this a current diagnosis for this admission?: Yes Plan: I allen doty is reason to bleieve the patient has a SSS,. His gheart rate vacillates quite a bot between 30 and 130. Whe he spontaneously converted yesterday he slowed ointo the 30s. We have stopo ped his bnetas david at this time. cardiology to see the patient Critical Time Critical Time (minutes): 35 Level of Care: ICU -: 1. The care of a critical patient is a dynamic process. This note is a repr esentative synopsis but static in nature. The timeframe for treatments given in order is not necessarily the actual time these treatments may have been done. 2. This patient requires critical care secondary to ongoing requirements for therapy not offered or safe outside the critical care environment. Transfer to a lower level of care will result in altered life or limb morbidity and mortality. 3. Multidisciplinary rounds completed. 4. ABCDE bundle addressed.
[2019-11-26] MEDS ORDERED: NORMAL SALINE 500 ML IV PRN (13:39)
[2019-11-26] MEDS ORDERED: DOPAMINE HCL/DEXTROSE 5%-WATER 800 MG/250 ML RTUINJ IV PRN (15:00)
--- NOTE | 2019-11-26 15:02 | PDOC PROGRESS REPORT ---
Subjective Progress Note for:: 11/26/19 Subjective:: Patient remains listless. Overnight events were reviewed with the nurse Patient had episodes of bradycardia. He also appeared to have intermittent atrial flutter. Episodes of high-grade AV block were also noticed on telemetry. In my discussion with the nurse it appears that patient may have been bearing down to go to the bathroom. Even when I was in the room patient appeared to develop apneic spells which correlated to declining heart rate. I suspect he is having apneic spells or increased vagal tone on account of pulmonary embolism that may be driving these bradycardia episodes of heart block episodes. His baseline EKG is without significant conduction disease. Reason For Visit: BILATERAL PE Physical Exam Vital Signs: Temp Pulse Resp BP Pulse Ox 97.3 F 59 L 25 H 79/64 L 87 L 11/26/19 14:00 11/26/19 14:12 11/26/19 14:24 11/26/19 14:24 11/26/19 14:24 Intake & Output 11/25/19 11/26/19 11/27/19 06:59 06:59 06:59 Intake Total 824 370 2279 Output Total 745 120 Balance 500 -434 2201 Weight 75.1 kg 75.1 kg General appearance: PRESENT: no acute distress, cooperative, disheveled, well-developed Head exam: PRESENT: atraumatic, normocephalic Eye exam: PRESENT: conjunctiva pale, EOMI Mouth exam: PRESENT: moist Respiratory exam: PRESENT: crackles, decreased breath sounds, symmetrical, unlabored Cardiovascular exam: PRESENT: RRR, +S1, +S2 GI/Abdominal exam: PRESENT: distended, soft Rectal exam: PRESENT: deferred Neurological exam: PRESENT: altered Skin exam: PRESENT: dry, intact Results Laboratory Results: 11/26/19 03:55 11/26/19 03:55 11/25/19 11/26/19 11/26/19 20:13 03:55 03:55 WBC 6.8 RBC 5.44 Hgb 15.3 Hct 46.6 MCV 86 MCH 28.1 MCHC 32.8 RDW 19.4 H Plt Count 201 Seg Neutrophils % 63.5 Carbonic Acid 0.49 L HCO3/H2CO3 Ratio 21:1 ABG pH 7.42 ABG pCO2 16.4 L* ABG pO2 122.4 H ABG HCO3 10.5 L ABG O2 Saturation 98.6 H ABG Base Excess -10.7 FiO2 21% Sodium 137.5 Potassium 4.5 Chloride 101 Carbon Dioxide 17 L Anion Gap 20 H BUN 26 H Creatinine 1.55 H Est GFR ( Amer) 55 L Glucose 89 Calcium 9.0 Phosphorus 5.3 H Magnesium 1.8 Total Bilirubin 3.5 H AST 391 H Alkaline Phosphatase 152 H Total Protein 7.3 Albumin 3.7 Triglycerides 62 Cholesterol 150.29 LDL Cholesterol Direct 113 H VLDL Cholesterol 12.0 HDL Cholesterol 18 L 11/26/19 04:16 WBC RBC Hgb Hct MCV MCH MCHC RDW Plt Count Seg Neutrophils % Carbonic Acid 0.67 L HCO3/H2CO3 Ratio 19:1 ABG pH 7.38 ABG pCO2 22.1 L ABG pO2 78.8 L ABG HCO3 12.8 L ABG O2 Saturation 95.7 ABG Base Excess -9.9 FiO2 21% Sodium Potassium Chloride Carbon Dioxide Anion Gap BUN Creatinine Est GFR ( Amer) Glucose Calcium Phosphorus Magnesium Total Bilirubin AST Alkaline Phosphatase Total Protein Albumin Triglycerides Cholesterol LDL Cholesterol Direct VLDL Cholesterol HDL Cholesterol 11/24/19 22:02 Blood Blood Culture (PCR) - Final Staphylococcus Species 11/24/19 22:02 Troponin I 0.141 NT-Pro-B Natriuret Pep [id number] H EKG Comments: Telemetry strips were reviewed These show sinus rhythm Low amplitude inverted P waves are noted. This could be due to lead placement. 2 other strips were reviewed which showed profound bradycardia but appeared to have high-grade AV block. These may have been but profound vagal episodes Impressions: Chest X-Ray 11/24/19 20:34 IMPRESSION: No acute abnormality as above. copyright 2011 [employer]- All Rights Reserved Chest/Abdomen CTA 11/24/19 22:55 IMPRESSION: There are filling defects within the main pulmonary artery concerning for developing saddle emboli. There are also filling defects seen within the segmental arteries consistent with pulmonary artery emboli. There is a groundglass nodule at the right upper lobe measuring up to 12 mm which will need interval follow-up within three months. There are trace pleural effusions with some overlying airspace opacities which are favored to represent atelectasis, but may also represent some mild edema or infection. Assessment & Plan - Diagnosis (1) Bilateral pulmonary embolism Is this a current diagnosis for this admission?: Yes Plan: Supportive care per intensive care unit. Lytic therapy is being pursued. (2) Tachycardia Is this a current diagnosis for this admission?: Yes Plan: Strips were reviewed. Presently maintaining sinus rhythm Episodes of junctional rhythm appear to be sinus rhythm. (3) Alcohol dependence Qualifiers: Substance use status: alcohol-induced persisting dementia Qualified Code(s): F10.27 - Alcohol dependence with alcohol-induced persisting dementia Is this a current diagnosis for this admission?: Yes Plan: This does complicate his care goals and objectives. (4) Dilated cardiomyopathy secondary to alcohol Is this a current diagnosis for this admission?: Yes Plan: Dilated cardiomyopathy likely multifactorial but predominantly probably due to alcohol Medical therapy is currently limited due to ongoing therapy for pulmonary embol ism He is also been dealing with episodes of bradycardia which are probably related to increased vagal tone due to hypoxia and pulmonary embolism. There is no urgent indication to pursue cardiac pacing at the moment. Would be reasonable to avoid beta-david temporarily.
--- NOTE | 2019-11-26 15:19 | XCELERA REPORT ---
[address] [address] Transthoracic Echocardiogram Report Name: SHAHNAZ CASANOVA Age: 64 yrs Gender: Male : 1955 Patient Status: Inpatient Patient Location: ICU^1^A Study Date: 11/26/2019 08:03 AM Height: 72 in Weight: 165 lb BSA: 2.0 m2 Procedure: A complete two-dimensional transthoracic echocardiogram was performed (2D, M-mode, spectral and color flow Doppler). The study was technically adequate with some images being suboptimal in quality. Reason For Study: PE, Right heart strain, dialated cardiomyopathy Previous Evaluation: A previous study was performed on 08/19/2019 LVEF 20-25%. History: PE CHF. Ordering Physician: MAKI CALVIN Performed By: Amarilis Rider Interpretation Summary Left ventricular systolic function is severely reduced. The Ejection Fraction estimate is 20-25% The right ventricle is severely dilated. The right ventricular systolic function is severely reduced. There is a moderate amount of mitral regurgitation There is no aortic valve stenosis Small pericardial effusion. There are no echocardiographic indications of cardiac tamponade. MMode/2D Measurements & Calculations RVDd: 2.9 cm LVIDd: 5.4 cm FS: 9.0 % Ao root diam: 3.7 cm IVSd: 0.99 cm LVIDs: 4.9 cm EDV(Teich): Ao root area: LVPWd: 1.1 cm 140.8 ml 11.0 cm2 ESV(Teich): 113.1 ml EF(Teich): 19.7 % EDV(MOD-sp4): SV(MOD-sp4): 105.3 ml 30.6 ml ESV(MOD-sp4): 74.7 ml EF(MOD-sp4): 29.0 % Doppler Measurements & Calculations MV E max adamaris: MV dec slope: Ao V2 max: LV V1 max P.0 cm/sec 63.6 cm/sec 0.54 mmHg MV A max adamaris: 477.1 cm/sec2 Ao max P.6 mmHg LV V1 max: 26.2 cm/sec MV dec time: 36.9 cm/sec 0.15 sec MV E/A: 2.7 MR max adamaris: PA V2 max: PI max adamaris: TR max adamaris: 393.4 cm/sec 35.6 cm/sec 129.5 cm/sec 127.5 cm/sec MR max PG: PA max P.51 mmHgPI max P.7 mmHg TR max P.9 mmHg PI dec slope: 6.5 mmHg 192.4 cm/sec2 Left Ventricle The left ventricle is borderline dilated. There is mild to moderate concentric left ventricular hypertrophy. Left ventricular systolic function is severely reduced. The Ejection Fraction estimate is 20-25%. Doppler measurements suggest reversible restrictive left ventricular relaxation, which is associated with grade III/IV or moderate diastolic dysfunction. Right Ventricle The right ventricle is severely dilated. The right ventricular systolic function is severely reduced. Atria The right atrium is moderate to severely dilated. The left atrial size is normal. The interatrial septum is intact with no evidence for an atrial septal defect. There is no Doppler evidence for an interatrial shunt. Mitral Valve There is no mitral valve stenosis. There is a moderate amount of mitral regurgitation. Aortic Valve The aortic valve is trileaflet. The aortic valve is normal in structure and function. The aortic valve opens well. There is no aortic valve stenosis. No aortic regurgitation is present. Tricuspid Valve The tricuspid valve is normal in structure and function. There is a trace amount of tricuspid regurgitation. Tricuspid regurgitation jet envelope not well defined to measure RV systolic pressure accurately. Pulmonic Valve The pulmonic valve is normal in structure and function. There is a mild amount of pulmonic regurgitation. Great Vessels The aortic root is normal size. The inferior vena cava appeared normal and decreased > 50% with respiration (RAP 5-10 mmHg). Effusions Small pericardial effusion. There are no echocardiographic indications of cardiac tamponade. Moderate size left pleural effusion. : MAKI CALVIN Anil
[2019-11-26] MEDS: DEXTROSE 50%-WATER SYRINGE 12.5 GM/25 ML DOSE IV PRN ×2 (16:03→18:50)
[2019-11-26] MEDS: HEPARIN SODIUM,PORCINE/D5W 25,000 UNIT/250 ML RTUINJ IV PRN (23:28)
[2019-11-27] MEDS: DEXTROSE 50%-WATER SYRINGE 25 GM/50 ML DOSE IV PRN ×2 (00:08→03:56)
[2019-11-27] MEDS ORDERED: DOBUTAMINE HCL/D5W 500 MG/250 ML RTUINJ IV ONE (00:38)
[2019-11-27] MEDS: DOBUTAMINE HCL/D5W 500 MG/250 ML RTUINJ IV PRN (01:12)
[2019-11-27] MEDS ORDERED: HYDRALAZINE HCL INJ/PF 20 MG/1 ML SDV ONE (01:14)
[2019-11-27] MEDS ORDERED: HYDRALAZINE HCL INJ/PF 20 MG/1 ML SDV IV ONE (01:22)
[2019-11-27] MEDS ORDERED: FUROSEMIDE INJ/PF 40 MG/4 ML SDV IV ONE (01:30)
[2019-11-27] MEDS: DEXTROSE 10%-WATER 1,000 ML IV PRN ×3 (02:09→23:45)
[2019-11-27 03:09] LABS: ARTERIAL BLOOD BASE EXCESS -9.9 mmol/L; ARTERIAL BLOOD H2CO3 0.85 mmol/L (1.05-1.35); ARTERIAL BLOOD HCO3 14.5 mmol/L (20-24); ARTERIAL BLOOD O2 SATURATION 95.5 % (94-98); ARTERIAL BLOOD PCO2 28.3 mmHg (35-45); ARTERIAL BLOOD PH 7.33 (7.35-7.45); ARTERIAL BLOOD PO2 81.7 mmHg (80-100); ARTERIAL BLOOD TOTAL CO2 15.3 mmol/L (23-27)
[2019-11-27 03:10] LABS: ARTERIAL BLOOD FIO2 4L
[2019-11-27] MEDS ORDERED: FLUDROCORTISONE ACETATE 0.1 MG TABLET ONE (03:34)
[2019-11-27] MEDS: FLUDROCORTISONE ACETATE 0.1 MG TABLET PO SCH (03:53)
[2019-11-27 04:52] LABS: INTERNATIONAL RATION (INR) 3.51
[2019-11-27 04:53] LABS: PARTIAL THROMBOPLASTIN TIME 57.5 SEC (23.5-35.8)
[2019-11-27 05:06] LABS: ABSOLUTE LYMPHOCYTES (AUTO) 1.1 10^3/uL (0.5-4.7); ABSOLUTE MONOCYTES (AUTO) 0.7 10^3/uL (0.1-1.4); ABSOLUTE NEUT (AUTO) 4.6 10^3/uL (1.7-8.2); BASOPHILS % (AUTO) 0.7 % (0-2); EOSINOPHILS % (AUTO) 0.4 % (0-6); HEMATOCRIT 39.8 % (37.9-51.0); LYMPHOCYTES % (AUTO) 17.3 % (13-45); MEAN CORPUSCULAR HGB CONC 32.7 g/dL (32.0-36.0); MEAN CORPUSCULAR VOLUME 86 fl (80-97); MONOCYTES % (AUTO) 11.2 % (3-13); PLATELET COUNT 166 10^3/uL (150-450); RED BLOOD COUNT 4.65 10^6/uL (4.35-5.55); RED CELL DISTRIBUTION WIDTH 19.1 % (11.5-14.0); SEGMENTED NEUTROPHILS % (AUTO) 70.4 % (42-78); TOTAL CELLS COUNTED % (AUTO) 100 %; WHITE BLOOD COUNT 6.5 10^3/uL (4.0-10.5)
[2019-11-27] MEDS ORDERED: HEPARIN SOD (PORCINE) 1,000 UNIT/ML 10 ML VIAL ONE (05:19)
[2019-11-27] MEDS: LINEZOLID 600 MG/300 ML RTUPB IV SCH ×2 (05:22→17:15)
[2019-11-27] MEDS: PANTOPRAZOLE SODIUM 40 MG TABLET.DR PO SCH (05:22)
[2019-11-27] MEDS: HEPARIN SODIUM,PORCINE/D5W 25,000 UNIT/250 ML RTUINJ IV PRN (05:25)
[2019-11-27 06:49] LABS: ALBUMIN 2.9 g/dL (3.5-5.0); ALKALINE PHOSPHATASE 103 U/L (38-126); ANION GAP 15 (5-19); BILIRUBIN,TOTAL 3.5 mg/dL (0.2-1.3); BLOOD UREA NITROGEN 28 mg/dL (7-20); CALCIUM 7.9 mg/dL (8.4-10.2); CARBON DIOXIDE 18 mmol/L (22-30); CHLORIDE 99 mmol/L (98-107); GLUCOSE 93 mg/dL (75-110); PHOSPHORUS 4.4 mg/dL (2.5-4.5); POTASSIUM 3.9 mmol/L (3.6-5.0); TOTAL PROTEIN 6.2 g/dL (6.3-8.2)
[2019-11-27 07:17] LABS: ASPARTATE AMINO TRANSFERASE 1981 U/L (17-59)
[2019-11-27] MEDS: LISINOPRIL 10 MG TABLET PO SCH (09:17)
[2019-11-27] MEDS: FUROSEMIDE INJ/PF 40 MG/4 ML SDV IV SCH (09:49)
--- NOTE | 2019-11-27 10:37 | PDOC CRITICAL CARE PROG REPORT ---
General Date:: 11/27/19 ICU Day:: 3 Hospital Day:: 3 Resuscitation Status: Full Code Events in the past 12 to 24 Hours:: Update The patient developed worsening dyspnea early this afternoon. He became tachypneic and his 02 sat went down into the 70s. It became difficult to discern his 02 sat so an ABG was drawn. it showed a Pa02 of 204 on a 100% NRM. The patient had had a Pa02 of about 150 early this morning on 3 l02 nasal. He has conformed PE by CT scan. In addition, the patient dropped his BP some to about 100 systolic. his systolic was 20-30 pts higher a few hours ago. I decided to give the patient TPA based on this change in status. Shortly before this change in status the patient had reverted for A flutter with a HR in the 130s to asinus bowen and than NSR. The patient was queried about various bleeding risks ( CVA in past, aneurysym, gi bleed) and he answered that he had not. I explained thepotoential risks of bleeding with TPA to thepatient has well. I told him there was about 6-8% chance of bleeding and about 1-2 % chance of a an intracrainial hemorrhage. the patient appeared to iunderstand the risk and agreed to go forward with sytemic TPA. His heparin was put on hold in the interim. Out facility does npt use EKOs and or have mechanical thrombectomy available etc., I t did not appear reasonable or asafe to transfer thepatient to another facility at this time. 11/25 The patient had a change in status during the early afternoon. 'He developed sinus bowen after converting spontaneously from a rapid a -flutter with a 2:1 block. His pulse oximetry would dip down at times to the 70s and thepatient became quite tachypneic. his A-a gradient appeared to have increaed very much at the time ( >400). We decided to give thepatient systemic TPA on the bassof those findings. The patient received 10% up front and the remaining 90 mg over 2 hours. The patient tolerated the infusion. His heparin drip was stopped and than reastarted late that night Pulse ox remains in the 90s. 11/26 The patient continues to do poorly. His bp is running low. He appears listless. His urine output is quite poor in the last several hours. He continues to have brief bradycardic events. His pulse oximetry remains stable. Reason for ICU Addmission:: pulmonary embolism Physical Exam Vital Signs: Temp Pulse Resp BP Pulse Ox 96.3 F L 61 28 H 76/61 L 97 11/27/19 07:59 11/27/19 07:59 11/27/19 07:59 11/27/19 07:59 11/27/19 07:59 Intake & Output 11/26/19 11/27/19 11/28/19 06:59 06:59 06:59 Intake Total 311 3607 Output Total 745 655 15 Balance -434 2952 -15 Weight 75.1 kg 74.6 kg Weight/Height Weight 74.6 kg Height 6 in General appearance: PRESENT: disheveled, mild distress - The patient's level of alertness comes and goes. he can't really do much for himself. Head exam: PRESENT: atraumatic, normocephalic Eye exam: PRESENT: PERRLA. ABSENT: scleral icterus Ear exam: PRESENT: normal external ear exam Respiratory exam: ABSENT: accessory muscle use Cardiovascular exam: PRESENT: irregular rhythm - The oatient continues to have bradycardic spells where hsi HR goes into the 30s and than bounces back 15-30 seconds later. Pulses: PRESENT: +1 pedal pulses bilateral GI/Abdominal exam: PRESENT: normal bowel sounds, soft Extremities exam: ABSENT: calf tenderness Neurological exam: PRESENT: altered - he talsk very little. For themost part he moans. he appear able to move all extr. Psychiatric exam: PRESENT: anxious, unusual affect Laboratory/Radiographs Laboratory Results: 11/27/19 04:21 11/27/19 06:04 11/26/19 11/26/19 11/27/19 18:00 18:59 02:50 WBC RBC Hgb Hct MCV MCH MCHC RDW Plt Count Seg Neutrophils % Carbonic Acid 0.85 L HCO3/H2CO3 Ratio 17:1 ABG pH 7.33 L ABG pCO2 28.3 L ABG pO2 81.7 ABG HCO3 14.5 L ABG O2 Saturation 95.5 ABG Base Excess -9.9 FiO2 4L Sodium Potassium Chloride Carbon Dioxide Anion Gap BUN Creatinine Est GFR ( Amer) Est GFR (Non-Af Amer) Glucose Cancelled 108 Calcium Phosphorus Magnesium Total Bilirubin AST Alkaline Phosphatase Total Protein Albumin 11/27/19 11/27/19 11/27/19 04:21 04:21 06:04 WBC 6.5 RBC 4.65 Hgb 13.0 L D Hct 39.8 MCV 86 MCH 28.0 MCHC 32.7 RDW 19.1 H Plt Count 166 Seg Neutrophils % 70.4 Carbonic Acid HCO3/H2CO3 Ratio ABG pH ABG pCO2 ABG pO2 ABG HCO3 ABG O2 Saturation ABG Base Excess FiO2 Sodium Cancelled 131.6 L Potassium Cancelled 3.9 Chloride Cancelled 99 Carbon Dioxide Cancelled 18 L Anion Gap Cancelled 15 BUN Cancelled 28 H Creatinine Cancelled 1.61 H Est GFR ( Amer) Cancelled 53 L Est GFR (Non-Af Amer) Cancelled Glucose Cancelled 93 Calcium Cancelled 7.9 L Phosphorus Cancelled 4.4 Magnesium Cancelled 1.6 Total Bilirubin Cancelled 3.5 H AST Cancelled 1981 H Alkaline Phosphatase Cancelled 103 Total Protein Cancelled 6.2 L Albumin Cancelled 2.9 L 11/24/19 22:02 Blood Blood Culture (PCR) - Final Staphylococcus Species 11/24/19 22:02 Troponin I 0.141 NT-Pro-B Natriuret Pep [id number] H Impressions: Chest X-Ray 11/24/19 20:34 IMPRESSION: No acute abnormality as above. copyright 2011 [employer]- All Rights Reserved Chest/Abdomen CTA 11/24/19 22:55 IMPRESSION: There are filling defects within the main pulmonary artery concerning for developing saddle emboli. There are also filling defects seen within the segmental arteries consistent with pulmonary artery emboli. There is a groundglass nodule at the right upper lobe measuring up to 12 mm which will need interval follow-up within three months. There are trace pleural effusions with some overlying airspace opacities which are favored to represent atelectasis, but may also represent some mild edema or infection. Assessment and Plan - Diagnosis (1) Atrial flutter Qualifiers: Atrial flutter type: unspecified Qualified Code(s): I48.92 - Unspecified atrial flutter Is this a current diagnosis for this admission?: No Plan: The patient appears to be in Atrial flutter with heart rate of 130-140. Unclear how long he has been in this rhythm. His recore from a previous admission cites PAF. Cardiology to see the patient. He is on full dose anticoagulation at this time 11/26 For the most part he is in a nSR. At times he has short periods of flutter or gets profoundly bradycardic. Dr. Bailon feelks he has enhanced vagal tone on the bsis of his large PE. (2) Bilateral pulmonary embolism Is this a current diagnosis for this admission?: Yes Plan: The patient does not appear to be hemodynamically compromised. he is maintaining his BP. He requires low flow 02. Not likely that he needs TPA at this time. We will be getting an nECHO to assess PAP and Lv fn. and right ventricle size. 11/25 Patient was treated witj systemic TPA yesterday. He is back on Heparin at this time His work of breathing and 02 saturations aappear better. No obvious bleeding complications. 11/26 The patient had a huge PE. He remains hemodynamically a bit precarious since than. His BP is running low presently. He is likely to needd pressors. He is already on dobutamine at 5 mcg/kg/min. He received TPA yesterday and is back onheparin at this time. (3) Alcohol dependence Qualifiers: Substance use status: alcohol-induced persisting dementia Qualified Code(s): F10.27 - Alcohol dependence with alcohol-induced persisting dementia Is this a current diagnosis for this admission?: Yes Plan: The patient carries a diagnosis of alcohol related dilated cardiomyopathy. He is showing no signs of acute withdrawl at this time. 11/25 AST is elevated from the time of admission. Alk phos and bili are slightly elevated as well. Will continue to monitor them for now. 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 According to Dr. Bailon he has severe bialteral ventricular dysfn. he is on FDobutamine for inottropic support. he may need additional dopamine or levo given hsi low bp. (5) PAD (peripheral artery disease) Is this a current diagnosis for this admission?: No Plan: Patient has known occlusive diseases since 09/01. He had a partial occlusionin theright anterior tibial artery and more critical blockage in the distal right femoral artery. (6) Sick sinus syndrome Is this a current diagnosis for this admission?: Yes Plan: I premakaitlyn lalitha is reason to bleieve the patient has a SSS,. His gheart rate vacillates quite a bot between 30 and 130. Whe he spontaneously converted yesterday he slowed ointo the 30s. We have stopoped his bnetas david at this time. cardiology to see the patient Plan Summary: It appears likely that the patient is not going to do well. he is in a low flow state. He appears to be developing JULIANNA. He is not a suitable dialysis candidate even in the short term. I will try to talk to patient about hius code status if he appears able to have that conversation. Prognosis appears poor. Critical Time Critical Time (minutes): 35 Level of Care: ICU -: 1. The care of a critical patient is a dynamic process. This note is a credit representative synopsis but static in nature. The timeframe for treatments given in order is not necessarily the actual time these treatments may have been done. 2. This patient requires critical care secondary to ongoing requirements for therapy not offered or safe outside the critical care environment. Transfer to a lower level of care will result in altered life or limb morbidity and mortality. 3. Multidisciplinary rounds completed. 4. ABCDE bundle addressed.
[2019-11-27] MEDS: DOPAMINE HCL/DEXTROSE 5%-WATER 800 MG/250 ML RTUINJ IV PRN (12:06)
[2019-11-27] MEDS: RINGERS SOLUTION,LACTATED 1,000 ML IV PRN ×2 (12:06→23:45)
--- NOTE | 2019-11-27 12:24 | PDOC PROGRESS REPORT ---
Subjective Progress Note for:: 11/27/19 Subjective:: Patient seen and examined today. Nurse at bedside. No family member present. He continues to do very poorly. Overnight he continued to have diminished urine output and has been hypotensive. Reason For Visit: BILATERAL PE Physical Exam Vital Signs: Temp Pulse Resp BP Pulse Ox 96.3 F L 57 L 30 H 72/61 L 97 11/27/19 10:00 11/27/19 10:00 11/27/19 10:00 11/27/19 10:00 11/27/19 07:59 Intake & Output 11/26/19 11/27/19 11/28/19 06:59 06:59 06:59 Intake Total 311 3607 57 Output Total 745 655 30 Balance -434 2952 27 Weight 75.1 kg 74.6 kg 74.6 kg General appearance: PRESENT: cooperative, disheveled, thin, well-developed Head exam: PRESENT: atraumatic, normocephalic Eye exam: PRESENT: EOMI Mouth exam: PRESENT: moist Respiratory exam: PRESENT: decreased breath sounds, symmetrical, unlabored Cardiovascular exam: PRESENT: RRR, +S1, +S2, systolic murmur Pulses: PRESENT: normal radial pulses GI/Abdominal exam: PRESENT: soft Rectal exam: PRESENT: deferred Neurological exam: PRESENT: altered Skin exam: PRESENT: dry, intact Results Laboratory Results: 11/27/19 04:21 11/27/19 06:04 11/26/19 11/26/19 11/27/19 18:00 18:59 02:50 WBC RBC Hgb Hct MCV MCH MCHC RDW Plt Count Seg Neutrophils % Carbonic Acid 0.85 L HCO3/H2CO3 Ratio 17:1 ABG pH 7.33 L ABG pCO2 28.3 L ABG pO2 81.7 ABG HCO3 14.5 L ABG O2 Saturation 95.5 ABG Base Excess -9.9 FiO2 4L Sodium Potassium Chloride Carbon Dioxide Anion Gap BUN Creatinine Est GFR ( Amer) Est GFR (Non-Af Amer) Glucose Cancelled 108 Calcium Phosphorus Magnesium Total Bilirubin AST Alkaline Phosphatase Total Protein Albumin 11/27/19 11/27/19 11/27/19 04:21 04:21 06:04 WBC 6.5 RBC 4.65 Hgb 13.0 L D Hct 39.8 MCV 86 MCH 28.0 MCHC 32.7 RDW 19.1 H Plt Count 166 Seg Neutrophils % 70.4 Carbonic Acid HCO3/H2CO3 Ratio ABG pH ABG pCO2 ABG pO2 ABG HCO3 ABG O2 Saturation ABG Base Excess FiO2 Sodium Cancelled 131.6 L Potassium Cancelled 3.9 Chloride Cancelled 99 Carbon Dioxide Cancelled 18 L Anion Gap Cancelled 15 BUN Cancelled 28 H Creatinine Cancelled 1.61 H Est GFR ( Amer) Cancelled 53 L Est GFR (Non-Af Amer) Cancelled Glucose Cancelled 93 Calcium Cancelled 7.9 L Phosphorus Cancelled 4.4 Magnesium Cancelled 1.6 Total Bilirubin Cancelled 3.5 H AST Cancelled 1981 H Alkaline Phosphatase Cancelled 103 Total Protein Cancelled 6.2 L Albumin Cancelled 2.9 L 11/24/19 22:02 Blood Blood Culture (PCR) - Final Staphylococcus Species 11/24/19 22:02 Troponin I 0.141 NT-Pro-B Natriuret Pep [id number] H EKG Comments: Telemetry shows sinus rhythm at 64 bpm Impressions: Chest X-Ray 11/24/19 20:34 IMPRESSION: No acute abnormality as above. copyright 2011 [employer]- All Rights Reserved Chest/Abdomen CTA 11/24/19 22:55 IMPRESSION: There are filling defects within the main pulmonary artery concerning for developing saddle emboli. There are also filling defects seen within the segmental arteries consistent with pulmonary artery emboli. There is a groundglass nodule at the right upper lobe measuring up to 12 mm which will need interval follow-up within three months. There are trace pleural effusions with some overlying airspace opacities which are favored to represent atelectasis, but may also represent some mild edema or infection. Assessment & Plan - Diagnosis (1) Bilateral pulmonary embolism Is this a current diagnosis for this admission?: Yes Plan: Supportive care per intensive care unit. Intravenous heparin. Supportive care. RV dysfunction is manifest likely multifactorial of the pulmonary embolism does not improve prognosis (2) Tachycardia Is this a current diagnosis for this admission?: Yes Plan: Presently patient is maintaining sinus rhythm. Episodes of bradycardia probably due to increased vagal tone on account of respiratory distress/apneic episodes as well as increased vagal tone that is pr obably driven by large clot burden in the pulmonary artery. (3) Alcohol dependence Qualifiers: Substance use status: alcohol-induced persisting dementia Qualified Code(s): F10.27 - Alcohol dependence with alcohol-induced persisting dementia Is this a current diagnosis for this admission?: Yes Plan: This does complicate his care goals and objectives. 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
[2019-11-28] MEDS: DOBUTAMINE HCL/D5W 500 MG/250 ML RTUINJ IV PRN (02:18)
[2019-11-28] MEDS: HEPARIN SODIUM,PORCINE/D5W 25,000 UNIT/250 ML RTUINJ IV PRN (04:18)
[2019-11-28] MEDS: PANTOPRAZOLE SODIUM 40 MG TABLET.DR PO SCH (05:51)
[2019-11-28 05:52] LABS: INTERNATIONAL RATION (INR) 2.18; PROTHROMBIN TIME 24.3 SEC (11.4-15.4)
[2019-11-28] MEDS: LINEZOLID 600 MG/300 ML RTUPB IV SCH ×2 (05:52→17:01)
[2019-11-28 05:53] LABS: PARTIAL THROMBOPLASTIN TIME 52.7 SEC (23.5-35.8)
[2019-11-28 05:54] LABS: HEMATOCRIT 39.6 % (37.9-51.0); HEMOGLOBIN 13.2 g/dL (13.5-17.0); MEAN CORPUSCULAR HEMOGLOBIN 27.8 pg (27.0-33.4); MEAN CORPUSCULAR HGB CONC 33.4 g/dL (32.0-36.0); MEAN CORPUSCULAR VOLUME 83 fl (80-97); PLATELET COUNT 202 10^3/uL (150-450); RED BLOOD COUNT 4.76 10^6/uL (4.35-5.55); RED CELL DISTRIBUTION WIDTH 18.8 % (11.5-14.0); WHITE BLOOD COUNT 3.6 10^3/uL (4.0-10.5)
[2019-11-28 06:10] LABS: ABSOLUTE LYMPHOCYTES# (MANUAL) 0.1 10^3/uL (0.5-4.7); ABSOLUTE MONOCYTES # (MANUAL) 0.1 10^3/uL (0.1-1.4); ANISOCYTOSIS 2+; BASOPHILS % (MANUAL) 0 % (0-2); EOSINOPHILS % (MANUAL) 0 % (0-6); LYMPHOCYTES % (MANUAL) 4 % (13-45); MONOCYTES % (MANUAL) 4 % (3-13); OVALOCYTES SLIGHT; PLATELET COMMENT ADEQUATE; POIKILOCYTOSIS SLIGHT; SEGMENTED NEUTROPHILS % (MAN) 92 % (42-78); TOTAL CELLS COUNTED 100
[2019-11-28 06:15] LABS: ALBUMIN 2.8 g/dL (3.5-5.0); ALKALINE PHOSPHATASE 110 U/L (38-126); ANION GAP 8 (5-19); BILIRUBIN,DIRECT 2.3 mg/dL (0.0-0.4); BILIRUBIN,TOTAL 3.8 mg/dL (0.2-1.3); BLOOD UREA NITROGEN 26 mg/dL (7-20); CALCIUM 7.8 mg/dL (8.4-10.2); CARBON DIOXIDE 22 mmol/L (22-30); CHLORIDE 97 mmol/L (98-107); GLUCOSE 126 mg/dL (75-110); PHOSPHORUS 2.8 mg/dL (2.5-4.5); POTASSIUM 3.5 mmol/L (3.6-5.0); TOTAL PROTEIN 5.9 g/dL (6.3-8.2)
[2019-11-28 06:37] LABS: ASPARTATE AMINO TRANSFERASE 1653 U/L (17-59)
[2019-11-28] MEDS ORDERED: HEPARIN SOD (PORCINE) 1,000 UNIT/ML 10 ML VIAL ONE (06:41)
[2019-11-28] MEDS: LISINOPRIL 10 MG TABLET PO SCH (09:00)
[2019-11-28] MEDS ORDERED: HEPARIN SOD (PORCINE) 1,000 UNIT/ML 10 ML VIAL IV PRN (09:20)
[2019-11-28] MEDS: FLUDROCORTISONE ACETATE 0.1 MG TABLET PO SCH (09:25)
[2019-11-28 09:33] LABS: APPEARANCE,URINE SLIGHTLY-CLOUDY; BILIRUBIN,URINE NEGATIVE (NEGATIVE); CALCIUM OXALATE CRYSTALS,URINE FEW /HPF; COLOR,URINE AMBER; GLUCOSE, URINE NEGATIVE (NEGATIVE); KETONES,URINE NEGATIVE (NEGATIVE); LEUKOCYTE ESTERASE,URINE TRACE (NEGATIVE); NITRITE,URINE NEGATIVE (NEGATIVE); PROTEIN,URINE 100 mg/dL (NEGATIVE); URINE SPECIFIC GRAVITY 1.016
--- NOTE | 2019-11-28 11:16 | PDOC CRITICAL CARE PROG REPORT ---
General Date:: 11/28/19 ICU Day:: 4 Hospital Day:: 4 Resuscitation Status: Full Code Events in the past 12 to 24 Hours:: Update The patient developed worsening dyspnea early this afternoon. He became tachypneic and his 02 sat went down into the 70s. It became difficult to discern his 02 sat so an ABG was drawn. it showed a Pa02 of 204 on a 100% NRM. The patient had had a Pa02 of about 150 early this morning on 3 l02 nasal. He has conformed PE by CT scan. In addition, the patient dropped his BP some to about 100 systolic. his systolic was 20-30 pts higher a few hours ago. I decided to give the patient TPA based on this change in status. Shortly before this change in status the patient had reverted for A flutter with a HR in the 130s to asinus bowen and than NSR. The patient was queried about various bleeding risks ( CVA in past, aneurysym, gi bleed) and he answered that he had not. I explained thepotoential risks of bleeding with TPA to thepatient has well. I told him there was about 6-8% chance of bleeding and about 1-2 % chance of a an intracrainial hemorrhage. the patient appeared to iunderstand the risk and agreed to go forward with sytemic TPA. His heparin was put on hold in the interim. Out facility does npt use EKOs and or have mechanical thrombectomy available etc., I t did not appear reasonable or asafe to transfer thepatient to another facility at this time. 11/25 The patient had a change in status during the early afternoon. 'He developed sinus bowen after converting spontaneously from a rapid a -flutter with a 2:1 block. His pulse oximetry would dip down at times to the 70s and the patient became quite tachypneic. his A-a gradient appeared to have increaed very much at the time ( >400). We decided to give thepatient systemic TPA on the bassof those findings. The patient received 10% up front and the remaining 90 mg over 2 hours. The patient tolerated the infusion. His heparin drip was stopped and than restarted late that night Pulse ox remains in the 90s. 11/26 The patient continues to do poorly. His bp is running low. He appears listless. His urine output is quite poor in the last several hours. He continues to have brief bradycardic events. His pulse oximetry remains stable. 11/27 The patient appears more alert and less uncomfortable. Not tachypneic and not utilizing accessory resp. mm. The patient is more engaged. 02 sat is is in the high 90s on 4 l 2 nasal. He had some difficulties on his bedside swallow eval. We are going to prceed with modified barium swallow. We are going to try to get off dopamine and dobutrex as well. Reason for ICU Addmission:: pulmonary embolism Physical Exam Vital Signs: Temp Pulse Resp BP Pulse Ox 97.9 F 80 20 109/85 97 11/27/19 16:00 11/28/19 07:00 11/28/19 08:40 11/28/19 08:40 11/28/19 08:40 Intake & Output 11/27/19 11/28/19 11/29/19 06:59 06:59 06:59 Intake Total 3907 1731 21 Output Total 655 1550 165 Balance 3252 181 -144 Weight 74.6 kg 75.7 kg Weight/Height Weight 75.7 kg Height 6 ft 3 in General appearance: PRESENT: no acute distress Head exam: PRESENT: atraumatic, normocephalic Eye exam: PRESENT: conjunctiva pink Mouth exam: PRESENT: neck supple Neck exam: ABSENT: JVD, tenderness, thyromegaly, tracheal deviation Respiratory exam: ABSENT: accessory muscle use, retraction, tachypnea Cardiovascular exam: PRESENT: RRR, +S1, +S2 GI/Abdominal exam: PRESENT: normal bowel sounds, soft Rectal exam: ABSENT: black stool, laceration, tenderness Extremities exam: ABSENT: joint swelling, pedal edema Musculoskeletal exam: PRESENT: full ROM Psychiatric exam: PRESENT: flat affect - Patient does not ask questions or try to respond much though he appears to understand reaosnably well. Laboratory/Radiographs Laboratory Results: 11/28/19 05:35 11/28/19 05:35 11/28/19 11/28/19 11/28/19 05:35 05:35 09:15 WBC 3.6 L RBC 4.76 Hgb 13.2 L Hct 39.6 MCV 83 MCH 27.8 MCHC 33.4 RDW 18.8 H Plt Count 202 Seg Neutrophils % Not Reportable Sodium 126.9 L Potassium 3.5 L Chloride 97 L Carbon Dioxide 22 Anion Gap 8 BUN 26 H Creatinine 1.18 Est GFR ( Amer) > 60 Glucose 126 H Calcium 7.8 L Phosphorus 2.8 Magnesium 1.3 L Total Bilirubin 3.8 H AST 1653 H Alkaline Phosphatase 110 Total Protein 5.9 L Albumin 2.8 L Urine Color NAEEM Urine Appearance SLIGHTLY-CLOUDY Urine pH 6.0 Ur Specific [place] 1.016 Urine Protein 100 H Urine Glucose (UA) NEGATIVE Urine Ketones NEGATIVE Urine Blood LARGE H Urine Nitrite NEGATIVE Ur Leukocyte Esterase TRACE H Urine WBC (Auto) 29 Urine RBC (Auto) 72 11/24/19 22:02 Blood Blood Culture (PCR) - Final Staphylococcus Species 11/24/19 22:02 Troponin I 0.141 NT-Pro-B Natriuret Pep 57763 H Impressions: Chest X-Ray 11/24/19 20:34 IMPRESSION: No acute abnormality as above. copyright 2010 [employer]- All Rights Reserved Chest/Abdomen CTA 11/24/19 22:55 IMPRESSION: There are filling defects within the main pulmonary artery concerning for developing saddle emboli. There are also filling defects seen within the segmental arteries consistent with pulmonary artery emboli. There is a groundglass nodule at the right upper lobe measuring up to 12 mm which will need interval follow-up within three months. There are trace pleural effusions with some overlying airspace opacities which are favored to represent atelectasis, but may also represent some mild edema or infection. Assessment and Plan - Diagnosis (1) Atrial flutter Qualifiers: Atrial flutter type: unspecified Qualified Code(s): I48.92 - Unspecified atrial flutter Is this a current diagnosis for this admission?: No Plan: The patient appears to be in Atrial flutter with heart rate of 130-140. Unclear how long he has been in this rhythm. His recore from a previous admission cites PAF. Cardiology to see the patient. He is on full dose anticoagulation at this time 11/26 For the most part he is in a nSR. At times he has short periods of flutter or gets profoundly bradycardic. Dr. Bailon feelks he has enhanced vagal tone on the bsis of his large PE. (2) Bilateral pulmonary embolism Is this a current diagnosis for this admission?: Yes Plan: The patient does not appear to be hemodynamically compromised. he is maintaining his BP. He requires low flow 02. Not likely that he needs TPA at this time. We will be getting an nECHO to assess PAP and Lv fn. and right ventricle size. 11/25 Patient was treated witj systemic TPA yesterday. He is back on Heparin at this time His work of breathing and 02 saturations aappear better. No obvious bleeding complications. 11/26 The patient had a huge PE. He remains hemodynamically a bit precarious since than. His BP is running low presently. He is likely to needd pressors. He is already on dobutamine at 5 mcg/kg/min. He received TPA yesterday and is back onheparin at this time. 11/27 Can probaly take off heparin and start on po agent shortly. will await swallow test. Coumadin would not be a good choice for hime given the necessary f/u. He appears to be more hemodynamically stable and having kess breaducardia at this time. Oxygennationis better as well as previously noted. (3) Alcohol dependence Qualifiers: Substance use status: alcohol-induced persisting dementia Qualified Code(s): F10.27 - Alcohol dependence with alcohol-induced persisting dementia Is this a current diagnosis for this admission?: Yes Plan: The patient carries a diagnosis of alcohol related dilated cardiomyopathy. He is showing no signs of acute withdrawl at this time. 11/25 AST is elevated from the time of admission. Alk phos and bili are slightly elevated as well. Will continue to monitor them for now. 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 According to Dr. Bailon he has severe bialteral ventricular dysfn. he is on Dobutamine for inotropic support. he may need additional dopamine or levo given hsi low bp. 11/27 Recent ECHO showed a LVEF of about 20%. In addition, the RV was dialted and showed poor contractilty. (5) PAD (peripheral artery disease) Is this a current diagnosis for this admission?: No Plan: Patient has known occlusive diseases since 09/01. He had a partial occlusionin theright anterior tibial artery and more critical b lockage in the distal right femoral artery. (6) Sick sinus syndrome Is this a current diagnosis for this admission?: Yes Plan: I beleiev alcidesap is reason to bleieve the patient has a SSS,. His gheart rate vacillates quite a bot between 30 and 130. Whe he spontaneously converted yesterday he slowed ointo the 30s. We have stopoped his bnetas david at this time. cardiology to see the patient Plan Summary: It appears likely that the patient is not going to do well. he is in a low flow state. He appears to be developing JULIANNA. He is not a suitable dialysis candidate even in the short term. I will try to talk to patient about hius code status if he appears able to have that conversation. Prognosis appears poor. 11/27 The patient's brother was here yesterday. they are not particualrly close. I ddid explain that thepatient was quite ill and not likely to do well even in the short term. I did speak to the patient about resucitation etc., and if he needed intubation or resuscitation he remains onboard. Critical Time Critical Time (minutes): 25 Level of Care: ICU -: 1. The care of a critical patient is a dynamic process. This note is a sales representative publications synopsis but static in nature. The timeframe for treatments given in order is not necessarily the actual time these treatments may have been done. 2. This patient requires critical care secondary to ongoing requirements for therapy not offered or safe outside the critical care environment. Transfer to a lower level of care will result in altered life or limb morbidity and mortality. 3. Multidisciplinary rounds completed. 4. ABCDE bundle addressed.
[2019-11-28] MEDS: RINGERS SOLUTION,LACTATED 1,000 ML IV PRN (11:31)
[2019-11-28] MEDS: DOPAMINE HCL/DEXTROSE 5%-WATER 800 MG/250 ML RTUINJ IV PRN (13:52)
[2019-11-28] MEDS ORDERED: DEXTROSE 5%-NORMAL SALINE 1,000 ML IV PRN (14:53)
[2019-11-28] MEDS: DEXTROSE 50%-WATER SYRINGE 12.5 GM/25 ML DOSE IV PRN (14:56)
[2019-11-29] MEDS: PANTOPRAZOLE SODIUM 40 MG TABLET.DR PO SCH (06:21)
[2019-11-29] MEDS: LINEZOLID 600 MG/300 ML RTUPB IV SCH ×2 (06:33→18:48)
[2019-11-29] MEDS: LISINOPRIL 10 MG TABLET PO SCH (09:21)
[2019-11-29] MEDS: FLUDROCORTISONE ACETATE 0.1 MG TABLET PO SCH (09:21)
[2019-11-29] MEDS: APIXABAN 5 MG TABLET PO SCH ×2 (10:34→17:28)
--- NOTE | 2019-11-29 10:59 | RADIOLOGY REPORT (SQ) ---
EXAM DESCRIPTION: COOKIE SWALLOW IMAGES COMPLETED DATE/TIME: 11/29/2019 9:43 am REASON FOR STUDY: Diffculty swallowing COMPARISON: None. TECHNIQUE: Videofluoroscopic swallowing examination was performed in conjunction with speech patholo gy. Videofluoroscopic imaging was obtained and reviewed and these are the findings: RADIATION DOSE: Fluoro time 4.9 minutes 1 images saved to PACS. LIMITATIONS: None FINDINGS: The patient was brought into the fluoro room and placed upright on a modified barium swall ow chair. The patient was then given multiple consistencies mixed with barium to swallow under live fluoroscopic video guidance. According to the Speech Pathologist there was deep laryngeal penetratio n with trace aspiration seen with thin barium. All other consistencies were swallowed without incide nt. Mild cricopharyngeus hypertrophy with what appears to be the beginning of a small Zenker's diver ticulum. Intermittent lack of epiglottic inversion noted. Please refer to the speech pathology repor t for further details. IMPRESSION: DEEP LARYNGEAL PENETRATION WITH TRACE ASPIRATION SEEN WITH THIN BARIUM. . PLEASE SEE SP EE[facility] PATHOLOGIST REPORT FOR OTHER FINDINGS AND RECOMMENDATIONS. COMMENT: None Quality ID [id number]: Final reports for procedures using fluoroscopy that document radiation exposure arcadio narinder, or exposure time and number of fluorographic images (if radiation exposure indices are not avail able) TECHNICAL DOCUMENTATION: JOB ID: [id number] 2010 [employer]- All Rights Reserved Reading location - IP/workstation name: [email or web address]
--- NOTE | 2019-11-29 12:11 | ST Inp Modified Barium Swallow ---
Medical Diagnosis - Medical Diagnoses Medical Diagnosis Description & ICD-10 Code(s): bilateral PE - ICD-10 Tx Diagnosis Coding (1) Dysphagia ICD-10 Code(s): R13.10 - DYSPHAGIA, UNSPECIFIED (2) Bilateral pulmonary embolism ICD-10 Code(s): I26.99 - OTHER PULMONARY EMBOLISM WITHOUT ACUTE COR P[facility] ST Inpatient [facility] – [place] - General Date: 11/29/19 Date of Onset: 11/28/19 - History -: Medical - per EMR: patient admitted 11/24 with bilateral pleural embolism. Prior medical history includes atrial flutter, alcohol induced dilated cardiomyopathy, CHF, HTN, PVD, COPD. Recently, nursing reports that the patient has had some wet, gurgly voice sounds with PO intake. Medications: Medications Reviewed Allergies: No known allergies - Subjective Current Nutritional Means: PO Current PO Diet: Regular Current Symptoms: Coughing, Wet/gurgly voice Pain: Patient reports, 0/5 - Objective Assessment: Upright, Left Lateral - Food Trials Food Trials Used: Thin liquids, Pureed, Regular The Patient: Was Able to Self Feed - Assessment Labial Function: Impaired - mildly reduced seal Lingual Function: Within Functional Limits Mandibular Function: Within Functional Limits Dentition: Partial Velo-Pharyngeal Function: Unremarkable - Pharyngeal Stage Initiation of Pharyngeal Stage: Normal Decreased Laryngeal Elevation: Yes - mild Reduced Velo-Pharyngeal Closure: no Reduced Pressure Generation: Yes Reduced Tongue Base Retraction: No Pre-Swallowing Pooling in Valleculae: Moderate Pre-Swallowing Pooling in Pyriforms: Mild Reduced Thyro-Hyiod Approximation: Yes - mild Reduced Epiglottic Excursion: Yes - possibly due to osteophytes Reduced Pharyngeal Peristalsis: No Multiple Swallows With: Cleared w/ Liquid Assist Post Swallow Residuals in Valleculae: Significant - with regular solids Post Swallow Residuals in Pyriforms: Mild - with all textures Post Swallow Residuals: throughout pharynx - Esophageal Stage Cricophageal Function: Normal - while cricopharyngeal function is witin normal limits, there is evidence of development of possible Zenker's diverticulum or bar from posterior wall at level of approximately C6 Cervical Osteophytes Noted: Yes - C3-4 - Impression/Summary Laryngeal Penetration: Yes - deep penetration seen with thin liquids Tracheal Aspiration: yes - aspiraton clearly seen x1 with thin liquid Compensatory Strategies: fully upright, head up for PO Risk of Aspiration: Moderate - Recommendations Solid Diet Recommendations: Regular Liquid Diet Recommendations: Thin Strict Aspitarion Precautions: Yes Recommended Techniques: Fully Upright During Meal, Small Bites and Sips, Alternate Bites/Sips Other Recommendations: Patient demonstrated some retrograde movement of barium after the swallow, apparently from below the UES, back into pharyngeal cavity after the swallow consistently initially. This was then seen to enter laryngeal vestibule and be aspirated. When cued patient to lift head up higher, this was not seen to happen again. - Time Total Time: 30 Total Timed Minutes: 30
--- NOTE | 2019-11-29 13:29 | PDOC CRITICAL CARE PROG REPORT ---
General Date:: 11/29/19 ICU Day:: 5 Hospital Day:: 5 Resuscitation Status: Full Code Events in the past 12 to 24 Hours:: Update The patient developed worsening dyspnea early this afternoon. He became tachypneic and his 02 sat went down into the 70s. It became difficult to discern his 02 sat so an ABG was drawn. it showed a Pa02 of 204 on a 100% NRM. The patient had had a Pa02 of about 150 early this morning on 3 l02 nasal. He has conformed PE by CT scan. In addition, the patient dropped his BP some to about 100 systolic. his systolic was 20-30 pts higher a few hours ago. I decided to give the patient TPA based on this change in status. Shortly before this change in status the patient had reverted for A flutter with a HR in the 130s to asinus bowen and than NSR. The patient was queried about various bleeding risks ( CVA in past, aneurysym, gi bleed) and he answered that he had not. I explained thepotoential risks of bleeding with TPA to thepatient has well. I told him there was about 6-8% chance of bleeding and about 1-2 % chance of a an intracrainial hemorrhage. the patient appeared to iunderstand the risk and agreed to go forward with sytemic TPA. His heparin was put on hold in the interim. Out facility does npt use EKOs and or have mechanical thrombectomy available etc., I t did not appear reasonable or asafe to transfer thepatient to another facility at this time. 11/25 The patient had a change in status during the early afternoon. 'He developed sinus bowen after converting spontaneously from a rapid a -flutter with a 2:1 block. His pulse oximetry would dip down at times to the 70s and the patient became quite tachypneic. his A-a gradient appeared to have increaed very much at the time ( >400). We decided to give thepatient systemic TPA on the bassof those findings. The patient received 10% up front and the remaining 90 mg over 2 hours. The patient tolerated the infusion. His heparin drip was stopped and than restarted late that night Pulse ox remains in the 90s. 11/26 The patient continues to do poorly. His bp is running low. He appears listless. His urine output is quite poor in the last several hours. He continues to have brief bradycardic events. His pulse oximetry remains stable. 11/27 The patient appears more alert and less uncomfortable. Not tachypneic and not utilizing accessory resp. mm. The patient is more engaged. 02 sat is is in the high 90s on 4 l 2 nasal. He had some difficulties on his bedside swallow eval. We are going to prceed with modified barium swallow. We are going to try to get off dopamine and dobutrex as well. 11/28 The patient has appeared to have turned the corner. He is iff dobutrex and dopamine. He is awake and communicative. His respiratory status has much improved. He has developed a bit of hyponatremia. His fluid balance is grossly positive the last few days. I hesitate to order lasix as his Bp is rather soft. I may try to obtain salt tablets for the pa tient. His cortisol level was normal. Urine Na + was 10 so it appears that the patient's kidneys are trying to preserve Na+. Reason for ICU Addmission:: pulmonary embolism Physical Exam Vital Signs: Temp Pulse Resp BP Pulse Ox 96.6 F L 75 28 H 101/88 H 100 11/29/19 10:00 11/29/19 07:00 11/29/19 10:31 11/29/19 10:00 11/29/19 10:30 Intake & Output 11/28/19 11/29/19 11/30/19 06:59 06:59 06:59 Intake Total 1731 1270 391 Output Total 1550 895 110 Balance 181 375 281 Weight 75.7 kg 80.4 kg Weight/Height Weight 80.4 kg Height 6 ft 3 in General appearance: PRESENT: cooperative, disheveled Head exam: PRESENT: atraumatic, normocephalic Eye exam: PRESENT: conjunctiva pink Mouth exam: PRESENT: moist, neck supple Neck exam: PRESENT: full ROM. ABSENT: meningismus Respiratory exam: ABSENT: accessory muscle use Cardiovascular exam: PRESENT: RRR Pulses: PRESENT: +1 pedal pulses bilateral GI/Abdominal exam: PRESENT: normal bowel sounds, soft Rectal exam: PRESENT: deferred Extremities exam: ABSENT: joint swelling Musculoskeletal exam: PRESENT: full ROM Neurological exam: PRESENT: alert, awake, oriented to person, oriented to place, oriented to situation Psychiatric exam: PRESENT: flat affect Laboratory/Radiographs Laboratory Results: 11/28/19 05:35 11/28/19 05:35 11/28/19 11/28/19 09:15 09:15 Ur Specific [place] Cancelled Urine Osmolality 442 11/24/19 22:02 Blood Blood Culture (PCR) - Final Staphylococcus Species 11/24/19 22:02 Blood Blood Culture - Final Staphylococcus Epidermidis 11/24/19 22:02 Troponin I 0.141 NT-Pro-B Natriuret Pep 22601 H Impressions: Chest X-Ray 11/24/19 20:34 IMPRESSION: No acute abnormality as above. copyright 2010 [employer]- All Rights Reserved Chest/Abdomen CTA 11/24/19 22:55 IMPRESSION: There are filling defects within the main pulmonary artery concerning for developing saddle emboli. There are also filling defects seen within the segmental arteries consistent with pulmonary artery emboli. There is a groundglass nodule at the right upper lobe measuring up to 12 mm which will need interval follow-up within three months. There are trace pleural effusions with some overlying airspace opacities which are favored to represent atelectasis, but may also represent some mild edema or infection. Modified Barium Swallow 11/29/19 00:00 IMPRESSION: DEEP LARYNGEAL PENETRATION WITH TRACE ASPIRATION SEEN WITH THIN BARIUM. . PLEASE SEE SPEECH PATHOLOGIST REPORT FOR OTHER FINDINGS AND RECOMMENDATIONS. Assessment and Plan - Diagnosis (1) Atrial flutter Qualifiers: Atrial flutter type: unspecified Qualified Code(s): I48.92 - Unspecified atrial flutter Is this a current diagnosis for this admission?: No Plan: The patient appears to be in Atrial flutter with heart rate of 130-140. Unclear how long he has been in this rhythm. His recore from a previous admission cites PAF. Cardiology to see the patient. He is on full dose anticoagulation at this time 11/26 For the most part he is in a nSR. At times he has short periods of flutter or gets profoundly bradycardic. Dr. Bailon feelks he has enhanced vagal tone on the bsis of his large PE. 11/28 Has been in NSR without significant pauses or slwing the past 48 hours (2) Bilateral pulmonary embolism Is this a current diagnosis for this admission?: Yes Plan: The patient does not appear to be hemodynamically compromised. he is maintaining his BP. He requires low flow 02. Not likely that he needs TPA at this time. We will be getting an nECHO to assess PAP and Lv fn. and right ventricle size. 11/25 Patient was treated witj systemic TPA yesterday. He is back on Heparin at this time His work of breathing and 02 saturations aappear better. No obvious bleeding complications. 11/26 The patient had a huge PE. He remains hemodynamically a bit precarious since than. His BP is running low presently. He is likely to needd pressors. He is already on dobutamine at 5 mcg/kg/min. He received TPA yesterday and is back onheparin at this time. 11/27 Can probaly take off heparin and start on po agent shortly. will await swallow test. Coumadin would not be a good choice for hime given the necessary f/u. He appears to be more hemodynamically stable and having kess breaducardia at this time. Oxygennation is better as well as previously noted. We are stopping heparin and switching over to Eliquis at this time. (3) Alcohol dependence Qualifiers: Substance use status: alcohol-induced persisting dementia Qualified Code(s): F10.27 - Alcohol dependence with alcohol-induced persisting dementia Is this a current diagnosis for this admission?: Yes Plan: The patient carries a diagnosis of alcohol related dilated cardiomyopathy. He is showing no signs of acute withdrawl at this time. 11/25 AST is elevated from the time of admission. Alk phos and bili are slightly elevated as well. Will continue to monitor them for now. 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 According to Dr. Bailon he has severe bialteral ventricular dysfn. he is on Dobutamine for inotropic support. he may need additional dopamine or levo given hsi low bp. 11/27 Recent ECHO showed a LVEF of about 20%. In addition, the RV was dialted and showed poor contractilty. (5) PAD (peripheral artery disease) Is this a current diagnosis for this admission?: No Plan: Patient has known occlusive diseases since 09/01. He had a partial occlusionin theright anterior tibial artery and more critical blockage in the distal right femoral artery. (6) Sick sinus syndrome Is this a current diagnosis for this admission?: Yes Plan: I allen doty is reason to bleieve the patient has a SSS,. His gheart rate vacillates quite a bot between 30 and 130. Whe he spontaneously converted yesterday he slowed ointo the 30s. We have stopoped his bnetas david at this time. cardiology to see the patient Critical Time Critical Time (minutes): 25 Level of Care: ICU -: 1. The care of a critical patient is a dynamic process. This note is a plastic products sales representative synopsis but static in nature. The timeframe for treatments given in order is not necessarily the actual time these treatments may have been done. 2. This patient requires critical care secondary to ongoing requirements for therapy not offered or safe outside the critical care environment. Transfer to a lower level of care will result in altered life or limb morbidity and mortality. 3. Multidisciplinary rounds completed. 4. ABCDE bundle addressed.
[2019-11-29] MEDS: SODIUM CHLORIDE 1 GM TABLET PO SCH ×2 (17:28→17:29)
[2019-11-30 05:16] LABS: ANION GAP 10 (5-19); BLOOD UREA NITROGEN 19 mg/dL (7-20); CALCIUM 7.7 mg/dL (8.4-10.2); CARBON DIOXIDE 20 mmol/L (22-30); CHLORIDE 98 mmol/L (98-107); GLUCOSE 127 mg/dL (75-110)
[2019-11-30] MEDS: LINEZOLID 600 MG/300 ML RTUPB IV SCH ×2 (05:29→17:42)
[2019-11-30] MEDS: PANTOPRAZOLE SODIUM 40 MG TABLET.DR PO SCH (05:30)
[2019-11-30] MEDS: IPRATROPIUM/ALBUTEROL 0.5-2.5 MG/3 ML AMPUL NEB PRN (09:15)
[2019-11-30 10:19] LABS: ARTERIAL BLOOD BASE EXCESS -6.3 mmol/L; ARTERIAL BLOOD H2CO3 0.88 mmol/L (1.05-1.35); ARTERIAL BLOOD HCO3 17.1 mmol/L (20-24); ARTERIAL BLOOD O2 SATURATION 95.5 % (94-98); ARTERIAL BLOOD PCO2 29.3 mmHg (35-45); ARTERIAL BLOOD PH 7.39 (7.35-7.45); ARTERIAL BLOOD PO2 77.8 mmHg (80-100)
[2019-11-30 10:20] LABS: ARTERIAL BLOOD FIO2 3L
[2019-11-30] MEDS: APIXABAN 5 MG TABLET PO SCH ×2 (11:07→17:40)
[2019-11-30] MEDS: SODIUM CHLORIDE 1 GM TABLET PO SCH ×3 (11:08→17:40)
[2019-11-30] MEDS: LISINOPRIL 10 MG TABLET PO SCH (11:08)
[2019-11-30] MEDS: FLUDROCORTISONE ACETATE 0.1 MG TABLET PO SCH (11:08)
--- NOTE | 2019-11-30 13:26 | PDOC PROGRESS REPORT ---
Subjective Progress Note for:: 11/30/19 Subjective:: Patient admitted to the hospital directly to the ICU on 11/25/2019 for treatment of acute pulmonary embolism with saddle embolism noted on CT. Initially was hemodynamically stable. However later that day he began to become hemodynamically unstable and became hypotensive and bradycardic likely secondary to massive pulmonary embolism. He received TPA in the ICU. Also noted hypoxic. He was later started on a heparin drip and transitioned to Eliquis. In the ICU, was also started on linezolid after blood cultures came back positive for coagulase-negative staph in 1 blood culture sets. Evaluated for dysphagia. Also evaluated by guest relations manager giving he has history of severe alcoholism and dilated cardiomyopathy and was experiencing episodes of bradycardia. His bradycardic episodes were thought to be secondary to increased vagal tone secondary to massive thrombus burden. He was transferred out of the ICU today. This morning he was noted to be hypoxic in the 60s on pulse oximetry. We did get a pulse oximeter for his forehead and ABG which showed that the level of hypoxia was not actually depicted in his fingertips. He does have history of peripheral arterial disease. I did confirm with the collision estimator that they also have trouble getting good pleths on his pulse ox from his fingers. His abdomen is distended. Reason For Visit: BILATERAL PE Physical Exam Vital Signs: Temp Pulse Resp BP Pulse Ox 98.0 F 103 H 24 H 135/98 H 99 11/30/19 11:24 11/30/19 11:24 11/30/19 11:24 11/30/19 11:24 11/30/19 11:24 Intake & Output 11/29/19 11/30/19 12/01/19 06:59 06:59 06:59 Intake Total 1270 991 225 Output Total 895 1010 150 Balance 375 -19 75 Weight 80.4 kg 80 kg General appearance: PRESENT: no acute distress, cooperative Neck exam: ABSENT: JVD Respiratory exam: PRESENT: tachypnea, unlabored. ABSENT: accessory muscle use, symmetrical, wheezes Cardiovascular exam: PRESENT: +S1, +S2, tachycardia. ABSENT: irregular rhythm GI/Abdominal exam: PRESENT: distended, firm, soft, tenderness. ABSENT: guarding, hernia, rebound, rigid Extremities exam: PRESENT: pedal edema Neurological exam: PRESENT: alert, awake Results Laboratory Results: 11/28/19 05:35 11/30/19 04:29 11/30/19 11/30/19 04:29 09:10 Carbonic Acid 0.88 L HCO3/H2CO3 Ratio 19:1 ABG pH 7.39 ABG pCO2 29.3 L ABG pO2 77.8 L ABG HCO3 17.1 L ABG O2 Saturation 95.5 ABG Base Excess -6.3 FiO2 3L Sodium 128.1 L Potassium 4.0 Chloride 98 Carbon Dioxide 20 L Anion Gap 10 BUN 19 Creatinine 0.90 Est GFR ( Amer) > 60 Glucose 127 H Calcium 7.7 L 11/24/19 23:05 Blood Blood Culture - Final NO GROWTH IN 5 DAYS 11/24/19 22:02 Troponin I 0.141 NT-Pro-B Natriuret Pep [id number] H Impressions: Chest X-Ray 11/24/19 20:34 IMPRESSION: No acute abnormality as above. copyright 2010 [email or web address]- All Rights Reserved Chest/Abdomen CTA 11/24/19 22:55 IMPRESSION: There are filling defects within the main pulmonary artery concerning for developing saddle emboli. There are also filling defects seen within the segmental arteries consistent with pulmonary artery emboli. There is a groundglass nodule at the right upper lobe measuring up to 12 mm which will need interval follow-up within three months. There are trace pleural effusions with some overlying airspace opacities which are favored to represent atelectasis, but may also represent some mild edema or infection. Modified Barium Swallow 11/29/19 00:00 IMPRESSION: DEEP LARYNGEAL PENETRATION WITH TRACE ASPIRATION SEEN WITH THIN BARIUM. . PLEASE SEE SPEECH PATHOLOGIST REPORT FOR OTHER FINDINGS AND RECOMMENDATIONS. Assessment and Plan - Diagnosis (1) Acute massive pulmonary embolism Is this a current diagnosis for this admission?: Yes Plan: Saddle embolus extending into the right and left lower lobes. Noted hemodynamic instability with hypotension and bradycardic episodes. Status post TPA administered on 11/25/2019 Currently on Eliquis Monitor on telemetry Likely has DVT in his legs as he does have leg swelling as well. (2) Positive blood culture Is this a current diagnosis for this admission?: Yes Plan: 1 blood culture sets was noted positive for coagulase-negative methicillin- resistant staph. Currently on linezolid. I suspect this to be a contaminant but we will continue for a few more days to finish a 7-day course for bacteremia treatment. Check repeat blood cultures (3) Hyponatremia Is this a current diagnosis for this admission?: Yes Plan: Sodium is 128 today. Continue sodium chloride tablets follow-up same new labs including urine sodium, osmolarity and serum osmolarity. Monitor metabolic panel closely (4) Dilated cardiomyopathy secondary to alcohol Is this a current diagnosis for this admission?: Yes Plan: TTE showing biventricular failure with dilated cardiomyopathy, EF of 20 to 25% and grade 3 diastolic dysfunction of the LV. Diuretics on hold for now. We will plan to resume Toprol soon now that bradycardia seems to have resolved. Continue lisinopril. (5) Sick sinus syndrome Is this a current diagnosis for this admission?: Yes Plan: Bradycardic episodes were thought to be secondary to increased vagal tone from thrombus burden. Reviewing his chart, it does not seem that he has had any recurrence of the bradycardia since 11/27/2019 after receiving TPA on 11/25/2019. (6) Dysphagia Qualifiers: Dysphagia type: pharyngoesophageal phase Qualified Code(s): R13.14 - Dysphagia, pharyngoesophageal phase Is this a current diagnosis for this admission?: Yes Plan: Had noted aspiration with thin liquids on MBS which resolved when upright with chin kept up. Speech pathologist however recommends continuation of regular diet with thin liquids but prompting patient to sit upright with chin kept upright. (7) Paroxysmal atrial fibrillation Is this a current diagnosis for this admission?: Yes Plan: sinus rhythm. His beta-david was on hold due to episodes of bradycardia. Will resume at some point soon. Monitor on telemetry. (8) Acute respiratory failure with hypoxia Is this a current diagnosis for this admission?: Yes Plan: Secondary to pulmonary embolism. Currently adequate on 2 to 3 L nasal cannula. Patient does have significant PAD and this may affect pulse oximeter readings with fingertips. ABG does confirm adequate oxygenation on 3 L nasal cannula. (9) Abdominal distention Is this a current diagnosis for this admission?: Yes Plan: Firm but not rigid. May be constipated. Check KUB. (10) Alcohol dependence Qualifiers: Substance use status: alcohol-induced persisting dementia Qualified Code(s): F10.27 - Alcohol dependence with alcohol-induced persisting dementia Is this a current diagnosis for this admission?: Yes Plan: Mild transaminitis. Monitor for withdrawal. He has been in the hospital for about 6 days now so he may be getting out of the withdrawal window at this point. (11) Pulmonary nodule Is this a current diagnosis for this admission?: Yes Plan: Noted on CAT scan. Follow-up imaging recommended in 3 months but given saroj graves's homelessness and noncompliance, it is very unlikely he will follow-up. (12) Homeless Is this a current diagnosis for this admission?: Yes Plan: Physical therapy. Patient will likely need long-term placement at SNF. We will get discharge planning involved. - Time Time Spent with patient: 35 or more minutes Anticipated Discharge Disposition: Care Home Facility Anticipated Discharge Timeframe: Undetermined
--- NOTE | 2019-11-30 14:25 | RADIOLOGY REPORT (SQ) ---
EXAM DESCRIPTION: KUB/ABDOMEN (SINGLE VIEW) IMAGES COMPLETED DATE/TIME: 11/30/2019 1:04 pm REASON FOR STUDY: abdominal distention COMPARISON: None. NUMBER OF VIEWS: One view. TECHNIQUE: Supine radiographic image of the abdomen acquired. LIMITATIONS: None. FINDINGS: BOWEL GAS PATTERN: There are mildly dilated small bowel loops throughout the abdomen, daisy uring up to 3.3 cm. Possible developing ileus, or early obstruction cannot be excluded. CALCIFICATIONS: Right mid abdominal calcifications versus enteric contents. SOFT TISSUES: No gross mass or suggestion of organomegaly. HARDWARE: None in the abdomen. BONES: No acute fracture. Symphysis pubis fusion hardware. OTHER: No other significant finding. IMPRESSION: There are mildly dilated small bowel loops throughout the abdomen, measuring up to 3.3 c m. Possible developing ileus, or early obstruction cannot be excluded. COMMENT: The findings were sent to the Radiology Results Communication Center at 14:19 on 11/30/2019 to be communicated to a licensed caregiver. TECHNICAL DOCUMENTATION: JOB ID: [id number] 2010 [employer] All Rights Reserved Reading location - IP/workstation name: [email or web address]
[2019-12-01 02:03] LABS: C DIFFICILE GDH NEGATIVE (NEGATIVE)
[2019-12-01] MEDS: LINEZOLID 600 MG/300 ML RTUPB IV SCH ×2 (05:28→18:56)
[2019-12-01] MEDS: PANTOPRAZOLE SODIUM 40 MG TABLET.DR PO SCH (05:58)
[2019-12-01 06:56] LABS: HEMATOCRIT 45.7 % (37.9-51.0); HEMOGLOBIN 15.1 g/dL (13.5-17.0); MEAN CORPUSCULAR HEMOGLOBIN 27.8 pg (27.0-33.4); MEAN CORPUSCULAR HGB CONC 33.1 g/dL (32.0-36.0); MEAN CORPUSCULAR VOLUME 84 fl (80-97); PLATELET COUNT 164 10^3/uL (150-450); RED BLOOD COUNT 5.44 10^6/uL (4.35-5.55); RED CELL DISTRIBUTION WIDTH 19.7 % (11.5-14.0); WHITE BLOOD COUNT 9.4 10^3/uL (4.0-10.5)
[2019-12-01 09:10] LABS: ALBUMIN 2.3 g/dL (3.5-5.0); ALKALINE PHOSPHATASE 131 U/L (38-126); ANION GAP 9 (5-19); ASPARTATE AMINO TRANSFERASE 284 U/L (17-59); BILIRUBIN,TOTAL 4.7 mg/dL (0.2-1.3); BLOOD UREA NITROGEN 13 mg/dL (7-20); CALCIUM 7.7 mg/dL (8.4-10.2); CARBON DIOXIDE 22 mmol/L (22-30); CHLORIDE 98 mmol/L (98-107); GLUCOSE 106 mg/dL (75-110); PHOSPHORUS 2.1 mg/dL (2.5-4.5); POTASSIUM 4.4 mmol/L (3.6-5.0); TOTAL PROTEIN 5.3 g/dL (6.3-8.2)
[2019-12-01] MEDS: DOCUSATE SODIUM 100 MG CAPSULE PO SCH (09:51)
[2019-12-01] MEDS: LISINOPRIL 10 MG TABLET PO SCH (10:38)
[2019-12-01] MEDS: POLYETHYLENE GLYCOL 3350 POWDER 17 GM/1 PACKET PO SCH (10:38)
[2019-12-01] MEDS: SODIUM CHLORIDE 1 GM TABLET PO SCH (10:42)
[2019-12-01] MEDS: APIXABAN 5 MG TABLET PO SCH ×2 (10:42→18:56)
[2019-12-01] MEDS ORDERED: NORMAL SALINE 1000 ML 1,000 ML IV PRN (12:48)
--- NOTE | 2019-12-01 12:54 | PDOC PROGRESS REPORT ---
Subjective Progress Note for:: 12/01/19 Subjective:: Patient has had a few loose bowel movements yesterday. He actually had a large sized amounts which was mostly liquid. His KUB yesterday had showed signs concerning for ileus but patient certainly does not have ileus as he has had bowel movements or may be this may simply just be resolving. He did have dilated bowel loops. He feels comfortable at this time. Abdomen is less distended. He denies any shortness of breath. He has been eating his meals. Reason For Visit: BILATERAL PE Physical Exam Vital Signs: Temp Pulse Resp BP Pulse Ox 97.4 F 96 18 91/57 L 100 12/01/19 07:28 12/01/19 07:32 12/01/19 07:28 12/01/19 07:32 12/01/19 07:28 Intake & Output 11/30/19 12/01/19 12/02/19 06:59 06:59 06:59 Intake Total 991 1047 Output Total 1010 1125 Weight 80 kg 86.4 kg General appearance: PRESENT: no acute distress, cooperative, disheveled. ABSENT: morbidly obese, severe distress Neck exam: ABSENT: JVD Respiratory exam: PRESENT: symmetrical, unlabored. ABSENT: tachypnea, wheezes Cardiovascular exam: PRESENT: RRR, +S1, +S2. ABSENT: tachycardia GI/Abdominal exam: PRESENT: distended - Mild at this point improved from before, soft. ABSENT: rebound, rigid, tenderness Extremities exam: PRESENT: pedal edema, +1 edema - Right more than left Neurological exam: PRESENT: alert, awake, oriented to person, oriented to place, oriented to time Psychiatric exam: ABSENT: agitated, anxious Results Laboratory Results: 12/01/19 05:42 12/01/19 08:28 11/30/19 11/30/19 12/01/19 13:22 18:15 05:42 WBC 9.4 RBC 5.44 Hgb 15.1 Hct 45.7 MCV 84 MCH 27.8 MCHC 33.1 RDW 19.7 H Plt Count 164 Sodium Potassium Chloride Carbon Dioxide Anion Gap BUN Creatinine Est GFR ( Amer) Est GFR (Non-Af Amer) Glucose Serum Osmolality 271 L Calcium Phosphorus Magnesium Total Bilirubin AST Alkaline Phosphatase Total Protein Albumin Urine Osmolality 243 L 12/01/19 12/01/19 05:42 08:28 WBC RBC Hgb Hct MCV MCH MCHC RDW Plt Count Sodium Cancelled 129.1 L Potassium Cancelled 4.4 Chloride Cancelled 98 Carbon Dioxide Cancelled 22 Anion Gap Cancelled 9 BUN Cancelled 13 Creatinine Cancelled 0.78 Est GFR ( Amer) Cancelled > 60 Est GFR (Non-Af Amer) Cancelled Glucose Cancelled 106 Serum Osmolality Calcium Cancelled 7.7 L Phosphorus Cancelled 2.1 L Magnesium Cancelled 1.5 L Total Bilirubin Cancelled 4.7 H AST Cancelled 284 H Alkaline Phosphatase Cancelled 131 H Total Protein Cancelled 5.3 L Albumin Cancelled 2.3 L Urine Osmolality 11/24/19 22:02 Troponin I 0.141 NT-Pro-B Natriuret Pep [id number] H Impressions: Chest X-Ray 11/24/19 20:34 IMPRESSION: No acute abnormality as above. copyright 2011 [employer]- All Rights Reserved Chest/Abdomen CTA 11/24/19 22:55 IMPRESSION: There are filling defects within the main pulmonary artery concerning for developing saddle emboli. There are also filling defects seen within the segmental arteries consistent with pulmonary artery emboli. There is a groundglass nodule at the right upper lobe measuring up to 12 mm which will need interval follow-up within three months. There are trace pleural effusions with some overlying airspace opacities which are favored to represent atelectasis, but may also represent some mild edema or infection. Modified Barium Swallow 11/29/19 00:00 IMPRESSION: DEEP LARYNGEAL PENETRATION WITH TRACE ASPIRATION SEEN WITH THIN BARIUM. . PLEASE SEE SPEECH PATHOLOGIST REPORT FOR OTHER FINDINGS AND RECOMMENDATIONS. KUB X-Ray 11/30/19 00:00 IMPRESSION: There are mildly dilated small bowel loops throughout the abdomen, measuring up to 3.3 cm. Possible developing ileus, or early obstruction cannot be excluded. Assessment and Plan - Diagnosis (1) Acute massive pulmonary embolism Is this a current diagnosis for this admission?: Yes Plan: Saddle embolus extending into the right and left lower lobes. Noted hemodynamic instability with hypotension and bradycardic episodes. Status post TPA administered on 11/25/2019 Continue Eliquis Monitor on telemetry Likely has DVT in his legs as he does have leg swelling as well. (2) Bacteremia Is this a current diagnosis for this admission?: Yes Plan: Initially blood cultures positive for MR Coag neg Staph and only 1 blood culture set which may be a contaminant but has been treated with linezolid. I will finish up 7-day course which should end tomorrow. Repeat blood cultures on 11/30/2019 showing gram-negative bacteremia. Uncertain about the source but will check a urine culture and start Ceftriaxone. (3) Hyponatremia Is this a current diagnosis for this admission?: Yes Plan: Urine osmolarity and urine sodium are low and suggest hyponatremia secondary to low caloric nutritional intake. Patient seems to be eating better now. We will start to decrease sodium chloride dose We will give him a small infusion of normal saline today and encourage p.o. intake Sodium levels will be monitored (4) Dilated cardiomyopathy secondary to alcohol Is this a current diagnosis for this admission?: Yes Plan: TTE showing biventricular failure with dilated cardiomyopathy, EF of 20 to 25% a nd grade 3 diastolic dysfunction of the LV. Currently not in acute heart failure Diuretics on hold for now. We will plan to resume Toprol soon now that bradycardia seems to have resolved. Lisinopril on hold due to soft blood pressure. (5) Sick sinus syndrome Is this a current diagnosis for this admission?: Yes Plan: Bradycardic episodes were thought to be secondary to increased vagal tone from thrombus burden. Reviewing his chart, it does not seem that he has had any recurrence of the bradycardia since 11/27/2019 after receiving TPA on 11/25/2019. (6) Dysphagia Qualifiers: Dysphagia type: pharyngoesophageal phase Qualified Code(s): R13.14 - Dysphagia, pharyngoesophageal phase Is this a current diagnosis for this admission?: Yes Plan: Had noted aspiration with thin liquids on MBS which resolved when upright with chin kept up. Speech pathologist however recommends continuation of regular d iet with thin liquids but prompting patient to sit upright with chin kept upright. (7) Paroxysmal atrial fibrillation Is this a current diagnosis for this admission?: Yes Plan: sinus rhythm. His beta-david was on hold due to episodes of bradycardia. Will resume at some point soon. Monitor on telemetry. (8) Acute respiratory failure with hypoxia Is this a current diagnosis for this admission?: Yes Plan: Secondary to pulmonary embolism. Currently adequate on 2 to 3 L nasal cannula. Patient does have significant PAD and this may affect pulse oximeter readings with fingertips. (9) Abdominal distention Is this a current diagnosis for this admission?: Yes Plan: KUB shows dilated bowel loops suggestive of ileus. Ileus seems to be resolving as patient has had several bowel movements mostly liquidy but very good size. Distention is improving. Will monitor (10) Alcohol dependence Qualifiers: Substance use status: alcohol-induced persisting dementia Qualified Code(s): F10.27 - Alcohol dependence with alcohol-induced persisting dementia Is this a current diagnosis for this admission?: Yes Plan: Transaminitis is improved. Transaminitis likely secondary to alcoholic hepatitis. Currently no evidence of withdrawal and he should be out of the withdrawal window at this point (11) Pulmonary nodule Is this a current diagnosis for this admission?: Yes Plan: Noted on CAT scan. Follow-up imaging recommended in 3 months but given patient's homelessness and noncompliance, it is very unlikely he will follow-up. (12) Homeless Is this a current diagnosis for this admission?: Yes Plan: Physical therapy. Patient will likely need long-term placement at SNF. Discharge planning working on this - Time Time Spent with patient: 15-24 minutes Anticipated Discharge Disposition: Custodial Facility Anticipated Discharge Timeframe: within 48 hours
[2019-12-01] MEDS ORDERED: PHOSPHORUS #1 250 MG TABLET PO ONE (13:30)
[2019-12-01] MEDS: THIAMINE HCL 100 MG TABLET PO SCH (15:12)
[2019-12-01] MEDS: CEFTRIAXONE 2 GM/D5W RTU 2 GM/50 ML RTUPB IV SCH (15:13)
[2019-12-01] MEDS: MAGNESIUM OXIDE 400 MG TABLET PO SCH ×2 (15:13→18:56)
[2019-12-02] MEDS: LINEZOLID 600 MG/300 ML RTUPB IV SCH ×2 (05:31→17:38)
[2019-12-02] MEDS: PANTOPRAZOLE SODIUM 40 MG TABLET.DR PO SCH (05:33)
[2019-12-02 06:00] LABS: ANION GAP 12 (5-19); BLOOD UREA NITROGEN 12 mg/dL (7-20); CALCIUM 8.1 mg/dL (8.4-10.2); CARBON DIOXIDE 21 mmol/L (22-30); CHLORIDE 99 mmol/L (98-107); GLUCOSE 102 mg/dL (75-110); PHOSPHORUS 2.2 mg/dL (2.5-4.5); POTASSIUM 4.5 mmol/L (3.6-5.0)
[2019-12-02 07:05] LABS: FOLATE 6.45 ng/mL (>2.76)
[2019-12-02] MEDS ORDERED: POTASSIUM PHOS,M-BASIC-D-BASIC 30 MMOL in NORMAL SALINE 500 ML IV ONE (10:00)
[2019-12-02] MEDS: POLYETHYLENE GLYCOL 3350 POWDER 17 GM/1 PACKET PO SCH (10:08)
[2019-12-02] MEDS: DOCUSATE SODIUM 100 MG CAPSULE PO SCH (10:08)
[2019-12-02] MEDS: MAGNESIUM SULFATE/D5W 1 GM/100 ML RTUPB IV SCH ×2 (10:19→12:03)
[2019-12-02] MEDS: CEFTRIAXONE 2 GM/D5W RTU 2 GM/50 ML RTUPB IV SCH (10:19)
[2019-12-02] MEDS: METOPROLOL SUCCINATE 25 MG TAB.SR.24H PO SCH (10:20)
[2019-12-02] MEDS: THIAMINE HCL 100 MG TABLET PO SCH (10:20)
[2019-12-02] MEDS: MAGNESIUM OXIDE 400 MG TABLET PO SCH ×2 (10:20→17:38)
[2019-12-02] MEDS: APIXABAN 5 MG TABLET PO SCH ×2 (10:21→17:39)
--- NOTE | 2019-12-02 19:31 | PDOC PROGRESS REPORT ---
Subjective Progress Note for:: 12/02/19 Subjective:: Patient had on the bowel movement today. He was mostly liquid-jayesh but with some formed stool. He denies any nausea vomiting. States that he feels like he still needs to go a little bit more in terms of bowel movement. Reason For Visit: BILATERAL PE Physical Exam Vital Signs: Temp Pulse Resp BP Pulse Ox 97.4 F 91 22 H 123/100 H 89 L 12/02/19 16:57 12/02/19 16:57 12/02/19 12:23 12/02/19 16:57 12/02/19 07:36 Intake & Output 12/01/19 12/02/19 12/03/19 06:59 06:59 06:59 Intake Total 1047 3305 1290 Output Total 1125 300 Balance -78 3005 1290 Weight 86.4 kg 86.2 kg General appearance: PRESENT: no acute distress, cooperative Neck exam: ABSENT: JVD Respiratory exam: PRESENT: symmetrical, unlabored. ABSENT: tachypnea, wheezes Cardiovascular exam: PRESENT: +S1, +S2 GI/Abdominal exam: PRESENT: distended, firm, soft. ABSENT: rebound, rigid, tenderness Neurological exam: PRESENT: alert, awake Results Laboratory Results: 12/01/19 05:42 12/02/19 05:00 12/02/19 05:00 Sodium 132.2 L Potassium 4.5 Chloride 99 Carbon Dioxide 21 L Anion Gap 12 BUN 12 Creatinine 0.71 Est GFR ( Amer) > 60 Glucose 102 Calcium 8.1 L Phosphorus 2.2 L Magnesium 1.5 L Folate 6.45 11/30/19 13:22 Blood Blood Culture - Final Klebsiella Pneumoniae 11/24/19 22:02 Troponin I 0.141 NT-Pro-B Natriuret Pep [id number] H Impressions: Chest X-Ray 11/24/19 20:34 IMPRESSION: No acute abnormality as above. copyright 2011 [employer]- All Rights Reserved Chest/Abdomen CTA 11/24/19 22:55 IMPRESSION: There are filling defects within the main pulmonary artery concerning for developing saddle emboli. There are also filling defects seen within the segmental arteries consistent with pulmonary artery emboli. There is a groundglass nodule at the right upper lobe measuring up to 12 mm which will need interval follow-up within three months. There are trace pleural effusions with some overlying airspace opacities which are favored to represent atelectasis, but may also represent some mild edema or infection. Modified Barium Swallow 11/29/19 00:00 IMPRESSION: DEEP LARYNGEAL PENETRATION WITH TRACE ASPIRATION SEEN WITH THIN BARIUM. . PLEASE SEE SPEECH PATHOLOGIST REPORT FOR OTHER FINDINGS AND RECOMMENDATIONS. KUB X-Ray 11/30/19 00:00 IMPRESSION: There are mildly dilated small bowel loops throughout the abdomen, measuring up to 3.3 cm. Possible developing ileus, or early obstruction cannot be excluded. Assessment and Plan - Diagnosis (1) Acute massive pulmonary embolism Is this a current diagnosis for this admission?: Yes Plan: Saddle embolus extending into the right and left lower lobes. Noted hemodynamic instability with hypotension and bradycardic episodes. Status post TPA administered on 11/25/2019 Continue Eliquis Monitor on telemetry Likely has DVT in his legs as he does have leg swelling as well. (2) Bacteremia Is this a current diagnosis for this admission?: Yes Plan: Initially blood cultures positive for MR Coag neg Staph and only 1 blood culture set which may be a contaminant but has been treated with linezolid. I will finish up 7-day course which should end tomorrow. Repeat blood cultures on 11/30/2019 showing gram-negative bacteremia likely secondary to UTI as urine culture is also growing gram-negative genevieve. Continue ceftriaxone (3) Hyponatremia Is this a current diagnosis for this admission?: Yes Plan: Urine osmolarity and urine sodium are low and suggest hyponatremia secondary to low caloric nutritional intake. Patient seems to be eating better now. Sodium chloride tablets discontinued yesterday afternoon and sodium actually continues to improve. Will monitor sodium. (4) Dilated cardiomyopathy secondary to alcohol Is this a current diagnosis for this admission?: Yes (5) Sick sinus syndrome Is this a current diagnosis for this admission?: Yes (6) Dysphagia Qualifiers: Dysphagia type: pharyngoesophageal phase Qualified Code(s): R13.14 - Dysphagia, pharyngoesophageal phase Is this a current diagnosis for this admission?: Yes (7) Paroxysmal atrial fibrillation Is this a current diagnosis for this admission?: Yes (8) Acute respiratory failure with hypoxia Is this a current diagnosis for this admission?: Yes (9) Abdominal distention Is this a current diagnosis for this admission?: Yes (10) Alcohol dependence Qualifiers: Substance use status: alcohol-induced persisting dementia Qualified Code(s): F10.27 - Alcohol dependence with alcohol-induced persisting dementia Is this a current diagnosis for this admission?: Yes (11) Pulmonary nodule Is this a current diagnosis for this admission?: Yes (12) Homeless Is this a current diagnosis for this admission?: Yes - Time Time Spent with patient: Less than 15 minutes Anticipated Discharge Disposition: Long Term Facility Anticipated Discharge Timeframe: within 48 hours
[2019-12-03] MEDS: PANTOPRAZOLE SODIUM 40 MG TABLET.DR PO SCH (06:08)
[2019-12-03 08:41] LABS: ANION GAP 9 (5-19); BLOOD UREA NITROGEN 11 mg/dL (7-20); CARBON DIOXIDE 23 mmol/L (22-30); CHLORIDE 96 mmol/L (98-107); GLUCOSE 103 mg/dL (75-110); POTASSIUM 4.8 mmol/L (3.6-5.0)
[2019-12-03] MEDS: APIXABAN 5 MG TABLET PO SCH ×2 (09:20→17:16)
[2019-12-03] MEDS: THIAMINE HCL 100 MG TABLET PO SCH (09:20)
[2019-12-03] MEDS: CEFTRIAXONE 2 GM/D5W RTU 2 GM/50 ML RTUPB IV SCH (09:20)
[2019-12-03] MEDS: METOPROLOL SUCCINATE 25 MG TAB.SR.24H PO SCH (09:20)
[2019-12-03] MEDS: MAGNESIUM OXIDE 400 MG TABLET PO SCH ×2 (09:20→17:16)
[2019-12-03] MEDS: DOCUSATE SODIUM 100 MG CAPSULE PO SCH (09:21)
[2019-12-03] MEDS: POLYETHYLENE GLYCOL 3350 POWDER 17 GM/1 PACKET PO SCH (09:21)
--- NOTE | 2019-12-03 11:37 | RADIOLOGY REPORT (SQ) ---
EXAM DESCRIPTION: KUB/ABDOMEN (SINGLE VIEW) IMAGES COMPLETED DATE/TIME: 12/03/2019 8:10 am REASON FOR STUDY: abdominal distention, constipation? COMPARISON: 11/30/2019 NUMBER OF VIEWS: One view. TECHNIQUE: Supine radiographic image of the abdomen acquired. LIMITATIONS: None. FINDINGS: BOWEL GAS PATTERN: Normal bowel gas pattern. No dilated loops. Minimal residual barium wi thin a couple of diverticula in the right colon. CALCIFICATIONS: No suspicious calcifications. SOFT TISSUES: No gross mass or suggestion of organomegaly. HARDWARE: None in the abdomen. BONES: No acute fracture. No worrisome bone lesions. OTHER: No other significant finding. IMPRESSION: Nonobstructive bowel gas pattern. TECHNICAL DOCUMENTATION: JOB ID: [id number] 2010 [employer]- All Rights Reserved Reading location - IP/workstation name: [email or web address]
--- NOTE | 2019-12-03 13:18 | PDOC PROGRESS REPORT ---
Subjective Progress Note for:: 12/03/19 Subjective:: Patient has no complaints today. Denies any shortness of breath. Hard on the bowel movement today. Reason For Visit: BILATERAL PE Physical Exam Vital Signs: Temp Pulse Resp BP Pulse Ox 98.3 F 98 18 133/90 H 97 12/03/19 12:38 12/03/19 12:38 12/03/19 12:38 12/03/19 12:38 12/03/19 12:38 Intake & Output 12/02/19 12/03/19 12/04/19 06:59 06:59 06:59 Intake Total 3305 1490 50 Output Total 300 0 Balance 3005 1490 50 Weight 86.2 kg 87.6 kg General appearance: PRESENT: no acute distress, cooperative Neck exam: ABSENT: JVD Respiratory exam: PRESENT: symmetrical, unlabored. ABSENT: tachypnea, wheezes Cardiovascular exam: PRESENT: RRR, +S1, +S2. ABSENT: tachycardia GI/Abdominal exam: PRESENT: distended - very mild at this point, firm - Significantly improved and certainly not rigid, soft. ABSENT: guarding, hernia, rebound, rigid, tenderness Neurological exam: PRESENT: alert, awake Psychiatric exam: ABSENT: agitated, anxious Focused psych exam: ABSENT: pressured speech Skin exam: ABSENT: jaundice Results Laboratory Results: 12/01/19 05:42 12/03/19 06:53 12/03/19 12/03/19 04:59 06:53 Sodium Cancelled 128.0 L Potassium Cancelled 4.8 Chloride Cancelled 96 L Carbon Dioxide Cancelled 23 Anion Gap Cancelled 9 BUN Cancelled 11 Creatinine Cancelled 0.70 Est GFR ( Amer) Cancelled > 60 Est GFR (Non-Af Amer) Cancelled Glucose Cancelled 103 Calcium Cancelled 8.0 L 11/24/19 22:02 Troponin I 0.141 NT-Pro-B Natriuret Pep [id number] H Impressions: Chest X-Ray 11/24/19 20:34 IMPRESSION: No acute abnormality as above. copyright 2011 [employer]- All Rights Reserved Chest/Abdomen CTA 11/24/19 22:55 IMPRESSION: There are filling defects within the main pulmonary artery concerning for developing saddle emboli. There are also filling defects seen within the segmental arteries consistent with pulmonary artery emboli. There is a groundglass nodule at the right upper lobe measuring up to 12 mm which will need interval follow-up within three months. There are trace pleural effusions with some overlying airspace opacities which are favored to represent atelectasis, but may also represent some mild edema or infection. Modified Barium Swallow 11/29/19 00:00 IMPRESSION: DEEP LARYNGEAL PENETRATION WITH TRACE ASPIRATION SEEN WITH THIN BARIUM. . PLEASE SEE SPEECH PATHOLOGIST REPORT FOR OTHER FINDINGS AND RECOMMENDATIONS. KUB X-Ray 12/03/19 00:00 IMPRESSION: Nonobstructive bowel gas pattern. Assessment and Plan - Diagnosis (1) Acute massive pulmonary embolism Is this a current diagnosis for this admission?: Yes Plan: Saddle embolus extending into the right and left lower lobes. Noted hemodynamic instability with hypotension and bradycardic episodes. Status post TPA administered on 11/25/2019 Continue Eliquis 10 mg bid till Dec 04 then 5mg bid Likely has DVT in his legs as he does have leg swelling as well. (2) Bacteremia Is this a current diagnosis for this admission?: Yes Plan: Initially blood cultures positive for MR Coag neg Staph and only 1 blood culture set-completed 7 days of linezolid though possibly could be contaminant. Repeat blood cultures on 11/30/2019 showing Klebsiella likely secondary to complicated UTI as urine culture is also growing GNR. Initially on ceftriaxone both switched to Bactrim p.o. for 7 more days. (3) Hyponatremia Is this a current diagnosis for this admission?: Yes Plan: Urine osmolarity and urine sodium are low and suggest hyponatremia secondary to low caloric nutritional intake. Patient seems to be eating better now. Monitor (4) Dilated cardiomyopathy secondary to alcohol Is this a current diagnosis for this admission?: Yes Plan: TTE showing biventricular failure with dilated cardiomyopathy, EF of 20 to 25% and grade 3 diastolic dysfunction of the LV. Currently not in acute heart failure Diuretics on hold for now. Toprol-XL 25 mg daily. Lisinopril 5 mg daily. (5) Sick sinus syndrome Is this a current diagnosis for this admission?: Yes Plan: Bradycardic episodes were thought to be secondary to increased vagal tone from thrombus burden. Reviewing his chart, it does not seem that he has had any recurrence of the bradycardia since 11/27/2019 after receiving TPA on 11/25/2019. (6) Dysphagia Qualifiers: Dysphagia type: pharyngoesophageal phase Qualified Code(s): R13.14 - Dysphagia, pharyngoesophageal phase Is this a current diagnosis for this admission?: Yes Plan: Had noted aspiration with thin liquids on MBS which resolved when upright with chin kept up. Speech pathologist however recommends continuation of regular diet with thin liquids but prompting patient to sit upright with chin kept upright. He is doing okay with this. (7) Paroxysmal atrial fibrillation Is this a current diagnosis for this admission?: Yes Plan: Sinus rhythm currently (8) Acute respiratory failure with hypoxia Is this a current diagnosis for this admission?: Yes Plan: Secondary to pulmonary embolism. Was actually on room air this morning with adequate O2 saturation. (9) Abdominal distention Is this a current diagnosis for this admission?: Yes Plan: Repeat KUB is improved. We will continue stool softeners (10) Alcohol dependence Qualifiers: Substance use status: alcohol-induced persisting dementia Qualified Code(s): F10.27 - Alcohol dependence with alcohol-induced persisting dementia Is this a current diagnosis for this admission?: Yes Plan: Transaminitis likely secondary to alcoholic hepatitis which has significantly improved. Currently no evidence of withdrawal and he should be out of the withdrawal window at this point (11) Pulmonary nodule Is this a current diagnosis for this admission?: Yes Plan: Noted on CAT scan. Follow-up imaging recommended in 3 months but given patient's homelessness and noncompliance, it is very unlikely he will follow-up. (12) Homeless Is this a current diagnosis for this admission?: Yes Plan: Physical therapy. Patient will likely need long-term placement at SNF. Discharge planning working on this - Time Time Spent with patient: 15-24 minutes Anticipated [facility]charge [facility]position[facility] Anticipated Discharge Timeframe: within 24 hours - or when bed is available
[2019-12-03] MEDS ORDERED: HYDRALAZINE HCL INJ/PF 20 MG/1 ML SDV IV PRN (21:41)
[2019-12-03] MEDS: ACETAMINOPHEN 325 MG TABLET PO PRN (21:57)
[2019-12-04] MEDS: PANTOPRAZOLE SODIUM 40 MG TABLET.DR PO SCH (05:09)
[2019-12-04 07:27] LABS: ANION GAP 7 (5-19); BLOOD UREA NITROGEN 11 mg/dL (7-20); CALCIUM 7.6 mg/dL (8.4-10.2); CARBON DIOXIDE 22 mmol/L (22-30); CHLORIDE 98 mmol/L (98-107); GLUCOSE 78 mg/dL (75-110); PHOSPHORUS 1.7 mg/dL (2.5-4.5); POTASSIUM 4.5 mmol/L (3.6-5.0)
[2019-12-04] MEDS ORDERED: NORMAL SALINE 1000 ML 500 ML IV ONE (07:34)
[2019-12-04] MEDS ORDERED: SODIUM CHLORIDE 1 GM TABLET PO ONE (09:00)
[2019-12-04] MEDS: DOCUSATE SODIUM 100 MG CAPSULE PO SCH (09:26)
[2019-12-04] MEDS: THIAMINE HCL 100 MG TABLET PO SCH (09:26)
[2019-12-04] MEDS: MAGNESIUM OXIDE 400 MG TABLET PO SCH ×2 (09:26→17:19)
[2019-12-04] MEDS: APIXABAN 5 MG TABLET PO SCH ×2 (09:26→17:19)
[2019-12-04] MEDS: SULFAMETHOXAZOLE/TRIMETHOPRIM 800-160 MG TABLET PO SCH ×2 (09:26→22:05)
[2019-12-04] MEDS: MAGNESIUM SULFATE/D5W 1 GM/100 ML RTUPB IV SCH ×2 (09:27→11:08)
[2019-12-04] MEDS: METOPROLOL SUCCINATE 25 MG TAB.SR.24H PO SCH (09:27)
[2019-12-04] MEDS: NICOTINE 14 MG/24 HR PATCH.TD24 TD SCH (09:27)
[2019-12-04] MEDS ORDERED: POTASSIUM PHOS,M-BASIC-D-BASIC 30 MMOL in NORMAL SALINE 500 ML IV ONE (10:00)
[2019-12-04] MEDS ORDERED: NICOTINE 21 MG/24 HR PATCH.TD24 TD SCH (10:00)
--- NOTE | 2019-12-04 11:36 | PDOC PROGRESS REPORT ---
Subjective Progress Note for:: 12/04/19 Subjective:: Patient is doing well today. He denies any shortness of breath. He is eating his meals. Having regular bowel movements. Reason For Visit: BILATERAL PE Physical Exam Vital Signs: Temp Pulse Resp BP Pulse Ox 98.1 F 81 15 105/74 100 12/04/19 08:08 12/04/19 07:36 12/04/19 07:36 12/04/19 07:36 12/04/19 07:36 Intake & Output 12/03/19 12/04/19 12/05/19 06:59 06:59 06:59 Intake Total 1490 1720 100 Output Total 125 Balance 1490 1595 100 Weight 91.5 kg General appearance: PRESENT: no acute distress, cooperative Neck exam: ABSENT: JVD Respiratory exam: PRESENT: symmetrical, unlabored. ABSENT: clear to auscultation jefferson, tachypnea, wheezes Cardiovascular exam: PRESENT: RRR, +S1, +S2. ABSENT: tachycardia GI/Abdominal exam: PRESENT: soft. ABSENT: rebound, rigid, tenderness Neurological exam: PRESENT: alert, awake, oriented to person, oriented to place, oriented to time Psychiatric exam: ABSENT: agitated, anxious Results Laboratory Results: 12/01/19 05:42 12/04/19 06:29 12/04/19 06:29 Sodium 127.1 L Potassium 4.5 Chloride 98 Carbon Dioxide 22 Anion Gap 7 BUN 11 Creatinine 0.70 Est GFR ( Amer) > 60 Glucose 78 Calcium 7.6 L Phosphorus 1.7 L Magnesium 1.5 L 12/01/19 14:35 Clean Catch Midstream Urine Culture - Final Klebsiella Pneumoniae 11/24/19 22:02 Troponin I 0.141 NT-Pro-B Natriuret Pep [id number] H Impressions: Chest X-Ray 11/24/19 20:34 IMPRESSION: No acute abnormality as above. copyright 2011 [employer]- All Rights Reserved Chest/Abdomen CTA 11/24/19 22:55 IMPRESSION: There are filling defects within the main pulmonary artery concerning for developing saddle emboli. There are also filling defects seen within the segmental arteries consistent with pulmonary artery emboli. There is a groundglass nodule at the right upper lobe measuring up to 12 mm which will need interval follow-up within three months. There are trace pleural effusions with some overlying airspace opacities which are favored to represent atelectasis, but may also represent some mild edema or infection. Modified Barium Swallow 11/29/19 00:00 IMPRESSION: DEEP LARYNGEAL PENETRATION WITH TRACE ASPIRATION SEEN WITH THIN BARIUM. . PLEASE SEE SPEECH PATHOLOGIST REPORT FOR OTHER FINDINGS AND RECOMMENDATIONS. KUB X-Ray 12/03/19 00:00 IMPRESSION: Nonobstructive bowel gas pattern. Assessment and Plan - Diagnosis (1) Acute massive pulmonary embolism Is this a current diagnosis for this admission?: Yes Plan: Saddle embolus extending into the right and left lower lobes. Noted hemodynamic instability with hypotension and bradycardic episodes. Status post TPA administered on 11/25/2019 Continue Eliquis 10 mg bid till Dec 04 then 5mg bid Likely has DVT in his legs as he does have leg swelling as well. (2) Bacteremia Is this a current diagnosis for this admission?: Yes Plan: Initially blood cultures positive for MR Navag neg Staph and only 1 blood culture set-completed 7 days of linezolid though possibly could be contaminant. Repeat blood cultures on 11/30/2019 showing Klebsiella secondary to complicated UTI. Initially on ceftriaxone. Now on Bactrim p.o. for 6 more days. (3) Hyponatremia Is this a current diagnosis for this admission?: Yes Plan: Urine osmolarity and urine sodium are low and suggest hyponatremia secondary to low caloric nutritional intake. Patient seems to be eating better now. I will give some normal saline today and recheck BMP. (4) Dilated cardiomyopathy secondary to alcohol Is this a current diagnosis for this admission?: Yes Plan: TTE showing biventricular failure with dilated cardiomyopathy, EF of 20 to 25% and grade 3 diastolic dysfunction of the LV. Currently not in acute heart failure Diuretics on hold for now. Toprol-XL 25 mg daily. Lisinopril 5 mg daily. (5) Sick sinus syndrome Is this a current diagnosis for this admission?: Yes Plan: Bradycardic episodes were thought to be secondary to increased vagal tone from thrombus burden. Reviewing his chart, it does not seem that he has had any recurrence of the bradycardia since 11/27/2019 after receiving TPA on 11/25/2019. (6) Dysphagia Qualifiers: Dysphagia type: pharyngoesophageal phase Qualified Code(s): R13.14 - Dysphagia, pharyngoesophageal phase Is this a current diagnosis for this admission?: Yes Plan: Had noted aspiration with thin liquids on MBS which resolved when upright with chin kept up. Speech pathologist however recommends continuation of regular diet with thin liquids but prompting patient to sit upright with chin kept upright. He is doing okay with this. (7) Paroxysmal atrial fibrillation Is this a current diagnosis for this admission?: Yes Plan: Sinus rhythm currently (8) Acute respiratory failure with hypoxia Is this a current diagnosis for this admission?: Yes Plan: Secondary to pulmonary embolism. Checked O2 saturation today myself patient is 100% when placed on room air. Instructed staff to leave patient on room air unless he desaturates below 91%. (9) Abdominal distention Is this a current diagnosis for this admission?: Yes Plan: Repeat KUB is improved. We will continue stool softeners. Patient now having regular bowel movements. (10) Alcohol dependence Qualifiers: Substance use status: alcohol-induced persisting dementia Qualified Code(s): F10.27 - Alcohol dependence with alcohol-induced persisting dementia Is this a current diagnosis for this admission?: Yes Plan: Transaminitis likely secondary to alcoholic hepatitis which has significantly improved. Currently no evidence of withdrawal and he is out of the withdrawal window at this point (11) Pulmonary nodule Is this a current diagnosis for this admission?: Yes Plan: Noted on CAT scan. Follow-up imaging recommended in 3 months but given patient's homelessness and noncompliance, it is very unlikely he will follow-up. (12) Homeless Is this a current diagnosis for this admission?: Yes Plan: Physical therapy. Patient will likely need long-term placement at SNF. Discharge planning working on this - Time Time Spent with patient: 15-24 minutes Anticipated Discharge Disposition: Nursing Home Facility Anticipated Discharge Timeframe: when bed available
[2019-12-04 16:47] LABS: ANION GAP 9 (5-19); BLOOD UREA NITROGEN 10 mg/dL (7-20); CARBON DIOXIDE 24 mmol/L (22-30); CHLORIDE 97 mmol/L (98-107); GLUCOSE 72 mg/dL (75-110); PHOSPHORUS 2.6 mg/dL (2.5-4.5)
[2019-12-05] MEDS: PANTOPRAZOLE SODIUM 40 MG TABLET.DR PO SCH (05:45)
[2019-12-05 06:12] LABS: ANION GAP 9 (5-19); BLOOD UREA NITROGEN 9 mg/dL (7-20); CALCIUM 7.8 mg/dL (8.4-10.2); CARBON DIOXIDE 23 mmol/L (22-30); CHLORIDE 98 mmol/L (98-107); GLUCOSE 109 mg/dL (75-110); PHOSPHORUS 2.2 mg/dL (2.5-4.5); POTASSIUM 4.8 mmol/L (3.6-5.0)
[2019-12-05] MEDS ORDERED: INFLUENZA QUAD (6MOS+) 2020-21 VAC 0.5 ML SYR IM ONE (08:00)
[2019-12-05] MEDS: NICOTINE 14 MG/24 HR PATCH.TD24 TD SCH (09:25)
[2019-12-05] MEDS: LISINOPRIL 10 MG TABLET PO SCH (09:26)
[2019-12-05] MEDS: DOCUSATE SODIUM 100 MG CAPSULE PO SCH (09:26)
[2019-12-05] MEDS: APIXABAN 5 MG TABLET PO SCH ×2 (09:27→17:30)
[2019-12-05] MEDS: THIAMINE HCL 100 MG TABLET PO SCH (09:27)
[2019-12-05] MEDS: MAGNESIUM OXIDE 400 MG TABLET PO SCH ×2 (09:27→17:30)
[2019-12-05] MEDS: SULFAMETHOXAZOLE/TRIMETHOPRIM 800-160 MG TABLET PO SCH ×2 (09:27→22:08)
[2019-12-05] MEDS: METOPROLOL SUCCINATE 25 MG TAB.SR.24H PO SCH (09:28)
--- NOTE | 2019-12-05 14:04 | PDOC PROGRESS REPORT ---
Subjective Progress Note for:: 12/05/19 Reason For Visit: BILATERAL PE Physical Exam Vital Signs: Temp Pulse Resp BP Pulse Ox 97.3 F 84 20 119/93 H 100 12/05/19 10:00 12/05/19 07:48 12/05/19 07:48 12/05/19 07:48 12/05/19 07:48 Intake & Output 12/04/19 12/05/19 12/06/19 06:59 06:59 06:59 Intake Total 1720 2230 500 Output Total 125 Balance 1595 2230 500 Weight 91.5 kg 89.5 kg General appearance: PRESENT: no acute distress, disheveled Head exam: PRESENT: atraumatic, normocephalic Eye exam: PRESENT: conjunctiva pink, EOMI, PERRLA. ABSENT: scleral icterus Ear exam: PRESENT: normal external ear exam Mouth exam: PRESENT: moist, tongue midline Neck exam: ABSENT: carotid bruit, JVD, lymphadenopathy, thyromegaly Respiratory exam: PRESENT: clear to auscultation jefferson. ABSENT: rales, rhonchi, wheezes Cardiovascular exam: PRESENT: RRR, +S1, +S2. ABSENT: diastolic murmur, rubs, systolic murmur Pulses: PRESENT: normal dorsalis pedis pul Vascular exam: PRESENT: normal capillary refill GI/Abdominal exam: PRESENT: normal bowel sounds, soft. ABSENT: distended, guarding, mass, organolmegaly, rebound, tenderness Rectal exam: PRESENT: deferred Extremities exam: PRESENT: full ROM, other - swelling. ABSENT: clubbing, pedal edema Neurological exam: PRESENT: alert, awake, oriented to person, oriented to place, oriented to time, oriented to situation, CN II-XII grossly intact. ABSENT: motor sensory deficit Psychiatric exam: PRESENT: appropriate affect, normal mood. ABSENT: homicidal ideation, suicidal ideation Skin exam: PRESENT: dry, intact, warm. ABSENT: cyanosis, rash Results Laboratory Results: 12/01/19 05:42 12/05/19 05:23 12/04/19 12/05/19 15:39 05:23 Sodium 130.0 L 129.9 L Potassium 5.0 4.8 Chloride 97 L 98 Carbon Dioxide 24 23 Anion Gap 9 9 BUN 10 9 Creatinine 0.69 0.79 Est GFR ( Amer) > 60 > 60 Glucose 72 L 109 Calcium 8.0 L 7.8 L Phosphorus 2.6 2.2 L Magnesium 1.8 11/30/19 13:06 Blood Blood Culture - Final NO GROWTH IN 5 DAYS 11/24/19 22:02 Troponin I 0.141 NT-Pro-B Natriuret Pep [id number] H Impressions: Chest X-Ray 11/24/19 20:34 IMPRESSION: No acute abnormality as above. copyright 2010 [employer]- All Rights Reserved Chest/Abdomen CTA 11/24/19 22:55 IMPRESSION: There are filling defects within the main pulmonary artery concerning for developing saddle emboli. There are also filling defects seen within the segmental arteries consistent with pulmonary artery emboli. There is a groundglass nodule at the right upper lobe measuring up to 12 mm which will need interval follow-up within three months. There are trace pleural effusions with some overlying airspace opacities which are favored to represent atelectasis, but may also represent some mild edema or infection. Modified Barium Swallow 11/29/19 00:00 IMPRESSION: DEEP LARYNGEAL PENETRATION WITH TRACE ASPIRATION SEEN WITH THIN BARIUM. . PLEASE SEE SPEECH PATHOLOGIST REPORT FOR OTHER FINDINGS AND RECOMMENDATIONS. KUB X-Ray 12/03/19 00:00 IMPRESSION: Nonobstructive bowel gas pattern. Assessment and Plan - Diagnosis (1) Acute massive pulmonary embolism Is this a current diagnosis for this admission?: Yes (2) Acute respiratory failure with hypoxia Is this a current diagnosis for this admission?: Yes (3) Bacteremia Is this a current diagnosis for this admission?: Yes (4) Bilateral pulmonary embolism Is this a current diagnosis for this admission?: Yes (5) Dysphagia Qualifiers: Dysphagia type: pharyngoesophageal phase Qualified Code(s): R13.14 - Dysphagia, pharyngoesophageal phase Is this a current diagnosis for this admission?: Yes (6) Hyponatremia Is this a current diagnosis for this admission?: Yes (7) Pulmonary nodule Is this a current diagnosis for this admission?: Yes (8) Sick sinus syndrome Is this a current diagnosis for this admission?: Yes (9) Alcohol dependence Qualifiers: Substance use status: alcohol-induced persisting dementia Qualified Code(s): F10.27 - Alcohol dependence with alcohol-induced persisting dementia Is this a current diagnosis for this admission?: Yes (10) Congestive heart failure Qualifiers: Heart failure type: combined systolic and diastolic Is this a current diagnosis for this admission?: Yes (11) Dilated cardiomyopathy secondary to alcohol Is this a current diagnosis for this admission?: Yes - Plan Summary Summary: Acute pulmonary embolism status post TPA on . Patient is currently on Eliquis 10 mg twice daily and then 5 mg twice daily from December 05 Bacteremia, initially with coag negative staph which was thought to be contaminant although he completed 7 days of linezolid. Repeat blood cultures on grew Klebsiella secondary to complicated UTI. He was treated with ceftriaxone now on Bactrim for 5 more days. Hyponatremia likely nutritional Dilated cardiomyopathy secondary to alcohol with TTE showing biventricular failure with dilated cardiomyopathy, ejection fraction of 20 to 25% and grade 3 diastolic dysfunction. Patient is euvolemic Sick sinus syndrome possibly related to underlying cardiomyopathy and PE. He has had no further recurrence since November 26 Proximal atrial fibrillation currently in sinus. This is likely secondary to his massive PE Alcohol dependency with alcoholic hepatitis and transaminitis. No evidence of withdrawal Pulmonary nodule as noted on CT scan follow-up imaging in 3 months recommended Homelessness still awaiting discharge planning to finalize situation - Time Time Spent with patient: 15-24 minutes Anticipated Discharge Disposition: Home, Self Care Anticipated Discharge Timeframe: when bed available
[2019-12-06] MEDS: PANTOPRAZOLE SODIUM 40 MG TABLET.DR PO SCH (05:21)
[2019-12-06] MEDS: ACETAMINOPHEN 325 MG TABLET PO PRN (07:52)
[2019-12-06] MEDS: SULFAMETHOXAZOLE/TRIMETHOPRIM 800-160 MG TABLET PO SCH ×2 (09:05→21:25)
[2019-12-06] MEDS: LISINOPRIL 10 MG TABLET PO SCH (09:05)
[2019-12-06] MEDS: THIAMINE HCL 100 MG TABLET PO SCH (09:05)
[2019-12-06] MEDS: MAGNESIUM OXIDE 400 MG TABLET PO SCH ×2 (09:06→17:37)
[2019-12-06] MEDS: DOCUSATE SODIUM 100 MG CAPSULE PO SCH (09:06)
[2019-12-06] MEDS: METOPROLOL SUCCINATE 25 MG TAB.SR.24H PO SCH (09:06)
[2019-12-06] MEDS: NICOTINE 14 MG/24 HR PATCH.TD24 TD SCH (09:07)
[2019-12-06] MEDS ORDERED: DEXTROSE 40% GEL 15 GM TUBE PO PRN ×2 (09:34)
[2019-12-06] MEDS ORDERED: GLUCAGON,HUMAN RECOMB 1 MG INJ SUBCUT PRN (09:34)
--- NOTE | 2019-12-06 09:35 | RADIOLOGY REPORT (SQ) ---
EXAM DESCRIPTION: CHEST SINGLE VIEW IMAGES COMPLETED DATE/TIME: 12/06/2019 8:13 am REASON FOR STUDY: shortness of breath COMPARISON: CTA chest, 11/25/2019. Chest radiograph, 11/24/2019 EXAM PARAMETERS: NUMBER OF VIEWS: One view. TECHNIQUE: Single frontal radiographic view of the chest acquired. RADIATION DOSE: NA LIMITATIONS: None. FINDINGS: LUNGS AND PLEURA: Interval development of small to moderate bilateral pleural effusions wi th compressive atelectasis at the lung bases. No pneumothorax. Biapical pleural and parenchymal sca rring is stable. MEDIASTINUM AND HILAR STRUCTURES: No masses. Contour normal. HEART AND VASCULAR STRUCTURES: Moderate cardiomegaly. No pulmonary vascular congestion. BONES: No acute findings. HARDWARE: None in the chest. OTHER: No other significant finding. IMPRESSION: Interval development of small to moderate bilateral pleural effusions with compressive a telectasis at the lung bases. TECHNICAL DOCUMENTATION: JOB ID: [id number] 2010 [employer]- All Rights Reserved Reading location - IP/workstation name: [email or web address]
[2019-12-06] MEDS ORDERED: APIXABAN 5 MG TABLET PO SCH (10:00)
--- NOTE | 2019-12-06 10:11 | PDOC PROGRESS REPORT ---
Subjective Progress Note for:: 12/06/19 Subjective:: And noted to be dyspneic this morning during rounds. A chest x-ray was ordered which shows interval development of small to moderate bilateral pleural effusion with compressive atelectasis at the lung bases. Reason For Visit: BILATERAL PE Physical Exam Vital Signs: Temp Pulse Resp BP Pulse Ox 97.3 F 78 18 133/98 H 100 12/06/19 08:53 12/06/19 08:03 12/06/19 08:03 12/06/19 08:03 12/06/19 03:42 Intake & Output 12/05/19 12/06/19 12/07/19 06:59 06:59 06:59 Intake Total 2230 980 Output Total 400 Balance 2230 580 Weight 89.5 kg 90.4 kg General appearance: PRESENT: disheveled, thin Head exam: PRESENT: atraumatic Teeth exam: PRESENT: poor dentation Neck exam: ABSENT: JVD Respiratory exam: PRESENT: crackles, rales, rhonchi, tachypnea Cardiovascular exam: PRESENT: RRR, +S1, +S2 GI/Abdominal exam: PRESENT: normal bowel sounds Rectal exam: PRESENT: deferred Extremities exam: PRESENT: other - swelling Musculoskeletal exam: PRESENT: ambulatory Neurological exam: PRESENT: alert, awake, oriented to time, oriented to situation Psychiatric exam: PRESENT: appropriate affect Results Laboratory Results: 12/01/19 05:42 12/05/19 05:23 11/30/19 13:06 Blood Blood Culture - Final NO GROWTH IN 5 DAYS 11/24/19 22:02 Troponin I 0.141 NT-Pro-B Natriuret Pep [id number] H Impressions: Chest/Abdomen CTA 11/24/19 22:55 IMPRESSION: There are filling defects within the main pulmonary artery concerning for developing saddle emboli. There are also filling defects seen within the segmental arteries consistent with pulmonary artery emboli. There is a groundglass nodule at the right upper lobe measuring up to 12 mm which will need interval follow-up within three months. There are trace pleural effusions with some overlying airspace opacities which are favored to represent atelectasis, but may also represent some mild edema or infection. Modified Barium Swallow 11/29/19 00:00 IMPRESSION: DEEP LARYNGEAL PENETRATION WITH TRACE ASPIRATION SEEN WITH THIN BARIUM. . PLEASE SEE SPEECH PATHOLOGIST REPORT FOR OTHER FINDINGS AND RECOMMENDATIONS. KUB X-Ray 12/03/19 00:00 IMPRESSION: Nonobstructive bowel gas pattern. Chest X-Ray 12/06/19 00:00 IMPRESSION: Interval development of small to moderate bilateral pleural effusions with compressive atelectasis at the lung bases. Assessment and Plan - Diagnosis (1) Acute massive pulmonary embolism Is this a current diagnosis for this admission?: Yes (2) Acute respiratory failure with hypoxia Is this a current diagnosis for this admission?: Yes (3) Bacteremia Is this a current diagnosis for this admission?: Yes (4) Bilateral pulmonary embolism Is this a current diagnosis for this admission?: Yes (5) Dysphagia Qualifiers: Dysphagia type: pharyngoesophageal phase Qualified Code(s): R13.14 - Dyspha alma, pharyngoesophageal phase Is this a current diagnosis for this admission?: Yes (6) Hyponatremia Is this a current diagnosis for this admission?: Yes (7) Pulmonary nodule Is this a current diagnosis for this admission?: Yes (8) Sick sinus syndrome Is this a current diagnosis for this admission?: Yes (9) Alcohol dependence Qualifiers: Substance use status: alcohol-induced persisting dementia Qualified Code(s): F10.27 - Alcohol dependence with alcohol-induced persisting dementia Is this a current diagnosis for this admission?: Yes (10) Congestive heart failure Qualifiers: Heart failure type: combined systolic and diastolic Is this a current diagnosis for this admission?: Yes (11) Dilated cardiomyopathy secondary to alcohol Is this a current diagnosis for this admission?: Yes (12) Pleural effusion Is this a current diagnosis for this admission?: Yes Plan: Bilateral, likely leading to his acute respiratory distress. It is unclear what the etiology is. Patient has multiple potential etiologies including his massive PE, as well as a possible pneumonia although clinically he does not appear to have pneumonia. Have ordered a thoracentesis although is on apixaban and unclear if this can be done today. His oxygenation is about 95% on 3 L of oxygen. We will go ahead and monitor patient closely. Labs are currently pending and all this will be reviewed - Plan Summary Summary: Acute pulmonary embolism status post TPA on . Patient is currently on Eliquis 10 mg twice daily and then 5 mg twice daily from December 05 Bacteremia, initially with coag negative staph which was thought to be contaminant although he completed 7 days of linezolid. Repeat blood cultures on grew Klebsiella secondary to complicated UTI. He was treated with ceftriaxone now on Bactrim for 5 more days. Hyponatremia likely nutritional Dilated cardiomyopathy secondary to alcohol with TTE showing biventricular failure with dilated cardiomyopathy, ejection fraction of 20 to 25% and grade 3 diastolic dysfunction. Patient is euvolemic Sick sinus syndrome possibly related to underlying cardiomyopathy and PE. He has had no further recurrence since November 26 Proximal atrial fibrillation currently in sinus. This is likely secondary to his massive PE Alcohol dependency with alcoholic hepatitis and transaminitis. No evidence of withdrawal Pulmonary nodule as noted on CT scan follow-up imaging in 3 months recommended Homelessness still awaiting discharge planning to finalize situation Patient is not stable for discharge at this time. There is also concern about possible aspiration because apparently had been swallowing poorly and so a speech therapy evaluation is been obtained while patient has been changed to n.p.o. I will change his antibiotic to cefepime empirically while awaiting further information and studies. - Time Time Spent with patient: 35 or more minutes Anticipated Discharge Disposition: [facility] Care Facility Anticipated Discharge Timeframe: when bed available - Inpatient Certification Based on my medical assessment, after consideration of the patient's comorbiditi es, presenting symptoms, or acuity I expect that the services needed warrant INPATIENT care.: Yes
[2019-12-06 10:51] LABS: PROTHROMBIN TIME 17.3 SEC (11.4-15.4)
[2019-12-06 10:53] LABS: ABSOLUTE LYMPHOCYTES (AUTO) 0.9 10^3/uL (0.5-4.7); ABSOLUTE MONOCYTES (AUTO) 0.4 10^3/uL (0.1-1.4); ABSOLUTE NEUT (AUTO) 4.9 10^3/uL (1.7-8.2); BASOPHILS % (AUTO) 0.8 % (0-2); EOSINOPHILS % (AUTO) 0.4 % (0-6); HEMATOCRIT 43.3 % (37.9-51.0); HEMOGLOBIN 14.6 g/dL (13.5-17.0); LYMPHOCYTES % (AUTO) 14.5 % (13-45); MEAN CORPUSCULAR HGB CONC 33.7 g/dL (32.0-36.0); MEAN CORPUSCULAR VOLUME 83 fl (80-97); MONOCYTES % (AUTO) 6.6 % (3-13); PLATELET COUNT 160 10^3/uL (150-450); RED BLOOD COUNT 5.21 10^6/uL (4.35-5.55); RED CELL DISTRIBUTION WIDTH 19.5 % (11.5-14.0); SEGMENTED NEUTROPHILS % (AUTO) 77.7 % (42-78); TOTAL CELLS COUNTED % (AUTO) 100 %; WHITE BLOOD COUNT 6.3 10^3/uL (4.0-10.5)
[2019-12-06] MEDS: CEFEPIME 1 GM/D5W RTU 1 GM/50 ML RTUPB IV SCH ×2 (11:22→21:25)
[2019-12-06 11:34] LABS: ANION GAP 10 (5-19); BLOOD UREA NITROGEN 9 mg/dL (7-20); CALCIUM 8.1 mg/dL (8.4-10.2); CARBON DIOXIDE 21 mmol/L (22-30); CHLORIDE 99 mmol/L (98-107); GLUCOSE 92 mg/dL (75-110); POTASSIUM 4.8 mmol/L (3.6-5.0)
[2019-12-06 11:35] LABS: ALBUMIN 3.1 g/dL (3.5-5.0); ALKALINE PHOSPHATASE 208 U/L (38-126); ASPARTATE AMINO TRANSFERASE 102 U/L (17-59); BILIRUBIN,DIRECT 1.7 mg/dL (0.0-0.4); BILIRUBIN,TOTAL 2.6 mg/dL (0.2-1.3); TOTAL PROTEIN 6.7 g/dL (6.3-8.2)
[2019-12-06] MEDS: ACETAMINOPHEN SOLN 325 MG/10.15 ML UDCUP PO PRN (15:10)
[2019-12-06] MEDS ORDERED: KETOROLAC TROMETHAMINE INJ/PF 30 MG/1 ML SDV IV ONE (17:00)
[2019-12-07] MEDS: ACETAMINOPHEN SOLN 325 MG/10.15 ML UDCUP PO PRN ×2 (05:27→08:56)
[2019-12-07] MEDS: PANTOPRAZOLE SODIUM 40 MG TABLET.DR PO SCH (05:28)
[2019-12-07] MEDS: THIAMINE HCL 100 MG TABLET PO SCH (11:00)
[2019-12-07] MEDS: METOPROLOL SUCCINATE 25 MG TAB.SR.24H PO SCH (11:00)
[2019-12-07] MEDS: MAGNESIUM OXIDE 400 MG TABLET PO SCH ×2 (11:01→18:32)
[2019-12-07] MEDS: NICOTINE 14 MG/24 HR PATCH.TD24 TD SCH (11:01)
[2019-12-07] MEDS: CEFEPIME 1 GM/D5W RTU 1 GM/50 ML RTUPB IV SCH ×2 (11:01→22:09)
[2019-12-07] MEDS: SULFAMETHOXAZOLE/TRIMETHOPRIM 800-160 MG TABLET PO SCH ×2 (11:01→22:09)
[2019-12-07] MEDS: LISINOPRIL 10 MG TABLET PO SCH (11:01)
[2019-12-07] MEDS: DEXTROSE 5%-1/2 NORMAL SALINE 1,000 ML IV PRN ×2 (11:08→22:10)
[2019-12-07 12:22] LABS: ABSOLUTE EOSINOPHILS # (AUTO) 0.2 10^3/uL (0.0-0.6); ABSOLUTE LYMPHOCYTES (AUTO) 0.8 10^3/uL (0.5-4.7); ABSOLUTE MONOCYTES (AUTO) 0.3 10^3/uL (0.1-1.4); ABSOLUTE NEUT (AUTO) 5.6 10^3/uL (1.7-8.2); BASOPHILS % (AUTO) 0.6 % (0-2); EOSINOPHILS % (AUTO) 2.3 % (0-6); HEMATOCRIT 49.5 % (37.9-51.0); HEMOGLOBIN 16.6 g/dL (13.5-17.0); MEAN CORPUSCULAR HEMOGLOBIN 27.8 pg (27.0-33.4); MEAN CORPUSCULAR HGB CONC 33.6 g/dL (32.0-36.0); MEAN CORPUSCULAR VOLUME 83 fl (80-97); MONOCYTES % (AUTO) 3.8 % (3-13); PLATELET COUNT 140 10^3/uL (150-450); RED BLOOD COUNT 5.97 10^6/uL (4.35-5.55); RED CELL DISTRIBUTION WIDTH 19.6 % (11.5-14.0); SEGMENTED NEUTROPHILS % (AUTO) 81.3 % (42-78); TOTAL CELLS COUNTED % (AUTO) 100 %; WHITE BLOOD COUNT 6.8 10^3/uL (4.0-10.5)
[2019-12-07 12:29] LABS: INTERNATIONAL RATION (INR) 1.37
[2019-12-07 12:30] LABS: PARTIAL THROMBOPLASTIN TIME 37.2 SEC (23.5-35.8)
[2019-12-07] MEDS: BACITRACIN ZINC OINTMENT 15 GM TP SCH ×2 (14:00→18:36)
--- NOTE | 2019-12-07 14:11 | PDOC PROGRESS REPORT ---
Subjective Progress Note for:: 12/07/19 Subjective:: Patient breathing is much improved today. He his complain about being hungry. He has been n.p.o. since yesterday due to his dysphagia which is thought to be mechanical. Patient is unable to persistently cooperate with the recommended positioning of his neck so have opted to keep him n.p.o. for now. Reason For Visit: BILATERAL PE Physical Exam Vital Signs: Temp Pulse Resp BP Pulse Ox 97.2 F 103 H 16 125/90 H 100 12/07/19 11:14 12/07/19 11:14 12/07/19 11:14 12/07/19 11:14 12/07/19 07:29 Intake & Output 12/06/19 12/07/19 12/08/19 06:59 06:59 06:59 Intake Total 980 425 50 Output Total 400 Balance 580 425 50 Weight 90.4 kg 90.4 kg General appearance: PRESENT: no acute distress, thin Head exam: PRESENT: atraumatic Eye exam: PRESENT: conjunctiva pink, EOMI, PERRLA. ABSENT: scleral icterus Mouth exam: PRESENT: moist, tongue midline Neck exam: ABSENT: carotid bruit, JVD, lymphadenopathy, thyromegaly Respiratory exam: PRESENT: crackles, rales, rhonchi, unlabored. ABSENT: wheezes Cardiovascular exam: PRESENT: RRR, +S1, +S2. ABSENT: diastolic murmur, rubs, systolic murmur Vascular exam: PRESENT: normal capillary refill GI/Abdominal exam: PRESENT: distended, normal bowel sounds, soft. ABSENT: guarding, mass, organolmegaly, rebound, tenderness Rectal exam: PRESENT: deferred Gentrourinary exam: PRESENT: other - small skin cut/abrasion on penis with swelling of the glns, improved, no dischrges noted Extremities exam: PRESENT: full ROM. ABSENT: calf tenderness, clubbing, pedal edema Neurological exam: PRESENT: alert, awake, oriented to person, oriented to place, oriented to time, oriented to situation, CN II-XII grossly intact. ABSENT: motor sensory deficit Psychiatric exam: PRESENT: normal mood. ABSENT: homicidal ideation, suicidal ideation Skin exam: PRESENT: dry, warm. ABSENT: cyanosis, rash Results Laboratory Results: 12/07/19 12:15 12/06/19 10:33 12/07/19 12:15 WBC 6.8 RBC 5.97 H Hgb 16.6 Hct 49.5 MCV 83 MCH 27.8 MCHC 33.6 RDW 19.6 H Plt Count 140 L Seg Neutrophils % 81.3 H 11/24/19 22:02 Troponin I 0.141 NT-Pro-B Natriuret Pep 94134 H Impressions: Chest/Abdomen CTA 11/24/19 22:55 IMPRESSION: There are filling defects within the main pulmonary artery concerning for developing saddle emboli. There are also filling defects seen within the segmental arteries consistent with pulmonary artery emboli. There is a groundglass nodule at the right upper lobe measuring up to 12 mm which will need interval follow-up within three months. There are trace pleural effusions with some overlying airspace opacities which are favored to represent atelectasis, but may also represent some mild edema or infection. Modified Barium Swallow 11/29/19 00:00 IMPRESSION: DEEP LARYNGEAL PENETRATION WITH TRACE ASPIRATION SEEN WITH THIN BARIUM. . PLEASE SEE SPEECH PATHOLOGIST REPORT FOR OTHER FINDINGS AND RECOMMENDATIONS. KUB X-Ray 12/03/19 00:00 IMPRESSION: Nonobstructive bowel gas pattern. Chest X-Ray 12/06/19 00:00 IMPRESSION: Interval development of small to moderate bilateral pleural effusions with compressive atelectasis at the lung bases. Assessment and Plan - Diagnosis (1) Acute massive pulmonary embolism Is this a current diagnosis for this admission?: Yes (2) Acute respiratory failure with hypoxia Is this a current diagnosis for this admission?: Yes (3) Bacteremia Is this a current diagnosis for this admission?: Yes (4) Bilateral pulmonary embolism Is this a current diagnosis for this admission?: Yes (5) Dysphagia Qualifiers: Dysphagia type: pharyngoesophageal phase Qualified Code(s): R13.14 - Dysphagia, pharyngoesophageal phase Is this a current diagnosis for this admission?: Yes (6) Hyponatremia Is this a current diagnosis for this admission?: Yes (7) Pulmonary nodule Is this a current diagnosis for this admission?: Yes (8) Sick sinus syndrome Is this a current diagnosis for this admission?: Yes (9) Alcohol dependence Qualifiers: Substance use status: alcohol-induced persisting dementia Qualified Code(s): 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 Patient is currently on Eliquis 10 mg twice daily and then 5 mg twice daily from December 05 Bacteremia, initially with coag negative staph which was thought to be contaminant although he completed 7 days of linezolid. Repeat blood cultures on grew Klebsiella secondary to complicated UTI. He was treated with ceftriaxone now on Bactrim for 5 more days. Hyponatremia likely nutritional Dilated cardiomyopathy secondary to alcohol with TTE showing biventricular failure with dilated cardiomyopathy, ejection fraction of 20 to 25% and grade 3 diastolic dysfunction. Patient is euvolemic Sick sinus syndrome possibly related to underlying cardiomyopathy and PE. He has had no further recurrence since November 26 Proximal atrial fibrillation currently in sinus. This is likely secondary to his massive PE Alcohol dependency with alcoholic hepatitis and transaminitis. No evidence of withdrawal Pulmonary nodule as noted on CT scan follow-up imaging in 3 months recommended Homelessness still awaiting discharge planning to finalize situation Patient is not stable for discharge at this time. There is also concern about possible aspiration because apparently had been swallowing poorly and so a speech therapy evaluation is been obtained while patient has been changed to n.p.o. I will change his antibiotic to cefepime empirically while awaiting further information and studies. 12/07/2019 Patient is currently scheduled to have a thoracentesis on December 08. He had been on Eliquis but this was discontinued, or held in anticipation of the thoracentesis. Because patient had his large clot burden and he actually had to have TPA and his stent leaving unprotected over the next 48 to 72 hours and as such I have started him on heparin drip with no bolus this will be discontinued hopefully on night December 07 - Time Time Spent with patient: 25-34 minutes Medications reviewed and adjusted accordingly: Yes Anticipated Discharge Disposition: [facility] Anticipated Discharge Timeframe: within 72 hours
[2019-12-07] MEDS: HEPARIN SODIUM,PORCINE/D5W 25,000 UNIT/250 ML RTUINJ IV PRN (15:00)
[2019-12-08] MEDS: PANTOPRAZOLE SODIUM 40 MG TABLET.DR PO SCH (05:37)
[2019-12-08 05:40] LABS: ABSOLUTE BASOPHILS # (AUTO) 0.1 10^3/uL (0.0-0.2); ABSOLUTE EOSINOPHILS # (AUTO) 0.2 10^3/uL (0.0-0.6); ABSOLUTE LYMPHOCYTES (AUTO) 1.4 10^3/uL (0.5-4.7); ABSOLUTE MONOCYTES (AUTO) 0.4 10^3/uL (0.1-1.4); ABSOLUTE NEUT (AUTO) 2.3 10^3/uL (1.7-8.2); BASOPHILS % (AUTO) 1.2 % (0-2); EOSINOPHILS % (AUTO) 4.1 % (0-6); HEMATOCRIT 42.9 % (37.9-51.0); LYMPHOCYTES % (AUTO) 32.8 % (13-45); MEAN CORPUSCULAR HEMOGLOBIN 27.8 pg (27.0-33.4); MEAN CORPUSCULAR HGB CONC 33.8 g/dL (32.0-36.0); MEAN CORPUSCULAR VOLUME 82 fl (80-97); MONOCYTES % (AUTO) 8.6 % (3-13); PLATELET COUNT 126 10^3/uL (150-450); RED BLOOD COUNT 5.22 10^6/uL (4.35-5.55); RED CELL DISTRIBUTION WIDTH 19.7 % (11.5-14.0); SEGMENTED NEUTROPHILS % (AUTO) 53.3 % (42-78); TOTAL CELLS COUNTED % (AUTO) 100 %; WHITE BLOOD COUNT 4.4 10^3/uL (4.0-10.5)
[2019-12-08 05:50] LABS: HEMOGLOBIN 14.5 g/dL (13.5-17.0)
[2019-12-08 06:37] LABS: ALBUMIN 2.2 g/dL (3.5-5.0); ALKALINE PHOSPHATASE 133 U/L (38-126); ANION GAP 8 (5-19); ASPARTATE AMINO TRANSFERASE 67 U/L (17-59); BILIRUBIN,DIRECT 1.3 mg/dL (0.0-0.4); BILIRUBIN,TOTAL 2.1 mg/dL (0.2-1.3); BLOOD UREA NITROGEN 11 mg/dL (7-20); CALCIUM 7.9 mg/dL (8.4-10.2); CARBON DIOXIDE 19 mmol/L (22-30); CHLORIDE 99 mmol/L (98-107); GLUCOSE 76 mg/dL (75-110); POTASSIUM 5.4 mmol/L (3.6-5.0)
[2019-12-08] MEDS: NORMAL SALINE 1000 ML 1,000 ML IV PRN (09:15)
[2019-12-08] MEDS: METOPROLOL SUCCINATE 25 MG TAB.SR.24H PO SCH (09:16)
[2019-12-08] MEDS: THIAMINE HCL 100 MG TABLET PO SCH (09:16)
[2019-12-08] MEDS: LISINOPRIL 10 MG TABLET PO SCH (09:16)
[2019-12-08] MEDS: NICOTINE 14 MG/24 HR PATCH.TD24 TD SCH (09:16)
[2019-12-08] MEDS: MAGNESIUM OXIDE 400 MG TABLET PO SCH ×2 (09:16→18:34)
[2019-12-08] MEDS: SULFAMETHOXAZOLE/TRIMETHOPRIM 800-160 MG TABLET PO SCH (09:16)
[2019-12-08] MEDS: CEFEPIME 1 GM/D5W RTU 1 GM/50 ML RTUPB IV SCH ×2 (09:17→21:39)
[2019-12-08] MEDS: BACITRACIN ZINC OINTMENT 15 GM TP SCH ×2 (09:17→18:34)
--- NOTE | 2019-12-08 12:43 | PDOC PROGRESS REPORT ---
Subjective Progress Note for:: 12/08/19 Subjective:: Patient breathing is much improved today. He his complain about being hungry. He has been n.p.o. since yesterday due to his dysphagia which is thought to be mechanical. Patient is unable to persistently cooperate with the recommended positioning of his neck so have opted to keep him n.p.o. for now. 12/07 Patient appears to be in a slightly better mood today. He understands why he has been kept n.p.o. The penile swelling is better. Reason For Visit: BILATERAL PE Physical Exam Vital Signs: Temp Pulse Resp BP Pulse Ox 97.4 F 82 18 133/98 H 98 12/08/19 11:30 12/08/19 11:30 12/08/19 11:30 12/08/19 11:30 12/08/19 11:30 Intake & Output 12/07/19 12/08/19 12/09/19 06:59 06:59 06:59 Intake Total 641 164 4238 Output Total 0 200 Balance 425 992 850 Weight 90.4 kg 90.4 kg General appearance: PRESENT: no acute distress, thin Mouth exam: PRESENT: tongue midline Teeth exam: PRESENT: poor dentation Neck exam: PRESENT: full ROM Respiratory exam: PRESENT: crackles, rhonchi, unlabored GI/Abdominal exam: PRESENT: distended, firm Rectal exam: PRESENT: deferred Gentrourinary exam: PRESENT: lesions - small wound on penile shaft, other - glans swelling improved Extremities exam: PRESENT: other - 3plus, anasarca Neurological exam: PRESENT: awake, oriented to person, oriented to place Psychiatric exam: PRESENT: appropriate affect Results Laboratory Results: 12/08/19 04:41 12/08/19 04:41 12/08/19 12/08/19 04:41 04:41 WBC 4.4 RBC 5.22 Hgb 14.5 D Hct 42.9 MCV 82 MCH 27.8 MCHC 33.8 RDW 19.7 H Plt Count 126 L Seg Neutrophils % 53.3 Sodium 125.9 L Potassium 5.4 H Chloride 99 Carbon Dioxide 19 L Anion Gap 8 BUN 11 Creatinine 0.86 Est GFR ( Amer) > 60 Glucose 76 Calcium 7.9 L Total Bilirubin 2.1 H AST 67 H Alkaline Phosphatase 133 H Total Protein 5.0 L Albumin 2.2 L 11/24/19 22:02 Troponin I 0.141 NT-Pro-B Natriuret Pep [id number] H Impressions: Chest/Abdomen CTA 11/24/19 22:55 IMPRESSION: There are filling defects within the main pulmonary artery concerning for developing saddle emboli. There are also filling defects seen within the segmental arteries consistent with pulmonary artery emboli. There is a groundglass nodule at the right upper lobe measuring up to 12 mm which will need interval follow-up within three months. There are trace pleural effusions with some overlying airspace opacities which are favored to represent atelectasis, but may also represent some mild edema or infection. Modified Barium Swallow 11/29/19 00:00 IMPRESSION: DEEP LARYNGEAL PENETRATION WITH TRACE ASPIRATION SEEN WITH THIN BARIUM. . PLEASE SEE SPEECH PATHOLOGIST REPORT FOR OTHER FINDINGS AND RECOMMEND ATIONS. KUB X-Ray 12/03/19 00:00 IMPRESSION: Nonobstructive bowel gas pattern. Chest X-Ray 12/06/19 00:00 IMPRESSION: Interval development of small to moderate bilateral pleural effusions with compressive atelectasis at the lung bases. Assessment and Plan - Diagnosis (1) Acute massive pulmonary embolism Is this a current diagnosis for this admission?: Yes Plan: Saddle embolus extending into the right and left lower lobes. Noted hemodynamic instability with hypotension and bradycardic episodes. Status post TPA administered on 11/25/2019 Continue Eliquis 10 mg bid till Dec 04 then 5mg bid Likely has DVT in his legs as he does have leg swelling as well. (2) Acute respiratory failure with hypoxia Is this a current diagnosis for this admission?: Yes (3) Bacteremia Is this a current diagnosis for this admission?: Yes (4) Bilateral pulmonary embolism Is this a current diagnosis for this admission?: Yes (5) Dysphagia Qualifiers: Dysphagia type: pharyngoesophageal phase Qualified Code(s): R13.14 - Dysphagia, pharyngoesophageal phase Is this a current diagnosis for this admission?: Yes (6) Hyponatremia Is this a current diagnosis for this admission?: Yes (7) Pulmonary nodule Is this a current diagnosis for this admission?: Yes (8) Sick sinus syndrome Is this a current diagnosis for this admission?: Yes (9) Alcohol dependence Qualifiers: Substance use status: alcohol-induced persisting dementia Qualified Code(s): 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 Patient is currently on Eliq uis 10 mg twice daily and then 5 mg twice daily from December 05 Bacteremia, initially with coag negative staph which was thought to be contaminant although he completed 7 days of linezolid. Repeat blood cultures on grew Klebsiella secondary to complicated UTI. He was treated with ceftriaxone now on Bactrim for 5 more days. Hyponatremia likely nutritional Dilated cardiomyopathy secondary to alcohol with TTE showing biventricular failure with dilated cardiomyopathy, ejection fraction of 20 to 25% and grade 3 diastolic dysfunction. Patient is euvolemic Sick sinus syndrome possibly related to underlying cardiomyopathy and PE. He has had no further recurrence since November 26 Proximal atrial fibrillation currently in sinus. This is likely secondary to his massive PE Alcohol dependency with alcoholic hepatitis and transaminitis. No evidence of withdrawal Pulmonary nodule as noted on CT scan follow-up imaging in 3 months recommended Homelessness still awaiting discharge planning to finalize situation Patient is not stable for discharge at this time. There is also concern about possible aspiration because apparently had been swallowing poorly and so a speech therapy evaluation is been obtained while patient has been changed to n.p.o. I will change his antibiotic to cefepime empirically while awaiting further information and studies. 12/07/2019 Patient is currently scheduled to have a thoracentesis on December 08. He had been on Eliquis but this was discontinued, or held in anticipation of the thoracentesis. Because patient had his large clot burden and he actually had to have TPA and his stent leaving unprotected over the next 48 to 72 hours and as such I have started him on heparin drip with no bolus this will be discontinued hopefully on night of December 0712/07 Hyperkalemia will recheck in a.m. precise etiology not clear at this time Thrombocytopenia with patient on anticoagulant will need to monitor this very closely Possible ascites Pleural effusion Dysphagia Plan is for possible thoracentesis as well as paracentesis in a.m. if possible. I did place him on heparin temporarily and this is slated to be discontinued by 6 AM tomorrow. He is currently on IV fluids as his n.p.o. - Time Time Spent with patient: 15-24 minutes Medications reviewed and adjusted accordingly: Yes Anticipated Discharge Disposition: [facility] Anticipated Discharge Timeframe: within 72 hours
[2019-12-08] MEDS: ACETAMINOPHEN SOLN 325 MG/10.15 ML UDCUP PO PRN ×2 (12:50→16:52)
[2019-12-08] MEDS: HEPARIN SODIUM,PORCINE/D5W 25,000 UNIT/250 ML RTUINJ IV PRN (16:52)
[2019-12-09] MEDS: NORMAL SALINE 1000 ML 1,000 ML IV PRN (01:43)
[2019-12-09] MEDS: ACETAMINOPHEN SOLN 325 MG/10.15 ML UDCUP PO PRN (04:48)
[2019-12-09] MEDS ORDERED: LORAZEPAM INJ 2 MG/1 ML VIAL ONE (05:48)
[2019-12-09] MEDS: LORAZEPAM INJ 2 MG/1 ML VIAL IV PRN ×2 (05:53→14:04)
[2019-12-09] MEDS: PANTOPRAZOLE SODIUM 40 MG TABLET.DR PO SCH (06:02)
[2019-12-09 06:53] LABS: HEMOGLOBIN 15.9 g/dL (13.5-17.0); MEAN CORPUSCULAR HGB CONC 33.9 g/dL (32.0-36.0); MEAN CORPUSCULAR VOLUME 83 fl (80-97); PLATELET COUNT 122 10^3/uL (150-450); RED BLOOD COUNT 5.69 10^6/uL (4.35-5.55); RED CELL DISTRIBUTION WIDTH 19.4 % (11.5-14.0); WHITE BLOOD COUNT 5.6 10^3/uL (4.0-10.5)
[2019-12-09 07:48] LABS: INTERNATIONAL RATION (INR) 1.36; PROTHROMBIN TIME 16.9 SEC (11.4-15.4)
[2019-12-09 08:03] LABS: ALBUMIN 2.7 g/dL (3.5-5.0); ALKALINE PHOSPHATASE 163 U/L (38-126); ANION GAP 10 (5-19); ASPARTATE AMINO TRANSFERASE 70 U/L (17-59); BILIRUBIN,DIRECT 1.4 mg/dL (0.0-0.4); BILIRUBIN,TOTAL 2.5 mg/dL (0.2-1.3); BLOOD UREA NITROGEN 11 mg/dL (7-20); CALCIUM 8.1 mg/dL (8.4-10.2); CARBON DIOXIDE 18 mmol/L (22-30); CHLORIDE 99 mmol/L (98-107); GLUCOSE 80 mg/dL (75-110); POTASSIUM 5.6 mmol/L (3.6-5.0)
[2019-12-09] MEDS: METOPROLOL SUCCINATE 25 MG TAB.SR.24H PO SCH (09:25)
[2019-12-09] MEDS: MAGNESIUM OXIDE 400 MG TABLET PO SCH ×2 (09:25→17:22)
[2019-12-09] MEDS: THIAMINE HCL 100 MG TABLET PO SCH (09:25)
[2019-12-09] MEDS: NICOTINE 14 MG/24 HR PATCH.TD24 TD SCH (09:26)
[2019-12-09] MEDS: CEFEPIME 1 GM/D5W RTU 1 GM/50 ML RTUPB IV SCH ×2 (09:29→21:49)
[2019-12-09] MEDS: BACITRACIN ZINC OINTMENT 15 GM TP SCH ×2 (09:46→17:21)
[2019-12-09] MEDS ORDERED: APIXABAN 5 MG TABLET PO SCH (10:00)
[2019-12-09] MEDS: LISINOPRIL 10 MG TABLET PO SCH (10:22)
[2019-12-09 14:53] LABS: FLUID TYPE PERITONEAL
[2019-12-09 14:54] LABS: FLUID APPEARANCE CLEAR; FLUID COLOR YELLOW; FLUID SOURCE ASCITES; FLUID VISCOSITY LIQUID
--- NOTE | 2019-12-09 14:56 | PDOC PROGRESS REPORT ---
Subjective Progress Note for:: 12/09/19 Subjective:: Patient breathing is much improved today. He his complain about being hungry. He has been n.p.o. since yesterday due to his dysphagia which is thought to be mechanical. Patient is unable to persistently cooperate with the recommended positioning of his neck so have opted to keep him n.p.o. for now. 12/07 Patient appears to be in a slightly better mood today. He understands why he has been kept n.p.o. The penile swelling is better. 12/08 patient's seems to be little bit more tachypneic today. He scheduled to go down for thoracentesis as well as paracentesis as I am concerned also about his abdominal swelling. He remains n.p.o. due to concerns of mechanical dysphagia Reason For Visit: BILATERAL PE Physical Exam Vital Signs: Temp Pulse Resp BP Pulse Ox 97.3 F 87 16 122/102 H 100 12/09/19 08:27 12/09/19 07:56 12/09/19 07:56 12/09/19 07:56 12/09/19 07:56 Intake & Output 12/08/19 12/09/19 12/10/19 06:59 06:59 06:59 Intake Total 992 2753 Output Total 0 650 Balance 992 2103 Weight 90.4 kg 92.3 kg General appearance: PRESENT: no acute distress, disheveled - Chronically ill looking, thin Head exam: PRESENT: atraumatic, normocephalic Eye exam: PRESENT: conjunctiva pink, EOMI. ABSENT: scleral icterus Ear exam: PRESENT: normal external ear exam Mouth exam: PRESENT: tongue midline Neck exam: ABSENT: carotid bruit, JVD, lymphadenopathy, thyromegaly Respiratory exam: PRESENT: decreased breath sounds, rales, rhonchi. ABSENT: wheezes Cardiovascular exam: PRESENT: RRR, +S1, +S2. ABSENT: diastolic murmur, rubs, systolic murmur Pulses: PRESENT: normal dorsalis pedis pul Vascular exam: PRESENT: normal capillary refill GI/Abdominal exam: PRESENT: distended, normal bowel sounds. ABSENT: guarding, mass, organolmegaly, rebound, tenderness Rectal exam: PRESENT: deferred Gentrourinary exam: PRESENT: other - penile swelling, improved Extremities exam: PRESENT: full ROM, other - anasarca, 3+ edema. ABSENT: calf tenderness, clubbing, pedal edema Neurological exam: PRESENT: alert, awake, oriented to person, oriented to place, oriented to time. ABSENT: motor sensory deficit Psychiatric exam: PRESENT: normal mood. ABSENT: homicidal ideation, suicidal ideation Skin exam: PRESENT: skin tears, warm. ABSENT: cyanosis, rash Results Laboratory Results: 12/09/19 06:25 12/09/19 07:20 12/09/19 12/09/19 12/09/19 06:25 06:25 07:20 WBC 5.6 RBC 5.69 H Hgb 15.9 Hct 47.0 MCV 83 MCH 28.0 MCHC 33.9 RDW 19.4 H Plt Count 122 L Sodium Cancelled 127.3 L Potassium Cancelled 5.6 H Chloride Cancelled 99 Carbon Dioxide Cancelled 18 L Anion Gap Cancelled 10 BUN Cancelled 11 Creatinine Cancelled 0.98 Est GFR ( Amer) Cancelled > 60 Est GFR (Non-Af Amer) Cancelled Glucose Cancelled 80 Calcium Cancelled 8.1 L Phosphorus Cancelled 3.0 Magnesium Cancelled 1.9 Total Bilirubin Cancelled 2.5 H AST Cancelled 70 H Alkaline Phosphatase Cancelled 163 H Ammonia Total Protein Cancelled 6.0 L Albumin Cancelled 2.7 L 12/09/19 10:19 WBC RBC Hgb Hct MCV MCH MCHC RDW Plt Count Sodium Potassium Chloride Carbon Dioxide Anion Gap BUN Creatinine Est GFR ( Amer) Est GFR (Non-Af Amer) Glucose Calcium Phosphorus Magnesium Total Bilirubin AST Alkaline Phosphatase Ammonia 14.6 Total Protein Albumin 11/24/19 22:02 Troponin I 0.141 NT-Pro-B Natriuret Pep [id number] H Impressions: Chest/Abdomen CTA 11/24/19 22:55 IMPRESSION: There are filling defects within the main pulmonary artery concerning for developing saddle emboli. There are also filling defects seen within the segmental arteries consistent with pulmonary artery emboli. There is a groundglass nodule at the right upper lobe measuring up to 12 mm which will need interval follow-up within three months. There are trace pleural effusions with some overlying airspace opacities which are favored to represent atelectasis, but may also represent some mild edema or infection. Modified Barium Swallow 11/29/19 00:00 IMPRESSION: DEEP LARYNGEAL PENETRATION WITH TRACE ASPIRATION SEEN WITH THIN BARIUM. . PLEASE SEE SPEECH PATHOLOGIST REPORT FOR OTHER FINDINGS AND R ECOMMENDATIONS. KUB X-Ray 12/03/19 00:00 IMPRESSION: Nonobstructive bowel gas pattern. Assessment and Plan - Diagnosis (1) Acute massive pulmonary embolism Is this a current diagnosis for this admission?: Yes (2) Acute respiratory failure with hypoxia Is this a current diagnosis for this admission?: Yes (3) Bacteremia Is this a current diagnosis for this admission?: Yes (4) Bilateral pulmonary embolism Is this a current diagnosis for this admission?: Yes (5) Dysphagia Qualifiers: Dysphagia type: pharyngoesophageal phase Qualified Code(s): R13.14 - Dysphagia, pharyngoesophageal phase Is this a current diagnosis for this admission?: Yes (6) Hyponatremia Is this a current diagnosis for this admission?: Yes (7) Pulmonary nodule Is this a current diagnosis for this admission?: Yes (8) Sick sinus syndrome Is this a current diagnosis for this admission?: Yes (9) Alcohol dependence Qualifiers: Substance use status: alcohol-induced persisting dementia Qualified Code (s): F10.27 - Alcohol dependence with alcohol-induced persisting dementia Is this a current diagnosis for this admission?: Yes (10) Congestive heart failure Qualifiers: Heart failure type: combined systolic and diastolic Is this a current diagnosis for this admission?: Yes (11) Dilated cardiomyopathy secondary to alcohol Is this a current diagnosis for this admission?: Yes (12) Pleural effusion Is this a current diagnosis for this admission?: Yes (13) Thrombocytopenia Is this a current diagnosis for this admission?: Yes Plan: Possibly secondary to anticoagulant. If his platelet count continues to decline I will suggest checking him for HIT. - Plan Summary Summary: Acute pulmonary embolism status post TPA on . Patient is currently on Eliquis 10 mg twice daily and then 5 mg twice daily from December 05 Bacteremia, initially with coag negative staph which was thought to be contam inant although he completed 7 days of linezolid. Repeat blood cultures on grew Klebsiella secondary to complicated UTI. He was treated with ceftriaxone now on Bactrim for 5 more days. Hyponatremia likely nutritional Dilated cardiomyopathy secondary to alcohol with TTE showing biventricular philip lure with dilated cardiomyopathy, ejection fraction of 20 to 25% and grade 3 diastolic dysfunction. Patient is euvolemic Sick sinus syndrome possibly related to underlying cardiomyopathy and PE. He has had no further recurrence since November 26 Proximal atrial fibrillation currently in sinus. This is likely secondary to his massive PE Alcohol dependency with alcoholic hepatitis and transaminitis. No evidence of withdrawal Pulmonary nodule as noted on CT scan follow-up imaging in 3 months recommended Homelessness still awaiting discharge planning to finalize situation Patient is not stable for discharge at this time. There is also concern about possible aspiration because apparently had been swallowing poorly and so a speech therapy evaluation is been obtained while patient has been changed to n.p.o. I will change his antibiotic to cefepime empirically while awaiting further information and studies. 12/07/2019 Patient is currently scheduled to have a thoracentesis on December 08. He had been on Eliquis but this was discontinued, or held in anticipation of the thoracentesis. Because patient had his large clot burden and he actually had to have TPA and his stent leaving unprotected over the next 48 to 72 hours and as such I have started him on heparin drip with no bolus this will be discontinued hopefully on night of December 0712/07 Hyperkalemia will recheck in a.m. precise etiology not clear at this time Thrombocytopenia with patient on anticoagulant will need to monitor this very closely Possible ascites Pleural effusion Dysphagia Plan is for possible thoracentesis as well as paracentesis in a.m. if possible. I did place him on heparin temporarily and this is slated to be discontinued by 6 AM tomorrow. He is currently on IV fluids as his n.p.o. 12/08 patient is slightly more tachypneic today but thoracentesis currently pending as well as a paracentesis and hopefully his breathing will improve after these procedures. I have also checked ammonia level which is normal. Patient had been on heparin drip due to the thoracentesis and paracentesis being planned for today. He can likely be switched back to oral anticoagulant in a.m. There is still needs to decide on his mode of eating. He had been n.p.o. since December 05 due to concerns about his dysphagia. He was seen by speech therapy. It is felt that patient has mechanical dysphagia and positioning will be the ultimate goal as there is nothing to offer at this time. I think patient will need to be taught and cajoled into being compliant with this we can start him feeding again. Meanwhile due to his challenging home situation that is homelessness a snf facility was being looked into for him but at this time this is still not available. Had switched him to cefepime on December 05 partly because of his inability to swallow his antibiotics but this should be reassessed going forward as well. He had been on Bactrim recently for complicated UTI treatment - Time Time Spent with patient: 25-34 minutes Medications reviewed and adjusted accordingly: Yes Anticipated Discharge Disposition: [facility] Anticipated Discharge Timeframe: within 72 hours
--- NOTE | 2019-12-09 15:14 | RADIOLOGY REPORT (SQ) ---
EXAM DESCRIPTION: CHEST SINGLE VIEW IMAGES COMPLETED DATE/TIME: 12/09/2019 1:47 pm REASON FOR STUDY: post right thoracentesis COMPARISON: 12/06/2019 EXAM PARAMETERS: NUMBER OF VIEWS: One view. TECHNIQUE: Single frontal radiographic view of the chest acquired. RADIATION DOSE: NA LIMITATIONS: None. FINDINGS: LUNGS AND PLEURA: No pneumothorax status post right thoracentesis. There is considerable retrocardiac opacification on the left. MEDIASTINUM AND HILAR STRUCTURES: No masses. Contour normal. HEART AND VASCULAR STRUCTURES: Cardiomegaly. No salomon pulmonary edema. BONES: No acute findings. HARDWARE: None in the chest. OTHER: No other significant finding. IMPRESSION: No pneumothorax. Retrocardiac opacification, atelectasis versus pneumonia. Cardiomegal y without pulmonary edema. TECHNICAL DOCUMENTATION: JOB ID: [id number] 2010 [employer]- All Rights Reserved Reading location - IP/workstation name: [email or web address]
[2019-12-09 15:53] LABS: FLUID APPEARANCE CLEAR; FLUID COLOR YELLOW; FLUID VISCOSITY LIQUID
[2019-12-09 16:01] LABS: FLUID SOURCE LUNG; FLUID TYPE PLEURAL
--- NOTE | 2019-12-09 16:24 | RADIOLOGY REPORT (SQ) ---
EXAM DESCRIPTION: CHEST SINGLE VIEW IMAGES COMPLETED DATE/TIME: 12/09/2019 3:46 pm REASON FOR STUDY: 2 hour post right thoracenstsis COMPARISON: Same day ultrasound EXAM PARAMETERS: NUMBER OF VIEWS: One view. TECHNIQUE: Single frontal radiographic view of the chest acquired. RADIATION DOSE: NA LIMITATIONS: None. FINDINGS: LUNGS AND PLEURA: No pneumothorax post thoracentesis. Persistent retrocardiac opacity on the left. Mild bilateral residual effusions, left greater than right. MEDIASTINUM AND HILAR STRUCTURES: Stable. HEART AND VASCULAR STRUCTURES: Enlarged, stable. BONES: No acute findings. HARDWARE: Left approach PICC tip terminates at cavoatrial junction. OTHER: No other significant finding. IMPRESSION: No pneumothorax post thoracentesis. TECHNICAL DOCUMENTATION: JOB ID: [id number] 2010 [employer]- All Rights Reserved Reading location - IP/workstation name: [email or web address]
--- NOTE | 2019-12-09 16:41 | RADIOLOGY REPORT (SQ) ---
EXAM DESCRIPTION: PICC INSERTION IMAGES COMPLETED DATE/TIME: 12/09/2019 3:08 pm REASON FOR STUDY: Difficult IV acess and labs COMPARISON: None. FLUOROSCOPY TIME: 1.09 minutes 1 images saved to PACS. TECHNIQUE: Fluoroscopic and ultrasound guided PICC placement. LIMITATIONS: None. PROCEDURE: After written consent and assessment were obtained, the patient was brought into the fluo roscopy room and placed supine on the table. Ultrasound evaluation of potential access sites were per formed. After successfully identifying a patent left upper extremity brachiocephalic vein, the left a rm was prepped and draped in a sterile fashion along with the ultrasound probe. The entry site was an esthetized with 1% lidocaine. A 21 gauge 7 cm needle was advanced through the skin and into the brach iocephalic vein under live ultrasound guidance. An ultrasound image was saved to PACS confirming acc ess site. A .018 guide wire was then inserted through the needle and into the venous system. The nee dle was then removed and an 11 blade scalpel was used to make a 1cm skin incision. A 5 fr peel-away sheath was advanced over the wire and into the venous system. A measurement was then made using the e xisting wire and live fluoroscopic guidance. The wire was then removed and trimmed. The PICC was adva nced through the peel-away sheath and into the venous system. The peel-away sheath was removed and th e catheter was adhered to the patients arm with a stat lock. The catheter was then aspirated and flus hed and a sterile bandage was placed over the access site. A fluoroscopic spot image was saved to [facility] confirming the catheter tip within the SVC. IMPRESSION: SUCCESSFUL PLACEMENT OF A 5 FR DUAL LUMEN 50 CM PICC IN THE LEFT BRACHIOCEPHALIC VEIN. COMMENT: Patient medication list reviewed: Yes- Quality ID# [id number]:Eligible professional attests to doc umenting in the medical record they obtained, updated, or reviewed the patient's current medications. . Quality ID 145: Final reports for procedures using fluoroscopy that document radiation exposure arcadio narinder, or exposure time and number of fluorographic images (if radiation exposure indices are not avail able) Quality ID #76: The patient was prepped and draped using maximum sterile barrier technique including cap, mask, sterile gown, sterile gloves, a large sterile sheet, hand hygiene, and 2% Chlorhexidine fo r cutaneous antisepsis. When ultrasound is used, sterile ultrasound techniques are followed requiring sterile gel and sterile probes. TECHNICAL DOCUMENTATION: JOB ID: [id number] 2010 [employer]- All Rights Reserved rev-07/21 Reading location - IP/workstation name: [email or web address]
--- NOTE | 2019-12-09 16:45 | RADIOLOGY REPORT (SQ) ---
EXAM DESCRIPTION: U/S ABD PARACENTESIS IMAGES COMPLETED DATE/TIME: 12/09/2019 1:45 pm REASON FOR STUDY: Ascites COMPARISON None. LIMITATIONS: None. PROCEDURE: After obtaining informed consent, the patient was brought to the ultrasound suite. The p rocedure was performed with the patient on a gurney. Ultrasound was used to identify a prominent poc ket of ascites in the left lower quadrant. An appropriate access site was selected. The patient was prepped and draped in usual sterile fashion. The access site was anesthetized with 5 mL 1% lidocai ne. A Cbbi-A-Wnglupdn needle was advanced into the fluid. After aspiration of fluid the needle, the catheter was advanced off the needle into the fluid. A total of 4,160 mL of straw-colored fluid was removed. The patient tolerated the procedure well left the department in satisfactory condition. IMPRESSION: Successful ultrasound-guided paracentesis COMMENT: Patient medication list reviewed: Yes- Quality ID# [id number]:Eligible professional attests to doc umenting in the medical record they obtained, updated, or reviewed the patient's current medications. TECHNICAL DOCUMENTATION: JOB ID: [id number] 2010 [employer]- All Rights Reserved Reading location - IP/workstation name: [email or web address]
--- NOTE | 2019-12-09 17:09 | RADIOLOGY REPORT (SQ) ---
EXAM DESCRIPTION: U/S THORACENTESIS WITH IMAGING IMAGES COMPLETED DATE/TIME: 12/09/2019 1:45 pm REASON FOR STUDY: Dyspnea, Pleural effusion COMPARISON: None. LIMITATIONS: None. PROCEDURE: Procedure, risks, benefit, and alternative explained to patient who then gave written con sent. The posterior right chest wall was marked using ultrasound guidance. A time-out was called fo r correct marking verification. Chest prepped and draped using sterile technique. Local anesthesia a chieved using 10 ml of 1% lidocaine injection. A 6fr Safe-T- Centesis set was introduced into the [facility] pleural space. Fluid was aspirated. The catheter was removed and the entry site was covered wit h sterile bandage. No immediate complications noted. Images acquired during the procedure were stored on PACS. FINDINGS: ENTRY SITE: posterior right chest. FLUID VOLUME: 1000 cc FLUID ANALYSIS: Clear yellow OTHER: Fluid sent to the lab for testing. IMPRESSION: SUCCESSFUL RIGHT-SIDED THORACENTESIS USING ULTRASOUND GUIDANCE. COMMENT: Patient medication list reviewed: Yes- Quality ID# [id number]:Eligible professional attests to doc umenting in the medical record they obtained, updated, or reviewed the patient's current medications. TECHNICAL DOCUMENTATION: JOB ID: [id number] 2010 [employer]- All Rights Reserved Reading location - IP/workstation name: [email or web address]
[2019-12-10] MEDS: LORAZEPAM INJ 2 MG/1 ML VIAL IV PRN (00:03)
[2019-12-10] MEDS: DEXTROSE 50%-WATER 25 GM/50 ML DISP.SYRIN IV PRN ×8 (00:42→23:35)
[2019-12-10 02:12] LABS: ANION GAP 7 (5-19); BLOOD UREA NITROGEN 12 mg/dL (7-20); CALCIUM 7.8 mg/dL (8.4-10.2); CARBON DIOXIDE 21 mmol/L (22-30); CHLORIDE 98 mmol/L (98-107); GLUCOSE 273 mg/dL (75-110); POTASSIUM 5.4 mmol/L (3.6-5.0)
[2019-12-10] MEDS: PANTOPRAZOLE SODIUM 40 MG TABLET.DR PO SCH (05:38)
[2019-12-10 06:02] LABS: ABSOLUTE BASOPHILS # (AUTO) 0.1 10^3/uL (0.0-0.2); ABSOLUTE LYMPHOCYTES (AUTO) 1.2 10^3/uL (0.5-4.7); ABSOLUTE MONOCYTES (AUTO) 0.6 10^3/uL (0.1-1.4); ABSOLUTE NEUT (AUTO) 3.9 10^3/uL (1.7-8.2); BASOPHILS % (AUTO) 0.9 % (0-2); EOSINOPHILS % (AUTO) 0.3 % (0-6); HEMOGLOBIN 15.9 g/dL (13.5-17.0); LYMPHOCYTES % (AUTO) 20.9 % (13-45); MEAN CORPUSCULAR HEMOGLOBIN 27.7 pg (27.0-33.4); MEAN CORPUSCULAR HGB CONC 33.2 g/dL (32.0-36.0); MEAN CORPUSCULAR VOLUME 84 fl (80-97); MONOCYTES % (AUTO) 10.9 % (3-13); PLATELET COUNT 109 10^3/uL (150-450); RED BLOOD COUNT 5.75 10^6/uL (4.35-5.55); RED CELL DISTRIBUTION WIDTH 19.5 % (11.5-14.0); TOTAL CELLS COUNTED % (AUTO) 100 %; WHITE BLOOD COUNT 5.8 10^3/uL (4.0-10.5)
[2019-12-10 06:33] LABS: ANION GAP 6 (5-19); BLOOD UREA NITROGEN 11 mg/dL (7-20); CALCIUM 7.7 mg/dL (8.4-10.2); CARBON DIOXIDE 23 mmol/L (22-30); CHLORIDE 99 mmol/L (98-107); GLUCOSE 94 mg/dL (75-110); POTASSIUM 5.4 mmol/L (3.6-5.0)
[2019-12-10] MEDS ORDERED: FUROSEMIDE INJ/PF 20 MG/2 ML SDV IV ONE (09:00)
[2019-12-10] MEDS: LISINOPRIL 10 MG TABLET PO SCH (10:38)
[2019-12-10] MEDS: NICOTINE 14 MG/24 HR PATCH.TD24 TD SCH (10:40)
[2019-12-10] MEDS: CEFEPIME 1 GM/D5W RTU 1 GM/50 ML RTUPB IV SCH ×2 (10:40→21:40)
[2019-12-10] MEDS: ALBUMIN HUMAN 12.5 GM/50 ML RTUINJ IV SCH ×2 (10:40→10:47)
[2019-12-10] MEDS: THIAMINE HCL 100 MG TABLET PO SCH (10:40)
[2019-12-10] MEDS: BACITRACIN ZINC OINTMENT 15 GM TP SCH ×2 (10:41→17:50)
[2019-12-10] MEDS: METOPROLOL SUCCINATE 25 MG TAB.SR.24H PO SCH (10:41)
[2019-12-10] MEDS: MAGNESIUM OXIDE 400 MG TABLET PO SCH ×2 (10:41→17:50)
[2019-12-10] MEDS: APIXABAN 5 MG TABLET PO SCH ×2 (10:42→21:40)
[2019-12-10 13:53] LABS: TOTAL PROTEIN BODY FLUID 2.4 g/dL (.)
--- NOTE | 2019-12-10 16:36 | PDOC PROGRESS REPORT ---
Subjective Progress Note for:: 12/10/19 Subjective:: Patient wanting to eat today. He denies shortness of breath or chest pain. Getting belligerent with staff. Reason For Visit: BILATERAL PE Physical Exam Vital Signs: Temp Pulse Resp BP Pulse Ox 97.4 F 83 20 117/87 H 100 12/10/19 11:21 12/10/19 14:00 12/10/19 11:21 12/10/19 11:21 12/10/19 11:21 Intake & Output 12/09/19 12/10/19 12/11/19 06:59 06:59 06:59 Intake Total 2753 100 488 Output Total 650 175 Balance 2103 -75 488 Weight 92.3 kg 87.1 kg General appearance: PRESENT: no acute distress, cooperative Eye exam: PRESENT: periorbital swelling - only over right eye Neck exam: ABSENT: tracheal deviation Respiratory exam: PRESENT: symmetrical, unlabored. ABSENT: accessory muscle use, retraction, stridor, tachypnea, wheezes Cardiovascular exam: PRESENT: RRR, +S1, +S2. ABSENT: tachycardia GI/Abdominal exam: PRESENT: distended, soft. ABSENT: firm, guarding, rebound, rigid, tenderness Extremities exam: PRESENT: pedal edema Neurological exam: PRESENT: alert, awake, oriented to person, oriented to place, oriented to time Results Laboratory Results: 12/10/19 05:00 12/10/19 05:00 12/09/19 12/09/19 12/09/19 12:30 12:30 12:30 WBC RBC Hgb Hct MCV MCH MCHC RDW Plt Count Seg Neutrophils % Sodium Potassium Chloride Carbon Dioxide Anion Gap BUN Creatinine Est GFR ( Amer) Glucose Calcium Fluid Glucose 82 Fluid Total Protein 2.4 Fluid LDH 112 Fluid Amylase 27 12/09/19 12/10/19 12/10/19 13:15 01:30 05:00 WBC 5.8 RBC 5.75 H Hgb 15.9 Hct 48.0 MCV 84 MCH 27.7 MCHC 33.2 RDW 19.5 H Plt Count 109 L Seg Neutrophils % 67.0 Sodium 125.9 L Potassium 5.4 H Chloride 98 Carbon Dioxide 21 L Anion Gap 7 BUN 12 Creatinine 0.83 Est GFR ( Amer) > 60 Glucose 273 H Calcium 7.8 L Fluid Glucose Fluid Total Protein Fluid LDH Fluid Amylase 28 12/10/19 05:00 WBC RBC Hgb Hct MCV MCH MCHC RDW Plt Count Seg Neutrophils % Sodium 127.8 L Potassium 5.4 H Chloride 99 Carbon Dioxide 23 Anion Gap 6 BUN 11 Creatinine 0.82 Est GFR ( Amer) > 60 Glucose 94 Calcium 7.7 L Fluid Glucose Fluid Total Protein Fluid LDH Fluid Amylase 11/24/19 22:02 Troponin I 0.141 NT-Pro-B Natriuret Pep 60654 H Impressions: Chest/Abdomen CTA 11/24/19 22:55 IMPRESSION: There are filling defects within the main pulmonary artery concerning for developing saddle emboli. There are also filling defects seen within the segmental arteries consistent with pulmonary artery emboli. There is a groundglass nodule at the right upper lobe measuring up to 12 mm which will need interval follow-up within three months. There are trace pleural effusions with some overlying airspace opacities which are favored to represent atelectasis, but may also represent some mild edema or infection. Modified Barium Swallow 11/29/19 00:00 IMPRESSION: DEEP LARYNGEAL PENETRATION WITH TRACE ASPIRATION SEEN WITH THIN BARIUM. . PLEASE SEE SPEECH PATHOLOGIST REPORT FOR OTHER FINDINGS AND RE COMMENDATIONS. KUB X-Ray 12/03/19 00:00 IMPRESSION: Nonobstructive bowel gas pattern. PICC Line Insertion 12/09/19 00:00 IMPRESSION: SUCCESSFUL PLACEMENT OF A 5 FR DUAL LUMEN 50 CM PICC IN THE LEFT BRACHIOCEPHALIC VEIN. Paracentesis Ultrasound 12/09/19 08:00 IMPRESSION: Successful ultrasound-guided paracentesis Thoracentesis Ultrasound 12/09/19 09:47 IMPRESSION: SUCCESSFUL RIGHT-SIDED THORACENTESIS USING ULTRASOUND GUIDANCE. Chest X-Ray 12/09/19 15:25 IMPRESSION: No pneumothorax post thoracentesis. Assessment and Plan - Diagnosis (1) Acute massive pulmonary embolism Is this a current diagnosis for this admission?: Yes Plan: Saddle embolus extending into the right and left lower lobes. Noted hemodynamic instability with hypotension and bradycardic episodes. Status post TPA administered on 11/25/2019 Resumed Eliquis today. Discontinue heparin drip. (2) Bacteremia Is this a current diagnosis for this admission?: Yes Plan: Initially blood cultures positive for MR Coag neg Staph and only 1 blood culture set-completed 7 days of linezolid though possibly could be contaminant. Repeat blood cultures on 11/30/2019 showing Klebsiella secondary to complicated UTI. Initially on ceftriaxone then Bactrim p.o. then switched to cefepime because he was n.p.o. I will allow you on cefepime for 2 more days. (3) Hyponatremia Is this a current diagnosis for this admission?: Yes Plan: Urine osmolarity and urine sodium are low and suggest hyponatremia secondary to low caloric nutritional intake +/- chf/liver disease Encourage p.o. intake. Also received some Lasix. Monitor BMP (4) Ascites Qualifiers: Ascites type: other type Qualified Code(s): R18.8 - Other ascites Is this a current diagnosis for this admission?: Yes Plan: Etiology is likely from chronic systolic heart failure/RHF due to PE/Chronic liver disease s/p >4L from paracentesis 12/08 --> will give 25g of albumin today. Lasix F/u diagnostic labs on ascitic fluid for SAAG and total protein (5) Dilated cardiomyopathy secondary to alcohol Is this a current diagnosis for this admission?: Yes Plan: TTE showing biventricular failure with dilated cardiomyopathy, EF of 20 to 25% and grade 3 diastolic dysfunction of the LV. Lasix. Toprol-XL 25 mg daily. Switch lisinopril to losartan. (6) Dysphagia Qualifiers: Dysphagia type: pharyngoesophageal phase Qualified Code(s): R13.14 - Dysphagia, pharyngoesophageal phase Is this a current diagnosis for this admission?: Yes Plan: Had noted aspiration with thin liquids on MBS which resolved when upright with chin kept up. Speech pathologist however recommends continuation of regular diet with thin liquids but prompting patient to sit upright with chin kept upright. Patient has been n.p.o. for the past few days and was significantly hypoglycemic yesterday and this morning required several amps of D50 and had to be put on D5 saline infusion and glucagon. I have resumed patient on diet. Hopefully should be able to discontinue the D5 saline solution now his food intake is resumed. (7) Paroxysmal atrial fibrillation Is this a current diagnosis for this admission?: Yes Plan: Sinus rhythm currently (8) Acute respiratory failure with hypoxia Is this a current diagnosis for this admission?: Yes (9) Alcohol dependence Qualifiers: Substance use status: alcohol-induced persisting dementia Qualified Code(s): F10.27 - Alcohol dependence with alcohol-induced persisting dementia Is this a current diagnosis for this admission?: Yes (10) Pulmonary nodule Is this a current diagnosis for this admission?: Yes (11) Homeless Is this a current diagnosis for this admission?: Yes - Time Time Spent with patient: 15-24 minutes Anticipated Discharge Disposition: Nursing Home Facility Anticipated Discharge Timeframe: within 48 hours
[2019-12-10] MEDS: ACETAMINOPHEN SOLN 325 MG/10.15 ML UDCUP PO PRN (17:52)
[2019-12-10] MEDS ORDERED: FUROSEMIDE INJ/PF 40 MG/4 ML SDV IV ONE (18:00)
[2019-12-10] MEDS: DEXTROSE 5%-NORMAL SALINE 1,000 ML IV PRN (19:00)
[2019-12-11] MEDS: DEXTROSE 50%-WATER 25 GM/50 ML DISP.SYRIN IV PRN ×3 (00:02→06:22)
[2019-12-11] MEDS: DEXTROSE 5%-NORMAL SALINE 1,000 ML IV PRN (03:28)
[2019-12-11] MEDS: PANTOPRAZOLE SODIUM 40 MG TABLET.DR PO SCH (05:57)
--- NOTE | 2019-12-11 09:09 | RADIOLOGY REPORT (SQ) ---
EXAM DESCRIPTION: U/S ABDOMEN LTD W/DOPPLER IMAGES COMPLETED DATE/TIME: 12/10/2019 7:43 pm REASON FOR STUDY: ?cirrhosis. check for budd chiari. w/ dopplers COMPARISON: None. TECHNIQUE: Dynamic and static grayscale images acquired of the abdomen and recorded on PACS. Additio nal selected color Doppler and spectral images recorded. LIMITATIONS: Examination is limited due to the patient's clinical condition. FINDINGS: PANCREAS: No masses. Visualized pancreatic duct normal caliber. LIVER: Nodular contour to the liver, raises the question of possible cirrhosis of the liver. The li andriy measures 13.4 cm in length, normal size. LIVER VASCULATURE: Normal directional flow of the main portal vein and hepatic veins. GALLBLADDER: No stones. The gallbladder wall measures 2.0 mm, normal wall thickness. No pericholecys tic fluid. ULTRASOUND-DETECTED GLOVER'S SIGN: Negative. INTRAHEPATIC DUCTS AND COMMON DUCT: CBD measures 3.0 mm in diameter, normal. The intrahepatic ducts normal caliber. No filling defects. INFERIOR VENA CAVA: Normal flow. AORTA: The proximal segment is patent. The mid and distal segments are obscured by overlying bowel gas. RIGHT KIDNEY: The right kidney measures 9.3 cm in length, normal size. Normal echogenicity. No moises d or suspicious masses. No hydronephrosis. No calcifications. PERITONEAL AND RIGHT PLEURAL SPACE: Small volume of ascites. OTHER: No other significant findings. IMPRESSION: 1. Examination is limited due to the patient's clinical condition. 2. Nodular contour to the liver, raising question of cirrhosis of the liver. Liver vasculature is pa tent. 3. Suboptimal visualization of the abdominal aorta due to overlying bowel gas. 4. Small volume of ascites right upper quadrant of the abdomen. TECHNICAL DOCUMENTATION: JOB ID: [id number] [employer]- All Rights Reserved Reading location - IP/workstation name: [email or web address]
[2019-12-11] MEDS: METOPROLOL SUCCINATE 25 MG TAB.SR.24H PO SCH (09:29)
[2019-12-11] MEDS: THIAMINE HCL 100 MG TABLET PO SCH (09:29)
[2019-12-11] MEDS: MAGNESIUM OXIDE 400 MG TABLET PO SCH ×2 (09:29→17:17)
[2019-12-11] MEDS: APIXABAN 5 MG TABLET PO SCH (09:29)
[2019-12-11] MEDS: LOSARTAN POTASSIUM 25 MG TABLET PO SCH (09:29)
[2019-12-11] MEDS: NICOTINE 14 MG/24 HR PATCH.TD24 TD SCH (09:30)
[2019-12-11] MEDS: CEFEPIME 1 GM/D5W RTU 1 GM/50 ML RTUPB IV SCH ×2 (09:30→21:57)
[2019-12-11] MEDS: BACITRACIN ZINC OINTMENT 15 GM TP SCH ×2 (09:30→17:18)
[2019-12-11 11:35] LABS: ANION GAP 12 (5-19); BLOOD UREA NITROGEN 11 mg/dL (7-20); CARBON DIOXIDE 20 mmol/L (22-30); CHLORIDE 98 mmol/L (98-107); POTASSIUM 4.9 mmol/L (3.6-5.0)
[2019-12-11 11:37] LABS: GLUCOSE 68 mg/dL (75-110)
[2019-12-11 13:19] LABS: TOTAL PROTEIN BODY FLUID 1.2 g/dL (.)
[2019-12-11 13:19] LABS: ALBUMIN BODY FLUID 0.5 g/dL (Not Estab.)
[2019-12-11] MEDS ORDERED: FUROSEMIDE 20 MG TABLET PO ONE (15:44)
--- NOTE | 2019-12-11 16:17 | PDOC PROGRESS REPORT ---
Subjective Progress Note for:: 12/11/19 Subjective:: Patient was eating comfortably today. He denies shortness of breath. Noted on room air. Reason For Visit: BILATERAL PE Physical Exam Vital Signs: Temp Pulse Resp BP Pulse Ox 97.2 F 91 19 133/87 H 95 12/11/19 08:31 12/11/19 14:00 12/11/19 03:10 12/11/19 08:10 12/11/19 04:00 Intake & Output 12/10/19 12/11/19 12/12/19 06:59 06:59 06:59 Intake Total 100 1505 50 Output Total 175 1750 Balance -75 -245 50 Weight 87.1 kg 85.2 kg General appearance: PRESENT: no acute distress, cooperative Neck exam: ABSENT: JVD Respiratory exam: PRESENT: symmetrical, unlabored. ABSENT: tachypnea, wheezes Cardiovascular exam: PRESENT: RRR, +S1, +S2. ABSENT: tachycardia GI/Abdominal exam: PRESENT: soft. ABSENT: rebound, rigid, tenderness Extremities exam: PRESENT: pedal edema Neurological exam: PRESENT: alert, awake Psychiatric exam: ABSENT: agitated, anxious Focused psych exam: ABSENT: pressured speech Skin exam: ABSENT: jaundice Results Laboratory Results: 12/10/19 05:00 12/11/19 11:07 12/09/19 12/09/19 12/09/19 12:30 13:15 13:35 Sodium Potassium Chloride Carbon Dioxide Anion Gap BUN Creatinine Est GFR ( Amer) Est GFR (Non-Af Amer) Glucose Calcium Fluid Glucose 80 Fluid Total Protein 1.2 Fluid Albumin 1.1 0.5 Fluid LDH 83 12/11/19 12/11/19 06:15 11:07 Sodium Cancelled 130.2 L Potassium Cancelled 4.9 Chloride Cancelled 98 Carbon Dioxide Cancelled 20 L Anion Gap Cancelled 12 BUN Cancelled 11 Creatinine Cancelled 0.80 Est GFR ( Amer) Cancelled > 60 Est GFR (Non-Af Amer) Cancelled Glucose Cancelled 68 L Calcium Cancelled 8.0 L Fluid Glucose Fluid Total Protein Fluid Albumin Fluid LDH 11/24/19 22:02 Troponin I 0.141 NT-Pro-B Natriuret Pep 97122 H Impressions: Chest/Abdomen CTA 11/24/19 22:55 IMPRESSION: There are filling defects within the main pulmonary artery concerning for developing saddle emboli. There are also filling defects seen within the segmental arteries consistent with pulmonary artery emboli. There is a groundglass nodule at the right upper lobe measuring up to 12 mm which will need interval follow-up within three months. There are trace pleural effusions with some overlying airspace opacities which are favored to represent atelectasis, but may also represent some mild edema or infection. Modified Barium Swallow 11/29/19 00:00 IMPRESSION: DEEP LARYNGEAL PENETRATION WITH TRACE ASPIRATION SEEN WITH THIN BARIUM. . PLEASE SEE SPEECH PATHOLOGIST REPORT FOR OTHER FINDINGS AND RECOMMENDATIONS. KUB X-Ray 12/03/19 00:00 IMPRESSION: Nonobstructive bowel gas pattern. PICC Line Insertion 12/09/19 00:00 IMPRESSION: SUCCESSFUL PLACEMENT OF A 5 FR DUAL LUMEN 50 CM PICC IN THE LEFT BRACHIOCEPHALIC VEIN. Paracentesis Ultrasound 12/09/19 08:00 IMPRESSION: Successful ultrasound-guided paracentesis Thoracentesis Ultrasound 12/09/19 09:47 IMPRESSION: SUCCESSFUL RIGHT-SIDED THORACENTESIS USING ULTRASOUND GUIDANCE. Chest X-Ray 12/09/19 15:25 IMPRESSION: No pneumothorax post thoracentesis. Abdomen Ultrasound 12/10/19 00:00 IMPRESSION: 1. Examination is limited due to the patient's clinical condition. 2. Nodular contour to the liver, raising question of cirrhosis of the liver. Liver vasculature is patent. 3. Suboptimal visualization of the abdominal aorta due to overlying bowel gas. 4. Small volume of ascites right upper quadrant of the abdomen. Assessment and Plan - Diagnosis (1) Acute massive pulmonary embolism Is this a current diagnosis for this admission?: Yes Plan: Saddle embolus extending into the right and left lower lobes. Noted hemodynamic instability with hypotension and bradycardic episodes. Status post TPA administered on 11/25/2019 Currently on Eliquis but in light of patient's cirrhosis, I will discuss with pharmacy to determine the most appropriate option for anticoagulation. (2) Bacteremia Is this a current diagnosis for this admission?: Yes Plan: Initially blood cultures positive for MR Coag neg Staph and only 1 blood culture set-completed 7 days of linezolid though possibly could be contaminant. Repeat blood cultures on 11/30/2019 showing Klebsiella secondary to complicated UTI. Initially on ceftriaxone then Bactrim p.o. then switched to cefepime because he was n.p.o. I will allow you on cefepime for 1 more day. (3) Alcoholic cirrhosis of liver with ascites Is this a current diagnosis for this admission?: Yes Plan: s/p >4L from paracentesis 12/08 Ascites fluid analysis and abdominal ultrasound are consistent with cirrhosis likely secondary to chronic alcoholism. Child's saunders class C. Given his very recent alcoholism, he will of course be a poor candidate for l iver transplantation. Placed on Lasix and Aldactone added for ascites. (4) Hyponatremia Is this a current diagnosis for this admission?: Yes Plan: Urine osmolarity and urine sodium are low and suggest hyponatremia secondary to low caloric nutritional intake +/- chf/liver disease Encourage p.o. intake and continue lasix. sodium improving (5) Dilated cardiomyopathy secondary to alcohol Is this a current diagnosis for this admission?: Yes Plan: TTE showing biventricular failure with dilated cardiomyopathy, EF of 20 to 25% and grade 3 diastolic dysfunction of the LV. Lasix, aldactone, Toprol-XL 25 mg daily and losartan (6) Dysphagia Qualifiers: Dysphagia type: pharyngoesophageal phase Qualified Code(s): R13.14 - Dysphagia, pharyngoesophageal phase Is this a current diagnosis for this admission?: Yes Plan: Had noted aspiration with thin liquids on MBS which resolved when upright with chin kept up. Speech pathologist however recommends continuation of regular diet with thin liquids but prompting patient to sit upright with chin kept upright. Prone to hypoglycemia if kept n.p.o. especially in light of cirrhosis. Continue current diet. Discontinue D5 saline. (7) Acute respiratory failure with hypoxia Is this a current diagnosis for this admission?: Yes Plan: Currently on room air. Notably patient gets difficulty with adequate pulse oximetry using fingertips due to likely peripheral vascular disease. (8) Paroxysmal atrial fibrillation Is this a current diagnosis for this admission?: Yes (9) Alcohol dependence Qualifiers: Substance use status: alcohol-induced persisting dementia Qualified Code(s): F10.27 - Alcohol dependence with alcohol-induced persisting dementia Is this a current diagnosis for this admission?: Yes (10) Pulmonary nodule Is this a current diagnosis for this admission?: Yes (11) Homeless Is this a current diagnosis for this admission?: Yes - Time Time Spent with patient: Less than 15 minutes Anticipated Discharge Disposition: Group Home Facility Anticipated Discharge Timeframe: when bed available
[2019-12-11] MEDS: SPIRONOLACTONE 25 MG TABLET PO SCH (17:17)
[2019-12-11] MEDS: ENOXAPARIN SODIUM INJ 80 MG/0.8 ML DISP.SYRIN SUBCUT SCH (21:54)
[2019-12-11] MEDS: ACETAMINOPHEN SOLN 325 MG/10.15 ML UDCUP PO PRN (21:57)
[2019-12-11 22:54] LABS: HEMATOCRIT 45.5 % (37.9-51.0); HEMOGLOBIN 15.1 g/dL (13.5-17.0); MEAN CORPUSCULAR HEMOGLOBIN 27.5 pg (27.0-33.4); MEAN CORPUSCULAR HGB CONC 33.1 g/dL (32.0-36.0); MEAN CORPUSCULAR VOLUME 83 fl (80-97); RED BLOOD COUNT 5.47 10^6/uL (4.35-5.55); RED CELL DISTRIBUTION WIDTH 19.3 % (11.5-14.0); WHITE BLOOD COUNT 6.7 10^3/uL (4.0-10.5)
[2019-12-11] MEDS: WARFARIN SODIUM 3 MG TABLET PO SCH (22:55)
[2019-12-11 23:14] LABS: PLATELET COUNT 84 10^3/uL (150-450)
[2019-12-12] MEDS: DEXTROSE 50%-WATER 25 GM/50 ML DISP.SYRIN IV PRN (03:06)
[2019-12-12] MEDS: PANTOPRAZOLE SODIUM 40 MG TABLET.DR PO SCH (05:41)
[2019-12-12 06:54] LABS: INTERNATIONAL RATION (INR) 1.44; PROTHROMBIN TIME 17.7 SEC (11.4-15.4)
[2019-12-12 07:05] LABS: ANION GAP 7 (5-19); BLOOD UREA NITROGEN 9 mg/dL (7-20); CALCIUM 7.7 mg/dL (8.4-10.2); CARBON DIOXIDE 24 mmol/L (22-30); CHLORIDE 97 mmol/L (98-107); GLUCOSE 123 mg/dL (75-110); POTASSIUM 4.5 mmol/L (3.6-5.0)
[2019-12-12] MEDS: ENOXAPARIN SODIUM INJ 80 MG/0.8 ML DISP.SYRIN SUBCUT SCH ×2 (09:40→21:50)
[2019-12-12] MEDS: THIAMINE HCL 100 MG TABLET PO SCH (09:48)
[2019-12-12] MEDS: METOPROLOL SUCCINATE 25 MG TAB.SR.24H PO SCH (09:48)
[2019-12-12] MEDS: NICOTINE 14 MG/24 HR PATCH.TD24 TD SCH (09:48)
[2019-12-12] MEDS: LOSARTAN POTASSIUM 25 MG TABLET PO SCH (09:48)
[2019-12-12] MEDS: FUROSEMIDE 20 MG TABLET PO SCH (09:48)
[2019-12-12] MEDS: MAGNESIUM OXIDE 400 MG TABLET PO SCH ×2 (09:48→17:51)
[2019-12-12] MEDS: BACITRACIN ZINC OINTMENT 15 GM TP SCH ×2 (09:49→17:51)
[2019-12-12 10:44] LABS: APPEARANCE,URINE SLIGHTLY-CLOUDY; BILIRUBIN,URINE NEGATIVE (NEGATIVE); COLOR,URINE YELLOW; GLUCOSE, URINE 50 mg/dL (NEGATIVE); KETONES,URINE NEGATIVE (NEGATIVE); LEUKOCYTE ESTERASE,URINE MODERATE (NEGATIVE); NITRITE,URINE NEGATIVE (NEGATIVE); PROTEIN,URINE 30 mg/dL (NEGATIVE); URINE SPECIFIC GRAVITY 1.018; UROBILINOGEN,URINE NEGATIVE mg/dL (<2.0)
--- NOTE | 2019-12-12 16:48 | PDOC PROGRESS REPORT ---
Subjective Progress Note for:: 12/12/19 Subjective:: Patient is doing well this morning. Denies any shortness of breath. Comfortable in bed. Reason For Visit: BILATERAL PE Physical Exam Vital Signs: Temp Pulse Resp BP Pulse Ox 97.3 F 105 H 18 113/83 100 12/12/19 11:34 12/12/19 14:00 12/12/19 11:34 12/12/19 11:34 12/12/19 11:34 Intake & Output 12/11/19 12/12/19 12/13/19 06:59 06:59 06:59 Intake Total 1505 1380 260 Output Total 1750 625 Balance -245 755 260 Weight 85.2 kg 86 kg General appearance: PRESENT: no acute distress, cooperative Neck exam: ABSENT: JVD Respiratory exam: PRESENT: symmetrical, unlabored. ABSENT: tachypnea, wheezes Cardiovascular exam: PRESENT: RRR, +S1, +S2. ABSENT: tachycardia GI/Abdominal exam: PRESENT: ascites, soft. ABSENT: rebound, rigid, tenderness Neurological exam: PRESENT: alert, awake, oriented to person, oriented to place, oriented to time Psychiatric exam: ABSENT: agitated, anxious Results Laboratory Results: 12/11/19 22:40 12/12/19 06:35 12/09/19 12/09/19 12/11/19 12:30 13:15 22:40 WBC 6.7 RBC 5.47 Hgb 15.1 Hct 45.5 MCV 83 MCH 27.5 MCHC 33.1 RDW 19.3 H Plt Count 84 L Sodium Potassium Chloride Carbon Dioxide Anion Gap BUN Creatinine Est GFR ( Amer) Glucose Calcium Urine Color Urine Appearance Urine pH Ur Specific [place] Urine Protein Urine Glucose (UA) Urine Ketones Urine Blood Urine Nitrite Ur Leukocyte Esterase Urine WBC (Auto) Urine RBC (Auto) Fluid pH 8.2 8.1 12/12/19 12/12/19 06:35 10:00 WBC RBC Hgb Hct MCV MCH MCHC RDW Plt Count Sodium 128.2 L Potassium 4.5 Chloride 97 L Carbon Dioxide 24 Anion Gap 7 BUN 9 Creatinine 0.71 Est GFR ( Amer) > 60 Glucose 123 H Calcium 7.7 L Urine Color YELLOW Urine Appearance SLIGHTLY-CLOUDY Urine pH 6.0 Ur Specific [place] 1.018 Urine Protein 30 H Urine Glucose (UA) 50 H Urine Ketones NEGATIVE Urine Blood MODERATE H Urine Nitrite NEGATIVE Ur Leukocyte Esterase MODERATE H Urine WBC (Auto) 13 Urine RBC (Auto) 3 Fluid pH 12/09/19 13:15 Pleural Fluid - Right Pleural Effusion Gram Stain - Final 12/09/19 13:15 Peritoneal Gram Stain - Final 11/24/19 22:02 Troponin I 0.141 NT-Pro-B Natriuret Pep [id number] H Impressions: Chest/Abdomen CTA 11/24/19 22:55 IMPRESSION: There are filling defects within the main pulmonary artery concerning for developing saddle emboli. There are also filling defects seen within the segmental arteries consistent with pulmonary artery emboli. There is a groundglass nodule at the right upper lobe measuring up to 12 mm which will need interval follow-up within three months. There are trace pleural effusions with some overlying airspace opacities which are favored to represent atelectasis, but may also represent some mild edema or infection. Modified Barium Swallow 11/29/19 00:00 IMPRESSION: DEEP LARYNGEAL PENETRATION WITH TRACE ASPIRATION SEEN WITH THIN BARIUM. . PLEASE SEE SPEECH PATHOLOGIST REPORT FOR OTHER FINDINGS AND RECOMMENDATIONS. KUB X-Ray 12/03/19 00:00 IMPRESSION: Nonobstructive bowel gas pattern. PICC Line Insertion 12/09/19 00:00 IMPRESSION: SUCCESSFUL PLACEMENT OF A 5 FR DUAL LUMEN 50 CM PICC IN THE LEFT BRACHIOCEPHALIC VEIN. Paracentesis Ultrasound 12/09/19 08:00 IMPRESSION: Successful ultrasound-guided paracentesis Thoracentesis Ultrasound 12/09/19 09:47 IMPRESSION: SUCCESSFUL RIGHT-SIDED THORACENTESIS USING ULTRASOUND GUIDANCE. Chest X-Ray 12/09/19 15:25 IMPRESSION: No pneumothorax post thoracentesis. Abdomen Ultrasound 12/10/19 00:00 IMPRESSION: 1. Examination is limited due to the patient's clinical condition. 2. Nodular contour to the liver, raising question of cirrhosis of the liver. Liver vasculature is patent. 3. Suboptimal visualization of the abdominal aorta due to overlying bowel gas. 4. Small volume of ascites right upper quadrant of the abdomen. Assessment and Plan - Diagnosis (1) Acute massive pulmonary embolism Is this a current diagnosis for this admission?: Yes Plan: Saddle embolus extending into the right and left lower lobes. Noted hemodynamic instability with hypotension and bradycardic episodes. Status post TPA administered on 11/25/2019 After discussion with pharmacist and some literature review, we have deemed that the most adequate long-term anticoagulation option for patient will be warfarin given patient's cirrhosis and child's Trammell class C. Discontinued Eliquis and switched patient to warfarin with Lovenox bridge last night. Pharmacy to manage warfarin dosing. Monitor INR goal of 2-3 (2) Bacteremia Is this a current diagnosis for this admission?: Yes Plan: Initially blood cultures positive for MR Coag neg Staph and only 1 blood culture set-completed 7 days of linezolid though possibly could be contaminant. Repeat blood cultures on 11/30/2019 showing Klebsiella secondary to complicated UTI-completed treatment with cefepime and Bactrim. Currently resolved. (3) Alcoholic cirrhosis of liver with ascites Is this a current diagnosis for this admission?: Yes Plan: s/p >4L from paracentesis 12/08 Ascites fluid analysis and abdominal ultrasound are consistent with cirrhosis likely secondary to chronic alcoholism. Child's trammell class C. Given his very recent alcoholism and noncompliance, he will of course be a poor candidate for liver transplantation. Lasix and Aldactone added for ascites. (4) Hyponatremia Is this a current diagnosis for this admission?: Yes Plan: Urine osmolarity and urine sodium are low and suggest hyponatremia secondary to low caloric nutritional intake +/- chf/liver disease Encourage p.o. intake and continue lasix. (5) Dilated cardiomyopathy secondary to alcohol Is this a current diagnosis for this admission?: Yes Plan: TTE showing biventricular failure with dilated cardiomyopathy, EF of 20 to 25% and grade 3 diastolic dysfunction of the LV. Lasix, aldactone, Toprol-XL and losartan (6) Dysphagia Qualifiers: Dysphagia type: pharyngoesophageal phase Qualified Code(s): R13.14 - Dysphagia, pharyngoesophageal phase Is this a current diagnosis for this admission?: Yes Plan: Had noted aspiration with thin liquids on MBS which resolved when upright with chin kept up. Speech pathologist however recommends continuation of regular diet with thin liquids but prompting patient to sit upright with chin kept upright. Prone to hypoglycemia if kept n.p.o. especially in light of cirrhosis. Continue current diet. (7) Acute respiratory failure with hypoxia Is this a current diagnosis for this admission?: Yes Plan: Was on room air this morning. Notably patient gets difficulty with adequate pulse oximetry using fingertips due to likely peripheral vascular disease. (8) Paroxysmal atrial fibrillation Is this a current diagnosis for this admission?: Yes Plan: Sinus rhythm currently (9) Alcohol dependence Qualifiers: Substance use status: alcohol-induced persisting dementia Qualified Code(s): F10.27 - Alcohol dependence with alcohol-induced persisting dementia Is this a current diagnosis for this admission?: Yes Plan: Transaminitis likely secondary to alcoholic hepatitis which has significantly improved. Currently no evidence of withdrawal and he is out of the withdrawal window at this point (10) Pulmonary nodule Is this a current diagnosis for this admission?: Yes Plan: Noted on CAT scan. Follow-up imaging recommended in 3 months but given patient's homelessness and noncompliance, it is very unlikely he will follow-up. (11) Homeless Is this a current diagnosis for this admission?: Yes Plan: Physical therapy. Patient will likely need long-term placement at SNF especially given presentation with massive and unlikely to comply with therapy very poor ability to care for self. Discharge planning working on this but encountering a lot of difficulty with placing patient. D/w his brother Cesar who is reluctant to take patient to his home due to limited room/space. - Time Time Spent with patient: Less than 15 minutes Anticipated Discharge Disposition: Group Home Facility Anticipated Discharge Timeframe: when bed available
[2019-12-12] MEDS: SPIRONOLACTONE 25 MG TABLET PO SCH (17:51)
[2019-12-12] MEDS: WARFARIN SODIUM 3 MG TABLET PO SCH (21:49)
[2019-12-13] MEDS: PANTOPRAZOLE SODIUM 40 MG TABLET.DR PO SCH (06:44)
[2019-12-13 07:11] LABS: HEMATOCRIT 39.5 % (37.9-51.0); HEMOGLOBIN 13.1 g/dL (13.5-17.0); MEAN CORPUSCULAR HEMOGLOBIN 27.4 pg (27.0-33.4); MEAN CORPUSCULAR HGB CONC 33.1 g/dL (32.0-36.0); MEAN CORPUSCULAR VOLUME 83 fl (80-97); RED BLOOD COUNT 4.78 10^6/uL (4.35-5.55); WHITE BLOOD COUNT 6.3 10^3/uL (4.0-10.5)
[2019-12-13 07:38] LABS: INTERNATIONAL RATION (INR) 1.17; PROTHROMBIN TIME 15.1 SEC (11.4-15.4)
[2019-12-13 08:43] LABS: PLATELET COUNT 69 10^3/uL (150-450)
[2019-12-13] MEDS: METOPROLOL SUCCINATE 25 MG TAB.SR.24H PO SCH (10:18)
[2019-12-13] MEDS: FUROSEMIDE 20 MG TABLET PO SCH (10:18)
[2019-12-13] MEDS: MAGNESIUM OXIDE 400 MG TABLET PO SCH ×2 (10:19→18:54)
[2019-12-13] MEDS: ENOXAPARIN SODIUM INJ 80 MG/0.8 ML DISP.SYRIN SUBCUT SCH ×2 (10:20→21:26)
[2019-12-13] MEDS: NICOTINE 14 MG/24 HR PATCH.TD24 TD SCH (10:20)
[2019-12-13] MEDS: THIAMINE HCL 100 MG TABLET PO SCH (11:50)
[2019-12-13] MEDS: LOSARTAN POTASSIUM 25 MG TABLET PO SCH (11:50)
--- NOTE | 2019-12-13 12:50 | PDOC PROGRESS REPORT ---
Subjective Progress Note for:: 12/13/19 Subjective:: 64 -year-old -[place] male. With a past medical history of atrial flutter, alcohol induced dilated cardiomyopathy, CHF, hypertension, peripheral vascular disease and COPD. He presented to the ED with complaints of shortness of breath for 1 week, last evening his symptoms became more severe and EMS was called. Upon their arrival his O2 saturation was 87% on room air, he was placed on 4 L nasal cannula with improvement in his O2 saturations to 98%. Work-up in the ED consisted of a CTA of the chest which revealed defects within the main pulmonary artery concerning for developing saddle emboli. There is also filling defects within the segmental arteries consistent with pulmonary artery emboli. Of note he had a recent admission in September for a flutter RVR at which time he was not started on anticoagulation given the fact that he is homeless and has alcohol dependency issues. He was ordered beta-blockers for rate control and LV dysfunction. He states he has not been taking these as these were stolen. He also had an admission September 02, 2019 for pulseless right lower extremity a lower extremity ultrasound at that time showed occlusion of the distal anterior tibial artery in the right lower extremity and high-grade stenosis in the distal supe rficial femoral artery. He is admitted to the ICU for close observation. Heparin drip started. [id number] -[place] male with history of atrial flutter, alcohol induced dilated cardiomyopathy, hypertension, COPD, peripheral vascular disease, congestive heart failure admitted with shortness of breath. CT of the chest indicate you have saddle emboli. He was admitted to intensive care and transferred to medical floor. Patient is on treatment dose of Lovenox and warfarin 3 mg daily. INR today is 1.17. Asymptomatic. Plan is to increase warfarin to 5 mg p.o. nightly and to recheck PT/INR. Plan is to bring the INR to therapeutic level prior to discharge. He is homeless need a placement. Reason For Visit: BILATERAL PE Physical Exam Vital Signs: Temp Pulse Resp BP Pulse Ox 98.4 F 92 24 H 124/89 H 100 12/13/19 07:46 12/13/19 07:46 12/13/19 07:46 12/13/19 07:46 12/13/19 07:46 Intake & Output 12/12/19 12/13/19 12/14/19 06:59 06:59 06:59 Intake Total 1380 900 Output Total 625 Balance 755 900 Weight 86 kg 54.4 kg General appearance: PRESENT: no acute distress Head exam: PRESENT: atraumatic Eye exam: PRESENT: PERRLA Ear exam: PRESENT: normal external ear exam Mouth exam: PRESENT: neck supple Neck exam: ABSENT: carotid bruit, JVD, lymphadenopathy, thyromegaly Respiratory exam: PRESENT: decreased breath sounds Cardiovascular exam: PRESENT: RRR. ABSENT: diastolic murmur, rubs, systolic murmur GI/Abdominal exam: PRESENT: normal bowel sounds, soft. ABSENT: distended, guarding, mass, organolmegaly, rebound, tenderness Rectal exam: PRESENT: deferred Extremities exam: PRESENT: full ROM. ABSENT: calf tenderness, clubbing, pedal edema Neurological exam: PRESENT: alert, awake, oriented to person, oriented to place, oriented to time, oriented to situation, CN II-XII grossly intact. ABSENT: motor sensory deficit Psychiatric exam: PRESENT: appropriate affect, normal mood. ABSENT: homicidal ideation, suicidal ideation Skin exam: PRESENT: dry, intact, warm. ABSENT: cyanosis, rash Results Laboratory Results: 12/13/19 06:35 12/12/19 06:35 12/13/19 06:35 WBC 6.3 RBC 4.78 Hgb 13.1 L Hct 39.5 MCV 83 MCH 27.4 MCHC 33.1 RDW 19.0 H Plt Count 69 L 12/09/19 13:15 Peritoneal Gram Stain - Final 12/09/19 13:15 Peritoneal Body Fluid Culture - Final NO AEROBIC OR ANAEROBIC ORGANISMS RECOVERED 12/09/19 13:15 Pleural Fluid - Right Pleural Effusion Gram Stain - Final 12/09/19 13:15 Pleural Fluid - Right Pleural Effusion Body Fluid Culture - Final NO AEROBIC OR ANAEROBIC ORGANISMS RECOVERED 11/24/19 22:02 Troponin I 0.141 NT-Pro-B Natriuret Pep [id number] H Impressions: Chest/Abdomen CTA 11/24/19 22:55 IMPRESSION: There are filling defects within the main pulmonary artery concerning for developing saddle emboli. There are also filling defects seen within the segmental arteries consistent with pulmonary artery emboli. There is a groundglass nodule at the right upper lobe measuring up to 12 mm which will need interval follow-up within three months. There are trace pleural effusions with some overlying airspace opacities which are favored to represent atelectasis, but may also represent some mild edema or infection. Modified Barium Swallow 11/29/19 00:00 IMPRESSION: DEEP LARYNGEAL PENETRATION WITH TRACE ASPIRATION SEEN WITH THIN BARIUM. . PLEASE SEE SPEECH PATHOLOGIST REPORT FOR OTHER FINDINGS AND RECOMMENDATIONS. KUB X-Ray 12/03/19 00:00 IMPRESSION: Nonobstructive bowel gas pattern. PICC Line Insertion 12/09/19 00:00 IMPRESSION: SUCCESSFUL PLACEMENT OF A 5 FR DUAL LUMEN 50 CM PICC IN THE LEFT BRACHIOCEPHALIC VEIN. Paracentesis Ultrasound 12/09/19 08:00 IMPRESSION: Successful ultrasound-guided paracentesis Thoracentesis Ultrasound 12/09/19 09:47 IMPRESSION: SUCCESSFUL RIGHT-SIDED THORACENTESIS USING ULTRASOUND GUIDANCE. Chest X-Ray 12/09/19 15:25 IMPRESSION: No pneumothorax post thoracentesis. Abdomen Ultrasound 12/10/19 00:00 IMPRESSION: 1. Examination is limited due to the patient's clinical condition. 2. Nodular contour to the liver, raising question of cirrhosis of the liver. Liver vasculature is patent. 3. Suboptimal visualization of the abdominal aorta due to overlying bowel gas. 4. Small volume of ascites right upper quadrant of the abdomen. Assessment and Plan - Diagnosis (1) Acute massive pulmonary embolism Is this a current diagnosis for this admission?: Yes Plan: Saddle embolus extending into the right and left lower lobes. Noted hemodynamic instability with hypotension and bradycardic episodes. Status post TPA administered on 11/25/2019 After discussion with pharmacist and some literature review, we have deemed that the most adequate long-term anticoagulation option for patient will be warfarin given patient's cirrhosis and child's Trammell class C. Discontinued Eliquis and switched patient to warfarin with Lovenox bridge last night. Pharmacy to manage warfarin dosing. Monitor INR goal of 2-3 12/13/2019-patient is on Lovenox treatment dose, warfarin 3 mg p.o. nightly. INR today is 1.17 goal is to bring the INR to between 2-3. (2) Bacteremia Is this a current diagnosis for this admission?: Yes Plan: Initially blood cultures positive for MR Coag neg Staph and only 1 blood culture set-completed 7 days of linezolid though possibly could be contaminant. Repeat blood cultures on 11/30/2019 showing Klebsiella secondary to complicated UTI-completed treatment with cefepime and Bactrim. Currently resolved. (3) Alcoholic cirrhosis of liver with ascites Is this a current diagnosis for this admission?: Yes Plan: s/p >4L from paracentesis 12/08 Ascites fluid analysis and abdominal ultrasound are consistent with cirrhosis likely secondary to chronic alcoholism. Child's trammell class C. Given his very recent alcoholism and noncompliance, he will of course be a poor candidate for liver transplantation. Lasix and Aldactone added for ascites. 12/13/19-patient has history of alcohol abuse with liver cirrhosis. Presently on Lasix, Aldactone for ascites. (4) Hyponatremia Is this a current diagnosis for this admission?: Yes Plan: Urine osmolarity and urine sodium are low and suggest hyponatremia secondary to low caloric nutritional intake +/- chf/liver disease Encourage p.o. intake and continue lasix. 12/13/2019-patient serum sodium is 28.2. Chronic hyponatremia most likely secondary to liver failure. (5) Dilated cardiomyopathy secondary to alcohol Is this a current diagnosis for this admission?: Yes Plan: TTE showing biventricular failure with dilated cardiomyopathy, EF of 20 to 25% and grade 3 diastolic dysfunction of the LV. Lasix, aldactone, Toprol-XL and losartan (6) Acute respiratory failure with hypoxia Is this a current diagnosis for this admission?: Yes Plan: Was on room air this morning. Notably patient gets difficulty with adequate pulse oximetry using fingertips due to likely peripheral vascular disease. (7) Paroxysmal atrial fibrillation Is this a current diagnosis for this admission?: No Plan: Sinus rhythm currently (8) Pulmonary nodule Is this a current diagnosis for this admission?: Yes Plan: Noted on CAT scan. Follow-up imaging recommended in 3 months but given patient's homelessness and noncompliance, it is very unlikely he will follow-up. (9) Homeless Is this a current diagnosis for this admission?: Yes Plan: Physical therapy. Patient will likely need long-term placement at SNF especially given presentation with massive and unlikely to comply with therapy very poor ability to care for self. Discharge planning working on this but encountering a lot of difficulty with placing patient. D/w his brother Cesar who is reluctant to take patient to his home due to limited room/space. - Time Anticipated Discharge Disposition: Home, Self Care Anticipated Discharge Timeframe: jan 02
[2019-12-13] MEDS: BACITRACIN ZINC OINTMENT 15 GM TP SCH ×2 (14:39→18:55)
[2019-12-13] MEDS: SPIRONOLACTONE 25 MG TABLET PO SCH (18:54)
[2019-12-13] MEDS: WARFARIN SODIUM 5 MG TABLET PO SCH (21:25)
[2019-12-14] MEDS: PANTOPRAZOLE SODIUM 40 MG TABLET.DR PO SCH (05:50)
[2019-12-14 06:38] LABS: HEMATOCRIT 37.7 % (37.9-51.0); HEMOGLOBIN 12.7 g/dL (13.5-17.0); MEAN CORPUSCULAR HEMOGLOBIN 27.5 pg (27.0-33.4); MEAN CORPUSCULAR HGB CONC 33.7 g/dL (32.0-36.0); MEAN CORPUSCULAR VOLUME 82 fl (80-97); RED BLOOD COUNT 4.61 10^6/uL (4.35-5.55); RED CELL DISTRIBUTION WIDTH 18.9 % (11.5-14.0); WHITE BLOOD COUNT 6.9 10^3/uL (4.0-10.5)
[2019-12-14 06:59] LABS: INTERNATIONAL RATION (INR) 1.09; PROTHROMBIN TIME 14.3 SEC (11.4-15.4)
[2019-12-14 07:24] LABS: PLATELET COUNT 62 10^3/uL (150-450)
[2019-12-14] MEDS ORDERED: INFLUENZA QUAD (6MOS+) 2020-21 VAC 0.5 ML SYR IM ONE (08:00)
[2019-12-14] MEDS: ENOXAPARIN SODIUM INJ 80 MG/0.8 ML DISP.SYRIN SUBCUT SCH ×2 (10:16→22:00)
[2019-12-14] MEDS: NICOTINE 14 MG/24 HR PATCH.TD24 TD SCH (10:17)
[2019-12-14] MEDS: BACITRACIN ZINC OINTMENT 15 GM TP SCH (10:17)
[2019-12-14] MEDS: METOPROLOL SUCCINATE 25 MG TAB.SR.24H PO SCH (10:18)
[2019-12-14] MEDS: THIAMINE HCL 100 MG TABLET PO SCH (10:18)
[2019-12-14] MEDS: FUROSEMIDE 20 MG TABLET PO SCH (10:18)
[2019-12-14] MEDS: MAGNESIUM OXIDE 400 MG TABLET PO SCH ×2 (10:18→17:58)
[2019-12-14] MEDS: LOSARTAN POTASSIUM 25 MG TABLET PO SCH (10:18)
--- NOTE | 2019-12-14 10:26 | PDOC PROGRESS REPORT ---
Subjective Progress Note for:: 12/14/19 Subjective:: 64 -year-old -Mal[place]ian male. With a past medical history of atrial flutter, alcohol induced dilated cardiomyopathy, CHF, hypertension, peripheral vascular disease and COPD. He presented to the ED with complaints of shortness of breath for 1 week, last evening his symptoms became more severe and EMS was called. Upon their arrival his O2 saturation was 87% on room air, he was placed on 4 L nasal cannula with improvement in his O2 saturations to 98%. Work-up in the ED consisted of a CTA of the chest which revealed defects within the main pulmonary artery concerning for developing saddle emboli. There is also filling defects within the segmental arteries consistent with pulmonary artery emboli. Of note he had a recent admission in September for a flutter RVR at which time he was not started on anticoagulation given the fact that he is homeless and has alcohol dependency issues. He was ordered beta-blockers for rate control and LV dysfunction. He states he has not been taking these as these were stolen. He also had an admission September 02, 2019 for pulseless right lower extremity a lower extremity ultrasound at that time showed occlusion of the distal anterior tibial artery in the right lower extremity and high-grade stenosis in the distal supe rficial femoral artery. He is admitted to the ICU for close observation. Heparin drip started. 12/13/[id number]-mfaj-old -[place]ian male with history of atrial flutter, alcohol induced dilated cardiomyopathy, hypertension, COPD, peripheral vascular disease, congestive heart failure admitted with shortness of breath. CT of the chest indicate you have saddle emboli. He was admitted to intensive care and transferred to medical floor. Patient is on treatment dose of Lovenox and warfarin 3 mg daily. INR today is 1.17. Asymptomatic. Plan is to increase warfarin to 5 mg p.o. nightly and to recheck PT/INR. Plan is to bring the INR to therapeutic level prior to discharge. He is homeless need a placement. 12/14/[id number]-syai-old male with history of atrial flutter, alcohol induced card iomyopathy, hypertension, COPD, chronic heart failure admitted with dyspnea. CTA of the chest indicated of saddle emboli. Patient is presently on treatment dose of Lovenox and Coumadin 5 mg p.o. nightly. INR is still subtherapeutic around 1.09. Patient is comfortably in the bed communicating well not in distress. Patient need a placement at this time. Reason For Visit: BILATERAL PE Physical Exam Vital Signs: Temp Pulse Resp BP Pulse Ox 98.4 F 102 H 16 112/74 100 12/14/19 00:09 12/14/19 07:00 12/14/19 00:09 12/14/19 00:09 12/14/19 00:09 Intake & Output 12/13/19 12/14/19 12/15/19 06:59 06:59 06:59 Intake Total 900 834 Balance 900 834 Weight 54.4 kg 81.9 kg General appearance: PRESENT: no acute distress Head exam: PRESENT: atraumatic Eye exam: PRESENT: conjunctiva pale, PERRLA Mouth exam: PRESENT: moist, tongue midline Teeth exam: PRESENT: poor dentation Neck exam: ABSENT: carotid bruit, JVD, lymphadenopathy, thyromegaly Respiratory exam: PRESENT: clear to auscultation jefferson. ABSENT: rales, rhonchi, wheezes Cardiovascular exam: PRESENT: RRR. ABSENT: diastolic murmur, rubs, systolic murmur GI/Abdominal exam: PRESENT: normal bowel sounds, soft. ABSENT: distended, guarding, mass, organolmegaly, rebound, tenderness Rectal exam: PRESENT: deferred Extremities exam: PRESENT: full ROM. ABSENT: calf tenderness, clubbing, pedal edema Neurological exam: PRESENT: alert, awake, oriented to person, oriented to place, oriented to time, oriented to situation, CN II-XII grossly intact. ABSENT: motor sensory deficit Psychiatric exam: PRESENT: appropriate affect, normal mood. ABSENT: homicidal ideation, suicidal ideation Results Laboratory Results: 12/14/19 06:00 12/12/19 06:35 12/14/19 06:00 WBC 6.9 RBC 4.61 Hgb 12.7 L Hct 37.7 L MCV 82 MCH 27.5 MCHC 33.7 RDW 18.9 H Plt Count 62 L 12/09/19 13:15 Peritoneal Gram Stain - Final 12/09/19 13:15 Peritoneal Body Fluid Culture - Final NO AEROBIC OR ANAEROBIC ORGANISMS RECOVERED 12/09/19 13:15 Pleural Fluid - Right Pleural Effusion Gram Stain - Final 12/09/19 13:15 Pleural Fluid - Right Pleural Effusion Body Fluid Culture - Final NO AEROBIC OR ANAEROBIC ORGANISMS RECOVERED 11/24/19 22:02 Troponin I 0.141 NT-Pro-B Natriuret Pep 69011 H Impressions: Chest/Abdomen CTA 11/24/19 22:55 IMPRESSION: There are filling defects within the main pulmonary artery concerning for developing saddle emboli. There are also filling defects seen within the segmental arteries consistent with pulmonary artery emboli. There is a groundglass nodule at the right upper lobe measuring up to 12 mm which will need interval follow-up within three months. There are trace pleural effusions with some overlying airspace opacities which are favored to represent atelectasis, but may also represent some mild edema or infection. Modified Barium Swallow 11/29/19 00:00 IMPRESSION: DEEP LARYNGEAL PENETRATION WITH TRACE ASPIRATION SEEN WITH THIN BARIUM. . PLEASE SEE SPEECH PATHOLOGIST REPORT FOR OTHER FINDINGS AND RECOMMENDATIONS. KUB X-Ray 12/03/19 00:00 IMPRESSION: Nonobstructive bowel gas pattern. PICC Line Insertion 12/09/19 00:00 IMPRESSION: SUCCESSFUL PLACEMENT OF A 5 FR DUAL LUMEN 50 CM PICC IN THE LEFT BRACHIOCEPHALIC VEIN. Paracentesis Ultrasound 12/09/19 08:00 IMPRESSION: Successful ultrasound-guided paracentesis Thoracentesis Ultrasound 12/09/19 09:47 IMPRESSION: SUCCESSFUL RIGHT-SIDED THORACENTESIS USING ULTRASOUND GUIDANCE. Chest X-Ray 12/09/19 15:25 IMPRESSION: No pneumothorax post thoracentesis. Abdomen Ultrasound 12/10/19 00:00 IMPRESSION: 1. Examination is limited due to the patient's clinical condition. 2. Nodular contour to the liver, raising question of cirrhosis of the liver. Liver vasculature is patent. 3. Suboptimal visualization of the abdominal aorta due to overlying bowel gas. 4. Small volume of ascites right upper quadrant of the abdomen. Assessment and Plan - Diagnosis (1) Acute massive pulmonary embolism Is this a current diagnosis for this admission?: Yes Plan: Saddle embolus extending into the right and left lower lobes. Noted hemodynamic instability with hypotension and bradycardic episodes. Status post TPA administered on 11/25/2019 After discussion with pharmacist and some literature review, we have deemed that the most adequate long-term anticoagulation option for patient will be warfarin given patient's cirrhosis and child's Trammell class C. Discontinued Eliquis and switched patient to warfarin with Lovenox bridge last night. Pharmacy to manage warfarin dosing. Monitor INR goal of 2-3 12/13/2019-patient is on Lovenox treatment dose, warfarin 3 mg p.o. nightly. INR today is 1.17 goal is to bring the INR to between 2-3. 1020-INR today is 1.09. To continue Coumadin 5 mg p.o. nightly and continue Lovenox treatment dose. To repeat PT/INR tomorrow. Goal is between 2-3. (2) Bacteremia Is this a current diagnosis for this admission?: Yes Plan: Initially blood cultures positive for MR Coag neg Staph and only 1 blood culture set-completed 7 days of linezolid though possibly could be contaminant. Repeat blood cultures on 11/30/2019 showing Klebsiella secondary to complicated UTI-completed treatment with cefepime and Bactrim. Currently resolved. (3) Alcoholic cirrhosis of liver with ascites Is this a current diagnosis for this admission?: Yes Plan: s/p >4L from paracentesis 12/08 Ascites fluid analysis and abdominal ultrasound are consistent with cirrhosis likely secondary to chronic alcoholism. Child's trammell class C. Given his very recent alcoholism and noncompliance, he will of course be a poor candidate for liver transplantation. Lasix and Aldactone added for ascites. 12/13/19-patient has history of alcohol abuse with liver cirrhosis. Presently on Lasix, Aldactone for ascites. (4) Hyponatremia Is this a current diagnosis for this admission?: Yes Plan: Urine osmolarity and urine sodium are low and suggest hyponatremia secondary to low caloric nutritional intake +/- chf/liver disease Encourage p.o. intake and continue lasix. 12/13/2019-patient serum sodium is 128.2. Chronic hyponatremia most likely secondary to liver failure. 12/14/2019-latest serum sodium is around 128. Chronic hyponatremia secondary to alcoholic liver disease and congestive heart failure. (5) Dilated cardiomyopathy secondary to alcohol Is this a current diagnosis for this admission?: Yes Plan: TTE showing biventricular failure with dilated cardiomyopathy, EF of 20 to 25% and grade 3 diastolic dysfunction of the LV. Lasix, aldactone, Toprol-XL and losartan (6) Acute respiratory failure with hypoxia Is this a current diagnosis for this admission?: Yes Plan: Was on room air this morning. Notably patient gets difficulty with adequate pulse oximetry using fingertips due to likely peripheral vascular disease. 12/14/2019-pulse ox today is 100% on 4 L. Plan is to continue the present management at this time. (7) Paroxysmal atrial fibrillation Is this a current diagnosis for this admission?: No Plan: Sinus rhythm currently (8) Pulmonary nodule Is this a current diagnosis for this admission?: Yes Plan: Noted on CAT scan. Follow-up imaging recommended in 3 months but given elida alaniz's homelessness and noncompliance, it is very unlikely he will follow-up. (9) Homeless Is this a current diagnosis for this admission?: Yes Plan: Physical therapy. Patient will likely need long-term placement at SNF especially given presentation with massive and unlikely to comply with therapy very poor ability to care for self. Discharge planning working on this but encountering a lot of difficulty with placing patient. D/w his brother Cesar who is reluctant to take patient to his home due to limited room/space. - Time Anticipated Discharge Disposition: [facility] Care Facility Anticipated Discharge Timeframe: within 72 hours
[2019-12-14] MEDS: SPIRONOLACTONE 25 MG TABLET PO SCH (17:58)
[2019-12-14] MEDS: WARFARIN SODIUM 5 MG TABLET PO SCH (21:59)
[2019-12-14] MEDS: NORMAL SALINE 10 ML SDV (SCHEDULED) IV SCH (22:00)
[2019-12-15] MEDS: ACETAMINOPHEN SOLN 325 MG/10.15 ML UDCUP PO PRN ×2 (01:58→13:29)
[2019-12-15] MEDS: PANTOPRAZOLE SODIUM 40 MG TABLET.DR PO SCH (05:09)
[2019-12-15 05:52] LABS: ABSOLUTE BASOPHILS # (AUTO) 0.1 10^3/uL (0.0-0.2); ABSOLUTE EOSINOPHILS # (AUTO) 0.2 10^3/uL (0.0-0.6); ABSOLUTE LYMPHOCYTES (AUTO) 2.2 10^3/uL (0.5-4.7); ABSOLUTE NEUT (AUTO) 3.7 10^3/uL (1.7-8.2); BASOPHILS % (AUTO) 0.7 % (0-2); EOSINOPHILS % (AUTO) 2.6 % (0-6); HEMATOCRIT 36.7 % (37.9-51.0); HEMOGLOBIN 12.3 g/dL (13.5-17.0); LYMPHOCYTES % (AUTO) 30.2 % (13-45); MEAN CORPUSCULAR HEMOGLOBIN 27.6 pg (27.0-33.4); MEAN CORPUSCULAR HGB CONC 33.6 g/dL (32.0-36.0); MEAN CORPUSCULAR VOLUME 82 fl (80-97); MONOCYTES % (AUTO) 14.2 % (3-13); PLATELET COUNT 103 10^3/uL (150-450); RED BLOOD COUNT 4.47 10^6/uL (4.35-5.55); RED CELL DISTRIBUTION WIDTH 18.8 % (11.5-14.0); SEGMENTED NEUTROPHILS % (AUTO) 52.3 % (42-78); TOTAL CELLS COUNTED % (AUTO) 100 %; WHITE BLOOD COUNT 7.2 10^3/uL (4.0-10.5)
[2019-12-15 06:08] LABS: ALBUMIN 2.6 g/dL (3.5-5.0); ALKALINE PHOSPHATASE 188 U/L (38-126); ANION GAP 5 (5-19); ASPARTATE AMINO TRANSFERASE 53 U/L (17-59); BILIRUBIN,DIRECT 0.8 mg/dL (0.0-0.4); BILIRUBIN,TOTAL 1.4 mg/dL (0.2-1.3); BLOOD UREA NITROGEN 10 mg/dL (7-20); CALCIUM 7.9 mg/dL (8.4-10.2); CARBON DIOXIDE 29 mmol/L (22-30); CHLORIDE 94 mmol/L (98-107); GLUCOSE 102 mg/dL (75-110); POTASSIUM 4.5 mmol/L (3.6-5.0); TOTAL PROTEIN 5.5 g/dL (6.3-8.2)
[2019-12-15 06:15] LABS: INTERNATIONAL RATION (INR) 1.12; PROTHROMBIN TIME 14.6 SEC (11.4-15.4)
[2019-12-15] MEDS: MAGNESIUM OXIDE 400 MG TABLET PO SCH ×2 (09:41→18:31)
[2019-12-15] MEDS: FUROSEMIDE 20 MG TABLET PO SCH (09:41)
[2019-12-15] MEDS: METOPROLOL SUCCINATE 25 MG TAB.SR.24H PO SCH (09:41)
[2019-12-15] MEDS: THIAMINE HCL 100 MG TABLET PO SCH (09:41)
[2019-12-15] MEDS: NORMAL SALINE 10 ML SDV (SCHEDULED) IV SCH ×2 (09:42→21:04)
[2019-12-15] MEDS: LOSARTAN POTASSIUM 25 MG TABLET PO SCH (09:42)
[2019-12-15] MEDS: NICOTINE 14 MG/24 HR PATCH.TD24 TD SCH (09:43)
[2019-12-15] MEDS: ENOXAPARIN SODIUM INJ 80 MG/0.8 ML DISP.SYRIN SUBCUT SCH ×2 (09:44→22:03)
--- NOTE | 2019-12-15 10:18 | PDOC PROGRESS REPORT ---
Subjective Progress Note for:: 12/15/19 Subjective:: 64 -year-old -[place] male. With a past medical history of atrial flutter, alcohol induced dilated cardiomyopathy, CHF, hypertension, peripheral vascular disease and COPD. He presented to the ED with complaints of shortness of breath for 1 week, last evening his symptoms became more severe and EMS was called. Upon their arrival his O2 saturation was 87% on room air, he was placed on 4 L nasal cannula with improvement in his O2 saturations to 98%. Work-up in the ED consisted of a CTA of the chest which revealed defects within the main pulmonary artery concerning for developing saddle emboli. There is also filling defects within the segmental arteries consistent with pulmonary artery emboli. Of note he had a recent admission in September for a flutter RVR at which time he was not started on anticoagulation given the fact that he is homeless and has alcohol dependency issues. He was ordered beta-blockers for rate control and LV dysfunction. He states he has not been taking these as these were stolen. He also had an admission September 02, 2019 for pulseless right lower extremity a lower extremity ultrasound at that time showed occlusion of the distal anterior tibial artery in the right lower extremity and high-grade stenosis in the distal supe rficial femoral artery. He is admitted to the ICU for close observation. Heparin drip started. 12/13/[id number]-gilp-old -[place] male with history of atrial flutter, alcohol induced dilated cardiomyopathy, hypertension, COPD, peripheral vascular disease, congestive heart failure admitted with shortness of breath. CT of the chest indicate you have saddle emboli. He was admitted to intensive care and transferred to medical floor. Patient is on treatment dose of Lovenox and warfarin 3 mg daily. INR today is 1.17. Asymptomatic. Plan is to increase warfarin to 5 mg p.o. nightly and to recheck PT/INR. Plan is to bring the INR to therapeutic level prior to discharge. He is homeless need a placement. 12/14/[id number]-uhwi-old male with history of atrial flutter, alcohol induced card iomyopathy, hypertension, COPD, chronic heart failure admitted with dyspnea. CTA of the chest indicated of saddle emboli. Patient is presently on treatment dose of Lovenox and Coumadin 5 mg p.o. nightly. INR is still subtherapeutic around 1.09. Patient is comfortably in the bed communicating well not in distress. Patient need a placement at this time. 12/15/1980-04-rvvi-old male history of atrial flutter, cardiomyopathy found to have bilateral PE. On Lovenox treatment dose, Coumadin 5 mg p.o. nightly. INR today's 1.12. Goal is to bring the INR up to 2. Patient is also waiting for placement. Reason For Visit: BILATERAL PE Physical Exam Vital Signs: Temp Pulse Resp BP Pulse Ox 97.7 F 98 20 124/92 H 100 12/15/19 08:00 12/15/19 08:00 12/15/19 08:00 12/15/19 08:00 12/15/19 08:00 Intake & Output 12/14/19 12/15/19 12/16/19 06:59 06:59 06:59 Intake Total 834 2020 Output Total 1775 Balance 834 245 Weight 81.9 kg 81 kg General appearance: PRESENT: no acute distress, thin Head exam: PRESENT: atraumatic Eye exam: PRESENT: PERRLA Mouth exam: PRESENT: moist, tongue midline Teeth exam: PRESENT: poor dentation Neck exam: ABSENT: carotid bruit, JVD, lymphadenopathy, thyromegaly Respiratory exam: PRESENT: decreased breath sounds Cardiovascular exam: PRESENT: RRR. ABSENT: diastolic murmur, rubs, systolic murmur GI/Abdominal exam: PRESENT: normal bowel sounds, soft. ABSENT: distended, guarding, mass, organolmegaly, rebound, tenderness Rectal exam: PRESENT: deferred Extremities exam: PRESENT: full ROM. ABSENT: calf tenderness, clubbing, pedal edema Neurological exam: PRESENT: alert, awake, oriented to person, oriented to place, oriented to time, oriented to situation, CN II-XII grossly intact. ABSENT: motor sensory deficit Psychiatric exam: PRESENT: appropriate affect, normal mood. ABSENT: homicidal ideation, suicidal ideation Skin exam: PRESENT: dry, intact, warm. ABSENT: cyanosis, rash Results Laboratory Results: 12/15/19 05:16 12/15/19 05:16 12/15/19 12/15/19 12/15/19 00:00 05:16 05:16 WBC 7.2 RBC 4.47 Hgb 12.3 L Hct 36.7 L MCV 82 MCH 27.6 MCHC 33.6 RDW 18.8 H Plt Count 103 L Seg Neutrophils % 52.3 Sodium 127.8 L Potassium 4.5 Chloride 94 L Carbon Dioxide 29 Anion Gap 5 BUN 10 Creatinine 0.61 Est GFR ( Amer) > 60 Glucose 102 Calcium 7.9 L Magnesium 1.5 L Total Bilirubin 1.4 H AST 53 Alkaline Phosphatase 188 H Total Protein 5.5 L Albumin 2.6 L Urine Color Cancelled Urine Appearance Cancelled Urine pH Cancelled Ur Specific Posey Cancelled Urine Protein Cancelled Urine Glucose (UA) Cancelled Urine Ketones Cancelled Urine Blood Cancelled Urine Nitrite Cancelled Ur Leukocyte Esterase Cancelled Urine WBC (Auto) Cancelled Urine RBC (Auto) Cancelled 11/24/19 22:02 Troponin I 0.141 NT-Pro-B Natriuret Pep [id number] H Impressions: Chest/Abdomen CTA 11/24/19 22:55 IMPRESSION: There are filling defects within the main pulmonary artery concerning for developing saddle emboli. There are also filling defects seen within the segmental arteries consistent with pulmonary artery emboli. There is a groundglass nodule at the right upper lobe measuring up to 12 mm which will need interval follow-up within three months. There are trace pleural effusions with some overlying airspace opacities which are favored to represent atelectasis, but may also represent some mild edema or infection. Modified Barium Swallow 11/29/19 00:00 IMPRESSION: DEEP LARYNGEAL PENETRATION WITH TRACE ASPIRATION SEEN WITH THIN BARIUM. . PLEASE SEE SPEECH PATHOLOGIST REPORT FOR OTHER FINDINGS AND RECOMMENDATIONS. KUB X-Ray 12/03/19 00:00 IMPRESSION: Nonobstructive bowel gas pattern. PICC Line Insertion 12/09/19 00:00 IMPRESSION: SUCCESSFUL PLACEMENT OF A 5 FR DUAL LUMEN 50 CM PICC IN THE LEFT BRACHIOCEPHALIC VEIN. Paracentesis Ultrasound 12/09/19 08:00 IMPRESSION: Successful ultrasound-guided paracentesis Thoracentesis Ultrasound 12/09/19 09:47 IMPRESSION: SUCCESSFUL RIGHT-SIDED THORACENTESIS USING ULTRASOUND GUIDANCE. Chest X-Ray 12/09/19 15:25 IMPRESSION: No pneumothorax post thoracentesis. Abdomen Ultrasound 12/10/19 00:00 IMPRESSION: 1. Examination is limited due to the patient's clinical condition. 2. Nodular contour to the liver, raising question of cirrhosis of the liver. Liver vasculature is patent. 3. Suboptimal visualization of the abdominal aorta due to overlying bowel gas. 4. Small volume of ascites right upper quadrant of the abdomen. Assessment and Plan - Diagnosis (1) Acute massive pulmonary embolism Is this a current diagnosis for this admission?: Yes Plan: Saddle embolus extending into the right and left lower lobes. Noted hemodynamic instability with hypotension and bradycardic episodes. Status post TPA administered on 11/25/2019 After discussion with pharmacist and some literature review, we have deemed that the most adequate long-term anticoagulation option for patient will be warfarin given patient's cirrhosis and child's Trammell class C. Discontinued Eliquis and switched patient to warfarin with Lovenox bridge last night. Pharmacy to manage warfarin dosing. Monitor INR goal of 2-3 12/13/2019-patient is on Lovenox treatment dose, warfarin 3 mg p.o. nightly. INR today is 1.17 goal is to bring the INR to between 2-3. 12/14/19-INR today is 1.09. To continue Coumadin 5 mg p.o. nightly and continue Lovenox treatment dose. To repeat PT/INR tomorrow. Goal is between 2-3. 12/15/2019-INR today is 1.12. To continue Coumadin 5 mg p.o. nightly to recheck PT/INR tomorrow. Patient is also on treatment dose of Lovenox. (2) Bacteremia Is this a current diagnosis for this admission?: Yes Plan: Initially blood cultures positive for MR Coag neg Staph and only 1 blood culture set-completed 7 days of linezolid though possibly could be contaminant. Repeat blood cultures on 11/30/2019 showing Klebsiella secondary to complicated UTI-completed treatment with cefepime and Bactrim. Currently resolved. (3) Alcoholic cirrhosis of liver with ascites Is this a current diagnosis for this admission?: Yes Plan: s/p >4L from paracentesis 12/08 Ascites fluid analysis and abdominal ultrasound are consistent with cirrhosis likely secondary to chronic alcoholism. Child's trammell class C. Given his very recent alcoholism and noncompliance, he will of course be a poor candidate for liver transplantation. Lasix and Aldactone added for ascites. 12/13/19-patient has history of alcohol abuse with liver cirrhosis. Presently on Lasix, Aldactone for ascites. 12/15/19-patient has history of alcoholic liver cirrhosis. Plan is to continue Lasix, Aldactone, for ascites. (4) Hyponatremia Is this a current diagnosis for this admission?: Yes Plan: Urine osmolarity and urine sodium are low and suggest hyponatremia secondary to low caloric nutritional intake +/- chf/liver disease Encourage p.o. intake and continue lasix. 12/13/2019-patient serum sodium is 128.2. Chronic hyponatremia most likely secondary to liver failure. 12/14/2019-latest serum sodium is around 128. Chronic hyponatremia secondary to alcoholic liver disease and congestive heart failure. 12/15/19-serum sodium is 127.8. Stable. (5) Dilated cardiomyopathy secondary to alcohol Is this a current diagnosis for this admission?: Yes Plan: TTE showing biventricular failure with dilated cardiomyopathy, EF of 20 to 25% and grade 3 diastolic dysfunction of the LV. Lasix, aldactone, Toprol-XL and losartan (6) Acute respiratory failure with hypoxia Is this a current diagnosis for this admission?: Yes Plan: Was on room air this morning. Notably patient gets difficulty with adequate pulse oximetry using fingertips due to likely peripheral vascular disease. 12/14/2019-pulse ox today is 100% on 4 L. Plan is to continue the present management at this time. (7) Paroxysmal atrial fibrillation Is this a current diagnosis for this admission?: No Plan: Sinus rhythm currently (8) Pulmonary nodule Is this a current diagnosis for this admission?: Yes Plan: Noted on CAT scan. Follow-up imaging recommended in 3 months but given patient's homelessness and noncompliance, it is very unlikely he will follow-up. (9) Homeless Is this a current diagnosis for this admission?: Yes Plan: Physical therapy. Patient will likely need long-term placement at SNF especially given presentation with massive and unlikely to comply with therapy very poor ability to care for self. Discharge planning working on this but encountering a lot of difficulty with placing patient. D/w his brother Cesar who is reluctant to take patient to his home due to limited room/space. - Time Anticipated Discharge Disposition: Long-Term Facility Anticipated Discharge Timeframe: within 72 hours
[2019-12-15] MEDS: SPIRONOLACTONE 25 MG TABLET PO SCH (18:29)
[2019-12-15] MEDS: WARFARIN SODIUM 5 MG TABLET PO SCH (21:04)
[2019-12-16] MEDS: PANTOPRAZOLE SODIUM 40 MG TABLET.DR PO SCH (05:44)
[2019-12-16 06:23] LABS: ABSOLUTE BASOPHILS # (AUTO) 0.1 10^3/uL (0.0-0.2); ABSOLUTE EOSINOPHILS # (AUTO) 0.1 10^3/uL (0.0-0.6); ABSOLUTE LYMPHOCYTES (AUTO) 1.4 10^3/uL (0.5-4.7); ABSOLUTE MONOCYTES (AUTO) 0.9 10^3/uL (0.1-1.4); ABSOLUTE NEUT (AUTO) 4.8 10^3/uL (1.7-8.2); BASOPHILS % (AUTO) 0.7 % (0-2); EOSINOPHILS % (AUTO) 1.4 % (0-6); HEMATOCRIT 36.5 % (37.9-51.0); HEMOGLOBIN 12.2 g/dL (13.5-17.0); LYMPHOCYTES % (AUTO) 19.7 % (13-45); MEAN CORPUSCULAR HEMOGLOBIN 27.5 pg (27.0-33.4); MEAN CORPUSCULAR HGB CONC 33.5 g/dL (32.0-36.0); MEAN CORPUSCULAR VOLUME 82 fl (80-97); MONOCYTES % (AUTO) 12.3 % (3-13); PLATELET COUNT 132 10^3/uL (150-450); RED BLOOD COUNT 4.43 10^6/uL (4.35-5.55); RED CELL DISTRIBUTION WIDTH 18.9 % (11.5-14.0); SEGMENTED NEUTROPHILS % (AUTO) 65.9 % (42-78); TOTAL CELLS COUNTED % (AUTO) 100 %; WHITE BLOOD COUNT 7.3 10^3/uL (4.0-10.5)
[2019-12-16 06:32] LABS: PROTHROMBIN TIME 19.2 SEC (11.4-15.4)
[2019-12-16 06:47] LABS: ALBUMIN 3.2 g/dL (3.5-5.0); ALKALINE PHOSPHATASE 231 U/L (38-126); ANION GAP 9 (5-19); ASPARTATE AMINO TRANSFERASE 69 U/L (17-59); BILIRUBIN,TOTAL 1.6 mg/dL (0.2-1.3); BLOOD UREA NITROGEN 11 mg/dL (7-20); CALCIUM 8.1 mg/dL (8.4-10.2); CARBON DIOXIDE 27 mmol/L (22-30); CHLORIDE 91 mmol/L (98-107); GLUCOSE 112 mg/dL (75-110); POTASSIUM 4.9 mmol/L (3.6-5.0); TOTAL PROTEIN 6.3 g/dL (6.3-8.2)
--- NOTE | 2019-12-16 10:31 | PDOC PROGRESS REPORT ---
Subjective Progress Note for:: 12/16/19 Subjective:: 64 -year-old -Irish male. With a past medical history of atrial flutter, alcohol induced dilated cardiomyopathy, CHF, hypertension, peripheral vascular disease and COPD. He presented to the ED with complaints of shortness of breath for 1 week, last evening his symptoms became more severe and EMS was called. Upon their arrival his O2 saturation was 87% on room air, he was placed on 4 L nasal cannula with improvement in his O2 saturations to 98%. Work-up in the ED consisted of a CTA of the chest which revealed defects within the main pulmonary artery concerning for developing saddle emboli. There is also filling defects within the segmental arteries consistent with pulmonary artery emboli. Of note he had a recent admission in September for a flutter RVR at which time he was not started on anticoagulation given the fact that he is homeless and has alcohol dependency issues. He was ordered beta-blockers for rate control and LV dysfunction. He states he has not been taking these as these were stolen. He also had an admission September 02, 2019 for pulseless right lower extremity a lower extremity ultrasound at that time showed occlusion of the distal anterior tibial artery in the right lower extremity and high-grade stenosis in the distal supe rficial femoral artery. He is admitted to the ICU for close observation. Heparin drip started. 12/13[birth year][id number]-gowr-old -Irish male with history of atrial flutter, alcohol induced dilated cardiomyopathy, hypertension, COPD, peripheral vascular disease, congestive heart failure admitted with shortness of breath. CT of the chest indicate you have saddle emboli. He was admitted to intensive care and transferred to medical floor. Patient is on treatment dose of Lovenox and warfarin 3 mg daily. INR today is 1.17. Asymptomatic. Plan is to increase warfarin to 5 mg p.o. nightly and to recheck PT/INR. Plan is to bring the INR to therapeutic level prior to discharge. He is homeless need a placement. 12/14/[id number]-cimt-old male with history of atrial flutter, alcohol induced card iomyopathy, hypertension, COPD, chronic heart failure admitted with dyspnea. CTA of the chest indicated of saddle emboli. Patient is presently on treatment dose of Lovenox and Coumadin 5 mg p.o. nightly. INR is still subtherapeutic around 1.09. Patient is comfortably in the bed communicating well not in distress. Patient need a placement at this time. 12/15/1951-12-aulk-old male history of atrial flutter, cardiomyopathy found to have bilateral PE. On Lovenox treatment dose, Coumadin 5 mg p.o. nightly. INR today's 1.12. Goal is to bring the INR up to 2. Patient is also waiting for placement. 12/16/2019-INR today is 1.6. To continue Coumadin 5 mg p.o. nightly and to recheck PT/INR tomorrow. Patient is receiving treatment dose of Lovenox for bilateral PE. He is waiting for placement. Reason For Visit: BILATERAL PE Physical Exam Vital Signs: Temp Pulse Resp BP Pulse Ox 97.3 F 108 H 24 H 132/92 H 100 12/16/19 08:00 12/16/19 08:00 12/16/19 08:00 12/16/19 08:00 12/16/19 08:00 Intake & Output 12/15/19 12/16/19 12/17/19 06:59 06:59 06:59 Intake Total 2019 800 236 Output Total 1775 400 Balance 245 400 236 Weight 81 kg 81.3 kg General appearance: PRESENT: no acute distress, cooperative Head exam: PRESENT: atraumatic Eye exam: PRESENT: PERRLA Mouth exam: PRESENT: moist, tongue midline Teeth exam: PRESENT: poor dentation Neck exam: ABSENT: carotid bruit, JVD, lymphadenopathy, thyromegaly Respiratory exam: PRESENT: decreased breath sounds Cardiovascular exam: PRESENT: RRR. ABSENT: diastolic murmur, rubs, systolic murmur GI/Abdominal exam: PRESENT: normal bowel sounds, soft. ABSENT: distended, guarding, mass, organolmegaly, rebound, tenderness Rectal exam: PRESENT: deferred Extremities exam: PRESENT: full ROM. ABSENT: calf tenderness, clubbing, pedal edema Neurological exam: PRESENT: alert, awake, oriented to person, oriented to place, oriented to time, oriented to situation, CN II-XII grossly intact. ABSENT: motor sensory deficit Psychiatric exam: PRESENT: appropriate affect, normal mood. ABSENT: homicidal ideation, suicidal ideation Skin exam: PRESENT: dry, intact, warm. ABSENT: cyanosis, rash Results Laboratory Results: 12/16/19 05:48 12/16/19 05:48 12/16/19 12/16/19 05:48 05:48 WBC 7.3 RBC 4.43 Hgb 12.2 L Hct 36.5 L MCV 82 MCH 27.5 MCHC 33.5 RDW 18.9 H Plt Count 132 L Seg Neutrophils % 65.9 Sodium 127.0 L Potassium 4.9 Chloride 91 L Carbon Dioxide 27 Anion Gap 9 BUN 11 Creatinine 0.62 Est GFR ( Amer) > 60 Glucose 112 H Calcium 8.1 L Magnesium 1.5 L Total Bilirubin 1.6 H AST 69 H Alkaline Phosphatase 231 H Total Protein 6.3 Albumin 3.2 L 11/24/19 22:02 Troponin I 0.141 NT-Pro-B Natriuret Pep 38875 H Impressions: Chest/Abdomen CTA 11/24/19 22:55 IMPRESSION: There are filling defects within the main pulmonary artery concerning for developing saddle emboli. There are also filling defects seen within the segmental arteries consistent with pulmonary artery emboli. There is a groundglass nodule at the right upper lobe measuring up to 12 mm which will need interval follow-up within three months. There are trace pleural effusions with some overlying airspace opacities which are favored to represent atelectasis, but may also represent some mild edema or infection. Modified Barium Swallow 11/29/19 00:00 IMPRESSION: DEEP LARYNGEAL PENETRATION WITH TRACE ASPIRATION SEEN WITH THIN BARIUM. . PLEASE SEE SPEECH PATHOLOGIST REPORT FOR OTHER FINDINGS AND RECOMMENDATIONS. KUB X-Ray 12/03/19 00:00 IMPRESSION: Nonobstructive bowel gas pattern. PICC Line Insertion 12/09/19 00:00 IMPRESSION: SUCCESSFUL PLACEMENT OF A 5 FR DUAL LUMEN 50 CM PICC IN THE LEFT BRACHIOCEPHALIC VEIN. Paracentesis Ultrasound 12/09/19 08:00 IMPRESSION: Successful ultrasound-guided paracentesis Thoracentesis Ultrasound 12/09/19 09:47 IMPRESSION: SUCCESSFUL RIGHT-SIDED THORACENTESIS USING ULTRASOUND GUIDANCE. Chest X-Ray 12/09/19 15:25 IMPRESSION: No pneumothorax post thoracentesis. Abdomen Ultrasound 12/10/19 00:00 IMPRESSION: 1. Examination is limited due to the patient's clinical condition. 2. Nodular contour to the liver, raising question of cirrhosis of the liver. Liver vasculature is patent. 3. Suboptimal visualization of the abdominal aorta due to overlying bowel gas. 4. Small volume of ascites right upper quadrant of the abdomen. Assessment and Plan - Diagnosis (1) Acute massive pulmonary embolism Is this a current diagnosis for this admission?: Yes Plan: Saddle embolus extending into the right and left lower lobes. Noted hemodynamic instability with hypotension and bradycardic episodes. Status post TPA administered on 11/25/2019 After discussion with pharmacist and some literature review, we have deemed that the most adequate long-term anticoagulation option for patient will be warfarin given patient's cirrhosis and child's Trammell class C. Discontinued Eliquis and switched patient to warfarin with Lovenox bridge last night. Pharmacy to manage warfarin dosing. Monitor INR goal of 2-3 12/13/2019-patient is on Lovenox treatment dose, warfarin 3 mg p.o. nightly. INR today is 1.17 goal is to bring the INR to between 2-3. 12/14/19-INR today is 1.09. To continue Coumadin 5 mg p.o. nightly and continue Lovenox treatment dose. To repeat PT/INR tomorrow. Goal is between 2-3. 12/15/2019-INR today is 1.12. To continue Coumadin 5 mg p.o. nightly to recheck PT/INR tomorrow. Patient is also on treatment dose of Lovenox. 12/16/2019-patient is on Coumadin 5 mg p.o. nightly INR is 1.6 today. Plan is to repeat the PT/INR tomorrow. He is also on treatment dose of Lovenox at this time. (2) Bacteremia Is this a current diagnosis for this admission?: Yes Plan: Initially blood cultures positive for MR Coag neg Staph and only 1 blood culture set-completed 7 days of linezolid though possibly could be contaminant. Repeat blood cultures on 11/30/2019 showing Klebsiella secondary to complicated UTI-completed treatment with cefepime and Bactrim. Currently resolved. 12/16/2019-patient is not on antibiotics at this time. Sepsis resolved. (3) Alcoholic cirrhosis of liver with ascites Is this a current diagnosis for this admission?: Yes Plan: s/p >4L from paracentesis 12/08 Ascites fluid analysis and abdominal ultrasound are consistent with cirrhosis likely secondary to chronic alcoholism. Child's trammell class C. Given his very recent alcoholism and noncompliance, he will of course be a poor candidate for liver transplantation. Lasix and Aldactone added for ascites. 12/13/19-patient has history of alcohol abuse with liver cirrhosis. Presently on Lasix, Aldactone for ascites. 12/15/19-patient has history of alcoholic liver cirrhosis. Plan is to continue Lasix, Aldactone, for ascites. (4) Hyponatremia Is this a current diagnosis for this admission?: Yes Plan: Urine osmolarity and urine sodium are low and suggest hyponatremia secondary to low caloric nutritional intake +/- chf/liver disease Encourage p.o. intake and continue lasix. 12/13/2019-patient serum sodium is 128.2. Chronic hyponatremia most likely secondary to liver failure. 12/14/2019-latest serum sodium is around 128. Chronic hyponatremia secondary to alcoholic liver disease and congestive heart failure. 12/15/19-serum sodium is 127.8. Stable. 12/16/2019-serum sodium is 127. Stable. Patient is asymptomatic. (5) Dilated cardiomyopathy secondary to alcohol Is this a current diagnosis for this admission?: Yes Plan: TTE showing biventricular failure with dilated cardiomyopathy, EF of 20 to 25% and grade 3 diastolic dysfunction of the LV. Lasix, aldactone, Toprol-XL and losartan (6) Acute respiratory failure with hypoxia Is this a current diagnosis for this admission?: Yes Plan: Was on room air this morning. Notably patient gets difficulty with adequate pulse oximetry using fingertips due to likely peripheral vascular disease. 12/14/2019-pulse ox today is 100% on 4 L. Plan is to continue the present management at this time. 12/16/2019-pulse ox today is 96% room air. Acute respiratory failure with hypoxia resolved. (7) Paroxysmal atrial fibrillation Is this a current diagnosis for this admission?: No Plan: Sinus rhythm currently (8) Pulmonary nodule Is this a current diagnosis for this admission?: Yes Plan: Noted on CAT scan. Follow-up imaging recommended in 3 months but given patient's homelessness and noncompliance, it is very unlikely he will follow-up. (9) Homeless Is this a current diagnosis for this admission?: Yes Plan: Physical therapy. Patient will likely need long-term placement at SNF especially given presentation with massive and unlikely to comply with therapy very poor ability to care for self. Discharge planning working on this but encountering a lot of difficulty with placing patient. D/w his brother Cesar who is reluctant to take patient to his home due to limited room/space. - Time Anticipated Discharge Disposition: Home, Self Care Anticipated Discharge Timeframe: within 48 hours
[2019-12-16] MEDS: ENOXAPARIN SODIUM INJ 80 MG/0.8 ML DISP.SYRIN SUBCUT SCH ×2 (10:34→21:47)
[2019-12-16] MEDS: NICOTINE 14 MG/24 HR PATCH.TD24 TD SCH (10:41)
[2019-12-16] MEDS: METOPROLOL SUCCINATE 25 MG TAB.SR.24H PO SCH (10:43)
[2019-12-16] MEDS: THIAMINE HCL 100 MG TABLET PO SCH (10:43)
[2019-12-16] MEDS: MAGNESIUM OXIDE 400 MG TABLET PO SCH ×2 (10:43→17:07)
[2019-12-16] MEDS: LOSARTAN POTASSIUM 25 MG TABLET PO SCH (10:43)
[2019-12-16] MEDS: FUROSEMIDE 20 MG TABLET PO SCH (10:43)
[2019-12-16] MEDS: NORMAL SALINE 10 ML SDV (SCHEDULED) IV SCH ×2 (10:44→21:35)
[2019-12-16] MEDS: SPIRONOLACTONE 25 MG TABLET PO SCH (17:07)
[2019-12-16] MEDS: WARFARIN SODIUM 5 MG TABLET PO SCH (21:34)
[2019-12-16] MEDS: ACETAMINOPHEN SOLN 325 MG/10.15 ML UDCUP PO PRN (22:43)
[2019-12-17] MEDS: PANTOPRAZOLE SODIUM 40 MG TABLET.DR PO SCH (05:46)
[2019-12-17] MEDS: DEXTROSE 50%-WATER 25 GM/50 ML DISP.SYRIN IV PRN ×2 (07:01→07:07)
[2019-12-17 07:56] LABS: INTERNATIONAL RATION (INR) 2.35; PROTHROMBIN TIME 25.7 SEC (11.4-15.4)
[2019-12-17] MEDS: NICOTINE 14 MG/24 HR PATCH.TD24 TD SCH (10:10)
[2019-12-17] MEDS: MAGNESIUM OXIDE 400 MG TABLET PO SCH ×2 (10:12→18:15)
[2019-12-17] MEDS: ENOXAPARIN SODIUM INJ 80 MG/0.8 ML DISP.SYRIN SUBCUT SCH (10:12)
[2019-12-17] MEDS: FUROSEMIDE 20 MG TABLET PO SCH (10:13)
[2019-12-17] MEDS: NORMAL SALINE 10 ML SDV (AFTER EACH USE) IV PRN (10:14)
[2019-12-17] MEDS: NORMAL SALINE 10 ML SDV (SCHEDULED) IV SCH ×2 (10:14→21:46)
[2019-12-17] MEDS: LOSARTAN POTASSIUM 25 MG TABLET PO SCH (10:15)
[2019-12-17] MEDS: THIAMINE HCL 100 MG TABLET PO SCH (10:15)
[2019-12-17] MEDS: METOPROLOL SUCCINATE 25 MG TAB.SR.24H PO SCH (10:17)
--- NOTE | 2019-12-17 11:41 | PDOC PROGRESS REPORT ---
Subjective Progress Note for:: 12/17/19 Subjective:: Patient is sitting up at the edge of the bed waiting for lunch. Breathing is comfortable. He has a small spot of bleeding on his foot. He has extremely dry scaly skin and it appears that there is a small crack in the skin. Reason For Visit: BILATERAL PE Physical Exam Vital Signs: Temp Pulse Resp BP Pulse Ox 98.6 F 115 H 16 152/98 H 96 12/17/19 08:00 12/17/19 08:00 12/17/19 08:00 12/17/19 08:00 12/17/19 08:00 Intake & Output 12/16/19 12/17/19 12/18/19 06:59 06:59 06:59 Intake Total 800 1732 Output Total 400 Balance 400 1732 Weight 81.3 kg 82 kg 82 kg General appearance: PRESENT: no acute distress, cooperative, well-developed, well-nourished Head exam: PRESENT: atraumatic, normocephalic Respiratory exam: PRESENT: clear to auscultation jefferson, decreased breath sounds - At bases, symmetrical, unlabored. ABSENT: prolonged expiratory phas, rales, rhonchi, tachypnea, wheezes Cardiovascular exam: PRESENT: RRR, +S1, +S2. ABSENT: bradycardia, diastolic murmur, irregular rhythm, systolic murmur, tachycardia GI/Abdominal exam: PRESENT: distended, normal bowel sounds. ABSENT: tenderness Rectal exam: PRESENT: deferred Gentrourinary exam: ABSENT: indwelling catheter Extremities exam: ABSENT: pedal edema Neurological exam: PRESENT: alert, altered - Very slow to answer question, awake Results Laboratory Results: 12/16/19 05:48 12/16/19 05:48 11/24/19 22:02 Troponin I 0.141 NT-Pro-B Natriuret Pep [id number] H Impressions: Chest/Abdomen CTA 11/24/19 22:55 IMPRESSION: There are filling defects within the main pulmonary artery concerning for developing saddle emboli. There are also filling defects seen within the segmental arteries consistent with pulmonary artery emboli. There is a groundglass nodule at the right upper lobe measuring up to 12 mm which will need interval follow-up within three months. There are trace pleural effusions with some overlying airspace opacities which are favored to represent atelectasis, but may also represent some mild edema or infection. Modified Barium Swallow 11/29/19 00:00 IMPRESSION: DEEP LARYNGEAL PENETRATION WITH TRACE ASPIRATION SEEN WITH THIN BARIUM. . PLEASE SEE SPEECH PATHOLOGIST REPORT FOR OTHER FINDINGS AND RECOMMENDATIONS. KUB X-Ray 12/03/19 00:00 IMPRESSION: Nonobstructive bowel gas pattern. PICC Line Insertion 12/09/19 00:00 IMPRESSION: SUCCESSFUL PLACEMENT OF A 5 FR DUAL LUMEN 50 CM PICC IN THE LEFT BRACHIOCEPHALIC VEIN. Paracentesis Ultrasound 12/09/19 08:00 IMPRESSION: Successful ultrasound-guided paracentesis Thoracentesis Ultrasound 12/09/19 09:47 IMPRESSION: SUCCESSFUL RIGHT-SIDED THORACENTESIS USING ULTRASOUND GUIDANCE. Chest X-Ray 12/09/19 15:25 IMPRESSION: No pneumothorax post thoracentesis. Abdomen Ultrasound 12/10/19 00:00 IMPRESSION: 1. Examination is limited due to the patient's clinical condition. 2. Nodular contour to the liver, raising question of cirrhosis of the liver. Liver vasculature is patent. 3. Suboptimal visualization of the abdominal aorta due to overlying bowel gas. 4. Small volume of ascites right upper quadrant of the abdomen. Assessment and Plan - Diagnosis (1) Acute massive pulmonary embolism Is this a current diagnosis for this admission?: Yes Plan: Saddle embolus extending into the right and left lower lobes. Noted hemodynamic instability with hypotension and bradycardic episodes. Status post TPA administered on 11/25/2019 After discussion with pharmacist and some literature review, we have deemed that the most adequate long-term anticoagulation option for patient will be warfarin given patient's cirrhosis and child's Trammell class C. Discontinued Eliquis and switched patient to warfarin with Lovenox bridge last night. Pharmacy to manage warfarin dosing. Monitor INR goal of 2-3 12/13/2019-patient is on Lovenox treatment dose, warfarin 3 mg p.o. nightly. INR today is 1.17 goal is to bring the INR to between 2-3. 12/14/19-INR today is 1.09. To continue Coumadin 5 mg p.o. nightly and continue Lovenox treatment dose. To repeat PT/INR tomorrow. Goal is between 2-3. 12/15/2019-INR today is 1.12. To continue Coumadin 5 mg p.o. nightly to recheck PT/INR tomorrow. Patient is also on treatment dose of Lovenox. 12/16/2019-patient is on Coumadin 5 mg p.o. nightly INR is 1.6 today. Plan is to repeat the PT/INR tomorrow. He is also on treatment dose of Lovenox at this time. 12/17/2019-INR is 2.35. We can discontinue the Lovenox. Will need a provider to follow INR and warfarin dosing as an outpatient. (2) Bacteremia Is this a current diagnosis for this admission?: Yes Plan: Initially blood cultures positive for MR Coag neg Staph and only 1 blood culture set-completed 7 days of linezolid though possibly could be contaminant. Repeat blood cultures on 11/30/2019 showing Klebsiella secondary to complicated UTI-completed treatment with cefepime and Bactrim. Currently resolved. 12/16/2019-patient is not on antibiotics at this time. Sepsis resolved. 12/17/2019-antibiotics as above. White blood cell count is now normal. (3) Alcoholic cirrhosis of liver with ascites Is this a current diagnosis for this admission?: Yes Plan: s/p >4L from paracentesis 12/08 Ascites fluid analysis and abdominal ultrasound are consistent with cirrhosis likely secondary to chronic alcoholism. Child's trammell class C. Given his very recent alcoholism and noncompliance, he will of course be a poor candidate for liver transplantation. Lasix and Aldactone added for ascites. 12/13/19-patient has history of alcohol abuse with liver cirrhosis. Presently on Lasix, Aldactone for ascites. 12/15/19-patient has history of alcoholic liver cirrhosis. Plan is to continue Lasix, Aldactone, for ascites. 12/17/2019-on spironolactone and furosemide. Monitor intake and output. (4) Hyponatremia Is this a current diagnosis for this admission?: Yes Plan: Urine osmolarity and urine sodium are low and suggest hyponatremia secondary to low caloric nutritional intake +/- chf/liver disease Encourage p.o. intake and continue lasix. 12/13/2019-patient serum sodium is 128.2. Chronic hyponatremia most likely secondary to liver failure. 12/14/2019-latest serum sodium is around 128. Chronic hyponatremia secondary to alcoholic liver disease and congestive heart failure. 12/15/19-serum sodium is 127.8. Stable. 12/16/2019-serum sodium is 127. Stable. Patient is asymptomatic. 12/17/2019-chronic due to his liver failure. Continue to monitor. May need to introduce fluid restriction. (5) Dilated cardiomyopathy secondary to alcohol Is this a current diagnosis for this admission?: Yes Plan: TTE showing biventricular failure with dilated cardiomyopathy, EF of 20 to 25% and grade 3 diastolic dysfunction of the LV. Lasix, aldactone, Toprol-XL and losartan 12/17/2019-continue current regimen. Consider reassessment by cardiology to try and maximize medications such as using Entresto instead of losartan. (6) Acute respiratory failure with hypoxia Is this a current diagnosis for this admission?: Yes Plan: Was on room air this morning. Notably patient gets difficulty with adequate pulse oximetry using fingertips due to likely peripheral vascular disease. 12/14/2019-pulse ox today is 100% on 4 L. Plan is to continue the present management at this time. 12/16/2019-pulse ox today is 96% room air. Acute respiratory failure with hypoxia resolved. (7) Paroxysmal atrial fibrillation Is this a current diagnosis for this admission?: Yes Plan: Sinus rhythm currently (8) Pulmonary nodule Is this a current diagnosis for this admission?: Yes Plan: Noted on CAT scan. Follow-up imaging recommended in 3 months but given patient's homelessness and noncompliance, it is very unlikely he will follow-up. (9) Homeless Is this a current diagnosis for this admission?: Yes Plan: Physical therapy. Patient will likely need long-term placement at SNF especially given presentation with massive and unlikely to comply with therapy very poor ability to care for self. Discharge planning working on this but encountering a lot of difficulty with placing patient. D/w his brother Cesar who is reluctant to take patient to his home due to limited room/space. (10) Urinary tract infection due to Klebsiella species Is this a current diagnosis for this admission?: Yes Plan: 12/17/2019-antibiotic therapy completed as noted above - Time Time Spent with patient: 15-24 minutes Medications reviewed and adjusted accordingly: Yes Anticipated Discharge Disposition: Unknown Anticipated Discharge Timeframe: Unknown
[2019-12-17] MEDS: PANTOT AC/MIN OIL/PET HY-PHL OINT 50 GM TOP SCH ×2 (14:53→18:11)
[2019-12-17 15:53] LABS: APPEARANCE,URINE CLEAR; BILIRUBIN,URINE NEGATIVE (NEGATIVE); COLOR,URINE AMBER; GLUCOSE, URINE NEGATIVE (NEGATIVE); KETONES,URINE NEGATIVE (NEGATIVE); LEUKOCYTE ESTERASE,URINE NEGATIVE (NEGATIVE); NITRITE,URINE NEGATIVE (NEGATIVE); PROTEIN,URINE 100 mg/dL (NEGATIVE); URINE SPECIFIC GRAVITY 1.014; UROBILINOGEN,URINE NEGATIVE mg/dL (<2.0)
[2019-12-17] MEDS: SPIRONOLACTONE 25 MG TABLET PO SCH (18:15)
[2019-12-17] MEDS ORDERED: HYDRALAZINE HCL 10 MG TABLET PO ONE (19:00)
[2019-12-17] MEDS: WARFARIN SODIUM 5 MG TABLET PO SCH (21:45)
[2019-12-17 23:03] LABS: HEMATOCRIT 35.3 % (37.9-51.0); MEAN CORPUSCULAR HEMOGLOBIN 28.2 pg (27.0-33.4); MEAN CORPUSCULAR VOLUME 83 fl (80-97); PLATELET COUNT 198 10^3/uL (150-450); RED BLOOD COUNT 4.27 10^6/uL (4.35-5.55); RED CELL DISTRIBUTION WIDTH 18.8 % (11.5-14.0)
[2019-12-18] MEDS: PANTOPRAZOLE SODIUM 40 MG TABLET.DR PO SCH (05:59)
[2019-12-18] MEDS: HYDRALAZINE HCL 10 MG TABLET PO SCH ×2 (05:59→18:16)
[2019-12-18 08:48] LABS: ABSOLUTE EOSINOPHILS # (AUTO) 0.1 10^3/uL (0.0-0.6); ABSOLUTE LYMPHOCYTES (AUTO) 1.4 10^3/uL (0.5-4.7); ABSOLUTE MONOCYTES (AUTO) 0.8 10^3/uL (0.1-1.4); ABSOLUTE NEUT (AUTO) 4.6 10^3/uL (1.7-8.2); BASOPHILS % (AUTO) 0.4 % (0-2); EOSINOPHILS % (AUTO) 1.3 % (0-6); HEMATOCRIT 35.6 % (37.9-51.0); HEMOGLOBIN 12.1 g/dL (13.5-17.0); INTERNATIONAL RATION (INR) 3.06; LYMPHOCYTES % (AUTO) 19.8 % (13-45); MEAN CORPUSCULAR HEMOGLOBIN 27.7 pg (27.0-33.4); MEAN CORPUSCULAR VOLUME 82 fl (80-97); MONOCYTES % (AUTO) 11.6 % (3-13); PLATELET COUNT 196 10^3/uL (150-450); PROTHROMBIN TIME 31.5 SEC (11.4-15.4); RED BLOOD COUNT 4.37 10^6/uL (4.35-5.55); RED CELL DISTRIBUTION WIDTH 18.7 % (11.5-14.0); SEGMENTED NEUTROPHILS % (AUTO) 66.9 % (42-78); TOTAL CELLS COUNTED % (AUTO) 100 %; WHITE BLOOD COUNT 6.9 10^3/uL (4.0-10.5)
[2019-12-18 09:02] LABS: ALBUMIN 3.3 g/dL (3.5-5.0); ALKALINE PHOSPHATASE 220 U/L (38-126); ANION GAP 13 (5-19); ASPARTATE AMINO TRANSFERASE 62 U/L (17-59); BILIRUBIN,DIRECT 1.2 mg/dL (0.0-0.4); BILIRUBIN,TOTAL 1.8 mg/dL (0.2-1.3); BLOOD UREA NITROGEN 13 mg/dL (7-20); CALCIUM 8.8 mg/dL (8.4-10.2); CARBON DIOXIDE 22 mmol/L (22-30); CHLORIDE 91 mmol/L (98-107); GLUCOSE 89 mg/dL (75-110); POTASSIUM 5.1 mmol/L (3.6-5.0); TOTAL PROTEIN 6.6 g/dL (6.3-8.2)
[2019-12-18] MEDS: MAGNESIUM OXIDE 400 MG TABLET PO SCH ×2 (11:23→18:16)
[2019-12-18] MEDS: METOPROLOL SUCCINATE 25 MG TAB.SR.24H PO SCH (11:23)
[2019-12-18] MEDS: FUROSEMIDE 20 MG TABLET PO SCH (11:24)
[2019-12-18] MEDS: NICOTINE 14 MG/24 HR PATCH.TD24 TD SCH (11:26)
[2019-12-18] MEDS: LOSARTAN POTASSIUM 25 MG TABLET PO SCH ×2 (11:38→22:20)
[2019-12-18] MEDS: THIAMINE HCL 100 MG TABLET PO SCH (11:39)
[2019-12-18] MEDS: ACETAMINOPHEN SOLN 325 MG/10.15 ML UDCUP PO PRN ×2 (11:39→18:14)
[2019-12-18] MEDS: DEXTROSE 50%-WATER 25 GM/50 ML DISP.SYRIN IV PRN (12:12)
[2019-12-18] MEDS: NORMAL SALINE 10 ML SDV (AFTER EACH USE) IV PRN ×2 (12:26→16:55)
[2019-12-18] MEDS: NORMAL SALINE 10 ML SDV (SCHEDULED) IV SCH ×2 (12:26→22:22)
[2019-12-18] MEDS: PANTOT AC/MIN OIL/PET HY-PHL OINT 50 GM TOP SCH ×2 (12:26→18:20)
--- NOTE | 2019-12-18 12:52 | PDOC PROGRESS REPORT ---
Subjective Progress Note for:: 12/18/19 Subjective:: Having episodes of hypoglycemia while not on any insulin or antidiabetic regimen. Reason For Visit: BILATERAL PE Physical Exam Vital Signs: Temp Pulse Resp BP Pulse Ox 97.8 F 101 H 26 H 142/92 H 92 12/17/19 23:52 12/18/19 07:52 12/18/19 07:52 12/18/19 07:52 12/18/19 07:52 Intake & Output 12/17/19 12/18/19 12/19/19 06:59 06:59 06:59 Intake Total 1732 1252 Output Total 100 Balance 1732 1152 Weight 82 kg 82.1 kg General appearance: PRESENT: no acute distress, cooperative, well-developed Head exam: PRESENT: atraumatic, normocephalic Ear exam: PRESENT: normal external ear exam. ABSENT: bleeding, drainage Mouth exam: PRESENT: moist, tongue midline Neck exam: PRESENT: JVD. ABSENT: carotid bruit, lymphadenopathy Respiratory exam: PRESENT: clear to auscultation jefferson, symmetrical, unlabored. ABSENT: rales, rhonchi, tachypnea, wheezes Cardiovascular exam: PRESENT: RRR, +S1, +S2. ABSENT: bradycardia, diastolic murmur, irregular rhythm, systolic murmur, tachycardia GI/Abdominal exam: PRESENT: ascites, diminished bowel sounds, distended, firm. ABSENT: tenderness Rectal exam: PRESENT: deferred Gentrourinary exam: ABSENT: indwelling catheter Musculoskeletal exam: PRESENT: ambulatory. ABSENT: deformity, dislocation Neurological exam: PRESENT: alert, awake, oriented to person, oriented to place, oriented to situation, CN II-XII grossly intact Psychiatric exam: PRESENT: flat affect. ABSENT: agitated, anxious Focused psych exam: ABSENT: delusional, paranoid, restlessness Skin exam: PRESENT: dry - Dry cracked skin especially on feet, normal color, warm. ABSENT: rash Results Laboratory Results: 12/18/19 06:45 12/18/19 06:45 12/17/19 12/17/19 12/18/19 15:13 22:30 06:45 WBC 8.0 6.9 RBC 4.27 L 4.37 Hgb 12.0 L 12.1 L Hct 35.3 L 35.6 L MCV 83 82 MCH 28.2 27.7 MCHC 34.0 34.0 RDW 18.8 H 18.7 H Plt Count 198 196 Seg Neutrophils % 66.9 Sodium Potassium Chloride Carbon Dioxide Anion Gap BUN Creatinine Est GFR ( Amer) Glucose Calcium Magnesium Total Bilirubin AST Alkaline Phosphatase Total Protein Albumin Urine Color NAEEM Urine Appearance CLEAR Urine pH 5.0 Ur Specific [place] 1.014 Urine Protein 100 H Urine Glucose (UA) NEGATIVE Urine Ketones NEGATIVE Urine Blood NEGATIVE Urine Nitrite NEGATIVE Ur Leukocyte Esterase NEGATIVE Urine WBC (Auto) 2 Urine RBC (Auto) 0 12/18/19 06:45 WBC RBC Hgb Hct MCV MCH MCHC RDW Plt Count Seg Neutrophils % Sodium 126.0 L Potassium 5.1 H Chloride 91 L Carbon Dioxide 22 Anion Gap 13 BUN 13 Creatinine 0.62 Est GFR ( Amer) > 60 Glucose 89 Calcium 8.8 Magnesium 1.6 Total Bilirubin 1.8 H AST 62 H Alkaline Phosphatase 220 H Total Protein 6.6 Albumin 3.3 L Urine Color Urine Appearance Urine pH Ur Specific [place] Urine Protein Urine Glucose (UA) Urine Ketones Urine Blood Urine Nitrite Ur Leukocyte Esterase Urine WBC (Auto) Urine RBC (Auto) 11/24/19 22:02 Troponin I 0.141 NT-Pro-B Natriuret Pep 13446 H Impressions: Chest/Abdomen CTA 11/24/19 22:55 IMPRESSION: There are filling defects within the main pulmonary artery concerning for developing saddle emboli. There are also filling defects seen within the segmental arteries consistent with pulmonary artery emboli. There is a groundglass nodule at the right upper lobe measuring up to 12 mm which will need interval follow-up within three months. There are trace pleural effusions with some overlying airspace opacities which are favored to represent atelectasis, but may also represent some mild edema or infection. Modified Barium Swallow 11/29/19 00:00 IMPRESSION: DEEP LARYNGEAL PENETRATION WITH TRACE ASPIRATION SEEN WITH THIN BARIUM. . PLEASE SEE SPEECH PATHOLOGIST REPORT FOR OTHER FINDINGS AND RECOMMENDATIONS. KUB X-Ray 12/03/19 00:00 IMPRESSION: Nonobstructive bowel gas pattern. PICC Line Insertion 12/09/19 00:00 IMPRESSION: SUCCESSFUL PLACEMENT OF A 5 FR DUAL LUMEN 50 CM PICC IN THE LEFT BRACHIOCEPHALIC VEIN. Paracentesis Ultrasound 12/09/19 08:00 IMPRESSION: Successful ultrasound-guided paracentesis Thoracentesis Ultrasound 12/09/19 09:47 IMPRESSION: SUCCESSFUL RIGHT-SIDED THORACENTESIS USING ULTRASOUND GUIDANCE. Chest X-Ray 12/09/19 15:25 IMPRESSION: No pneumothorax post thoracentesis. Abdomen Ultrasound 12/10/19 00:00 IMPRESSION: 1. Examination is limited due to the patient's clinical condition. 2. Nodular contour to the liver, raising question of cirrhosis of the liver. Liver vasculature is patent. 3. Suboptimal visualization of the abdominal aorta due to overlying bowel gas. 4. Small volume of ascites right upper quadrant of the abdomen. Assessment and Plan - Diagnosis (1) Acute massive pulmonary embolism Is this a current diagnosis for this admission?: Yes Plan: Saddle embolus extending into the right and left lower lobes. Noted hemodynamic instability with hypotension and bradycardic episodes. Status post TPA administered on 11/25/2019 After discussion with pharmacist and some literature review, we have deemed that the most adequate long-term anticoagulation option for patient will be warfarin given patient's cirrhosis and child's Trammell class C. Discontinued Eliquis and switched patient to warfarin with Lovenox bridge last night. Pharmacy to manage warfarin dosing. Monitor INR goal of 2-3 12/13/2019-patient is on Lovenox treatment dose, warfarin 3 mg p.o. nightly. INR today is 1.17 goal is to bring the INR to between 2-3. 12/14/19-INR today is 1.09. To continue Coumadin 5 mg p.o. nightly and continue Lovenox treatment dose. To repeat PT/INR tomorrow. Goal is between 2-3. 12/15/2019-INR today is 1.12. To continue Coumadin 5 mg p.o. nightly to recheck PT/INR tomorrow. Patient is also on treatment dose of Lovenox. 12/16/2019-patient is on Coumadin 5 mg p.o. nightly INR is 1.6 today. Plan is to repeat the PT/INR tomorrow. He is also on treatment dose of Lovenox at this time. 12/17/2019-INR is 2.35. We can discontinue the Lovenox. Will need a provider to follow INR and warfarin dosing as an outpatient. 12/18/2019-INR 3.06. Pharmacy is adjusting the warfarin. Maintaining normal oxygenation on room air. (2) Bacteremia Is this a current diagnosis for this admission?: Yes Plan: Initially blood cultures positive for MR Coag neg Staph and only 1 blood culture set-completed 7 days of linezolid though possibly could be contaminant. Repeat blood cultures on 11/30/2019 showing Klebsiella secondary to complicated UTI-completed treatment with cefepime and Bactrim. Currently resolved. 12/16/2019-patient is not on antibiotics at this time. Sepsis resolved. 12/17/2019-antibiotics as above. White blood cell count is now normal. (3) Alcoholic cirrhosis of liver with ascites Is this a current diagnosis for this admission?: Yes Plan: s/p >4L from paracentesis 12/08 Ascites fluid analysis and abdominal ultrasound are consistent with cirrhosis likely secondary to chronic alcoholism. Child's trammell class C. Given his very recent alcoholism and noncompliance, he will of course be a poor candidate for liver transplantation. Lasix and Aldactone added for ascites. 12/13/19-patient has history of alcohol abuse with liver cirrhosis. Presently on Lasix, Aldactone for ascites. 12/15/19-patient has history of alcoholic liver cirrhosis. Plan is to continue Lasix, Aldactone, for ascites. 12/17/2019-on spironolactone and furosemide. Monitor intake and output. 12/18/2019-abdomen is distended and firm. The patient already has had 1 paracentesis. May need to consider a second however he is on warfarin. At this point the patient appears to be tolerating the ascites. (4) Hyponatremia Is this a current diagnosis for this admission?: Yes Plan: Urine osmolarity and urine sodium are low and suggest hyponatremia secondary to low caloric nutritional intake +/- chf/liver disease Encourage p.o. intake and continue lasix. 12/13/2019-patient serum sodium is 128.2. Chronic hyponatremia most likely secondary to liver failure. 12/14/2019-latest serum sodium is around 128. Chronic hyponatremia secondary to alcoholic liver disease and congestive heart failure. 12/15/19-serum sodium is 127.8. Stable. 12/16/2019-serum sodium is 127. Stable. Patient is asymptomatic. 12/17/2019-chronic due to his liver failure. Continue to monitor. May need to introduce fluid restriction. 12/18/2019-sodium is 126 today. This is going to be a chronic issue for this patient. Continue to monitor. No fluid restriction instituted as yet. (5) Dilated cardiomyopathy secondary to alcohol Is this a current diagnosis for this admission?: Yes Plan: TTE showing biventricular failure with dilated cardiomyopathy, EF of 20 to 25% and grade 3 diastolic dysfunction of the LV. Lasix, aldactone, Toprol-XL and losartan 12/17/2019-continue current regimen. Consider reassessment by cardiology to try and maximize medications such as using Entresto instead of losartan. 12/18/2019-echocardiogram revealed ejection fraction 20 to 25%. At this point will optimize medication regimen. Losartan was increased. Continue Aldactone, beta-david and furosemide. (6) Acute respiratory failure with hypoxia Is this a current diagnosis for this admission?: Yes Plan: Was on room air this morning. Notably patient gets difficulty with adequate pulse oximetry using fingertips due to likely peripheral vascular disease. 12/14/2019-pulse ox today is 100% on 4 L. Plan is to continue the present management at this time. 12/16/2019-pulse ox today is 96% room air. Acute respiratory failure with hypoxia resolved. (7) Paroxysmal atrial fibrillation Is this a current diagnosis for this admission?: Yes Plan: Sinus rhythm currently 12/18/2019-continue metoprolol. (8) Pulmonary nodule Is this a current diagnosis for this admission?: Yes Plan: Noted on CAT scan. Follow-up imaging recommended in 3 months but given patient's homelessness and noncompliance, it is very unlikely he will follow-up. 12/18/2019-cardiac dysfunction and liver failure are the most prominent issues currently. Work-up of the pulmonary nodule is secondary at this point. (9) Homeless Is this a current diagnosis for this admission?: Yes Plan: Physical therapy. Patient will likely need long-term placement at SNF especially given presentation with massive and unlikely to comply with therapy very poor ability to care for self. Discharge planning working on this but encountering a lot of difficulty with placing patient. D/w his brother Cesar who is reluctant to take patient to his home due to limited room/space. (10) Urinary tract infection due to Klebsiella species Is this a current diagnosis for this admission?: Yes Plan: 12/17/2019-antibiotic therapy completed as noted above - Time Time Spent with patient: 15-24 minutes Medications reviewed and adjusted accordingly: Yes Anticipated Discharge Disposition: Unknown Anticipated Discharge Timeframe: Unknown
[2019-12-18 15:43] LABS: APPEARANCE,URINE SLIGHTLY-CLOUDY; BILIRUBIN,URINE NEGATIVE (NEGATIVE); COLOR,URINE AMBER; GLUCOSE, URINE 50 mg/dL (NEGATIVE); KETONES,URINE NEGATIVE (NEGATIVE); PROTEIN,URINE >=500 mg/dL (NEGATIVE); URINE SPECIFIC GRAVITY 1.019
[2019-12-18] MEDS ORDERED: HYDRALAZINE HCL INJ/PF 20 MG/1 ML SDV IV PRN (15:52)
[2019-12-18] MEDS ORDERED: FUROSEMIDE INJ/PF 20 MG/2 ML SDV IV ONE (16:30)
--- NOTE | 2019-12-18 18:12 | RADIOLOGY REPORT (SQ) ---
EXAM DESCRIPTION: 12/18/2019 CHEST SINGLE VIEW IMAGES COMPLETED DATE/TIME: 12/18/2019 REASON FOR STUDY: Difficulty breathing COMPARISON: 12/12/2019 EXAM PARAMETERS: NUMBER OF VIEWS: 1 TECHNIQUE: Single frontal radiographic view of the chest acquired. RADIATION DOSE: NA LIMITATIONS: None. FINDINGS: LUNGS AND PLEURA: New small right pleural effusion. Bibasilar atelectasis. No pneumothor ax. Lungs are hyperinflated. MEDIASTINUM AND HILAR STRUCTURES: No masses. Contour normal. HEART AND VASCULAR STRUCTURES: Marked cardiomegaly. No pulmonary vascular congestion. BONES: No acute findings. HARDWARE: Right PICC with tip in the right atrium unchanged. OTHER: No other significant finding. IMPRESSION: New small right pleural effusion. Hyperinflated lungs which can be seen with obstructiv e lung disease. TECHNICAL DOCUMENTATION: JOB ID: [id number] 2010 [employer]- All Rights Reserved Reading location - IP/workstation name: [email or web address]
[2019-12-18] MEDS: SPIRONOLACTONE 25 MG TABLET PO SCH (18:17)
[2019-12-18] MEDS: IPRATROPIUM/ALBUTEROL 0.5-2.5 MG/3 ML AMPUL NEB PRN (18:18)
[2019-12-18] MEDS ORDERED: WARFARIN SODIUM 4 MG TABLET PO SCH (22:00)
[2019-12-19] MEDS: HYDRALAZINE HCL 10 MG TABLET PO SCH ×2 (06:12→17:49)
[2019-12-19] MEDS: PANTOPRAZOLE SODIUM 40 MG TABLET.DR PO SCH (06:12)
[2019-12-19 06:52] LABS: INTERNATIONAL RATION (INR) 3.52
[2019-12-19] MEDS: NICOTINE 14 MG/24 HR PATCH.TD24 TD SCH (10:07)
[2019-12-19] MEDS: METOPROLOL SUCCINATE 25 MG TAB.SR.24H PO SCH (10:07)
[2019-12-19] MEDS: LOSARTAN POTASSIUM 25 MG TABLET PO SCH ×2 (10:08→21:59)
[2019-12-19] MEDS: FUROSEMIDE 20 MG TABLET PO SCH (10:08)
[2019-12-19] MEDS: THIAMINE HCL 100 MG TABLET PO SCH (10:08)
[2019-12-19] MEDS: MAGNESIUM OXIDE 400 MG TABLET PO SCH ×2 (10:08→17:49)
[2019-12-19] MEDS: NORMAL SALINE 10 ML SDV (SCHEDULED) IV SCH ×2 (10:08→22:00)
[2019-12-19] MEDS: PANTOT AC/MIN OIL/PET HY-PHL OINT 50 GM TOP SCH ×2 (10:10→17:52)
--- NOTE | 2019-12-19 14:39 | PDOC PROGRESS REPORT ---
Subjective Progress Note for:: 12/19/19 Subjective:: The patient is sitting on the edge of the bed. He is all wrapped up in blankets. He has not eaten any of his lunch. There appears to be stool staining on the bed sheets. He seems lethargic. Reason For Visit: BILATERAL PE Physical Exam Vital Signs: Temp Pulse Resp BP Pulse Ox 97.9 F 98 15 112/95 H 96 12/19/19 12:00 12/19/19 12:20 12/19/19 12:20 12/19/19 12:00 12/19/19 12:20 Intake & Output 12/18/19 12/19/19 12/20/19 06:59 06:59 06:59 Intake Total 1252 1046 500 Output Total 100 1500 Balance 1152 -454 500 Weight 82.1 kg 82.4 kg General appearance: PRESENT: no acute distress, cooperative, well-developed Head exam: PRESENT: atraumatic, normocephalic Ear exam: PRESENT: normal external ear exam. ABSENT: bleeding, drainage Respiratory exam: PRESENT: prolonged expiratory phas, rhonchi - Very congested breath sounds with faint rhonchi on the right, symmetrical, unlabored. ABSENT: rales, tachypnea, wheezes Cardiovascular exam: PRESENT: RRR, +S1, +S2 GI/Abdominal exam: PRESENT: ascites, distended, firm, hypoactive bowel sounds. ABSENT: soft, tenderness Rectal exam: PRESENT: deferred Gentrourinary exam: ABSENT: indwelling catheter Musculoskeletal exam: PRESENT: ambulatory. ABSENT: deformity, dislocation Neurological exam: PRESENT: awake, oriented to person, oriented to place, oriented to situation. ABSENT: alert - Somewhat lethargic today Psychiatric exam: PRESENT: unusual affect. ABSENT: agitated, anxious Skin exam: PRESENT: dry, warm, other - Keratin scaling on feet improved Results Laboratory Results: 12/18/19 06:45 12/18/19 06:45 12/18/19 15:15 Urine Color NAEEM Urine Appearance SLIGHTLY-CLOUDY Urine pH 5.0 Ur Specific [place] 1.019 Urine Protein >=500 H Urine Glucose (UA) 50 H Urine Ketones NEGATIVE Urine Blood NEGATIVE Urine RBC (Auto) 1 11/24/19 22:02 Troponin I 0.141 NT-Pro-B Natriuret Pep 78363 H Impressions: Chest/Abdomen CTA 11/24/19 22:55 IMPRESSION: There are filling defects within the main pulmonary artery concerning for developing saddle emboli. There are also filling defects seen within the segmental arteries consistent with pulmonary artery emboli. There is a groundglass nodule at the right upper lobe measuring up to 12 mm which will need interval follow-up within three months. There are trace pleural effusions with some overlying airspace opacities which are favored to represent atelectasis, but may also represent some mild edema or infection. Modified Barium Swallow 11/29/19 00:00 IMPRESSION: DEEP LARYNGEAL PENETRATION WITH TRACE ASPIRATION SEEN WITH THIN BARIUM. . PLEASE SEE SPEECH PATHOLOGIST REPORT FOR OTHER FINDINGS AND RECOMMENDATIONS. KUB X-Ray 12/03/19 00:00 IMPRESSION: Nonobstructive bowel gas pattern. PICC Line Insertion 12/09/19 00:00 IMPRESSION: SUCCESSFUL PLACEMENT OF A 5 FR DUAL LUMEN 50 CM PICC IN THE LEFT BRACHIOCEPHALIC VEIN. Paracentesis Ultrasound 12/09/19 08:00 IMPRESSION: Successful ultrasound-guided paracentesis Thoracentesis Ultrasound 12/09/19 09:47 IMPRESSION: SUCCESSFUL RIGHT-SIDED THORACENTESIS USING ULTRASOUND GUIDANCE. Abdomen Ultrasound 12/10/19 00:00 IMPRESSION: 1. Examination is limited due to the patient's clinical condition. 2. Nodular contour to the liver, raising question of cirrhosis of the liver. Liver vasculature is patent. 3. Suboptimal visualization of the abdominal aorta due to overlying bowel gas. 4. Small volume of ascites right upper quadrant of the abdomen. Chest X-Ray 12/18/19 00:00 IMPRESSION: New small right pleural effusion. Hyperinflated lungs which can be seen with obstructive lung disease. Assessment and Plan - Diagnosis (1) Acute massive pulmonary embolism Is this a current diagnosis for this admission?: Yes Plan: Saddle embolus extending into the right and left lower lobes. Noted hemodynamic instability with hypotension and bradycardic episodes. Status post TPA administered on 11/25/2019 After discussion with pharmacist and some literature review, we have deemed that the most adequate long-term anticoagulation option for patient will be warfarin given patient's cirrhosis and child's Trammell class C. Discontinued Eliquis and switched patient to warfarin with Lovenox bridge last night. Pharmacy to manage warfarin dosing. Monitor INR goal of 2-3 12/13/2019-patient is on Lovenox treatment dose, warfarin 3 mg p.o. nightly. INR today is 1.17 goal is to bring the INR to between 2-3. 12/14/19-INR today is 1.09. To continue Coumadin 5 mg p.o. nightly and continue Lovenox treatment dose. To repeat PT/INR tomorrow. Goal is between 2-3. 12/15/2019-INR today is 1.12. To continue Coumadin 5 mg p.o. nightly to recheck PT/INR tomorrow. Patient is also on treatment dose of Lovenox. 12/16/2019-patient is on Coumadin 5 mg p.o. nightly INR is 1.6 today. Plan is to repeat the PT/INR tomorrow. He is also on treatment dose of Lovenox at this time. 12/17/2019-INR is 2.35. We can discontinue the Lovenox. Will need a provider to follow INR and warfarin dosing as an outpatient. 12/18/2019-INR 3.06. Pharmacy is adjusting the warfarin. Maintaining normal oxygenation on room air. 12/19/2019-INR now 3.5. Pharmacy adjusting warfarin. Recheck INR tomorrow. (2) Bacteremia Is this a current diagnosis for this admission?: Yes Plan: Initially blood cultures positive for MR Coag neg Staph and only 1 blood culture set-completed 7 days of linezolid though possibly could be contaminant. Repeat blood cultures on 11/30/2019 showing Klebsiella secondary to complicated UTI-completed treatment with cefepime and Bactrim. Currently resolved. 12/16/2019-patient is not on antibiotics at this time. Sepsis resolved. 12/17/2019-antibiotics as above. White blood cell count is now normal. (3) Alcoholic cirrhosis of liver with ascites Is this a current diagnosis for this admission?: Yes Plan: s/p >4L from paracentesis 12/08 Ascites fluid analysis and abdominal ultrasound are consistent with cirrhosis likely secondary to chronic alcoholism. Child's trammell class C. Given his very recent alcoholism and noncompliance, he will of course be a poor candidate for liver transplantation. Lasix and Aldactone added for ascites. 12/13/19-patient has history of alcohol abuse with liver cirrhosis. Presently on Lasix, Aldactone for ascites. 12/15/19-patient has history of alcoholic liver cirrhosis. Plan is to continue Lasix, Aldactone, for ascites. 12/17/2019-on spironolactone and furosemide. Monitor intake and output. 12/18/2019-abdomen is distended and firm. The patient already has had 1 paracentesis. May need to consider a second however he is on warfarin. At this point the patient appears to be tolerating the ascites. 12/19/2019-we will increase diuresis. We will check electrolytes. Consider increasing Aldactone. (4) Hyponatremia Is this a current diagnosis for this admission?: Yes Plan: Urine osmolarity and urine sodium are low and suggest hyponatremia secondary to low caloric nutritional intake +/- chf/liver disease Encourage p.o. intake and continue lasix. 12/13/2019-patient serum sodium is 128.2. Chronic hyponatremia most likely secondary to liver failure. 12/14/2019-latest serum sodium is around 128. Chronic hyponatremia secondary to alcoholic liver disease and congestive heart failure. 12/15/19-serum sodium is 127.8. Stable. 12/16/2019-serum sodium is 127. Stable. Patient is asymptomatic. 12/17/2019-chronic due to his liver failure. Continue to monitor. May need to introduce fluid restriction. 12/18/2019-sodium is 126 today. This is going to be a chronic issue for this patient. Continue to monitor. No fluid restriction instituted as yet. 12/19/2019-recheck serum sodium tomorrow. (5) Dilated cardiomyopathy secondary to alcohol Is this a current diagnosis for this admission?: Yes Plan: TTE showing biventricular failure with dilated cardiomyopathy, EF of 20 to 25% and grade 3 diastolic dysfunction of the LV. Lasix, aldactone, Toprol-XL and losartan 12/17/2019-continue current regimen. Consider reassessment by cardiology to try and maximize medications such as using Entresto instead of losartan. 12/18/2019-echocardiogram revealed ejection fraction 20 to 25%. At this point will optimize medication regimen. Losartan was increased. Continue Aldactone, beta-david and furosemide. 12/19/2019-continue current medication regimen. (6) Acute respiratory failure with hypoxia Is this a current diagnosis for this admission?: Yes Plan: Was on room air this morning. Notably patient gets difficulty with adequate pulse oximetry using fingertips due to likely peripheral vascular disease. 12/14/2019-pulse ox today is 100% on 4 L. Plan is to continue the present management at this time. 12/16/2019-pulse ox today is 96% room air. Acute respiratory failure with hypoxia resolved. 12/19/2019-resolved. Continue to monitor via vital signs and pulse oximetry. (7) Paroxysmal atrial fibrillation Is this a current diagnosis for this admission?: Yes Plan: Sinus rhythm currently 12/18/2019-continue metoprolol. 12/19/2019-pulse rate still mostly above 90. Consider increasing metoprolol. (8) Pulmonary nodule Is this a current diagnosis for this admission?: Yes Plan: Noted on CAT scan. Follow-up imaging recommended in 3 months but given patient's homelessness and noncompliance, it is very unlikely he will follow-up. 12/18/2019-cardiac dysfunction and liver failure are the most prominent issues currently. Work-up of the pulmonary nodule is secondary at this point. (9) Homeless Is this a current diagnosis for this admission?: Yes Plan: Physical therapy. Patient will likely need long-term placement at SNF especially given presentation with massive and unlikely to comply with therapy v [place] poor ability to care for self. Discharge planning working on this but encountering a lot of difficulty with placing patient. D/w his brother Cesar who is reluctant to take patient to his home due to limited room/space. 12/19/2019-Case management is working on placement. (10) Urinary tract infection due to Klebsiella species Is this a current diagnosis for this admission?: Yes Plan: 12/17/2019-antibiotic therapy completed as noted above - Time Time Spent with patient: 15-24 minutes Medications reviewed and adjusted accordingly: Yes Anticipated Discharge Disposition: Homeless intermediate Anticipated Discharge Timeframe: when bed available
[2019-12-19] MEDS: DEXTROSE 50%-WATER 25 GM/50 ML DISP.SYRIN IV PRN (15:57)
[2019-12-19] MEDS: IPRATROPIUM/ALBUTEROL 0.5-2.5 MG/3 ML AMPUL NEB SCH (16:24)
[2019-12-19] MEDS: SPIRONOLACTONE 25 MG TABLET PO SCH (17:49)
[2019-12-19] MEDS: ACETAMINOPHEN SOLN 325 MG/10.15 ML UDCUP PO PRN (19:39)
[2019-12-19] MEDS ORDERED: WARFARIN SODIUM 2 MG TABLET PO ONE (22:00)
[2019-12-20] MEDS: IPRATROPIUM/ALBUTEROL 0.5-2.5 MG/3 ML AMPUL NEB SCH ×2 (00:25→08:32)
[2019-12-20] MEDS: ACETAMINOPHEN SOLN 325 MG/10.15 ML UDCUP PO PRN ×2 (03:17→09:30)
[2019-12-20 03:44] LABS: APPEARANCE,URINE CLEAR; BILIRUBIN,URINE NEGATIVE (NEGATIVE); COLOR,URINE AMBER; GLUCOSE, URINE NEGATIVE (NEGATIVE); KETONES,URINE NEGATIVE (NEGATIVE); LEUKOCYTE ESTERASE,URINE NEGATIVE (NEGATIVE); NITRITE,URINE NEGATIVE (NEGATIVE); PROTEIN,URINE 100 mg/dL (NEGATIVE)
[2019-12-20] MEDS: HYDRALAZINE HCL 10 MG TABLET PO SCH (05:37)
[2019-12-20] MEDS: PANTOPRAZOLE SODIUM 40 MG TABLET.DR PO SCH (05:37)
[2019-12-20 06:10] LABS: HEMATOCRIT 34.6 % (37.9-51.0); HEMOGLOBIN 11.9 g/dL (13.5-17.0); MEAN CORPUSCULAR HEMOGLOBIN 27.9 pg (27.0-33.4); MEAN CORPUSCULAR HGB CONC 34.4 g/dL (32.0-36.0); MEAN CORPUSCULAR VOLUME 81 fl (80-97); PLATELET COUNT 237 10^3/uL (150-450); RED BLOOD COUNT 4.26 10^6/uL (4.35-5.55); RED CELL DISTRIBUTION WIDTH 18.4 % (11.5-14.0); WHITE BLOOD COUNT 6.4 10^3/uL (4.0-10.5)
[2019-12-20 06:15] LABS: INTERNATIONAL RATION (INR) 4.48; PROTHROMBIN TIME 42.1 SEC (11.4-15.4)
[2019-12-20] MEDS: METOPROLOL SUCCINATE 25 MG TAB.SR.24H PO SCH (09:25)
[2019-12-20] MEDS: PANTOT AC/MIN OIL/PET HY-PHL OINT 50 GM TOP SCH (09:25)
[2019-12-20] MEDS: FUROSEMIDE 20 MG TABLET PO SCH (09:25)
[2019-12-20] MEDS: MAGNESIUM OXIDE 400 MG TABLET PO SCH (09:25)
[2019-12-20] MEDS: NICOTINE 14 MG/24 HR PATCH.TD24 TD SCH (09:25)
[2019-12-20] MEDS: LOSARTAN POTASSIUM 25 MG TABLET PO SCH (09:26)
[2019-12-20] MEDS: NORMAL SALINE 10 ML SDV (SCHEDULED) IV SCH (09:26)
[2019-12-20] MEDS: THIAMINE HCL 100 MG TABLET PO SCH (09:26)
[2019-12-20 09:50] LABS: ALKALINE PHOSPHATASE 186 U/L (38-126); ANION GAP 8 (5-19); ASPARTATE AMINO TRANSFERASE 41 U/L (17-59); BILIRUBIN,TOTAL 1.9 mg/dL (0.2-1.3); BLOOD UREA NITROGEN 12 mg/dL (7-20); CALCIUM 8.6 mg/dL (8.4-10.2); CARBON DIOXIDE 27 mmol/L (22-30); CHLORIDE 92 mmol/L (98-107); GLUCOSE 106 mg/dL (75-110); POTASSIUM 4.6 mmol/L (3.6-5.0); TOTAL PROTEIN 6.2 g/dL (6.3-8.2)
--- NOTE | 2019-12-20 10:57 | PDOC DISCHARGE SUMMARY ---
Impression - Admit/DC Date/PCP Admission Date/Primary Care Provider: 11/25/19 02:36 Discharge Date: 12/20/19 - Discharge Diagnosis (1) Acute massive pulmonary embolism Is this a current diagnosis for this admission?: Yes (2) Bacteremia Is this a current diagnosis for this admission?: Yes (3) Alcoholic cirrhosis of liver with ascites Is this a current diagnosis for this admission?: Yes (4) Hyponatremia Is this a current diagnosis for this admission?: Yes (5) Dilated cardiomyopathy secondary to alcohol Is this a current diagnosis for this admission?: Yes (6) Acute respiratory failure with hypoxia Is this a current diagnosis for this admission?: Yes (7) Paroxysmal atrial fibrillation Is this a current diagnosis for this admission?: Yes (8) Pulmonary nodule Is this a current diagnosis for this admission?: Yes (9) Homeless Is this a current diagnosis for this admission?: Yes (10) Urinary tract infection due to Klebsiella species Is this a current diagnosis for this admission?: Yes - Additional Information Resuscitation Status: Full Code Discharge Diet: Cardiac Discharge Activity: Activity As Tolerated, Balance Activity w/Rest, Weigh Daily Prescriptions: Hydralazine HCl [Apresoline 10 mg Tablet] 10 mg PO BID #60 tablet Spironolactone 50 mg PO QPM #30 tablet Warfarin Sodium 2 mg PO DAILY #30 tablet Home Medications: Furosemide [Lasix 20 mg Tablet] 20 mg PO DAILY #30 tablet 09/06/19 Lisinopril [Prinivil 10 mg Tablet] 10 mg PO DAILY #30 tablet 09/06/19 Furosemide [Lasix 20 mg Tablet] 20 mg PO DAILY #0 tablet 12/20/19 Hydralazine HCl [Apresoline 10 mg Tablet] 10 mg PO BID #60 tablet 12/20/19 Magnesium Oxide [Mag-Ox 400 mg Tablet] 800 mg PO BID tablet 12/20/19 Metoprolol Succinate [Toprol Xl 50 mg Tab.sr] 50 mg PO DAILY #60 tab.sr.24h 12/20/19 Nicotine [Nicoderm 14 mg/24 Hr Transdermal Patch] 1 each TD DAILY patch.td24 12/20/19 Pantot AC/Min Oil/Pet Hy-Phl [Aquaphor W-Vijaya Heal Oint 50 gm] 1 applic TOP BID tube 12/20/19 Spironolactone 50 mg PO QPM #30 tablet 12/20/19 Thiamine HCl [Thiamine 100 mg Tablet] 100 mg PO DAILY tablet 12/20/19 Warfarin Sodium 2 mg PO DAILY #30 tablet 12/20/19 Additional Information: Hold warfarin. Repeat INR blood test early next week. Primary care doctor to adjust warfarin dosing. Previously on metoprolol succinate 100 mg daily. Decrease dose to 50 mg daily. Multiple new medications to address both heart and liver disease. History of Present Illiness History of Present Illness: SHAHNAZ CASANOVA is a 64 year old -[place] male. With a past medical history of atrial flutter, alcohol induced dilated cardiomyopathy, CHF, hypertension, peripheral vascular disease and COPD. He presented to the ED with complaints of shortness of breath for 1 week, last evening his symptoms became more severe and EMS was called. Upon their arrival his O2 saturation was 87% on room air, he was placed on 4 L nasal cannula with improvement in his O2 saturations to 98%. Work-up in the ED consisted of a CTA of the chest which revealed defects within the main pulmonary artery concerning for developing saddle emboli. There is also filling defects within the segmental arteries consistent with pulmonary artery emboli. Of note he had a recent admission in September for a flutter RVR at which time he was not started on anticoagulation given the fact that he is homeless and has alcohol dependency issues. He was ordered beta-blockers for rate control and LV dysfunction. He states he has not been taking these as these were stolen. He also had an admission September 02, 2019 for pulseless right lower extremity a lower extremity ultrasound at that time showed occlusion of the distal anterior tibial artery in the right lower extremity and high-grade stenosis in the distal superficial femoral artery. He is admitted to the ICU for close observation. Heparin drip started. Hospital Course Hospital Course: (1) Acute massive pulmonary embolism Is this a current diagnosis for this admission?: Yes Plan: Saddle embolus extending into the right and left lower lobes. Noted hemodynamic instability with hypotension and bradycardic episodes. Status post TPA administered on 11/25/2019 After discussion with pharmacist and some literature review, we have deemed that the most adequate long-term anticoagulation option for patient will be warfarin given patient's cirrhosis and child's Trammell class C. Discontinued Eliquis and switched patient to warfarin with Lovenox bridge last night. Pharmacy to manage warfarin dosing. Monitor INR goal of 2-3 12/13/2019-patient is on Lovenox treatment dose, warfarin 3 mg p.o. nightly. INR today is 1.17 goal is to bring the INR to between 2-3. 12/14/19-INR today is 1.09. To continue Coumadin 5 mg p.o. nightly and continue Lovenox treatment dose. To repeat PT/INR tomorrow. Goal is between 2-3. 12/15/2019-INR today is 1.12. To continue Coumadin 5 mg p.o. nightly to recheck PT/INR tomorrow. Patient is also on treatment dose of Lovenox. 12/16/2019-patient is on Coumadin 5 mg p.o. nightly INR is 1.6 today. Plan is to repeat the PT/INR tomorrow. He is also on treatment dose of Lovenox at this time. 12/17/2019-INR is 2.35. We can discontinue the Lovenox. Will need a provider to follow INR and warfarin dosing as an outpatient. 12/18/2019-INR 3.06. Pharmacy is adjusting the warfarin. Maintaining normal oxygenation on room air. 12/19/2019-INR now 3.5. Pharmacy adjusting warfarin. Recheck INR tomorrow. 12/20/2019-INR greater than 4.0. We will hold warfarin for several days. Suggest checking INR on Monday with adjustments per his primary care provider. (2) Bacteremia Is this a current diagnosis for this admission?: Yes Plan: Initially blood cultures positive for MR Coag neg Staph and only 1 blood culture set-completed 7 days of linezolid though possibly could be contaminant. Repeat blood cultures on 11/30/2019 showing Klebsiella secondary to complicated UTI-completed treatment with cefepime and Bactrim. Currently resolved. 12/16/2019-patient is not on antibiotics at this time. Sepsis resolved. 12/17/2019-antibiotics as above. White blood cell count is now normal. (3) Alcoholic cirrhosis of liver with ascites Is this a current diagnosis for this admission?: Yes Plan: s/p >4L from paracentesis 12/08 Ascites fluid analysis and abdominal ultrasound are consistent with cirrhosis likely secondary to chronic alcoholism. Child's trammell class C. Given his very recent alcoholism and noncompliance, he will of course be a poor candidate for liver transplantation. Lasix and Aldactone added for ascites. 12/13/19-patient has history of alcohol abuse with liver cirrhosis. Presently on Lasix, Aldactone for ascites. 12/15/19-patient has history of alcoholic liver cirrhosis. Plan is to continue Lasix, Aldactone, for ascites. 12/17/2019-on spironolactone and furosemide. Monitor intake and output. 12/18/2019-abdomen is distended and firm. The patient already has had 1 paracentesis. May need to consider a second however he is on warfarin. At this point the patient appears to be tolerating the ascites. 12/19/2019-we will increase diuresis. We will check electrolytes. Consider increasing Aldactone. 12/20/2019-continue to monitor intake and output. May need repeat paracentesis in the future. (4) Hyponatremia Is this a current diagnosis for this admission?: Yes Plan: Urine osmolarity and urine sodium are low and suggest hyponatremia secondary to low caloric nutritional intake +/- chf/liver disease Encourage p.o. intake and continue lasix. 12/13/2019-patient serum sodium is 128.2. Chronic hyponatremia most likely secondary to liver failure. 12/14/2019-latest serum sodium is around 128. Chronic hyponatremia secondary to alcoholic liver disease and congestive heart failure. 12/15/19-serum sodium is 127.8. Stable. 12/16/2019-serum sodium is 127. Stable. Patient is asymptomatic. 12/17/2019-chronic due to his liver failure. Continue to monitor. May need to introduce fluid restriction. 12/18/2019-sodium is 126 today. This is going to be a chronic issue for this patient. Continue to monitor. No fluid restriction instituted as yet. 12/19/2019-recheck serum sodium tomorrow. 12/20/2019-it is most likely that an acceptable normal range for his serum sodium will be 125-130 based on his comorbidities. (5) Dilated cardiomyopathy secondary to alcohol Is this a current diagnosis for this admission?: Yes Plan: TTE showing biventricular failure with dilated cardiomyopathy, EF of 20 to 25% and grade 3 diastolic dysfunction of the LV. Lasix, aldactone, Toprol-XL and losartan 12/17/2019-continue current regimen. Consider reassessment by cardiology to try and maximize medications such as using Entresto instead of losartan. 12/18/2019-echocardiogram revealed ejection fraction 20 to 25%. At this point will optimize medication regimen. Losartan was increased. Continue Aldactone, beta-david and furosemide. 12/19/2019-continue current medication regimen. 12/20/2019-consider follow-up with cardiology. Will likely benefit most from pharmacologic management considering his comorbidities. (6) Acute respiratory failure with hypoxia Is this a current diagnosis for this admission?: Yes Plan: Was on room air this morning. Notably patient gets difficulty with adequate pulse oximetry using fingertips due to likely peripheral vascular disease. 12/14/2019-pulse ox today is 100% on 4 L. Plan is to continue the present management at this time. 12/16/2019-pulse ox today is 96% room air. Acute respiratory failure with hypoxia resolved. 12/19/2019-resolved. Continue to monitor via vital signs and pulse oximetry. 12/20/2019-back to room air (7) Paroxysmal atrial fibrillation Is this a current diagnosis for this admission?: Yes Plan: Sinus rhythm currently 12/18/2019-continue metoprolol. 12/19/2019-pulse rate still mostly above 90. Consider increasing metoprolol. 12/20/2019-we will defer to outpatient physician to continue adjusting medication (8) Pulmonary nodule Is this a current diagnosis for this admission?: Yes Plan: Noted on CAT scan. Follow-up imaging recommended in 3 months but given patient's homelessness and noncompliance, it is very unlikely he will follow-up. 12/18/2019-cardiac dysfunction and liver failure are the most prominent issues currently. Work-up of the pulmonary nodule is secondary at this point. 12/20/2019-defer to primary care (9) Homeless Is this a current diagnosis for this admission?: Yes Plan: Physical therapy. Patient will likely need long-term placement at SNF especially given presentation with massive and unlikely to comply with therapy very poor ability to care for self. Discharge planning working on this but encountering a lot of difficulty with placing patient. D/w his brother Cesar who is reluctant to take patient to his home due to limited room/space. 12/19/2019-Case management is working on placement. 12/20/2019-the patient has been accepted by the homeless correction. They will help arrange lodging and supportive care. (10) Urinary tract infection due to Klebsiella species Is this a current diagnosis for this admission?: Yes Plan: 12/17/2019-antibiotic therapy completed as noted above Physical Exam Vital Signs: Temp Pulse Resp BP Pulse Ox 97.1 F 96 17 121/93 H 95 12/20/19 07:41 12/20/19 08:32 12/20/19 08:32 12/20/19 07:41 12/20/19 08:32 Intake & Output 12/19/19 12/20/19 12/21/19 06:59 06:59 06:59 Intake Total 1046 1010 236 Output Total 1500 450 Balance -454 560 236 Weight 82.4 kg 82.1 kg General appearance: PRESENT: no acute distress, cooperative, well-developed Head exam: PRESENT: atraumatic, normocephalic Respiratory exam: PRESENT: clear to auscultation jefferson, symmetrical, unlabored. ABSENT: rales, rhonchi, tachypnea, wheezes Cardiovascular exam: PRESENT: RRR, +S1, +S2, systolic murmur - 2/6 GI/Abdominal exam: PRESENT: distended, firm, hypoactive bowel sounds. ABSENT: tenderness Rectal exam: PRESENT: deferred Gentrourinary exam: ABSENT: indwelling catheter Extremities exam: ABSENT: pedal edema Musculoskeletal exam: PRESENT: ambulatory Neurological exam: PRESENT: alert, awake, oriented to person, oriented to place, oriented to situation Psychiatric exam: PRESENT: flat affect. ABSENT: agitated, anxious Skin exam: PRESENT: other - Extremely dry skin. Keratin scaling no longer peeling on his feet. Results Laboratory Results: WBC 6.4 10^3/uL (4.0-10.5) 12/20/19 05:48 RBC 4.26 10^6/uL (4.35-5.55) L 12/20/19 05:48 Hgb 11.9 g/dL (13.5-17.0) L 12/20/19 05:48 Hct 34.6 % (37.9-51.0) L 12/20/19 05:48 MCV 81 fl (80-97) 12/20/19 05:48 MCH 27.9 pg (27.0-33.4) 12/20/19 05:48 MCHC 34.4 g/dL (32.0-36.0) 12/20/19 05:48 RDW 18.4 % (11.5-14.0) H 12/20/19 05:48 Plt Count 237 10^3/uL (150-450) 12/20/19 05:48 Lymph % (Auto) 19.8 % (13-45) 12/18/19 06:45 [place] % (Auto) 11.6 % (3-13) 12/18/19 06:45 Eos % (Auto) 1.3 % (0-6) 12/18/19 06:45 Baso % (Auto) 0.4 % (0-2) 12/18/19 06:45 Absolute Neuts (auto) 4.6 10^3/uL (1.7-8.2) 12/18/19 06:45 Absolute Lymphs (auto) 1.4 10^3/uL (0.5-4.7) 12/18/19 06:45 Absolute Monos (auto) 0.8 10^3/uL (0.1-1.4) 12/18/19 06:45 Absolute Eos (auto) 0.1 10^3/uL (0.0-0.6) 12/18/19 06:45 Absolute Basos (auto) 0.0 10^3/uL (0.0-0.2) 12/18/19 06:45 Total Counted 100 11/28/19 05:35 Seg Neutrophils % 66.9 % (42-78) 12/18/19 06:45 Seg Neuts % (Manual) 92 % (42-78) H 11/28/19 05:35 Lymphocytes % (Manual) 4 % (13-45) L 11/28/19 05:35 Monocytes % (Manual) 4 % (3-13) 11/28/19 05:35 Eosinophils % (Manual) 0 % (0-6) 11/28/19 05:35 Basophils % (Manual) 0 % (0-2) 11/28/19 05:35 Abs Neuts (Manual) 3.3 10^3/uL (1.7-8.2) 11/28/19 05:35 Abs Lymphs (Manual) 0.1 10^3/uL (0.5-4.7) L 11/28/19 05:35 Abs Monocytes (Manual) 0.1 10^3/uL (0.1-1.4) 11/28/19 05:35 Absolute Eos (Manual) 0.0 10^3/uL (0.0-0.6) 11/28/19 05:35 Abs Basophils (Manual) 0.0 10^3/uL (0.0-0.2) 11/28/19 05:35 Platelet Comment ADEQUATE 11/28/19 05:35 Poikilocytosis SLIGHT 11/28/19 05:35 Anisocytosis 2+ 11/28/19 05:35 Ovalocytes SLIGHT 11/28/19 05:35 PT 42.1 SEC (11.4-15.4) H 12/20/19 05:48 INR 4.48 12/20/19 05:48 APTT > 235.0 SEC (23.5-35.8) H* 12/08/19 21:27 Carbonic Acid 0.88 mmol/L (1.05-1.35) L 11/30/19 09:10 HCO3/H2CO3 Ratio 19:1 11/30/19 09:10 ABG pH 7.39 (7.35-7.45) 11/30/19 09:10 ABG pCO2 29.3 mmHg (35-45) L 11/30/19 09:10 ABG pO2 77.8 mmHg (80-100) L 11/30/19 09:10 ABG HCO3 17.1 mmol/L (20-24) L 11/30/19 09:10 ABG Total CO2 18.0 mmol/L (23-27) L 11/30/19 09:10 ABG O2 Saturation 95.5 % (94-98) 11/30/19 09:10 ABG Base Excess -6.3 mmol/L 11/30/19 09:10 VBG pH 7.31 (7.30-7.42) 11/24/19 22:02 VBG pCO2 36.3 mmHg (35-63) 11/24/19 22:02 VBG HCO3 17.7 mmol/L (20-32) L 11/24/19 22:02 VBG Base Excess -7.9 mmol/L 11/24/19 22:02 FiO2 3L 11/30/19 09:10 Sodium 126.5 mmol/L (137-145) L 12/20/19 08:55 Potassium 4.6 mmol/L (3.6-5.0) 12/20/19 08:55 Chloride 92 mmol/L (98-107) L 12/20/19 08:55 Carbon Dioxide 27 mmol/L (22-30) 12/20/19 08:55 Anion Gap 8 (5-19) 12/20/19 08:55 BUN 12 mg/dL (7-20) 12/20/19 08:55 Creatinine 0.60 mg/dL (0.52-1.25) 12/20/19 08:55 Est GFR ( Amer) > 60 (>60) 12/20/19 08:55 Est GFR (Non-Af Amer) Cancelled 12/11/19 06:15 Est GFR (MDRD) Non-Af > 60 (>60) 12/20/19 08:55 Glucose 106 mg/dL (75-110) 12/20/19 08:55 POC Glucose 80 mg/dL (70-110) 12/20/19 05:38 Serum Osmolality 271 mOsm/kg (275-301) L 11/30/19 13:22 Calcium 8.6 mg/dL (8.4-10.2) 12/20/19 08:55 Phosphorus 3.0 mg/dL (2.5-4.5) 12/09/19 07:20 Magnesium 1.6 mg/dL (1.6-2.3) 12/20/19 08:55 Total Bilirubin 1.9 mg/dL (0.2-1.3) H 12/20/19 08:55 Direct Bilirubin 1.0 mg/dL (0.0-0.4) H 12/20/19 08:55 Neonat Total Bilirubin Not Reportable 12/20/19 08:55 Neonat Direct Bilirubin Not Reportable 12/20/19 08:55 Neonat Indirect Bili Not Reportable 12/20/19 08:55 AST 41 U/L (17-59) 12/20/19 08:55 ALT 35 U/L (<50) 12/20/19 08:55 Alkaline Phosphatase 186 U/L (38-126) H 12/20/19 08:55 Ammonia 14.6 umol/L (9-33) 12/09/19 10:19 Troponin I 0.141 ng/mL 11/24/19 22:02 NT-Pro-B Natriuret Pep 93575 pg/mL (<125) H 11/24/19 22:02 Total Protein 6.2 g/dL (6.3-8.2) L 12/20/19 08:55 Albumin 3.0 g/dL (3.5-5.0) L 12/20/19 08:55 Triglycerides 62 mg/dL (<150) 11/26/19 03:55 Cholesterol 150.29 mg/dL (0-200) 11/26/19 03:55 LDL Cholesterol Direct 113 mg/dL (<100) H 11/26/19 03:55 VLDL Cholesterol 12.0 mg/dL (10-31) 11/26/19 03:55 HDL Cholesterol 18 mg/dL (>40) L 11/26/19 03:55 EGFR Cancelled 12/11/19 06:15 Folate 6.45 ng/mL (>2.76) 12/02/19 05:00 Cortisol PM Sample 21.00 ug/dL (1.7-14.1) H 11/28/19 17:07 Cortisol AM Sample 21.80 ug/dL (4.46-22.7) 12/19/19 06:30 Urine Color NAEEM 12/20/19 03:15 Urine Appearance CLEAR 12/20/19 03:15 Urine pH 7.0 (5.0-9.0) 12/20/19 03:15 Ur Specific [place] 1.020 12/20/19 03:15 Urine Protein 100 mg/dL (NEGATIVE) H 12/20/19 03:15 Urine Glucose (UA) NEGATIVE mg/dL (NEGATIVE) 12/20/19 03:15 Urine Ketones NEGATIVE mg/dL (NEGATIVE) 12/20/19 03:15 Urine Blood NEGATIVE (NEGATIVE) 12/20/19 03:15 Urine Nitrite NEGATIVE (NEGATIVE) 12/20/19 03:15 Urine Nitrite (Reflex) NEGATIVE (NEGATIVE) 12/18/19 15:15 Urine Bilirubin NEGATIVE (NEGATIVE) 12/20/19 03:15 Urine Urobilinogen 2.0 mg/dL (<2.0) H 12/20/19 03:15 Ur Leukocyte Esterase NEGATIVE (NEGATIVE) 12/20/19 03:15 Leukocyte Esterase Rfl NEGATIVE (NEGATIVE) 12/18/19 15:15 Urine WBC (Auto) 1 /HPF 12/20/19 03:15 Urine RBC (Auto) 1 /HPF 12/20/19 03:15 U Hyaline Cast (Auto) 2 /LPF 12/20/19 03:15 Urine Bacteria (Auto) Cancelled 12/15/19 00:00 Urine RBC NONE SEEN /HPF 11/25/19 09:45 Urine WBC 0-1 /HPF 11/25/19 09:45 Urine Red Cell Clumps Cancelled 12/15/19 00:00 Urine WBC (Reflex) 2 /HPF 12/18/19 15:15 Urine WBC Clumps Cancelled 12/15/19 00:00 Squamous Epi Cells Auto <1 /HPF 12/17/19 15:13 U Non-Squamous Epis Auto Cancelled 12/15/19 00:00 Calcium Carbonate Cryst Cancelled 12/15/19 00:00 Calcium Phosphate Cryst Cancelled 12/15/19 00:00 Calcium Oxalate Cr Auto Cancelled 12/15/19 00:00 Leucine Crystals Cancelled 12/15/19 00:00 Cystine Crystals Cancelled 12/15/19 00:00 Uric Acid Cryst (Auto) Cancelled 12/15/19 00:00 Triple Phos Cryst (Auto) Cancelled 12/15/19 00:00 Tyrosine Crystals Cancelled 12/15/19 00:00 Amorphous Sediment Auto Cancelled 12/15/19 00:00 Cellular Casts Cancelled 12/15/19 00:00 Hyaline Casts 1-5 /LPF 11/25/19 09:45 Epithelial Casts (Auto) Cancelled 12/15/19 00:00 Fatty Casts Cancelled 12/15/19 00:00 Granular Casts (Auto) Cancelled 12/15/19 00:00 Waxy Casts (Auto) Cancelled 12/15/19 00:00 Broad Casts Cancelled 12/15/19 00:00 RBC Casts (Auto) Cancelled 12/15/19 00:00 WBC Casts (Auto) Cancelled 12/15/19 00:00 Urine Mucus TRACE 11/25/19 09:45 Urine Mucus (Auto) RARE /LPF 12/20/19 03:15 U Trichomonas (Auto) Cancelled 12/15/19 00:00 Ur Yeast w Hyphae Cancelled 12/15/19 00:00 Urine Yeast (Budding) Cancelled 12/15/19 00:00 Urine Osmolality 243 mOsm/kg (300-900) L 11/30/19 18:15 Urine Sodium < 5 mmol/L (30-90) L 11/30/19 18:15 Urine Ascorbic Acid NEGATIVE (NEGATIVE) 12/20/19 03:15 Fluid Type PERITONEAL 12/09/19 13:15 Fluid Type PLEURAL 12/09/19 13:15 Fluid Source ASCITES 12/09/19 13:15 Fluid Source LUNG 12/09/19 13:15 Fluid Color YELLOW 12/09/19 13:15 Fluid Color YELLOW 12/09/19 13:15 Fluid Appearance CLEAR 12/09/19 13:15 Fluid Appearance CLEAR 12/09/19 13:15 Fluid Viscosity LIQUID 12/09/19 13:15 Fluid Viscosity LIQUID 12/09/19 13:15 Fluid pH 8.1 (Not Estab.) 12/09/19 13:15 Fluid WBC 162 /uL 12/09/19 13:15 Fluid WBC 328 /uL 12/09/19 13:15 Fluid RBC 43 /uL 12/09/19 13:15 Fluid RBC 63 /uL 12/09/19 13:15 Fluid Seg Neutrophils 52 % 12/09/19 13:15 Fluid Seg Neutrophils 88 % 12/09/19 13:15 Fluid Lymphocytes 11 % 12/09/19 13:15 Fluid Lymphocytes 24 % 12/09/19 13:15 Fluid Monocytes 1 % 12/09/19 13:15 Fluid Monocytes 24 % 12/09/19 13:15 Fluid Eosinophils 0 % 12/09/19 13:15 Fluid Eosinophils 0 % 12/09/19 13:15 Fluid Basophils 0 % 12/09/19 13:15 Fluid Basophils 0 % 12/09/19 13:15 Fluid Glucose 80 mg/dL (.) 12/09/19 13:15 Fluid Total Protein 1.2 g/dL (.) 12/09/19 13:15 Fluid Albumin 0.5 g/dL (Not Estab.) 12/09/19 13:35 Fluid LDH 83 IU/L (.) 12/09/19 13:35 Fluid Amylase Cancelled 12/09/19 13:15 Fluid Amylase 28 U/L (.) 12/09/19 13:15 Stl C. Difficile GDH Ag NEGATIVE (NEGATIVE) 11/30/19 23:30 Stl C.difficile Tox A&B NEGATIVE (NEGATIVE) 11/30/19 23:30 Urine Opiates Screen NEGATIVE 11/25/19 02:05 Urine Methadone Screen NEGATIVE 11/25/19 02:05 Ur Barbiturates Screen NEGATIVE 11/25/19 02:05 Ur Phencyclidine Scrn NEGATIVE 11/25/19 02:05 Ur Amphetamines Screen NEGATIVE 11/25/19 02:05 U Benzodiazepines Scrn NEGATIVE 11/25/19 02:05 Urine Cocaine Screen NEGATIVE 11/25/19 02:05 U Marijuana (THC) Screen UNCONFIRMED POSITIVE 11/25/19 02:05 Serum Alcohol < 10 mg/dL (NONE DETECTED) 11/24/19 22:02 COVID-19 Source See comment 12/03/19 16:24 COVID-19 (BRANDI) Not Detected (Not Detect) 12/03/19 16:24 Slides for Path Review SEE COMMENT 12/09/19 13:15 11/24/19 22:02 Troponin I 0.141 NT-Pro-B Natriuret Pep 08279 H Impressions: Chest X-Ray 11/24/19 20:34 IMPRESSION: No acute abnormality as above. copyright 2011 [employer]- All Rights Reserved Chest/Abdomen CTA 11/24/19 22:55 IMPRESSION: There are filling defects within the main pulmonary artery concerning for developing saddle emboli. There are also filling defects seen within the segmental arteries consistent with pulmonary artery emboli. There is a groundglass nodule at the right upper lobe measuring up to 12 mm which will need interval follow-up within three months. There are trace pleural effusions with some overlying airspace opacities which are favored to represent atelectasis, but may also represent some mild edema or infection. Modified Barium Swallow 11/29/19 00:00 IMPRESSION: DEEP LARYNGEAL PENETRATION WITH TRACE ASPIRATION SEEN WITH THIN BARIUM. . PLEASE SEE SPEECH PATHOLOGIST REPORT FOR OTHER FINDINGS AND RECOMMENDATIONS. KUB X-Ray 11/30/19 00:00 IMPRESSION: There are mildly dilated small bowel loops throughout the abdomen, measuring up to 3.3 cm. Possible developing ileus, or early obstruction cannot be excluded. KUB X-Ray 12/03/19 00:00 IMPRESSION: Nonobstructive bowel gas pattern. Chest X-Ray 12/06/19 00:00 IMPRESSION: Interval development of small to moderate bilateral pleural effusions with compressive atelectasis at the lung bases. PICC Line Insertion 12/09/19 00:00 IMPRESSION: SUCCESSFUL PLACEMENT OF A 5 FR DUAL LUMEN 50 CM PICC IN THE LEFT BRACHIOCEPHALIC VEIN. Paracentesis Ultrasound 12/09/19 08:00 IMPRESSION: Successful ultrasound-guided paracentesis Thoracentesis Ultrasound 12/09/19 09:47 IMPRESSION: SUCCESSFUL RIGHT-SIDED THORACENTESIS USING ULTRASOUND GUIDANCE. Chest X-Ray 12/09/19 13:27 IMPRESSION: No pneumothorax. Retrocardiac opacification, atelectasis versus pneumonia. Cardiomegaly without pulmonary edema. Chest X-Ray 12/09/19 15:25 IMPRESSION: No pneumothorax post thoracentesis. Abdomen Ultrasound 12/10/19 00:00 IMPRESSION: 1. Examination is limited due to the patient's clinical condition. 2. Nodular contour to the liver, raising question of cirrhosis of the liver. Liver vasculature is patent. 3. Suboptimal visualization of the abdominal aorta due to overlying bowel gas. 4. Small volume of ascites right upper quadrant of the abdomen. Chest X-Ray 12/18/19 00:00 IMPRESSION: New small right pleural effusion. Hyperinflated lungs which can be seen with obstructive lung disease. Plan Health Concerns: Multiple comorbidities with very advanced cardiac and liver disease. With limited resources compliance may be an issue. Plan of Treatment: Discharging to homeless correction. Will send prescriptions to the pharmacy of the patient's choice. He will need outpatient follow-up to monitor Coumadin, monitor cirrhosis as well as heart failure. Goals: Establish with providers for ongoing care for his multiple comorbidities. Time Spent: Greater than 30 Minutes Stroke Is this a Stroke Patient?: No Acute Heart Failure Is this a Heart Failure Patient?: Yes Documentation of LVEF assessment?: Yes LVEF: LVEF Less Than or Equal to 35% Anticoagulant Therapy: Yes Discharged on Evidence-Based Beta Blockers: Yes Discharged on ARNI?: No-Document Contraindications Reason(s) not discharged on ARNI: Other ARNI Reason - Other: Cost prohibitive. Discharged on angiotensin receptor david. Discharged on ARB?: Yes Discharged on ACEI?: N/A Discharged on ARB For LVEF <35%, discharged on Aldosterone Antagonist?: Yes Follow-up Appointment scheduled within 7 days?: No, document reason - Patient without insurance. Attempting to establish care with outpatient providers. No previous primary care provider. May require multiple specialists.
[2019-12-20 12:55] VITALS: BP 130/94
== END 2019-12-20 13:27 | disposition home or self-care (01) | DRG 175 ==
LOC: ER 19:08 → EH 11-25 02:36 → ICU 11-25 05:10 → 3W 11-30 06:40 → 4N 12-13 01:30
PROVIDERS: ADMIT Internal Medicine; ATTEND Hospitalist
PROC: 3E03317 Introduction of Other Thrombolytic into Peripheral Vein, Percutaneous Approach (ICD-10-PCS; principal; 2019-11-25)
PROC: B24BZZZ Ultrasonography of Heart with Aorta (ICD-10-PCS; 2019-11-26)
PROC: 0W993ZX Drainage of Right Pleural Cavity, Percutaneous Approach, Diagnostic (ICD-10-PCS; 2019-12-09)
PROC: 0W9G3ZX Drainage of Peritoneal Cavity, Percutaneous Approach, Diagnostic (ICD-10-PCS; 2019-12-09)
PROC: 02HV33Z Insertion of Infusion Device into Superior Vena Cava, Percutaneous Approach (ICD-10-PCS; 2019-12-09)
PROC: B548ZZA Ultrasonography of Superior Vena Cava, Guidance (ICD-10-PCS; 2019-12-09)
PROC: B518ZZA Fluoroscopy of Superior Vena Cava, Guidance (ICD-10-PCS; 2019-12-09)
PROC: 3E02340 Introduction of Influenza Vaccine into Muscle, Percutaneous Approach (ICD-10-PCS; 2019-12-20)
DX: I26.92 Saddle embolus of pulmonary artery without acute cor pulmonale (principal); J96.01 Acute respiratory failure with hypoxia; I42.6 Alcoholic cardiomyopathy; F10.27 Alcohol dependence with alcohol-induced persisting dementia; E87.1 Hypo-osmolality and hyponatremia; R78.81 Bacteremia; N39.0 Urinary tract infection, site not specified; J91.8 Pleural effusion in other conditions classified elsewhere; I50.22 Chronic systolic (congestive) heart failure; K70.31 Alcoholic cirrhosis of liver with ascites; I48.0 Paroxysmal atrial fibrillation; J44.9 Chronic obstructive pulmonary disease, unspecified; I73.9 Peripheral vascular disease, unspecified; E87.5 Hyperkalemia; D69.6 Thrombocytopenia, unspecified; E16.2 Hypoglycemia, unspecified; R13.14 Dysphagia, pharyngoesophageal phase; R91.1 Solitary pulmonary nodule; B96.1 Klebsiella pneumoniae [K. pneumoniae] as the cause of diseases classified elsewhere; Z20.828 Contact with and (suspected) exposure to other viral communicable diseases; T46.5X6A Underdosing of other antihypertensive drugs, initial encounter; I11.0 Hypertensive heart disease with heart failure; K70.30 Alcoholic cirrhosis of liver without ascites; Z59.0 Homelessness; I49.5 Sick sinus syndrome; B95.62 Methicillin resistant Staphylococcus aureus infection as the cause of diseases classified elsewhere; Z91.128 Patient's intentional underdosing of medication regimen for other reason; Z82.61 Family history of arthritis; Z82.5 Family history of asthma and other chronic lower respiratory diseases; Z82.49 Family history of ischemic heart disease and other diseases of the circulatory system; Z23 Encounter for immunization
CPT/HCPCS: 32555; 36415; 36573; 49083; 71045; 71275; 74018; 74230; 76705; 80048; 80053; 80061; 80076; 80307; 81001; 82042; 82140; 82150; 82533; 82746; 82803; 82945; 82947; 82962; 83615; 83735; 83880; 83930; 83935; 83986; 84100; 84157; 84300; 84484; 85025; 85027; 85610; 85730; 87040; 87070; 87075; 87077; 87086; 87088; 87150; 87186; 87205; 87324; 87449; 87635; 89050; 90471; 90686; 93005; 93010; 93306; 93976; 94640; 96361; 96372; 96374; 99291; 99292; C9803; G0008; J0360; J0692; J0696; J1250; J1265; J1610; J1642; J1644; J1650; J1885; J1940; J2020; J2060; J2997; J3360; J3475; J3490; J7030; J7040; J7042; J7060; J7120; P9047

== ENCOUNTER → 2019-12-24 | Outpatient (CLI) | payer MEDICAID ==
[2019-12-24 09:24] LABS: INTERNATIONAL RATION (INR) 2.69; PROTHROMBIN TIME 28.5 SEC (11.4-15.4)
[2019-12-24 09:44] LABS: ANION GAP 9 (5-19); BLOOD UREA NITROGEN 11 mg/dL (7-20); CALCIUM 8.7 mg/dL (8.4-10.2); CARBON DIOXIDE 25 mmol/L (22-30); CHLORIDE 101 mmol/L (98-107); GLUCOSE 69 mg/dL (75-110); POTASSIUM 4.7 mmol/L (3.6-5.0)
== END ==
LOC: OD 07:52
PROVIDERS: ATTEND Hospitalist
DX: I27.82 Chronic pulmonary embolism (principal); K74.60 Unspecified cirrhosis of liver; E87.1 Hypo-osmolality and hyponatremia
CPT/HCPCS: 36415; 80048; 85610